=== PATIENT | female | born 1985 | race Caucasian/White ===

== ENCOUNTER 2018-02-02 19:31 | Emergency (ER) | payer OTHER ==
[2018-02-02 19:36] VITALS: BP 113/68
--- NOTE | 2018-02-02 19:45 | ED Physician Documentation ---
PD HPI FEMALE - Stated complaint Stated Complaint: FEM - Chief complaint Chief Complaint: UTI - History obtained from History obtained from: Patient - History of Present Illness Timing - onset: Yesterday Timing - duration: Days (2) Timing - details: Gradual onset, Still present Associated symptoms: Vaginal bleeding (spotting), Dysuria, Urinary frequency. No: Abdominal pain, Vaginal pain, Vaginal discharge Contributing factors: IUD Similar symptoms before: Diagnosis (UTI) Review of Systems Constitutional: denies: Fever, Chills, Myalgias : reports: Dysuria, Frequency. denies: Discharge Skin: denies: Rash, Lesions Musculoskeletal: denies: Back pain PD PAST MEDICAL HISTORY - Past Medical History Past Medical History: Yes Cardiovascular: None Respiratory: None Endocrine/Autoimmune: None GI: Crohn's disease [employer]: None : None HEENT: None Psych: Depression, Anxiety Musculoskeletal: None Derm: None - Past Surgical History Past Surgical History: Yes General: Other HEENT: Rhinoplasty - Present Medications Home Medications: Ambulatory Orders Medication Instructions Recorded Confirmed Cetirizine [ZyrTEC] 10 mg PO DAILY 07/30/15 05/10/17 DULoxetine [Cymbalta] 30 mg PO DAILY 07/30/15 05/10/17 Prazosin [Minipress] 1 mg PO QPM 07/30/15 05/10/17 Fluticasone [Flonase] 1 sprays CHAR BID 05/10/17 05/10/17 Phenazopyridine [Pyridium] 100 mg PO TID PRN #15 tablet 02/02/18 Sulfamethox/Trimeth 800/160 1 each PO BID #14 tablet 02/02/18 [Bactrim Ds 800/160] Ustekinumab [Stelara] 45 mg SUBQ ONCE 02/02/18 02/02/18 - Allergies Allergies/Adverse Reactions: Allergies Allergy/AdvReac Type Severity Reaction Status Date / Time olopatadine [From Patanol] Allergy Edema Verified 02/02/18 19:36 sumatriptan Allergy Edema Verified 02/02/18 19:36 - Social History Does the pt smoke?: Yes Smoking Status: Current some day smoker Does the pt drink ETOH?: No Does the pt have substance abuse?: No - Immunizations Immunizations are current?: Yes - POLST Patient has POLST: No PD ED PE NORMAL - Vitals Vital signs reviewed: Yes - General General: Alert and oriented X 3, No acute distress, Well developed/nourished - Abdomen Abdomen: Soft, Non tender - Female Female : Deferred - Back Back: No CVA TTP Results - Vitals Vitals: Vital Signs - 24 hr 02/02/18 19:34 Temperature 36.3 C L Heart Rate 89 Respiratory 18 Rate Blood Pressure 113/68 O2 Saturation 100 Oxygen O2 Source Room air PD MEDICAL DECISION MAKING - ED course Complexity details: reviewed results (UA is c/w enough for UTI and c/w her symptoms. ), considered differential, d/w patient Departure - Departure Disposition: Home, Self Care Clinical Impression: Urinary tract infection Qualifiers: Urinary tract infection type: acute cystitis Hematuria presence: without hematuria Qualified Code(s): N30.00 - Acute cystitis without hematuria Condition: Stable Record reviewed to determine appropriate education?: Yes Instructions: ED UTI Cystitis Female Follow-Up: KAREEM FARLEY [Primary Care Provider] - Prescriptions: Phenazopyridine [Pyridium] 100 mg PO TID PRN #15 tablet PRN Reason: Pain Sulfamethox/Trimeth 800/160 [Bactrim Ds 800/160] 1 each PO BID #14 tablet Comments: Drink lots of fluids. Tylenol or ibuprofen if needed for pains. Phenazopyridine if needed for discomfort of urination. Your urine test does look like an infection so we will treated with Bactrim antibiotic twice daily for a week. Recheck if not improving over the next several days. Return if worsening symptoms, fever, vomiting, back pain. Discharge Date/Time: 02/02/18 20:19
[2018-02-02 19:51] LABS: BILIRUBIN,URINE NEGATIVE (NEGATIVE); GLUCOSE, URINE (UA) NEGATIVE (NEGATIVE); KETONES,URINE (UA) NEGATIVE (NEGATIVE); LEUKOCYTE ESTERASE, URINE SMALL (NEGATIVE); NITRITE,URINE NEGATIVE (NEGATIVE); OCCULT BLOOD,URINE LARGE (NEGATIVE); PROTEIN,URINE 100 mg/dL (NEGATIVE); UROBILINOGEN,URINE 0.2 (NORMAL) E.U./dL (NORMAL)
[2018-02-02 19:56] LABS: CLARITY,URINE HAZY (CLEAR); HCG UR QUAL NEGATIVE
[2018-02-02] MEDS ORDERED: NAPROXEN 250 MG TABLET PO STA (20:02)
[2018-02-02] MEDS ORDERED: SULFAMETH/TRIMETH DS 800/160 MG TABLET PO STA (20:02)
[2018-02-02] MEDS ORDERED: PHENAZOPYRIDINE 100 MG TABLET PO STA (20:02)
[2018-02-02 20:04] LABS: AMORPHOUS SEDIMENT,UR Moderate /LPF; BACTERIA,URINE Few /HPF (None Seen); SQUAMOUS EPITHELIAL CELL,UR FEW Squamous (<= Few)
--- NOTE | 2018-02-05 05:22 | ED Physician Documentation ---
ED Addendum - Addendum Addendum: 02/05/18 05:20 Chart accessed for culture review. Urine cultures positive for staphylococcus saprophyticus; bactrim not included in sensitivity testing. Recommend discontinue bactrim and start macrobid 100mg (1 tab PO BID x 5 days), as sensitivities indicate sensitivity to macrobid
== END 2018-02-02 20:19 | disposition home or self-care (01) ==
LOC: ED 19:31
DX: N30.00 Acute cystitis without hematuria (principal); B95.8 Unspecified staphylococcus as the cause of diseases classified elsewhere; F17.200 Nicotine dependence, unspecified, uncomplicated
CPT/HCPCS: 81001; 81025; 87077; 87086; 87181; 99283; A9270; 81003

== ENCOUNTER 2018-02-27 19:43 | Emergency (ER) | payer OTHER ==
[2018-02-27 20:18] LABS: BILIRUBIN,URINE NEGATIVE (NEGATIVE); GLUCOSE, URINE (UA) NEGATIVE (NEGATIVE); KETONES,URINE (UA) NEGATIVE (NEGATIVE); LEUKOCYTE ESTERASE, URINE NEGATIVE (NEGATIVE); NITRITE,URINE NEGATIVE (NEGATIVE); OCCULT BLOOD,URINE MODERATE (NEGATIVE); PH,URINE 6.5 PH (5.0-7.5); PROTEIN,URINE TRACE mg/dL (NEGATIVE); UROBILINOGEN,URINE 0.2 (NORMAL) E.U./dL (NORMAL)
[2018-02-27 20:19] LABS: CLARITY,URINE CLEAR (CLEAR); HCG UR QUAL NEGATIVE
[2018-02-27 20:27] LABS: BACTERIA,URINE None Seen /HPF (None Seen); SQUAMOUS EPITHELIAL CELL,UR FEW Squamous (<= Few)
[2018-02-27] MEDS ORDERED: cephALEXin 250 MG CAPSULE PO STA (20:36)
--- NOTE | 2018-02-27 20:39 | ED Physician Documentation ---
PD HPI FEMALE - Stated complaint Stated Complaint: FEMALE - Chief complaint Chief Complaint: UTI - History obtained from History obtained from: Patient - Additional information Additional information: 32-year-old female presents the emergency department with reports of dysuria which started yesterday. Patient reports increased frequency, suprapubic pain and dysuria. Similar to a recent episode where she had a urinary tract infection, the patient was placed on Macrobid and her symptoms had improved.The patient currently is denying fevers or chills. The patient denies new sexual partners or concern for STI. No vaginal discharge or change in odor. Symptoms are described as moderate. No other associated symptoms. No relieving factors. 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 : None HEENT: None Psych: Depression, Anxiety Musculoskeletal: None Derm: None - Past Surgical History Past Surgical History: Yes General: Other HEENT: Rhinoplasty - Present Medications Home Medications: Ambulatory Orders Medication Instructions Recorded Confirmed Cetirizine [ZyrTEC] 10 mg PO DAILY 07/30/15 05/10/17 DULoxetine [Cymbalta] 30 mg PO DAILY 07/30/15 05/10/17 Prazosin [Minipress] 1 mg PO QPM 07/30/15 05/10/17 Fluticasone [Flonase] 1 sprays CHAR BID 05/10/17 05/10/17 Phenazopyridine [Pyridium] 100 mg PO TID PRN #15 tablet 02/02/18 Sulfamethox/Trimeth 800/160 1 each PO BID #14 tablet 02/02/18 [Bactrim Ds 800/160] Ustekinumab [Stelara] 45 mg SUBQ ONCE 02/02/18 02/02/18 Cephalexin [Keflex] 500 mg PO BID #14 capsule 02/27/18 - Allergies Allergies/Adverse Reactions: Allergies Allergy/AdvReac Type Severity Reaction Status Date / Time olopatadine [From Patanol] Allergy Edema Verified 02/27/18 19:52 sumatriptan Allergy Edema Verified 02/27/18 19:52 - Social History Does the pt smoke?: Yes Smoking Status: Current every day smoker Does the pt drink ETOH?: No Does the pt have substance abuse?: No - Immunizations Immunizations are current?: Yes - POLST Patient has POLST: No PD ED PE NORMAL - General General: Alert and oriented X 3, No acute distress - HEENT HEENT: Atraumatic, PERRL, EOMI, Ears normal, Moist mucous membranes - Cardiac Cardiac: RRR, Strong equal pulses - Respiratory Respiratory: No respiratory distress - Abdomen Abdomen: Soft, Non tender, Non distended - Back Back: No CVA TTP - Derm Derm: Normal color - Extremities Extremities: No deformity - Neuro Neuro: Alert and oriented X 3, Normal speech - Psych Psych: Normal affect Results - Vitals Vitals: Vital Signs - 24 hr 02/27/18 19:47 Temperature 36.4 C L Heart Rate 96 Respiratory 16 Rate Blood Pressure 136/68 H O2 Saturation 99 Oxygen O2 Source Room air - Labs Labs: Laboratory Tests 02/27/18 20:08 Urine Color YELLOW Urine Clarity CLEAR Urine pH 6.5 Ur Specific [place] 1.025 Urine Protein TRACE Urine Glucose (UA) NEGATIVE Urine Ketones NEGATIVE Urine Occult Blood MODERATE H Urine Nitrite NEGATIVE Urine Bilirubin NEGATIVE Urine Urobilinogen 0.2 (NORMAL) Ur Leukocyte Esterase NEGATIVE Urine RBC 6-10 H Urine WBC 4-5 Ur Squamous Epith Cells FEW Squamous Urine Bacteria None Seen Ur Microscopic Review INDICATED Urine Culture Comments NOT INDICATED Urine HCG, Qual NEGATIVE PD MEDICAL DECISION MAKING - ED course ED course: The patient will be treated for acute cystitis, patient replaced on a course of oral Keflex. The patient currently appears appropriate for outpatient management. There is no clinical evidence of pyelonephritis or sepsis. The patient denies any concern for STI's. I discussed warning signs and recommended returning to the emergency department for any worsening or concerns. Departure - Departure Disposition: 01 Home, Self Care Clinical Impression: Cystitis Condition: Good Instructions: ED UTI Cystitis Female Follow-Up: KAREEM FARLEY [Primary Care Provider] - Within 1 week Prescriptions: Cephalexin [Keflex] 500 mg PO BID #14 capsule Comments: Please follow-up with primary care for further workup and management of your symptoms. If your symptoms are not improving you may need a referral to the urologist for further Investigation of your dysuria. Please return to the emergency department immediately for any worsening or any concerns.
[2018-02-27 20:52] VITALS: BP 120/58
== END 2018-02-27 20:52 | disposition home or self-care (01) ==
LOC: ED 19:43
DX: N30.90 Cystitis, unspecified without hematuria (principal); F17.200 Nicotine dependence, unspecified, uncomplicated
CPT/HCPCS: 81001; 81025; 87086; 87491; 87591; 99283; A9270; 81003

== ENCOUNTER 2019-05-27 19:24 | Emergency (ER) | payer OTHER ==
[2019-05-27 19:31] VITALS: BP 123/84
[2019-05-27] MEDS ORDERED: HYDROcod/ACETAM 5/325 MG TABLET PO STA (19:41)
[2019-05-27] MEDS ORDERED: methocarbamoL 500 MG TABLET PO STA (19:41)
--- NOTE | 2019-05-27 19:45 | ED Physician Documentation ---
History of Present Illness - Stated complaint Stated Complaint: NECK PX - Chief complaint Chief Complaint: Heent - History obtained from History obtained from: Patient - History of Present Illness Timing: How many days ago (2) Pain level max: 8 Pain level now: 8 - Additonal information Additional information: 33-year-old female presents to the emergency department left-sided neck pain. Started after she twisted her head too far while hugging someone. Worse with movement and better with rest. No numbness or tingling. Has been taking Motrin and Tylenol without relief. States it feels like a spasm. Patient is not , breast-feeding or trying to become . 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 : None HEENT: None Psych: Depression, Anxiety Musculoskeletal: None Derm: None - Past Surgical History Past Surgical History: Yes General: Other HEENT: Rhinoplasty - Present Medications Home Medications: Ambulatory Orders Medication Instructions Recorded Confirmed Cetirizine [ZyrTEC] 10 mg PO DAILY 07/30/15 05/10/17 DULoxetine [Cymbalta] 30 mg PO DAILY 07/30/15 05/10/17 Prazosin [Minipress] 1 mg PO QPM 07/30/15 05/10/17 Fluticasone [Flonase] 1 sprays CHAR BID 05/10/17 05/10/17 Phenazopyridine [Pyridium] 100 mg PO TID PRN #15 tablet 02/02/18 Sulfamethox/Trimeth 800/160 1 each PO BID #14 tablet 02/02/18 [Bactrim Ds 800/160] Ustekinumab [Stelara] 45 mg SUBQ ONCE 02/02/18 02/02/18 Cephalexin [Keflex] 500 mg PO BID #14 capsule 02/27/18 Hydrocodone/Acetaminophen 1 - 2 each PO Q6H PRN #14 tablet 05/27/19 [Hydrocodon-Acetaminophen 5-325] methocarbamoL [Robaxin] 500 mg PO Q6H PRN #14 tablet 05/27/19 - Allergies Allergies/Adverse Reactions: Allergies Allergy/AdvReac Type Severity Reaction Status Date / Time olopatadine [From Patanol] Allergy Edema Verified 05/27/19 19:26 sumatriptan Allergy Edema Verified 05/27/19 19:26 - Social History Does the pt smoke?: Yes Smoking Status: Current every day smoker Does the pt drink ETOH?: No Does the pt have substance abuse?: No - Immunizations Immunizations are current?: Yes - POLST Patient has POLST: No PD ED PE NORMAL - Vitals Vital signs reviewed: Yes - General General: Alert and oriented X 3, No acute distress - HEENT HEENT: PERRL, Moist mucous membranes - Neck Neck: Supple, no meningeal sign, No bony TTP (No midline tenderness. No step- off or deformity. There is paraspinal spasm left paracervical. Neurovascular intact), No bruit - Cardiac Cardiac: RRR - Respiratory Respiratory: No respiratory distress, Clear bilaterally - Derm Derm: Warm and dry - Neuro Neuro: Alert and oriented X 3, mold shifter 2-12 intact, No motor deficit, No sensory deficit, Normal speech Eye Opening: Spontaneous Motor: Obeys Commands Verbal: Oriented GCS Score: 15 - Psych Psych: Normal mood, Normal affect Results - Vitals Vitals: Vital Signs - 24 hr 05/27/19 19:27 Temperature 36.8 C Heart Rate 67 Respiratory 14 Rate Blood Pressure 123/84 H O2 Saturation 100 Oxygen O2 Source Room air PD MEDICAL DECISION MAKING - ED course Complexity details: reviewed results, re-evaluated patient, considered differential, d/w patient ED course: Patient with a left-sided neck spasm. Will place on muscle relaxants and pain medication for home. Continue gentle stretching at home as well. Patient counseled regarding signs and symptoms for which I believe and urgent re- evaluation would be necessary. Patient with good understanding of and agreement to plan and is comfortable going home at this time This document was made in part using voice recognition software. While efforts are made to proofread this document, sound alike and grammatical errors may occur. Departure - Departure Disposition: 01 Home, Self Care Clinical Impression: Neck muscle spasm Condition: Good Instructions: ED Spasm Neck No Injury Follow-Up: JASIEL GARCIAS MD [Primary Care Provider] - Within 1 week Prescriptions: Hydrocodone/Acetaminophen [Hydrocodon-Acetaminophen 5-325] 1 - 2 each PO Q6H PRN #14 tablet PRN Reason: pain methocarbamoL [Robaxin] 500 mg PO Q6H PRN #14 tablet PRN Reason: neck pain Comments: Return if you worsen. Follow-up with your doctor for further care. Continue gentle stretching at home. Do not drive or operate heavy machinery while taking the Robaxin or Vicodin. Do not drink alcohol or drive while on narcotic pain medicine. Note that many narcotic pain relievers also contain tylenol/acetaminophen. Please ensure that your total dose of acetaminophen from all sources does not exceed 3 grams (3000mg) per day. You may constipated on this medication, take a stool softener such as "Colace" twice a day while you are on it. Also recommend a ocsl-tnm-cdaverz laxative such as senna or MiraLAX any day that you do not have a bowel movement. If you received narcotic pain medication in the emergency department, do not drive or operate machinery for the next 24 hours.
== END 2019-05-27 19:50 | disposition home or self-care (01) ==
LOC: ED 19:24
DX: M62.838 Other muscle spasm (principal); F17.200 Nicotine dependence, unspecified, uncomplicated
CPT/HCPCS: 99282; 99284; A9270

== ENCOUNTER 2019-10-08 12:49 | Emergency (ER) | payer OTHER ==
[2019-10-08] MEDS ORDERED: oxyCODONE 5 MG TABLET PO STA (13:20)
[2019-10-08] MEDS ORDERED: ONDANSETRON ODT 4 MG TABLET TL STA (13:20)
--- NOTE | 2019-10-08 13:22 | ED Physician Documentation ---
PD HPI ABD PAIN - Stated complaint Stated Complaint: LT ABD PX, NAUSEA,FAINT - Chief complaint Chief Complaint: Abd Pain - History obtained from History obtained from: Patient - Additional information Additional information: 34-year-old woman with history of ovarian cysts presents with Chronic left pelvic pain which became worse over the last week and a half and really bad today. Associated with nausea and vomiting today. She also has a history of conservatively managed Crohn's disease. She has a Mirena IUD in place. No vaginal bleeding. Review of Systems Ten Systems: 10 systems reviewed and negative Constitutional: denies: Fever, Chills, Myalgias GI: reports: Abdominal Pain, Nausea, Vomiting, Constipation, Diarrhea. 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 HEENT: None Psych: Depression, Anxiety Musculoskeletal: None Derm: None - Past Surgical History Past Surgical History: Yes General: Other HEENT: Rhinoplasty - Present Medications Home Medications: Ambulatory Orders Medication Instructions Recorded Confirmed Cetirizine [ZyrTEC] 10 mg PO DAILY 07/30/15 05/10/17 DULoxetine [Cymbalta] 30 mg PO DAILY 07/30/15 05/10/17 Prazosin [Minipress] 1 mg PO QPM 07/30/15 05/10/17 Fluticasone [Flonase] 1 sprays CHAR BID 05/10/17 05/10/17 Phenazopyridine [Pyridium] 100 mg PO TID PRN #15 tablet 02/02/18 Sulfamethox/Trimeth 800/160 1 each PO BID #14 tablet 02/02/18 [Bactrim Ds 800/160] Ustekinumab [Stelara] 45 mg SUBQ ONCE 02/02/18 02/02/18 Cephalexin [Keflex] 500 mg PO BID #14 capsule 02/27/18 Hydrocodone/Acetaminophen 1 - 2 each PO Q6H PRN #14 tablet 05/27/19 [Hydrocodon-Acetaminophen 5-325] methocarbamoL [Robaxin] 500 mg PO Q6H PRN #14 tablet 05/27/19 Oxycodone HCl/Acetaminophen 1 - 2 each PO Q6H PRN #14 tablet 10/08/19 [Percocet 5-325 mg Tablet] - Allergies Allergies/Adverse Reactions: Allergies Allergy/AdvReac Type Severity Reaction Status Date / Time olopatadine [From Patanol] Allergy Edema Verified 10/08/19 13:00 sumatriptan Allergy Edema Verified 10/08/19 13:00 - Social History Does the pt smoke?: Yes Smoking Status: Current every day smoker Does the pt drink ETOH?: No Does the pt have substance abuse?: No - Family History Family history: reports: Non contributory - Immunizations Immunizations are current?: Yes - POLST Patient has POLST: No PD ED PE NORMAL - Vitals Vital signs reviewed: Yes - General General: Alert and oriented X 3, Other (Appears uncomfortable) - HEENT HEENT: PERRL, EOMI - Neck Neck: Supple, no meningeal sign, No bony TTP, No bruit - Cardiac Cardiac: RRR, No murmur - Respiratory Respiratory: No respiratory distress, Clear bilaterally - Abdomen Abdomen: Normal bowel sounds, Other (Mild left pelvic tenderness without surgical signs) - Back Back: No CVA TTP, No spinal TTP - Derm Derm: Normal color, Warm and dry - Extremities Extremities: No edema, No calf tenderness / cord - Neuro Neuro: Alert and oriented X 3, Normal speech Results - Vitals Vitals: Vital Signs - 24 hr 10/08/19 10/08/19 12:56 16:00 Temperature 36.4 C L Heart Rate 75 70 Respiratory 14 20 Rate Blood Pressure 111/62 121/70 O2 Saturation 100 100 Oxygen O2 Source Room air - Labs Labs: Laboratory Tests 10/08/19 13:25 Urine Color YELLOW Urine Clarity CLEAR Urine pH 8.0 H Ur Specific [place] 1.015 Urine Protein NEGATIVE Urine Glucose (UA) NEGATIVE Urine Ketones NEGATIVE Urine Occult Blood NEGATIVE Urine Nitrite NEGATIVE Urine Bilirubin NEGATIVE Urine Urobilinogen 0.2 (NORMAL) Ur Leukocyte Esterase NEGATIVE Ur Microscopic Review NOT INDICATED Urine Culture Comments NOT INDICATED Urine HCG, Qual NEGATIVE - Rads (name of study) Pelvic ultrasound Radiology: EMP read contemporaneously (Septated left ovarian cyst measuring 1.7 x 1.3 x 1.2 cm, small intrauterine mural fibroid. Appropriately positioned IUD.) PD MEDICAL DECISION MAKING - ED course ED course: 34-year-old woman has exacerbation of chronic pelvic pain, always on the left. No evidence of torsion on ultrasound and her pain was well controlled by oxycodone here. Departure - Departure Disposition: 01 Home, Self Care Clinical Impression: Ovarian cyst Qualifiers: Laterality: left Qualified Code(s): N83.202 - Unspecified ovarian cyst, left side Condition: Good Record reviewed to determine appropriate education?: Yes Instructions: ED Cyst Ovarian Follow-Up: [facility] [Provider Group] Prescriptions: Oxycodone HCl/Acetaminophen [Percocet 5-325 mg Tablet] 1 - 2 each PO Q6H PRN #14 tablet PRN Reason: pain Comments: As discussed I recommend follow-up with gynecology, at a minimum repeat ultrasound in 6 weeks. Return for new or worsening symptoms. Do not drink or drive while taking narcotic pain medication. Note that many narcotic pain relievers also contain Tylenol/acetaminophen. Please ensure that your total dose of acetaminophen from all sources does not exceed 3 g (3000 mg) per day. You may get constipated while on this medication. Take a stool softener such as Colace twice a day while you are on it. Also add an [id number] laxative such as senna or MiraLAX on any day that you do not have a bowel movement. If you received a narcotic pain medication or sedative while in the emergency department, do not drive for the next 24 hours.
[2019-10-08 13:41] LABS: BILIRUBIN,URINE NEGATIVE (NEGATIVE); GLUCOSE, URINE (UA) NEGATIVE (NEGATIVE); KETONES,URINE (UA) NEGATIVE (NEGATIVE); LEUKOCYTE ESTERASE, URINE NEGATIVE (NEGATIVE); NITRITE,URINE NEGATIVE (NEGATIVE); OCCULT BLOOD,URINE NEGATIVE (NEGATIVE); PROTEIN,URINE NEGATIVE (NEGATIVE); UROBILINOGEN,URINE 0.2 (NORMAL) E.U./dL (NORMAL)
[2019-10-08 13:45] LABS: CLARITY,URINE CLEAR (CLEAR); HCG UR QUAL NEGATIVE
[2019-10-08 16:02] VITALS: BP 121/70
--- NOTE | 2019-10-08 16:02 | Ultrasound Report ---
PROCEDURE: Pelvic w/Transvag+Doppler Comp INDICATIONS: pelvic pain, R TECHNIQUE: Real-time scanning was performed of the pelvic organs, with image documentation. Additional endovagi nal scanning was necessary due to incomplete visualization of the adnexal and endometrial structures by transabdominal scanning. COMPARISON: None. FINDINGS: Transabdominal scanning: Limited scanning through the kidneys shows no hydronephrosis. No pathologi c free abdominal or pelvic fluid. Endovaginal scanning: Uterus: Uterus is normal in size at 9.7 x 4.4 x 5.4 cm. The endometrium measures 0.5 cm in combin ed thickness. There is a small fundal intramural fibroid measuring up to 0.8 x 0.8 x 0.7 cm. An IUD i s demonstrated in appropriate position extending into the fundal endometrium. Ovaries: The right ovary measures 2.3 x 2.3 x 2.1 cm and the left ovary measures 3.6 x 2.6 x 3.2 cm. There is a slightly thick-walled cyst in the left ovary measuring up to 1.7 x 1.3 x 1.2 cm with thin internal septations suggestive of a hemorrhagic cyst. IMPRESSION: 1. Septated left ovarian cyst likely representing a hemorrhagic cyst. Recommend follow-up ultrasound in 6 weeks to demonstrate resolution if clinically indicated. 2. Small intramural fibroid measuring up to 0.8 cm. 3. IUD appears in appropriate position within the uterus. Reviewed by: Pk Flores MD on 10/08/2019 4:01 PM PDT Approved by: Pk Flores MD on 10/08/2019 4:01 PM PDT Station ID: [id number]
== END 2019-10-08 16:28 | disposition home or self-care (01) ==
LOC: ED 12:49
DX: N83.202 Unspecified ovarian cyst, left side (principal); D25.1 Intramural leiomyoma of uterus; R11.2 Nausea with vomiting, unspecified; R19.7 Diarrhea, unspecified; Z97.5 Presence of (intrauterine) contraceptive device; Z87.19 Personal history of other diseases of the digestive system; F17.200 Nicotine dependence, unspecified, uncomplicated
CPT/HCPCS: 76830; 76856; 81003; 81025; 93975; 99284; 99285; A9270; Q0162; 81001; 87086

== ENCOUNTER 2019-10-26 16:45 | Outpatient (CLI) | payer OTHER | END 2019-10-26 23:59 | disposition home or self-care (01) | LOC: LAB.S 16:45 | PROVIDERS: ATTEND Physician Assistant Medical | DX: N39.0 Urinary tract infection, site not specified (principal) | CPT/HCPCS: 87086; 87181 ==

== ENCOUNTER 2019-12-17 07:00 | Outpatient (CLI) | payer OTHER | END 2019-12-17 23:59 | disposition home or self-care (01) | LOC: LAB.R 07:00 | PROVIDERS: ATTEND Family Medicine | DX: R30.0 Dysuria (principal); N39.8 Other specified disorders of urinary system | CPT/HCPCS: 87077; 87086 ==

== ENCOUNTER 2019-12-18 19:33 | Emergency (ER) | payer OTHER ==
--- NOTE | 2019-12-18 19:50 | ED Physician Documentation ---
History of Present Illness - Stated complaint Stated Complaint: FEMALE - Chief complaint Chief Complaint: UTI - History obtained from History obtained from: Patient - Additonal information Additional information: Patient is a 34-year-old female presents with a chief complaint of dysuria and urinary frequency. Review of Systems Constitutional: reports: Reviewed and negative Eyes: reports: Reviewed and negative Ears: reports: Reviewed and negative Nose: reports: Reviewed and negative Throat: reports: Reviewed and negative Cardiac: reports: Reviewed and negative Respiratory: reports: Reviewed and negative GI: reports: Reviewed and negative : reports: Dysuria, Frequency Skin: reports: Reviewed and negative Musculoskeletal: reports: Reviewed and negative Neurologic: reports: Reviewed and negative Psychiatric: reports: Reviewed and negative Endocrine: reports: Reviewed and negative Immunocompromised: reports: Reviewed and negative PD PAST MEDICAL HISTORY - Past Medical History Past Medical History: Yes Cardiovascular: None Respiratory: None Endocrine/Autoimmune: None GI: Crohn's disease [employer]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 : None HEENT: None Psych: Depression, Anxiety Musculoskeletal: None Derm: None - Past Surgical History Past Surgical History: Yes General: Other HEENT: Rhinoplasty - Present Medications Home Medications: Ambulatory Orders Medication Instructions Recorded Confirmed Cetirizine [ZyrTEC] 10 mg PO DAILY 07/30/15 05/10/17 DULoxetine [Cymbalta] 30 mg PO DAILY 07/30/15 05/10/17 Prazosin [Minipress] 1 mg PO QPM 07/30/15 05/10/17 Fluticasone [Flonase] 1 sprays CHAR BID 05/10/17 05/10/17 Phenazopyridine [Pyridium] 100 mg PO TID PRN #15 tablet 02/02/18 Sulfamethox/Trimeth 800/160 1 each PO BID #14 tablet 02/02/18 [Bactrim Ds 800/160] Ustekinumab [Stelara] 45 mg SUBQ ONCE 02/02/18 02/02/18 Cephalexin [Keflex] 500 mg PO BID #14 capsule 02/27/18 Hydrocodone/Acetaminophen 1 - 2 each PO Q6H PRN #14 tablet 05/27/19 [Hydrocodon-Acetaminophen 5-325] methocarbamoL [Robaxin] 500 mg PO Q6H PRN #14 tablet 05/27/19 Oxycodone HCl/Acetaminophen 1 - 2 each PO Q6H PRN #14 tablet 10/08/19 [Percocet 5-325 mg Tablet] Nitrofurantoin [Macrobid] 100 mg PO BID 5 Days #10 capsule 12/18/19 Phenazopyridine [Pyridium] 100 mg PO TID PRN #3 tablet 12/18/19 - Allergies Allergies/Adverse Reactions: Allergies Allergy/AdvReac Type Severity Reaction Status Date / Time olopatadine [From Patanol] Allergy Edema Verified 12/18/19 19:42 sumatriptan Allergy Edema Verified 12/18/19 19:42 - Social History Does the pt smoke?: No Smoking Status: Never smoker Does the pt drink ETOH?: Yes Does the pt have substance abuse?: Yes Substance Use and Type: Marijuana - Immunizations Immunizations are current?: Yes - POLST Patient has POLST: No PD ED PE NORMAL - Vitals Vital signs reviewed: Yes - General General: Alert and oriented X 3, No acute distress, Well developed/nourished - HEENT HEENT: Atraumatic, PERRL - Neck Neck: Supple, no meningeal sign - Cardiac Cardiac: RRR, No murmur, Strong equal pulses - Respiratory Respiratory: Clear bilaterally - Abdomen Abdomen: Normal bowel sounds, Soft, Non tender, Non distended, No organomegaly - Back Back: No CVA TTP, No spinal TTP - Derm Derm: Normal color, Warm and dry, No rash - Extremities Extremities: No deformity, No tenderness to palpate, Normal ROM s pain, No edema, No calf tenderness / cord - Neuro Neuro: Alert and oriented X 3, fitness assistant 2-12 intact, No motor deficit, No sensory deficit, Normal speech - Psych Psych: Normal mood, Normal affect Results - Vitals Vitals: Vital Signs - 24 hr 12/18/19 19:40 Temperature 36.7 C Heart Rate 83 Respiratory 18 Rate Blood Pressure 110/60 O2 Saturation 100 Oxygen O2 Source Room air - Labs Labs: Laboratory Tests 12/18/19 19:45 Urine Color YELLOW Urine Clarity HAZY Urine pH 7.0 Ur Specific [place] 1.020 Urine Protein NEGATIVE Urine Glucose (UA) NEGATIVE Urine Ketones TRACE Urine Occult Blood SMALL H Urine Nitrite POSITIVE H Urine Bilirubin NEGATIVE Urine Urobilinogen 0.2 (NORMAL) Ur Leukocyte Esterase TRACE H Ur Microscopic Review INDICATED Urine Culture Comments Not Reportable PD MEDICAL DECISION MAKING - ED course Complexity details: reviewed results, re-evaluated patient, considered differential (acute cystitis), d/w patient Departure - Departure Disposition: 01 Home, Self Care Clinical Impression: Urinary tract infection Qualifiers: Urinary tract infection type: site unspecified Hematuria presence: without hematuria Qualified Code(s): N39.0 - Urinary tract infection, site not specified Condition: Stable Instructions: ED UTI Cystitis Female Follow-Up: Juan Jose Lopez MD [Primary Care Provider] - Prescriptions: Nitrofurantoin [Macrobid] 100 mg PO BID 5 Days #10 capsule Phenazopyridine [Pyridium] 100 mg PO TID PRN #3 tablet PRN Reason: Bladder Spasms Comments: Please follow-up with your primary care provider this week for recheck. Take antibiotics as directed. Return to emergency department with any concerns.
[2019-12-18 19:55] LABS: BILIRUBIN,URINE NEGATIVE (NEGATIVE); GLUCOSE, URINE (UA) NEGATIVE (NEGATIVE); KETONES,URINE (UA) TRACE mg/dL (NEGATIVE); LEUKOCYTE ESTERASE, URINE TRACE (NEGATIVE); NITRITE,URINE POSITIVE (NEGATIVE); OCCULT BLOOD,URINE SMALL (NEGATIVE); PROTEIN,URINE NEGATIVE (NEGATIVE); UROBILINOGEN,URINE 0.2 (NORMAL) E.U./dL (NORMAL)
[2019-12-18 19:58] LABS: CLARITY,URINE HAZY (CLEAR)
[2019-12-18] MEDS ORDERED: PHENAZOPYRIDINE 100 MG TABLET PO STA (20:04)
[2019-12-18] MEDS ORDERED: NITROFURANTOIN MACRO 100 MG CAPSULE PO STA (20:04)
[2019-12-18 20:06] LABS: BACTERIA,URINE Many /HPF (None Seen); HCG UR QUAL NEGATIVE; SQUAMOUS EPITHELIAL CELL,UR FEW Squamous (<= Few)
[2019-12-18 20:33] VITALS: BP 112/81
== END 2019-12-18 20:33 | disposition home or self-care (01) ==
LOC: ED 19:33
DX: N39.0 Urinary tract infection, site not specified (principal)
CPT/HCPCS: 81001; 81025; 87086; 99283; A9270; 81003

== ENCOUNTER 2020-01-20 08:00 | Outpatient (CLI) | payer OTHER | END 2020-01-20 23:59 | disposition home or self-care (01) | LOC: LAB.R 08:00 | PROVIDERS: ATTEND Obstetrics & Gynecology | DX: N30.90 Cystitis, unspecified without hematuria (principal) | CPT/HCPCS: 87086 ==

== ENCOUNTER 2020-02-23 14:59 | Outpatient (CLI) | payer OTHER ==
--- NOTE | 2020-02-23 17:43 | Ultrasound Report ---
PROCEDURE: Pelvic w/Transvaginal INDICATIONS: LT OVARIAN CYST, DYSPAREUNIA TECHNIQUE: Real-time scanning was performed of the pelvic organs, with image documentation. Additional endovagi nal scanning was necessary due to incomplete visualization of the adnexal and endometrial structures by transabdominal scanning. COMPARISON: Pelvic ultrasound 10/08/2019. FINDINGS: Transabdominal scanning: Limited scanning through the kidneys shows no hydronephrosis. No pathologi c free abdominal or pelvic fluid. Endovaginal scanning: Uterus: Uterus is normal in size at 9.0 x 3.9 x 4.9 cm. The endometrium measures 3 mm in combined t hickness. There is a fundal focus of heterogeneous echogenicity measuring 8 x 8 x 7 mm, stable uday red to prior exam. Intrauterine device is present in appropriate position. Ovaries: Right ovary measures 3.0 x 2.1 x 3.2 cm, 10.4 cc. Left ovary measures 2.4 x 1.9 x 1.8 cm, v olume 4.2 cc. Follicles are noted bilaterally. There is a subcentimeter focus of increased echogenici ty within the right ovary, too small to definitively characterize. This could represent a small calci fication. IMPRESSION: Bilateral follicles. Previous left ovarian cyst is no longer visualized. Reviewed by: Destini Salas MD on 02/23/2020 5:41 PM PST Approved by: Destini Salas MD on 02/23/2020 5:41 PM PST Station ID: [id number]
== END 2020-02-23 15:00 | disposition home or self-care (01) ==
LOC: DI 14:59
PROVIDERS: ATTEND Obstetrics & Gynecology
DX: N83.292 Other ovarian cyst, left side (principal); N94.12 Deep dyspareunia
CPT/HCPCS: 76830; 76856

== ENCOUNTER 2020-04-14 08:00 | Outpatient (CLI) | payer OTHER ==
[2020-04-14 18:05] LABS: BASOPHILS % (AUTO) 0.4 %; EOSINOPHILS # (AUTO) 0.2 10^3/uL (0.0-0.7); HGB - HEMOGLOBIN 13.4 g/dL (12.0-16.0); LYMPHOCYTES % (AUTO) 22.1 %; MEAN CORPUSCULAR HEMOGLOBIN 30.3 pg (27.0-31.0); MEAN CORPUSCULAR HGB CONC 32.3 g/dL (32.0-36.0); MEAN CORPUSCULAR VOLUME 93.9 fL (81.0-99.0); MEAN PLATELET VOLUME 9.8 fL (7.9-10.8); MONOCYTES # (AUTO) 0.4 10^3/uL (0.0-1.0); MONOCYTES % (AUTO) 7.9 %; NEUTROPHILS % (AUTO) 64.4 %; PLT - PLATELET COUNT 235 10^3/uL (130-450); RED BLOOD COUNT 4.42 10^6/uL (4.20-5.40); WHITE BLOOD COUNT 4.6 x10^3/uL (4.8-10.8)
[2020-04-14 18:38] LABS: ALBUMIN 3.8 g/dL (3.2-5.5); ALBUMIN/GLOBULIN RATIO 1.2 (1.0-2.2); ALKALINE PHOSPHATASE 34 IU/L (42-121); ALT ALANINE AMINOTRANSFERASE 18 IU/L (10-60); AST ASPARTATE AMINOTRANSFERASE 19 IU/L (10-42); BILIRUBIN,TOTAL 0.6 mg/dL (0.2-1.0); BUN - BLOOD UREA NITROGEN 19 mg/dL (6-20); CALCIUM 8.8 mg/dL (8.5-10.3); CARBON DIOXIDE - CO2 27 mmol/L (21-32); CHLORIDE 103 mmol/L (101-111); CREATININE 0.6 mg/dL (0.4-1.0); GLUCOSE 103 mg/dL (70-100); SODIUM 137 mmol/L (135-145); URIC ACID 3.9 mg/dL (2.6-7.2)
[2020-04-14 18:51] LABS: CRP - C-REACTIVE PROTEIN < 1.0 mg/dL (0-1.0)
[2020-04-14 18:52] LABS: FREE T3 2.82 pg/mL (2.5-3.9)
[2020-04-14 18:53] LABS: THYROID STIMULATING HORMONE 1.76 uIU/mL (0.34-5.60)
[2020-04-14 18:56] LABS: FREE T4 (FREE THYROXINE) 0.74 ng/dL (0.58-1.64)
[2020-04-17 11:22] LABS: ANA SCREEN NEGATIVE (NEGATIVE)
== END 2020-04-14 23:59 | disposition home or self-care (01) ==
LOC: LAB.WCP 08:00
PROVIDERS: ATTEND Family Medicine
DX: F32.9 Major depressive disorder, single episode, unspecified (principal); G35 Multiple sclerosis; K50.90 Crohn's disease, unspecified, without complications; F41.9 Anxiety disorder, unspecified
CPT/HCPCS: 36415; 80050; 84439; 84481; 84550; 85651; 86038; 86140

== ENCOUNTER 2021-06-24 08:00 | Outpatient (CLI) | payer OTHER ==
[2021-06-24 23:18] LABS: BACTERIAL VAGINOSIS DNA POSITIVE (NEGATIVE); CANDIDA GLABRATA DNA NEGATIVE (NEGATIVE); CANDIDA GROUP DNA POSITIVE (NEGATIVE); CANDIDA KRUSEI DNA NEGATIVE (NEGATIVE); TRICHOMONAS VAGINALIS DNA NEGATIVE (NEGATIVE)
[2021-06-24 23:59] LABS: CHLAMYDIA TRACHOMATIS DNA NEGATIVE (NEGATIVE); NEISSERIA GONORRHOEAE DNA NEGATIVE (NEGATIVE); TRICHOMONAS VAGINALIS DNA NEGATIVE (NEGATIVE)
== END 2021-06-24 23:59 | disposition home or self-care (01) ==
LOC: LAB.N 08:00
PROVIDERS: ATTEND Family Medicine
DX: N76.0 Acute vaginitis (principal)
CPT/HCPCS: 81599; 86695; 86696; 87255; 87491; 87529; 87591; 87661; 87801

== ENCOUNTER 2021-10-25 08:00 | Outpatient (CLI) | payer OTHER ==
[2021-10-25 23:10] LABS: CHLAMYDIA TRACHOMATIS DNA NEGATIVE (NEGATIVE); NEISSERIA GONORRHOEAE DNA NEGATIVE (NEGATIVE); TRICHOMONAS VAGINALIS DNA NEGATIVE (NEGATIVE)
[2021-10-26 06:09] LABS: RPR Non Reactive (Non Reactive)
[2021-10-26 07:09] LABS: HCV AB <0.1 s/co ratio (0.0-0.9)
[2021-10-27 03:09] LABS: HIV SCREEN 4TH GENERATION Non Reactive (Non Reactive)
== END 2021-10-25 23:59 | disposition home or self-care (01) ==
LOC: LAB.N 08:00
PROVIDERS: ATTEND Nurse Practitioner
DX: Z11.3 Encounter for screening for infections with a predominantly sexual mode of transmission (principal)
CPT/HCPCS: 86592; 86803; 87389; 87491; 87591; 87661

== ENCOUNTER 2021-12-23 18:07 | Emergency (ER) | payer OTHER ==
--- OUTSIDE RECORDS SUMMARY | 2021-12-23 18:13 | EXTERNAL MEDICAL SUMMARY RPT | Continuity of Care Document ---
:1985 Author Organization [place] Address [address] [place] [address] Phone Allergies and Intolerances date description facility type (no date) [facility] (unknown) (no date) [facility] (unknown) Encounters No information. Functional Status No information. Immunizations No information. Medications date description facility [id number] Baclofen 20 MG Oral Tablet [facility] +0000 Prazosin 1 MG Oral Capsule [facility] [id number]+0000 quetiapine 50 MG Oral Tablet [facility] ospital Problems No information. Procedures date description facility +0000 [facility] [id number]+0000 [facility] Results/Labs test date author facility value unit interpret ation Result panel 1 (unknown) (no (unknown) (unknown) (no value) (units (unk nown) date) unknown) (unknown) (no (unknown) (unknown) (no value) (units (unk nown) date) unknown) (unknown) (no (unknown) (unknown) Date of Service: (units (unknown) date) 10/10/21 unknown) (unknown) (no (unknown) (unknown) (no value) (units (unk nown) date) unknown) (unknown) (no (unknown) (unknown) 0.5 mg PO (units (unkn own) date) BEDTIME PRN unknown) (Reason: sleep) Qty: 10 0RF (unknown) (no (unknown) (unknown) 1 mg PO SEE (units (un known) date) INSTRUCTIONS Qty: unknown) 60 2RF (unknown) (no (unknown) (unknown) 10 mg PO QDAY (units ( unknown) date) Qty: 0 unknown) (unknown) (no (unknown) (unknown) 150 mg PO DAILY (units (unknown) date) unknown) (unknown) (no (unknown) (unknown) 17 g PO DAILY (units ( unknown) date) unknown) (unknown) (no (unknown) (unknown) 3 mg PO DAILY (units ( unknown) date) unknown) (unknown) (no (unknown) (unknown) 30 mg PO QDAY (units ( unknown) date) Qty: 30 2RF unknown) (unknown) (no (unknown) (unknown) 50 mg PO DAILY (units (unknown) date) unknown) (unknown) (no (unknown) (unknown) 50 mg PO Q6H PRN (units (unknown) date) (Reason: pain) unknown) Qty: 10 0RF (unknown) (no (unknown) (unknown) 50,000 unit PO (units (unknown) date) QWEEK unknown) (unknown) (no (unknown) (unknown) 90 mg (units (unkno wn) date) subcutaneously unknown) every 8 weeks (unknown) (no (unknown) (unknown) Allergies (units (unkn own) date) unknown) (unknown) (no (unknown) (unknown) ED Orders (units (unkn own) date) unknown) (unknown) (no (unknown) (unknown) EYES (units (unkno wn) date) unknown) (unknown) (no (unknown) (unknown) Emergency Report (units (unknown) date) unknown) (unknown) (no (unknown) (unknown) Home Medications (units (unknown) date) unknown) (unknown) (no (unknown) (unknown) IN FACE (units (unkno wn) date) unknown) (unknown) (no (unknown) (unknown) [facility] (units (unknown) date) [address]) [place] [address] (unknown) (no (unknown) (unknown) Label Comments: (units (unknown) date) unknown) (unknown) (no (unknown) (unknown) Point of Care (units ( unknown) date) Testing unknown) (unknown) (no (unknown) (unknown) Previous Rx's (units ( unknown) date) unknown) (unknown) (no (unknown) (unknown) RIGIDITY (units (unkno wn) date) unknown) (unknown) (no (unknown) (unknown) Rx Instructions: (units (unknown) date) unknown) (unknown) (no (unknown) (unknown) SWOLLEN (units (unkno wn) date) unknown) (unknown) (no (unknown) (unknown) See Rx (units (unkno wn) date) Instructions unknown) .ROUTE .COMPLEX (unknown) (no (unknown) (unknown) Taking 2mg (units (unk nown) date) unknown) (unknown) (no (unknown) (unknown) Urine Dip (units (unkn own) date) unknown) (unknown) (no (unknown) (unknown) Vital Signs - 8 (units (unknown) date) hr unknown) (unknown) (no (unknown) (unknown) take with (units (unkn own) date) tylenol unknown) (unknown) (no (unknown) (unknown) (no value) (units (unk nown) date) unknown) (unknown) (no (unknown) (unknown) azathioprine 50 (units (unknown) date) mg tablet unknown) (unknown) (no (unknown) (unknown) budesonide 3 mg (units (unknown) date) Capsule,Delayed,E unknown) xtend.Release (unknown) (no (unknown) (unknown) cetirizine 10 MG (units (unknown) date) tablet,chewable unknown) (unknown) (no (unknown) (unknown) duloxetine (units (unk nown) date) [Cymbalta] 30 MG unknown) capsule,delayed release(DR/EC) (unknown) (no (unknown) (unknown) ergocalciferol (units (unknown) date) (vitamin D2) unknown) 50,000 unit Capsule (unknown) (no (unknown) (unknown) lorazepam 0.5 mg (units (unknown) date) tablet unknown) (unknown) (no (unknown) (unknown) polyethylene (units (u nknown) date) glycol 3350 17 unknown) gram/dose powder (unknown) (no (unknown) (unknown) prazosin 1 MG (units ( unknown) date) capsule unknown) (unknown) (no (unknown) (unknown) ranitidine HCl (units (unknown) date) 150 mg tablet unknown) (unknown) (no (unknown) (unknown) tramadol 50 mg (units (unknown) date) tablet unknown) (unknown) (no (unknown) (unknown) ustekinumab (units (un known) date) [Stelara] 90 unknown) mg/mL syringe (unknown) (no (unknown) (unknown) 10/10/21 (units (unkno wn) date) unknown) (unknown) (no (unknown) (unknown) Medication (units (unk nown) date) Instructions unknown) Recorded (unknown) (no (unknown) (unknown) Medication (units (unk nown) date) Instructions unknown) Recorded Confirmed (unknown) (no (unknown) (unknown) tabs (units (unkno wn) date) unknown) (unknown) (no (unknown) (unknown) [id number] (units (unkn own) date) unknown) (unknown) (no (unknown) (unknown) 08/25/17 (units (unkno wn) date) unknown) (unknown) (no (unknown) (unknown) 10/10/21 12:28 (units (unknown) date) unknown) (unknown) (no (unknown) (unknown) 12:20 (units (unkno wn) date) unknown) (unknown) (no (unknown) (unknown) Age/Sex: 36 / F (units (unknown) date) unknown) (unknown) (no (unknown) (unknown) Allergy/AdvReac (units (unknown) date) Type Severity unknown) Reaction Status Date / Time (unknown) (no (unknown) (unknown) Bedside Urine (units ( unknown) date) Bilirubin unknown) - Negative (unknown) (no (unknown) (unknown) Bedside Urine (units ( unknown) date) Glucose unknown) Negative (unknown) (no (unknown) (unknown) Bedside Urine (units ( unknown) date) Ketone - unknown) Negative (unknown) (no (unknown) (unknown) Bedside Urine (units ( unknown) date) Leukocytes unknown) - Negative (unknown) (no (unknown) (unknown) Bedside Urine (units ( unknown) date) Nitrite - unknown) Negative (unknown) (no (unknown) (unknown) Bedside Urine (units ( unknown) date) Occult Blood unknown) +/- (unknown) (no (unknown) (unknown) Bedside Urine (units ( unknown) date) Protein +/- 15 unknown) (unknown) (no (unknown) (unknown) Bedside Urine (units ( unknown) date) Urobilinogen unknown) - Negative (unknown) (no (unknown) (unknown) Bedside Urine pH (units (unknown) date) 6.0 unknown) (unknown) (no (unknown) (unknown) Blood Pressure (units (unknown) date) 132/84 10/10/21 unknown) 12:20 (unknown) (no (unknown) (unknown) Blood Pressure (units (unknown) date) 132/84 unknown) (unknown) (no (unknown) (unknown) Chief Complaint: (units (unknown) date) Psychiatric unknown) Symptoms (unknown) (no (unknown) (unknown) 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 - (units (unknown) date) Bar Examiner unknown) Stat (unknown) (no (unknown) (unknown) Course (units (unkno wn) date) unknown) (unknown) (no (unknown) (unknown) Crohn disease (units ( unknown) date) unknown) (unknown) (no (unknown) (unknown) : 1985 (units (unknown) date) Acct:[id number] unknown) (unknown) (no (unknown) (unknown) Juan Jose Lopez, (units (unknown) date) MD [Primary Care unknown) Provider] - (unknown) (no (unknown) (unknown) Departure (units (unkn own) date) unknown) (unknown) (no (unknown) (unknown) Discharge Plan (units (unknown) date) unknown) (unknown) (no (unknown) (unknown) ER Physician: (units ( unknown) date) Lupis Moreira unknown) (unknown) (no (unknown) (unknown) Esterase (units (unkno wn) date) unknown) (unknown) (no (unknown) (unknown) Exam (units (unkno wn) date) unknown) (unknown) (no (unknown) (unknown) General (units (unkno wn) date) unknown) (unknown) (no (unknown) (unknown) HPI - Psych (units (un known) date) unknown) (unknown) (no (unknown) (unknown) Initial Vital (units ( unknown) date) Signs unknown) (unknown) (no (unknown) (unknown) Initial Vital (units ( unknown) date) Signs: unknown) (unknown) (no (unknown) (unknown) Lab Data (units (unkno wn) date) unknown) (unknown) (no (unknown) (unknown) Labs: (units (unkno wn) date) unknown) (unknown) (no (unknown) (unknown) MDM - Psych (units (un known) date) unknown) (unknown) (no (unknown) (unknown) Medical History (units (unknown) date) (Reviewed unknown) 11/16/20 @ 03:11 by Seth Park DO) (unknown) (no (unknown) (unknown) No Action (units (unkn own) date) unknown) (unknown) (no (unknown) (unknown) No significant (units (unknown) date) past surgical unknown) history (unknown) (no (unknown) (unknown) Ordered: (units (unkno wn) date) unknown) (unknown) (no (unknown) (unknown) Orders (units (unkno wn) date) unknown) (unknown) (no (unknown) (unknown) Oxygen Delivery (units (unknown) date) Method unknown) 10/10/21 12:20 (unknown) (no (unknown) (unknown) Oxygen Delivery (units (unknown) date) Method Room Air unknown) (unknown) (no (unknown) (unknown) Patient History (units (unknown) date) unknown) (unknown) (no (unknown) (unknown) Patient: (units (unkno wn) date) ScarRhonda Bob unknown) MR#: M (unknown) (no (unknown) (unknown) Test (units (unknown) date) Results unknown) Negative (unknown) (no (unknown) (unknown) Prescriptions: (units (unknown) date) unknown) (unknown) (no (unknown) (unknown) Pulse Oximetry (units (unknown) date) 100 10/10/21 unknown) 12:20 (unknown) (no (unknown) (unknown) Pulse Oximetry (units (unknown) date) 100 unknown) (unknown) (no (unknown) (unknown) Pulse Rate 86 (units (unknown) date) 10/10/21 12:20 unknown) (unknown) (no (unknown) (unknown) Pulse Rate 86 (units ( unknown) date) unknown) (unknown) (no (unknown) (unknown) Referrals: (units (unk nown) date) unknown) (unknown) (no (unknown) (unknown) Related Data (units (u nknown) date) unknown) (unknown) (no (unknown) (unknown) Respiratory Rate (units (unknown) date) 16 10/10/21 unknown) 12:20 (unknown) (no (unknown) (unknown) Respiratory Rate (units (unknown) date) 16 unknown) (unknown) (no (unknown) (unknown) Signed By: (units (unk nown) date) unknown) (unknown) (no (unknown) (unknown) Smoking Status: (units (unknown) date) Former smoker unknown) (unknown) (no (unknown) (unknown) Smoking Status: (units (unknown) date) Former smoker unknown) (unknown) (no (unknown) (unknown) Social History (units (unknown) date) (Reviewed unknown) 11/16/20 @ 03:11 by Seth Park DO) (unknown) (no (unknown) (unknown) Stated (units (unkno wn) date) Complaint: Really unknown) Sick/Not Sleeping/SI (unknown) (no (unknown) (unknown) Substance Use (units ( unknown) date) Type: marijuana unknown) (unknown) (no (unknown) (unknown) Surgical History (units (unknown) date) (Reviewed unknown) 06/29/20 @ 19:47 by Nain Betancourt DO) (unknown) (no (unknown) (unknown) Temperature (units (un known) date) 98.8 F 10/10/21 unknown) 12:20 (unknown) (no (unknown) (unknown) Temperature 98.8 (units (unknown) date) F unknown) (unknown) (no (unknown) (unknown) Time Seen by (units (u nknown) date) Provider: unknown) 10/10/21 12:53 (unknown) (no (unknown) (unknown) Urine Specific (units (unknown) date) Logan 1.020 unknown) (unknown) (no (unknown) (unknown) Vital Signs (units (un known) date) unknown) (unknown) (no (unknown) (unknown) Vital signs: (units (u nknown) date) unknown) (unknown) (no (unknown) (unknown) alcohol intake (units (unknown) date) frequency: unknown) holidays/special occasions only (unknown) (no (unknown) (unknown) alcohol intake: (units (unknown) date) never unknown) (unknown) (no (unknown) (unknown) azathioprine 50 (units (unknown) date) mg tablet 50 mg unknown) PO DAILY 08/23/17 08/25/17 (unknown) (no (unknown) (unknown) budesonide 3 mg (units (unknown) date) 3 mg PO DAILY unknown) 08/23/17 08/25/17 (unknown) (no (unknown) (unknown) capsule,delayed, (units (unknown) date) extended release unknown) (unknown) (no (unknown) (unknown) cetirizine 10 mg (units (unknown) date) chewable tablet unknown) 10 mg PO QDAY ##0 01/31/17 08/25/17 (unknown) (no (unknown) (unknown) duloxetine 30 mg (units (unknown) date) capsule,delayed unknown) 30 mg PO QDAY #30 caps 01/04/16 (unknown) (no (unknown) (unknown) ergocalciferol (units (unknown) date) (vitamin D2) unknown) 1,250 50,000 unit PO QWEEK 08/23/17 08/25/17 (unknown) (no (unknown) (unknown) gram/dose oral (units (unknown) date) powder unknown) (unknown) (no (unknown) (unknown) lorazepam 0.5 mg (units (unknown) date) tablet 0.5 mg PO unknown) BEDTIME PRN sleep #10 06/29/20 (unknown) (no (unknown) (unknown) mcg (50,000 (units (un known) date) unit) capsule unknown) (unknown) (no (unknown) (unknown) olopatadine (units (un known) date) [From PATANOL] unknown) Allergy Intermediate RED AND Verified 11/15/20 18:21 (unknown) (no (unknown) (unknown) polyethylene (units (u nknown) date) glycol 3350 17 17 unknown) g PO DAILY 08/23/17 08/25/17 (unknown) (no (unknown) (unknown) prazosin 1 mg (units ( unknown) date) capsule 1 mg PO unknown) SEE INSTRUCTIONS #60 caps 01/04/16 (unknown) (no (unknown) (unknown) ranitidine HCl (units (unknown) date) 150 mg tablet 150 unknown) mg PO DAILY 08/23/17 08/25/17 (unknown) (no (unknown) (unknown) release (units (unkno wn) date) (Cymbalta) unknown) (unknown) (no (unknown) (unknown) substance use (units ( unknown) date) type: does not unknown) use (unknown) (no (unknown) (unknown) sumatriptan (units (un known) date) [SUMATRIPTAN] unknown) Allergy Severe MUSCLE Verified 11/15/20 18:21 (unknown) (no (unknown) (unknown) syringe (units (unkno wn) date) unknown) (unknown) (no (unknown) (unknown) tramadol 50 mg (units (unknown) date) tablet 50 mg PO unknown) Q6H PRN pain #10 tabs 08/25/17 (unknown) (no (unknown) (unknown) ustekinumab 90 (units (unknown) date) mg/mL unknown) subcutaneous See Rx Instructions .Route .COMPLEX 08/23/17 Result panel 2 (unknown) (no (unknown) (unknown) (no value) (units (unk nown) date) unknown) (unknown) (no (unknown) (unknown) (no value) (units (unk nown) date) unknown) (unknown) (no (unknown) (unknown) [address] [place] [address] (units (unknown) date) unknown) (unknown) (no (unknown) (unknown) [place], [place] (units ( unknown) date) [address] unknown) (unknown) (no (unknown) (unknown) [facility] (units (unknown) date) unknown) (unknown) (no (unknown) (unknown) Magnetic (units (unkno wn) date) Resonance Report unknown) (unknown) (no (unknown) (unknown) Signed (units (unkno wn) date) unknown) (unknown) (no (unknown) (unknown) (no value) (units (unk nown) date) unknown) (unknown) (no (unknown) (unknown) 10/10/21 (units (unkno wn) date) unknown) (unknown) (no (unknown) (unknown) Alignment and (units ( unknown) date) curvature: There unknown) is normal bony alignment. (unknown) (no (unknown) (unknown) Approved by: (units (u nknown) date) shannan Pennington) Sienna on 10/10/2021 at 16:41 (unknown) (no (unknown) (unknown) Approved by: (units (u nknown) date) shannan Pennington) Sienna on 10/10/2021 at 16:46 (unknown) (no (unknown) (unknown) Brain: In this (units (unknown) date) patient with this unknown) given history, scrutiny is given to abnormal (unknown) (no (unknown) (unknown) C2-C3: Normal (units (unknown) date) appearance. unknown) (unknown) (no (unknown) (unknown) C3-C4: (units (unkno wn) date) Qdoh-bj-vgfhevku unknown) loss of disc height and disc signal can be seen. At (unknown) (no (unknown) (unknown) C4-C5: Mild (units (u nknown) date) loss of disc unknown) height is seen. Loss of disc signal is seen. (unknown) (no (unknown) (unknown) C5-C6: Mild (units (u nknown) date) loss of disc unknown) height is seen. Loss of disc signal is seen. A mild (unknown) (no (unknown) (unknown) C6-C7: Normal (units (unknown) date) appearance. unknown) (unknown) (no (unknown) (unknown) C7-T1: Normal (units (unknown) date) appearance. unknown) (unknown) (no (unknown) (unknown) COMPARISON: (units (un known) date) [facility], unknown) MR, MR CERVICAL SPINE WO/W [facility], 10/10/2021, 16:54. (unknown) (no (unknown) (unknown) COMPARISON: (units (un known) date) [facility], unknown) MR, MR HEAD/BRAIN WO/W [facility], 10/10/2021, 16:38. (unknown) (no (unknown) (unknown) CSF spaces: (units (un known) date) Ventricles are unknown) normal in size and shape. Basal cisterns are (unknown) (no (unknown) (unknown) Dictated by: (units (u nknown) date) shannan Pennington) Sienna on 10/10/2021 at 16:40 (unknown) (no (unknown) (unknown) Dictated by: (units (u nknown) date) shannan Pennington) Sienna on 10/10/2021 at 16:44 (unknown) (no (unknown) (unknown) FINDINGS: (units (unkn own) date) unknown) (unknown) (no (unknown) (unknown) IMPRESSION: (units (un known) date) unknown) (unknown) (no (unknown) (unknown) IMPRESSION: (units (un known) date) Normal brain MRI, unknown) without findings of T2 hyperintense lesions to (unknown) (no (unknown) (unknown) INDICATIONS: (units (u nknown) date) MS. Per neuro. unknown) significant anxiety, will medicate (unknown) (no (unknown) (unknown) INDICATIONS: (units (u nknown) date) possible MS, unknown) severe anxiety, will have ativain prior, (unknown) (no (unknown) (unknown) Image quality: (units (unknown) date) This examination unknown) is limited by involuntary motion artifact. (unknown) (no (unknown) (unknown) Incidental note (units (unknown) date) is made of: unknown) (unknown) (no (unknown) (unknown) Marrow: Marrow (units (unknown) date) demonstrates unknown) normal overall signal. (unknown) (no (unknown) (unknown) Multiple levels (units (unknown) date) of premature unknown) cervical spine degenerative change can be seen. (unknown) (no (unknown) (unknown) No abnormal (units (un known) date) enhancement is unknown) seen. (unknown) (no (unknown) (unknown) No abnormal (units (un known) date) white matter unknown) lesions are seen to suggest multiple sclerosis (unknown) (no (unknown) (unknown) No intracranial (units (unknown) date) bleeds or mass unknown) effects. Alfaro-white matter interface appears (unknown) (no (unknown) (unknown) No masses or (units (u nknown) date) abnormal unknown) enhancement can be seen. (unknown) (no (unknown) (unknown) Noncontrast (units (un known) date) sagittal T1 spin unknown) echo and T2 fast spin echo, sagittal STIR, (unknown) (no (unknown) (unknown) Noncontrast (units (un known) date) sagittal and unknown) axial FLAIR, axial and coronal T2 fast spin echo, (unknown) (no (unknown) (unknown) Paranasal sinus (units (unknown) date) disease, unknown) including a left maxillary sinus mucous retention cyst (unknown) (no (unknown) (unknown) Paraspinous soft (units (unknown) date) tissues: No unknown) paravertebral masses or suspicious enhancement. (unknown) (no (unknown) (unknown) Sinuses: There (units (unknown) date) is a prominent unknown) mucous retention cyst seen involving the left (unknown) (no (unknown) (unknown) Skull and face: (units (unknown) date) Calvarial marrow unknown) signal is normal. Orbits appear normal. (unknown) (no (unknown) (unknown) Spinal cord: (units (u nknown) date) Visualized spinal unknown) cord is normal in size, without white matter (unknown) (no (unknown) (unknown) TECHNIQUE: (units (unk nown) date) unknown) (unknown) (no (unknown) (unknown) There is at (units (un known) date) least moderate unknown) bilateral neural foraminal narrowing seen. Minimal (unknown) (no (unknown) (unknown) abnormal fluid (units (unknown) date) is seen within unknown) the mastoid air cells. (unknown) (no (unknown) (unknown) abnormal (units (unkno wn) date) intracranial unknown) enhancement. Diffusion weighted images show no acute (unknown) (no (unknown) (unknown) axial T1 spin (units ( unknown) date) echo with fat unknown) saturation through the cervical spine. (unknown) (no (unknown) (unknown) axial gradient (units (unknown) date) echo, axial unknown) diffusion and ADC through the brain. After the (unknown) (no (unknown) (unknown) canal narrowing (units (unknown) date) is seen. unknown) (unknown) (no (unknown) (unknown) extra-axial (units (un known) date) fluid unknown) collections. (unknown) (no (unknown) (unknown) generalized disc (units (unknown) date) osteophyte unknown) complex is seen. Moderate facet joint hypertrophy (unknown) (no (unknown) (unknown) hyperintense (units (u nknown) date) white matter unknown) lesions. None can be seen. (unknown) (no (unknown) (unknown) hypertrophy is (units (unknown) date) seen. There is unknown) moderate to severe right-sided and at least (unknown) (no (unknown) (unknown) insults. (units (unkno wn) date) Brainstem appears unknown) normal. Normal intravascular flow voids are (unknown) (no (unknown) (unknown) least moderate (units (unknown) date) bilateral neural unknown) foraminal narrowing can be seen. Mild central (unknown) (no (unknown) (unknown) left-sided (units (unk nown) date) neural foraminal unknown) narrowing. Mild to moderate central canal (unknown) (no (unknown) (unknown) moderate disc (units ( unknown) date) osteophyte unknown) complex is seen. Moderate facet joint hypertrophy is (unknown) (no (unknown) (unknown) multiple (units (unkno wn) date) sclerosis unknown) plaques. (unknown) (no (unknown) (unknown) narrowing is (units (u nknown) date) seen. unknown) (unknown) (no (unknown) (unknown) of contrast, (units (u nknown) date) axial and coronal unknown) and sagittal VIBE with fat saturation through (unknown) (no (unknown) (unknown) osteophyte (units (unk nown) date) complex is seen, unknown) which is eccentric to the right. Moderate facet (unknown) (no (unknown) (unknown) sinus. Mild to (units (unknown) date) moderate mucosal unknown) thickening is seen within the paranasal (unknown) (no (unknown) (unknown) spin echo (units (unkn own) date) through the unknown) cervical spine. After the administration of contrast, (unknown) (no (unknown) (unknown) spin echo, (units (unk nown) date) foraminal oblique unknown) sagittal T2 fast spin echo, axial gradient echo or (unknown) (no (unknown) (unknown) suspicious (units (unk nown) date) intramedullary unknown) enhancement. No cerebellar tonsillar herniation. (unknown) (no (unknown) (unknown) within the (units (unk nown) date) cervical cord. unknown) (unknown) (no (unknown) (unknown) Accession (units (unkn own) date) Number: unknown) [id number] (unknown) (no (unknown) (unknown) Accession (units (unkn own) date) Number: unknown) [id number] (unknown) (no (unknown) (unknown) Age/Sex: 36 / F (units (unknown) date) Date of unknown) Service: (unknown) (no (unknown) (unknown) : 1985 (units (unknown) date) Acct:[id number] unknown) (unknown) (no (unknown) (unknown) Loc: ED (units (unkno wn) date) unknown) (unknown) (no (unknown) (unknown) [id number] (units (unk nown) date) unknown) (unknown) (no (unknown) (unknown) Moderate disc (units ( unknown) date) unknown) (unknown) (no (unknown) (unknown) Ordering (units (unkno wn) date) Provider: unknown) Lupis Moreira MD (unknown) (no (unknown) (unknown) PROCEDURE: MR (units (unknown) date) CERVICAL SPINE unknown) WO/W CON (unknown) (no (unknown) (unknown) PROCEDURE: MR (units (unknown) date) HEAD/BRAIN WO/W unknown) CON (unknown) (no (unknown) (unknown) Patient: (units (unkno wn) date) ScarImaniRhonda Bob unknown) MR#: (unknown) (no (unknown) (unknown) Procedure: MR (units ( unknown) date) cervical spine unknown) wo/w con (unknown) (no (unknown) (unknown) Procedure: MR (units ( unknown) date) head/brain wo/w unknown) con (unknown) (no (unknown) (unknown) T2 (units (unkno wn) date) unknown) (unknown) (no (unknown) (unknown) T2 fast (units (unkno wn) date) unknown) (unknown) (no (unknown) (unknown) administration (units (unknown) date) unknown) (unknown) (no (unknown) (unknown) axial VIBE, (units (un known) date) unknown) (unknown) (no (unknown) (unknown) canal (units (unkno wn) date) unknown) (unknown) (no (unknown) (unknown) central (units (unkno wn) date) unknown) (unknown) (no (unknown) (unknown) degree of (units (unkn own) date) unknown) (unknown) (no (unknown) (unknown) intact. No (units (un known) date) unknown) (unknown) (no (unknown) (unknown) involvement (units (un known) date) unknown) (unknown) (no (unknown) (unknown) is seen. (units (unkno wn) date) unknown) (unknown) (no (unknown) (unknown) ischemic (units (unkno wn) date) unknown) (unknown) (no (unknown) (unknown) joint (units (unkno wn) date) unknown) (unknown) (no (unknown) (unknown) least (units (unkno wn) date) unknown) (unknown) (no (unknown) (unknown) lesions. No (units (u nknown) date) unknown) (unknown) (no (unknown) (unknown) maxillary (units (unkn own) date) unknown) (unknown) (no (unknown) (unknown) moderate (units (unkno wn) date) unknown) (unknown) (no (unknown) (unknown) narrowing is (units (u nknown) date) seen. unknown) (unknown) (no (unknown) (unknown) patent. No (units (un known) date) unknown) (unknown) (no (unknown) (unknown) present. (units (unkno wn) date) unknown) (unknown) (no (unknown) (unknown) sagittal PD fast (units (unknown) date) unknown) (unknown) (no (unknown) (unknown) sagittal and (units (u nknown) date) unknown) (unknown) (no (unknown) (unknown) seen. At (units (unkn own) date) unknown) (unknown) (no (unknown) (unknown) sinuses. No (units (un known) date) unknown) (unknown) (no (unknown) (unknown) suggest (units (unkno wn) date) unknown) (unknown) (no (unknown) (unknown) the brain. (units (unk nown) date) unknown) Result panel 3 (unknown) (no date) (unknown) (unknown) 0 /uL (unkn own) (unknown) (no date) (unknown) (unknown) 0.9 % (unkn own) (unknown) (no date) (unknown) (unknown) 1100 /uL (unkn own) (unknown) (no date) (unknown) (unknown) 12.7 % (unkn own) (unknown) (no date) (unknown) (unknown) 12.9 g/dL (unkn own) (unknown) (no date) (unknown) (unknown) 20.9 % (unkn own) (unknown) (no date) (unknown) (unknown) 271 X10 3/uL (unkn own) (unknown) (no date) (unknown) (unknown) 29.7 PG (unkn own) (unknown) (no date) (unknown) (unknown) 33.7 % (unkn own) (unknown) (no date) (unknown) (unknown) 3300 /uL (unkn own) (unknown) (no date) (unknown) (unknown) 38.4 % (unkn own) (unknown) (no date) (unknown) (unknown) 4.35 X10 6/uL (unkn own) (unknown) (no date) (unknown) (unknown) 5.4 X10 3/uL (unkn own) (unknown) (no date) (unknown) (unknown) 500 /uL (unkn own) (unknown) (no date) (unknown) (unknown) 500 /uL (unkn own) (unknown) (no date) (unknown) (unknown) 60.6 % (unkn own) (unknown) (no date) (unknown) (unknown) 8.5 % (unkn own) (unknown) (no date) (unknown) (unknown) 88.3 fL (unkn own) (unknown) (no date) (unknown) (unknown) 9.1 % (unkn own) Result panel 4 (unknown) (no date) (unknown) (unknown) > 60 mL/min (unkn own) (unknown) (no date) (unknown) (unknown) 0.7 mg/dL (unkn own) (unknown) (no date) (unknown) (unknown) 0.76 mg/dL (unkn own) (unknown) (no date) (unknown) (unknown) 1.4 (units unknown) (unknown) (unknown) (no date) (unknown) (unknown) 105 mmol/L (unkn own) (unknown) (no date) (unknown) (unknown) 11 IU/L (unkn own) (unknown) (no date) (unknown) (unknown) 12 mg/dL (unkn own) (unknown) (no date) (unknown) (unknown) 139 mmol/L (unkn own) (unknown) (no date) (unknown) (unknown) 15.8 (units unknown) (unknown) (unknown) (no date) (unknown) (unknown) 22 IU/L (unkn own) (unknown) (no date) (unknown) (unknown) 27 mmol/L (unkn own) (unknown) (no date) (unknown) (unknown) 3.1 g/dL (unkn own) (unknown) (no date) (unknown) (unknown) 3.6 mmol/L (unkn own) (unknown) (no date) (unknown) (unknown) 4.2 g/dL (unkn own) (unknown) (no date) (unknown) (unknown) 54 U/L (unkn own) (unknown) (no date) (unknown) (unknown) 7.3 g/dL (unkn own) (unknown) (no date) (unknown) (unknown) 8.5 mg/dL (unkn own) (unknown) (no date) (unknown) (unknown) 89 mg/dL (unkn own) Result panel 5 (unknown) (no (unknown) (unknown) (no value) (units (unk nown) date) unknown) (unknown) (no (unknown) (unknown) Date of Service: (units (unknown) date) 10/10/21 unknown) (unknown) (no (unknown) (unknown) (no value) (units (unk nown) date) unknown) (unknown) (no (unknown) (unknown) 0.5 mg PO (units (unkn own) date) BEDTIME PRN unknown) (Reason: sleep) Qty: 10 0RF (unknown) (no (unknown) (unknown) 10/10/21 16:23 (units (unknown) date) unknown) (unknown) (no (unknown) (unknown) 1 mg PO SEE (units (un known) date) INSTRUCTIONS Qty: unknown) 60 2RF (unknown) (no (unknown) (unknown) 10 mg PO QDAY (units ( unknown) date) Qty: 0 unknown) (unknown) (no (unknown) (unknown) 150 mg PO DAILY (units (unknown) date) unknown) (unknown) (no (unknown) (unknown) 17 g PO DAILY (units ( unknown) date) unknown) (unknown) (no (unknown) (unknown) 3 mg PO DAILY (units ( unknown) date) unknown) (unknown) (no (unknown) (unknown) 30 mg PO QDAY (units ( unknown) date) Qty: 30 2RF unknown) (unknown) (no (unknown) (unknown) 50 mg PO DAILY (units (unknown) date) unknown) (unknown) (no (unknown) (unknown) 50 mg PO Q6H PRN (units (unknown) date) (Reason: pain) unknown) Qty: 10 0RF (unknown) (no (unknown) (unknown) 50,000 unit PO (units (unknown) date) QWEEK unknown) (unknown) (no (unknown) (unknown) 90 mg (units (unkno wn) date) subcutaneously unknown) every 8 weeks (unknown) (no (unknown) (unknown) Allergies (units (unkn own) date) unknown) (unknown) (no (unknown) (unknown) Documented By: (units (unknown) date) RL unknown) (unknown) (no (unknown) (unknown) ED Orders (units (unkn own) date) unknown) (unknown) (no (unknown) (unknown) EYES (units (unkno wn) date) unknown) (unknown) (no (unknown) (unknown) Emergency Report (units (unknown) date) unknown) (unknown) (no (unknown) (unknown) Home Medications (units (unknown) date) unknown) (unknown) (no (unknown) (unknown) IN FACE (units (unkno wn) date) unknown) (unknown) (no (unknown) (unknown) [facility] (units (unknown) date) [address] [place] [address] unknown) [place] [address] (unknown) (no (unknown) (unknown) Lab Results (units (un known) date) unknown) (unknown) (no (unknown) (unknown) Label Comments: (units (unknown) date) unknown) (unknown) (no (unknown) (unknown) Last Admin: (units (un known) date) 10/10/21 16:17 unknown) Dose: 1 mg (unknown) (no (unknown) (unknown) Last Admin: (units (un known) date) 10/10/21 16:33 unknown) Dose: 1 mg (unknown) (no (unknown) (unknown) Point of Care (units ( unknown) date) Testing unknown) (unknown) (no (unknown) (unknown) Previous Rx's (units ( unknown) date) unknown) (unknown) (no (unknown) (unknown) RIGIDITY (units (unkno wn) date) unknown) (unknown) (no (unknown) (unknown) Rx Instructions: (units (unknown) date) unknown) (unknown) (no (unknown) (unknown) SWOLLEN (units (unkno wn) date) unknown) (unknown) (no (unknown) (unknown) See Rx (units (unkno wn) date) Instructions unknown) .ROUTE .COMPLEX (unknown) (no (unknown) (unknown) Stop: 10/10/21 (units (unknown) date) 16:08 unknown) (unknown) (no (unknown) (unknown) Taking 2mg (units (unk nown) date) unknown) (unknown) (no (unknown) (unknown) Urine Dip (units (unkn own) date) unknown) (unknown) (no (unknown) (unknown) Vital Signs - 8 (units (unknown) date) hr unknown) (unknown) (no (unknown) (unknown) take with (units (unkn own) date) tylenol unknown) (unknown) (no (unknown) (unknown) (no value) (units (unk nown) date) unknown) (unknown) (no (unknown) (unknown) 10/10/21 (units (unkno wn) date) 10/10/21 unknown) Range/Units (unknown) (no (unknown) (unknown) 16:23 16:23 (units (un known) date) unknown) (unknown) (no (unknown) (unknown) azathioprine 50 (units (unknown) date) mg tablet unknown) (unknown) (no (unknown) (unknown) budesonide 3 mg (units (unknown) date) Capsule,Delayed,E unknown) xtend.Release (unknown) (no (unknown) (unknown) cetirizine 10 MG (units (unknown) date) tablet,chewable unknown) (unknown) (no (unknown) (unknown) duloxetine (units (unk nown) date) [Cymbalta] 30 MG unknown) capsule,delayed release(DR/EC) (unknown) (no (unknown) (unknown) ergocalciferol (units (unknown) date) (vitamin D2) unknown) 50,000 unit Capsule (unknown) (no (unknown) (unknown) lorazepam 0.5 mg (units (unknown) date) tablet unknown) (unknown) (no (unknown) (unknown) polyethylene (units (u nknown) date) glycol 3350 17 unknown) gram/dose powder (unknown) (no (unknown) (unknown) prazosin 1 MG (units ( unknown) date) capsule unknown) (unknown) (no (unknown) (unknown) ranitidine HCl (units (unknown) date) 150 mg tablet unknown) (unknown) (no (unknown) (unknown) tramadol 50 mg (units (unknown) date) tablet unknown) (unknown) (no (unknown) (unknown) ustekinumab (units (un known) date) [Stelara] 90 unknown) mg/mL syringe (unknown) (no (unknown) (unknown) 10/10/21 (units (unkno wn) date) unknown) (unknown) (no (unknown) (unknown) Medication (units (unk nown) date) Instructions unknown) Recorded (unknown) (no (unknown) (unknown) Medication (units (unk nown) date) Instructions unknown) Recorded Confirmed (unknown) (no (unknown) (unknown) tabs (units (unkno wn) date) unknown) (unknown) (no (unknown) (unknown) [id number] (units (unkn own) date) unknown) (unknown) (no (unknown) (unknown) 08/25/17 (units (unkno wn) date) unknown) (unknown) (no (unknown) (unknown) 10/10/21 12:28 (units (unknown) date) unknown) (unknown) (no (unknown) (unknown) 10/10/21 16:05 (units (unknown) date) unknown) (unknown) (no (unknown) (unknown) 10/10/21 16:23 (units (unknown) date) unknown) (unknown) (no (unknown) (unknown) 12:20 (units (unkno wn) date) unknown) (unknown) (no (unknown) (unknown) 36-year-old (units (un known) date) woman presents unknown) with multiple chronic pain issues, significant (unknown) (no (unknown) (unknown) ALT 11 (<35) (units (unknown) date) IU/L unknown) (unknown) (no (unknown) (unknown) AST 22 (units (unkno wn) date) (14-36) IU/L unknown) (unknown) (no (unknown) (unknown) Age/Sex: 36 / F (units (unknown) date) unknown) (unknown) (no (unknown) (unknown) Albumin 4.2 (units ( unknown) date) (3.5-5.0) g/dL unknown) (unknown) (no (unknown) (unknown) Albumin/Globulin (units (unknown) date) Ratio 1.4 unknown) (1.0-2.8) (unknown) (no (unknown) (unknown) Alkaline (units (unkno wn) date) Phosphatase 54 unknown) (38-126) U/L (unknown) (no (unknown) (unknown) Allergy/AdvReac (units (unknown) date) Type Severity unknown) Reaction Status Date / Time (unknown) (no (unknown) (unknown) BUN 12 (7-17) (units (unknown) date) mg/dL unknown) (unknown) (no (unknown) (unknown) BUN/Creatinine (units (unknown) date) Ratio 15.8 unknown) (6-22) (unknown) (no (unknown) (unknown) Baso # (Auto) 0 (units (unknown) date) (0-100) /uL unknown) (unknown) (no (unknown) (unknown) Baso % (Auto) (units ( unknown) date) 0.9 (0-2) % unknown) (unknown) (no (unknown) (unknown) Bedside Urine (units ( unknown) date) Bilirubin unknown) - Negative (unknown) (no (unknown) (unknown) Bedside Urine (units ( unknown) date) Glucose unknown) Negative (unknown) (no (unknown) (unknown) Bedside Urine (units ( unknown) date) Ketone - unknown) Negative (unknown) (no (unknown) (unknown) Bedside Urine (units ( unknown) date) Leukocytes unknown) - Negative (unknown) (no (unknown) (unknown) Bedside Urine (units ( unknown) date) Nitrite - unknown) Negative (unknown) (no (unknown) (unknown) Bedside Urine (units ( unknown) date) Occult Blood unknown) +/- (unknown) (no (unknown) (unknown) Bedside Urine (units ( unknown) date) Protein +/- 15 unknown) (unknown) (no (unknown) (unknown) Bedside Urine (units ( unknown) date) Urobilinogen unknown) - Negative (unknown) (no (unknown) (unknown) Bedside Urine pH (units (unknown) date) 6.0 unknown) (unknown) (no (unknown) (unknown) Blood Pressure (units (unknown) date) 132/84 10/10/21 unknown) 12:20 (unknown) (no (unknown) (unknown) Blood Pressure (units (unknown) date) 13284 unknown) (unknown) (no (unknown) (unknown) Calcium 8.5 (units ( unknown) date) (8.4-10.2) mg/dL unknown) (unknown) (no (unknown) (unknown) Carbon Dioxide (units (unknown) date) 27 (22-32) unknown) mmol/L (unknown) (no (unknown) (unknown) Chief Complaint: (units (unknown) date) Psychiatric unknown) Symptoms (unknown) (no (unknown) (unknown) Chloride 105 (units (unknown) date) (98-107) mmol/L unknown) (unknown) (no (unknown) (unknown) Complete Blood (units (unknown) date) Count AUTO DIFF unknown) Stat (unknown) (no (unknown) (unknown) Comprehensive (units ( unknown) date) Metabolic Panel unknown) Stat (unknown) (no (unknown) (unknown) 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 REDUCTION WORKER - (units (unknown) date) Bar Examiner unknown) Stat (unknown) (no (unknown) (unknown) Course (units (unkno wn) date) unknown) (unknown) (no (unknown) (unknown) Creatinine (units (unk nown) date) 0.76 (0.52-1.04) unknown) mg/dL (unknown) (no (unknown) (unknown) Crohn disease (units ( unknown) date) unknown) (unknown) (no (unknown) (unknown) : 1985 (units (unknown) date) Acct:[id number] unknown) (unknown) (no (unknown) (unknown) Juan Jose Lopez, (units (unknown) date) [Primary Care unknown) Provider] - (unknown) (no (unknown) (unknown) Departure (units (unkn own) date) unknown) (unknown) (no (unknown) (unknown) Discharge Plan (units (unknown) date) unknown) (unknown) (no (unknown) (unknown) Discontinued (units (u nknown) date) Medications unknown) (unknown) (no (unknown) (unknown) ER Physician: (units ( unknown) date) Lupis Moreira unknown) (unknown) (no (unknown) (unknown) Eos # (Auto) (units (u nknown) date) 500 H (0-450) unknown) /uL (unknown) (no (unknown) (unknown) Eos % (Auto) (units (u nknown) date) 9.1 H (2-4) % unknown) (unknown) (no (unknown) (unknown) Esterase (units (unkno wn) date) unknown) (unknown) (no (unknown) (unknown) Estimated GFR (units ( unknown) date) > 60 (>60) unknown) mL/min (unknown) (no (unknown) (unknown) Exam (units (unkno wn) date) unknown) (unknown) (no (unknown) (unknown) General (units (unkno wn) date) unknown) (unknown) (no (unknown) (unknown) GenericComposite (units (unknown) date) [Plt Count 271 unknown) (150-400) X10^3/uL ] (unknown) (no (unknown) (unknown) GenericComposite (units (unknown) date) [RBC 4.35 unknown) (4.0-5.2) X10^6/uL ] (unknown) (no (unknown) (unknown) GenericComposite (units (unknown) date) [WBC 5.4 unknown) (4.5-11.0) X10^3/uL ] (unknown) (no (unknown) (unknown) Globulin 3.1 (units (unknown) date) (1.7-4.1) g/dL unknown) (unknown) (no (unknown) (unknown) Glucose 89 (units (u nknown) date) (70-100) mg/dL unknown) (unknown) (no (unknown) (unknown) HPI - Psych (units (un known) date) unknown) (unknown) (no (unknown) (unknown) HPI Narrative: (units (unknown) date) unknown) (unknown) (no (unknown) (unknown) Hct 38.4 (units (unkn own) date) (36-46) % unknown) (unknown) (no (unknown) (unknown) Hgb 12.9 (units (unkn own) date) (12.0-16.0) g/dL unknown) (unknown) (no (unknown) (unknown) History of (units (unk nown) date) Present Illness unknown) (unknown) (no (unknown) (unknown) Initial Vital (units ( unknown) date) Signs unknown) (unknown) (no (unknown) (unknown) Initial Vital (units ( unknown) date) Signs: unknown) (unknown) (no (unknown) (unknown) Lab Data (units (unkno wn) date) unknown) (unknown) (no (unknown) (unknown) Labs: (units (unkno wn) date) unknown) (unknown) (no (unknown) (unknown) Lorazepam (units (unkn own) date) (Lorazepam 0.5 Mg unknown) Tablet) 1 mg PO NOW ONE (unknown) (no (unknown) (unknown) Lorazepam (units (unkn own) date) (Lorazepam 2 unknown) Mg/Ml Inj) 1 mg IV NOW ONE (unknown) (no (unknown) (unknown) Lymph # (Auto) (units (unknown) date) 1100 unknown) (0347-9737) /uL (unknown) (no (unknown) (unknown) Lymph % (Auto) (units (unknown) date) 20.9 L (25-40) unknown) % (unknown) (no (unknown) (unknown) MCH 29.7 (units (unkn own) date) (26-34) PG unknown) (unknown) (no (unknown) (unknown) MCHC 33.7 (units (unk nown) date) (30-36) % unknown) (unknown) (no (unknown) (unknown) MCV 88.3 (units (unkn own) date) (80-100) fL unknown) (unknown) (no (unknown) (unknown) MDM - Psych (units (un known) date) unknown) (unknown) (no (unknown) (unknown) MR cervical (units (un known) date) spine wo/w con unknown) Stat (unknown) (no (unknown) (unknown) MR head/brain (units ( unknown) date) wo/w con Stat unknown) (unknown) (no (unknown) (unknown) Medical History (units (unknown) date) (Reviewed unknown) 11/16/20 @ 03:11 by Seth Park DO) (unknown) (no (unknown) (unknown) [place] # (Auto) (units ( unknown) date) 500 (0-900) unknown) /uL (unknown) (no (unknown) (unknown) [place] % (Auto) (units ( unknown) date) 8.5 (3-14) % unknown) (unknown) (no (unknown) (unknown) Neut # (Auto) (units ( unknown) date) 3300 unknown) (6977-3741) /uL (unknown) (no (unknown) (unknown) Neut % (Auto) (units ( unknown) date) 60.6 (50-75) % unknown) (unknown) (no (unknown) (unknown) No Action (units (unkn own) date) unknown) (unknown) (no (unknown) (unknown) No significant (units (unknown) date) past surgical unknown) history (unknown) (no (unknown) (unknown) Ordered: (units (unkno wn) date) unknown) (unknown) (no (unknown) (unknown) Orders (units (unkno wn) date) unknown) (unknown) (no (unknown) (unknown) Oxygen Delivery (units (unknown) date) Method unknown) 10/10/21 12:20 (unknown) (no (unknown) (unknown) Oxygen Delivery (units (unknown) date) Method Room Air unknown) (unknown) (no (unknown) (unknown) Patient History (units (unknown) date) unknown) (unknown) (no (unknown) (unknown) Patient: (units (unkno wn) date) Rhonda Booker unknown) MR#: M (unknown) (no (unknown) (unknown) Potassium 3.6 (units (unknown) date) (3.4-5.1) mmol/L unknown) (unknown) (no (unknown) (unknown) Test (units (unknown) date) Results unknown) Negative (unknown) (no (unknown) (unknown) Prescriptions: (units (unknown) date) unknown) (unknown) (no (unknown) (unknown) Pulse Oximetry (units (unknown) date) 100 10/10/21 unknown) 12:20 (unknown) (no (unknown) (unknown) Pulse Oximetry (units (unknown) date) 100 unknown) (unknown) (no (unknown) (unknown) Pulse Rate 86 (units (unknown) date) 10/10/21 12:20 unknown) (unknown) (no (unknown) (unknown) Pulse Rate 86 (units ( unknown) date) unknown) (unknown) (no (unknown) (unknown) RDW 12.7 (units (unkn own) date) (11.6-14.8) % unknown) (unknown) (no (unknown) (unknown) Referrals: (units (unk nown) date) unknown) (unknown) (no (unknown) (unknown) Related Data (units (u nknown) date) unknown) (unknown) (no (unknown) (unknown) Respiratory Rate (units (unknown) date) 16 10/10/21 unknown) 12:20 (unknown) (no (unknown) (unknown) Respiratory Rate (units (unknown) date) 16 unknown) (unknown) (no (unknown) (unknown) Result diagrams: (units (unknown) date) unknown) (unknown) (no (unknown) (unknown) She is having (units ( unknown) date) significant unknown) suicidal ideation but does not have a plan. She is (unknown) (no (unknown) (unknown) Signed By: (units (unk nown) date) unknown) (unknown) (no (unknown) (unknown) Smoking Status: (units (unknown) date) Former smoker unknown) (unknown) (no (unknown) (unknown) Smoking Status: (units (unknown) date) Former smoker unknown) (unknown) (no (unknown) (unknown) Social History (units (unknown) date) (Reviewed unknown) 11/16/20 @ 03:11 by Seth Park DO) (unknown) (no (unknown) (unknown) Sodium 139 (units (u nknown) date) (137-145) mmol/L unknown) (unknown) (no (unknown) (unknown) Stated (units (unkno wn) date) Complaint: Really unknown) Sick/Not Sleeping/SI (unknown) (no (unknown) (unknown) Substance Use (units ( unknown) date) Type: marijuana unknown) (unknown) (no (unknown) (unknown) Surgical History (units (unknown) date) (Reviewed unknown) 06/29/20 @ 19:47 by Nain Betancourt DO) (unknown) (no (unknown) (unknown) Temperature (units (un known) date) 98.8 F 10/10/21 unknown) 12:20 (unknown) (no (unknown) (unknown) Temperature 98.8 (units (unknown) date) F unknown) (unknown) (no (unknown) (unknown) Time Seen by (units (u nknown) date) Provider: unknown) 10/10/21 12:53 (unknown) (no (unknown) (unknown) Total Bilirubin (units (unknown) date) 0.7 (0.2-1.3) unknown) mg/dL (unknown) (no (unknown) (unknown) Total Protein (units ( unknown) date) 7.3 (6.3-8.2) unknown) g/dL (unknown) (no (unknown) (unknown) Urine Specific (units (unknown) date) [place] 1.020 unknown) (unknown) (no (unknown) (unknown) Vital Signs (units (un known) date) unknown) (unknown) (no (unknown) (unknown) Vital signs: (units (u nknown) date) unknown) (unknown) (no (unknown) (unknown) [Embedded Image (units (unknown) date) Not Available] unknown) (unknown) (no (unknown) (unknown) alcohol intake (units (unknown) date) frequency: unknown) holidays/special occasions only (unknown) (no (unknown) (unknown) alcohol intake: (units (unknown) date) never unknown) (unknown) (no (unknown) (unknown) azathioprine 50 (units (unknown) date) mg tablet 50 mg unknown) PO DAILY 08/23/17 08/25/17 (unknown) (no (unknown) (unknown) budesonide 3 mg (units (unknown) date) 3 mg PO DAILY unknown) 08/23/17 08/25/17 (unknown) (no (unknown) (unknown) capsule,delayed, (units (unknown) date) extended release unknown) (unknown) (no (unknown) (unknown) cetirizine 10 mg (units (unknown) date) chewable tablet unknown) 10 mg PO QDAY ##0 01/31/17 08/25/17 (unknown) (no (unknown) (unknown) concerns from (units ( unknown) date) prior exams. At unknown) this point she is feeling defeated, depressed. (unknown) (no (unknown) (unknown) duloxetine 30 mg (units (unknown) date) capsule,delayed unknown) 30 mg PO QDAY #30 caps 01/04/16 (unknown) (no (unknown) (unknown) ergocalciferol (units (unknown) date) (vitamin D2) unknown) 1,250 50,000 unit PO QWEEK 08/23/17 08/25/17 (unknown) (no (unknown) (unknown) establishing (units (u nknown) date) care that may unknown) offer some type of relief for her suffering. (unknown) (no (unknown) (unknown) gram/dose oral (units (unknown) date) powder unknown) (unknown) (no (unknown) (unknown) however she was (units (unknown) date) unable to unknown) tolerate this can due to severe anxiety with PTS type (unknown) (no (unknown) (unknown) insomnia with (units ( unknown) date) significant sleep unknown) deprivation, she has seen specialists who have (unknown) (no (unknown) (unknown) is looking for (units (unknown) date) guidance and help unknown) in negotiating the medical system and (unknown) (no (unknown) (unknown) lorazepam 0.5 mg (units (unknown) date) tablet 0.5 mg PO unknown) BEDTIME PRN sleep #10 06/29/20 (unknown) (no (unknown) (unknown) mcg (50,000 (units (un known) date) unit) capsule unknown) (unknown) (no (unknown) (unknown) not been helpful (units (unknown) date) and she feels unknown) that her concerns have not been heard. She has (unknown) (no (unknown) (unknown) olopatadine (units (un known) date) [From PATANOL] unknown) Allergy Intermediate RED AND Verified 11/15/20 18:21 (unknown) (no (unknown) (unknown) polyethylene (units (u nknown) date) glycol 3350 17 17 unknown) g PO DAILY 08/23/17 08/25/17 (unknown) (no (unknown) (unknown) prazosin 1 mg (units ( unknown) date) capsule 1 mg PO unknown) SEE INSTRUCTIONS #60 caps 01/04/16 (unknown) (no (unknown) (unknown) ranitidine HCl (units (unknown) date) 150 mg tablet 150 unknown) mg PO DAILY 08/23/17 08/25/17 (unknown) (no (unknown) (unknown) release (units (unkno wn) date) (Cymbalta) unknown) (unknown) (no (unknown) (unknown) seen a (units (unkno wn) date) neurologist at unknown) [facility] and MRI was ordered to rule out MS (unknown) (no (unknown) (unknown) specialist and (units (unknown) date) she is not having unknown) her chronic pain adequately controlled at this (unknown) (no (unknown) (unknown) substance use (units ( unknown) date) type: does not unknown) use (unknown) (no (unknown) (unknown) sumatriptan (units (un known) date) [SUMATRIPTAN] unknown) Allergy Severe MUSCLE Verified 11/15/20 18:21 (unknown) (no (unknown) (unknown) syringe (units (unkno wn) date) unknown) (unknown) (no (unknown) (unknown) time. Her (units (unk nown) date) is her unknown) primary support system and has been wonderful but she (unknown) (no (unknown) (unknown) tramadol 50 mg (units (unknown) date) tablet 50 mg PO unknown) Q6H PRN pain #10 tabs 08/25/17 (unknown) (no (unknown) (unknown) trying to get on (units (unknown) date) disability. Does unknown) not appear that she has been seen by a pain (unknown) (no (unknown) (unknown) ustekinumab 90 (units (unknown) date) mg/mL unknown) subcutaneous See Rx Instructions .Route .COMPLEX 08/23/17 Result panel 6 (unknown) (no (unknown) (unknown) (no value) (units (unk nown) date) unknown) (unknown) (no (unknown) (unknown) Radiologist's (units ( unknown) date) Impression: unknown) (unknown) (no (unknown) (unknown) Date of Service: (units (unknown) date) 10/10/21 unknown) (unknown) (no (unknown) (unknown) (no value) (units (unk nown) date) unknown) (unknown) (no (unknown) (unknown) 0.5 mg PO (units (unkn own) date) BEDTIME PRN unknown) (Reason: sleep) Qty: 10 0RF (unknown) (no (unknown) (unknown) 10/10/21 16:23 (units (unknown) date) unknown) (unknown) (no (unknown) (unknown) 1 mg PO SEE (units (un known) date) INSTRUCTIONS Qty: unknown) 60 2RF (unknown) (no (unknown) (unknown) 10 mg PO QDAY (units ( unknown) date) Qty: 0 unknown) (unknown) (no (unknown) (unknown) 150 mg PO DAILY (units (unknown) date) unknown) (unknown) (no (unknown) (unknown) 17 g PO DAILY (units ( unknown) date) unknown) (unknown) (no (unknown) (unknown) 3 mg PO DAILY (units ( unknown) date) unknown) (unknown) (no (unknown) (unknown) 30 mg PO QDAY (units ( unknown) date) Qty: 30 2RF unknown) (unknown) (no (unknown) (unknown) 50 mg PO DAILY (units (unknown) date) unknown) (unknown) (no (unknown) (unknown) 50 mg PO Q6H PRN (units (unknown) date) (Reason: pain) unknown) Qty: 10 0RF (unknown) (no (unknown) (unknown) 50,000 unit PO (units (unknown) date) QWEEK unknown) (unknown) (no (unknown) (unknown) 90 mg (units (unkno wn) date) subcutaneously unknown) every 8 weeks (unknown) (no (unknown) (unknown) Allergies (units (unkn own) date) unknown) (unknown) (no (unknown) (unknown) Documented By: (units (unknown) date) RL unknown) (unknown) (no (unknown) (unknown) ED Orders (units (unkn own) date) unknown) (unknown) (no (unknown) (unknown) EYES (units (unkno wn) date) unknown) (unknown) (no (unknown) (unknown) Emergency Report (units (unknown) date) unknown) (unknown) (no (unknown) (unknown) Home Medications (units (unknown) date) unknown) (unknown) (no (unknown) (unknown) IN FACE (units (unkno wn) date) unknown) (unknown) (no (unknown) (unknown) [facility] (units (unknown) date) [address] unknown) [place] [address] (unknown) (no (unknown) (unknown) Lab Results (units (un known) date) unknown) (unknown) (no (unknown) (unknown) Label Comments: (units (unknown) date) unknown) (unknown) (no (unknown) (unknown) Last Admin: (units (un known) date) 10/10/21 16:17 unknown) Dose: 1 mg (unknown) (no (unknown) (unknown) Last Admin: (units (un known) date) 10/10/21 16:33 unknown) Dose: 1 mg (unknown) (no (unknown) (unknown) Point of Care (units ( unknown) date) Testing unknown) (unknown) (no (unknown) (unknown) Previous Rx's (units ( unknown) date) unknown) (unknown) (no (unknown) (unknown) RIGIDITY (units (unkno wn) date) unknown) (unknown) (no (unknown) (unknown) Rx Instructions: (units (unknown) date) unknown) (unknown) (no (unknown) (unknown) SWOLLEN (units (unkno wn) date) unknown) (unknown) (no (unknown) (unknown) See Rx (units (unkno wn) date) Instructions unknown) .ROUTE .COMPLEX (unknown) (no (unknown) (unknown) Stop: 10/10/21 (units (unknown) date) 16:08 unknown) (unknown) (no (unknown) (unknown) Taking 2mg (units (unk nown) date) unknown) (unknown) (no (unknown) (unknown) Urine Dip (units (unkn own) date) unknown) (unknown) (no (unknown) (unknown) Vital Signs - 8 (units (unknown) date) hr unknown) (unknown) (no (unknown) (unknown) take with (units (unkn own) date) tylenol unknown) (unknown) (no (unknown) (unknown) (no value) (units (unk nown) date) unknown) (unknown) (no (unknown) (unknown) 10/10/21 (units (unkno wn) date) 10/10/21 unknown) Range/Units (unknown) (no (unknown) (unknown) 16:23 16:23 (units (un known) date) unknown) (unknown) (no (unknown) (unknown) azathioprine 50 (units (unknown) date) mg tablet unknown) (unknown) (no (unknown) (unknown) budesonide 3 mg (units (unknown) date) Capsule,Delayed,E unknown) xtend.Release (unknown) (no (unknown) (unknown) cetirizine 10 MG (units (unknown) date) tablet,chewable unknown) (unknown) (no (unknown) (unknown) duloxetine (units (unk nown) date) [Cymbalta] 30 MG unknown) capsule,delayed release(DR/EC) (unknown) (no (unknown) (unknown) ergocalciferol (units (unknown) date) (vitamin D2) unknown) 50,000 unit Capsule (unknown) (no (unknown) (unknown) lorazepam 0.5 mg (units (unknown) date) tablet unknown) (unknown) (no (unknown) (unknown) polyethylene (units (u nknown) date) glycol 3350 17 unknown) gram/dose powder (unknown) (no (unknown) (unknown) prazosin 1 MG (units ( unknown) date) capsule unknown) (unknown) (no (unknown) (unknown) ranitidine HCl (units (unknown) date) 150 mg tablet unknown) (unknown) (no (unknown) (unknown) tramadol 50 mg (units (unknown) date) tablet unknown) (unknown) (no (unknown) (unknown) ustekinumab (units (un known) date) [Stelara] 90 unknown) mg/mL syringe (unknown) (no (unknown) (unknown) 10/10/21 (units (unkno wn) date) unknown) (unknown) (no (unknown) (unknown) Medication (units (unk nown) date) Instructions unknown) Recorded (unknown) (no (unknown) (unknown) Medication (units (unk nown) date) Instructions unknown) Recorded Confirmed (unknown) (no (unknown) (unknown) disc (units (unkno wn) date) unknown) (unknown) (no (unknown) (unknown) is seen. (units (unkno wn) date) unknown) (unknown) (no (unknown) (unknown) tabs (units (unkno wn) date) unknown) (unknown) (no (unknown) (unknown) [phone] (units (unkn own) date) unknown) (unknown) (no (unknown) (unknown) 08/25/17 (units (unkno wn) date) unknown) (unknown) (no (unknown) (unknown) 10/10/21 12:28 (units (unknown) date) unknown) (unknown) (no (unknown) (unknown) 10/10/21 16:05 (units (unknown) date) unknown) (unknown) (no (unknown) (unknown) 10/10/21 16:23 (units (unknown) date) unknown) (unknown) (no (unknown) (unknown) 12:20 (units (unkno wn) date) unknown) (unknown) (no (unknown) (unknown) 36-year-old (units (un known) date) woman presents unknown) with multiple chronic pain issues, significant (unknown) (no (unknown) (unknown) ? (units (unkno wn) date) unknown) (unknown) (no (unknown) (unknown) ALT 11 (<35) (units (unknown) date) IU/L unknown) (unknown) (no (unknown) (unknown) AST 22 (units (unkno wn) date) (14-36) IU/L unknown) (unknown) (no (unknown) (unknown) Age/Sex: 36 / F (units (unknown) date) unknown) (unknown) (no (unknown) (unknown) Albumin 4.2 (units ( unknown) date) (3.5-5.0) g/dL unknown) (unknown) (no (unknown) (unknown) Albumin/Globulin (units (unknown) date) Ratio 1.4 unknown) (1.0-2.8) (unknown) (no (unknown) (unknown) Alignment and (units ( unknown) date) curvature:? There unknown) is normal bony alignment.? (unknown) (no (unknown) (unknown) Alkaline (units (unkno wn) date) Phosphatase 54 unknown) (38-126) U/L (unknown) (no (unknown) (unknown) Allergy/AdvReac (units (unknown) date) Type Severity unknown) Reaction Status Date / Time (unknown) (no (unknown) (unknown) BUN 12 (7-17) (units (unknown) date) mg/dL unknown) (unknown) (no (unknown) (unknown) BUN/Creatinine (units (unknown) date) Ratio 15.8 unknown) (6-22) (unknown) (no (unknown) (unknown) Baso # (Auto) 0 (units (unknown) date) (0-100) /uL unknown) (unknown) (no (unknown) (unknown) Baso % (Auto) (units ( unknown) date) 0.9 (0-2) % unknown) (unknown) (no (unknown) (unknown) Bedside Urine (units ( unknown) date) Bilirubin unknown) - Negative (unknown) (no (unknown) (unknown) Bedside Urine (units ( unknown) date) Glucose unknown) Negative (unknown) (no (unknown) (unknown) Bedside Urine (units ( unknown) date) Ketone - unknown) Negative (unknown) (no (unknown) (unknown) Bedside Urine (units ( unknown) date) Leukocytes unknown) - Negative (unknown) (no (unknown) (unknown) Bedside Urine (units ( unknown) date) Nitrite - unknown) Negative (unknown) (no (unknown) (unknown) Bedside Urine (units ( unknown) date) Occult Blood unknown) +/- (unknown) (no (unknown) (unknown) Bedside Urine (units ( unknown) date) Protein +/- 15 unknown) (unknown) (no (unknown) (unknown) Bedside Urine (units ( unknown) date) Urobilinogen unknown) - Negative (unknown) (no (unknown) (unknown) Bedside Urine pH (units (unknown) date) 6.0 unknown) (unknown) (no (unknown) (unknown) Blood Pressure (units (unknown) date) 132/84 10/10/21 unknown) 12:20 (unknown) (no (unknown) (unknown) Blood Pressure (units (unknown) date) 132/84 unknown) (unknown) (no (unknown) (unknown) Brain:? In this (units (unknown) date) patient with this unknown) given history, scrutiny is given to abnormal (unknown) (no (unknown) (unknown) C2-C3:? Normal (units (unknown) date) appearance.? unknown) (unknown) (no (unknown) (unknown) C3-C4:? (units (unkno wn) date) [id number] unknown) loss of disc height and disc signal can be seen.? At (unknown) (no (unknown) (unknown) C4-C5:? Mild loss (units (unknown) date) of disc height is unknown) seen. Loss of disc signal is seen.? Moderate (unknown) (no (unknown) (unknown) C5-C6:? Mild (units (u nknown) date) loss of disc unknown) height is seen. Loss of disc signal is seen.? A mild (unknown) (no (unknown) (unknown) C6-C7:? Normal (units (unknown) date) appearance.? unknown) (unknown) (no (unknown) (unknown) C7-T1:? Normal (units (unknown) date) appearance.? unknown) (unknown) (no (unknown) (unknown) CSF spaces:? (units (u nknown) date) Ventricles are unknown) normal in size and shape.? Basal cisterns are (unknown) (no (unknown) (unknown) Calcium 8.5 (units ( unknown) date) (8.4-10.2) mg/dL unknown) (unknown) (no (unknown) (unknown) Carbon Dioxide (units (unknown) date) 27 (22-32) unknown) mmol/L (unknown) (no (unknown) (unknown) Chief Complaint: (units (unknown) date) Psychiatric unknown) Symptoms (unknown) (no (unknown) (unknown) Chloride 105 (units (unknown) date) (98-107) mmol/L unknown) (unknown) (no (unknown) (unknown) Complete Blood (units (unknown) date) Count AUTO DIFF unknown) Stat (unknown) (no (unknown) (unknown) Comprehensive (units ( unknown) date) Metabolic Panel unknown) Stat (unknown) (no (unknown) (unknown) 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 REDUCTION WORKER - (units (unknown) date) Bar Examiner unknown) Stat (unknown) (no (unknown) (unknown) Course (units (unkno wn) date) unknown) (unknown) (no (unknown) (unknown) Creatinine (units (unk nown) date) 0.76 (0.52-1.04) unknown) mg/dL (unknown) (no (unknown) (unknown) Crohn disease (units ( unknown) date) unknown) (unknown) (no (unknown) (unknown) : 1985 (units (unknown) date) Acct:[id number] unknown) (unknown) (no (unknown) (unknown) Juan Jose Lopez, (units (unknown) date) [Primary Care unknown) Provider] - (unknown) (no (unknown) (unknown) Departure (units (unkn own) date) unknown) (unknown) (no (unknown) (unknown) Dictated by: (units (u nknown) date) angela Pennington M.D. on 10/10/2021 at 16:40? ?? (unknown) (no (unknown) (unknown) Dictated by: (units (u nknown) date) angela Pennington M.D. on 10/10/2021 at 16:44? ?? (unknown) (no (unknown) (unknown) Discharge Plan (units (unknown) date) unknown) (unknown) (no (unknown) (unknown) Discontinued (units (u nknown) date) Medications unknown) (unknown) (no (unknown) (unknown) ER Physician: (units ( unknown) date) Lupis Moreira unknown) (unknown) (no (unknown) (unknown) Eos # (Auto) (units (u nknown) date) 500 H (0-450) unknown) /uL (unknown) (no (unknown) (unknown) Eos % (Auto) (units (u nknown) date) 9.1 H (2-4) % unknown) (unknown) (no (unknown) (unknown) Esterase (units (unkno wn) date) unknown) (unknown) (no (unknown) (unknown) Estimated GFR (units ( unknown) date) > 60 (>60) unknown) mL/min (unknown) (no (unknown) (unknown) Exam (units (unkno wn) date) unknown) (unknown) (no (unknown) (unknown) FINDINGS:? (units (unk nown) date) unknown) (unknown) (no (unknown) (unknown) General (units (unkno wn) date) unknown) (unknown) (no (unknown) (unknown) GenericComposite (units (unknown) date) [Plt Count 271 unknown) (150-400) X10^3/uL ] (unknown) (no (unknown) (unknown) GenericComposite (units (unknown) date) [RBC 4.35 unknown) (4.0-5.2) X10^6/uL ] (unknown) (no (unknown) (unknown) GenericComposite (units (unknown) date) [WBC 5.4 unknown) (4.5-11.0) X10^3/uL ] (unknown) (no (unknown) (unknown) Globulin 3.1 (units (unknown) date) (1.7-4.1) g/dL unknown) (unknown) (no (unknown) (unknown) Glucose 89 (units (u nknown) date) (70-100) mg/dL unknown) (unknown) (no (unknown) (unknown) HPI - Psych (units (un known) date) unknown) (unknown) (no (unknown) (unknown) HPI Narrative: (units (unknown) date) unknown) (unknown) (no (unknown) (unknown) Hct 38.4 (units (unkn own) date) (36-46) % unknown) (unknown) (no (unknown) (unknown) Hgb 12.9 (units (unkn own) date) (12.0-16.0) g/dL unknown) (unknown) (no (unknown) (unknown) History of (units (unk nown) date) Present Illness unknown) (unknown) (no (unknown) (unknown) IMPRESSION:? (units (u nknown) date) unknown) (unknown) (no (unknown) (unknown) IMPRESSION:? (units (u nknown) date) Normal brain MRI, unknown) without findings of T2 hyperintense lesions to (unknown) (no (unknown) (unknown) Image quality:? (units (unknown) date) This examination unknown) is limited by involuntary motion artifact.? (unknown) (no (unknown) (unknown) Imaging Data (units (u nknown) date) unknown) (unknown) (no (unknown) (unknown) Incidental note (units (unknown) date) is made of: unknown) (unknown) (no (unknown) (unknown) Initial Vital (units ( unknown) date) Signs unknown) (unknown) (no (unknown) (unknown) Initial Vital (units ( unknown) date) Signs: unknown) (unknown) (no (unknown) (unknown) Lab Data (units (unkno wn) date) unknown) (unknown) (no (unknown) (unknown) Labs: (units (unkno wn) date) unknown) (unknown) (no (unknown) (unknown) Lorazepam (units (unkn own) date) (Lorazepam 0.5 Mg unknown) Tablet) 1 mg PO NOW ONE (unknown) (no (unknown) (unknown) Lorazepam (units (unkn own) date) (Lorazepam 2 unknown) Mg/Ml Inj) 1 mg IV NOW ONE (unknown) (no (unknown) (unknown) Lymph # (Auto) (units (unknown) date) 1100 unknown) (3996-0688) /uL (unknown) (no (unknown) (unknown) Lymph % (Auto) (units (unknown) date) 20.9 L (25-40) unknown) % (unknown) (no (unknown) (unknown) MCH 29.7 (units (unkn own) date) (26-34) PG unknown) (unknown) (no (unknown) (unknown) MCHC 33.7 (units (unk nown) date) (30-36) % unknown) (unknown) (no (unknown) (unknown) MCV 88.3 (units (unkn own) date) (80-100) fL unknown) (unknown) (no (unknown) (unknown) MDM - Psych (units (un known) date) unknown) (unknown) (no (unknown) (unknown) MR Cspine: (units (unk nown) date) unknown) (unknown) (no (unknown) (unknown) MR cervical (units (un known) date) spine wo/w con unknown) Stat (unknown) (no (unknown) (unknown) MR head/brain (units ( unknown) date) wo/w con Stat unknown) (unknown) (no (unknown) (unknown) MRI Brain: (units (unk nown) date) unknown) (unknown) (no (unknown) (unknown) Marrow:? Marrow (units (unknown) date) demonstrates unknown) normal overall signal.? (unknown) (no (unknown) (unknown) Medical History (units (unknown) date) (Reviewed unknown) 11/16/20 @ 03:11 by Seth Park DO) (unknown) (no (unknown) (unknown) [place] # (Auto) (units ( unknown) date) 500 (0-900) unknown) /uL (unknown) (no (unknown) (unknown) [place] % (Auto) (units ( unknown) date) 8.5 (3-14) % unknown) (unknown) (no (unknown) (unknown) Multiple levels (units (unknown) date) of premature unknown) cervical spine degenerative change can be seen.? (unknown) (no (unknown) (unknown) Neut # (Auto) (units ( unknown) date) 3300 unknown) (2950-9666) /uL (unknown) (no (unknown) (unknown) Neut % (Auto) (units ( unknown) date) 60.6 (50-75) % unknown) (unknown) (no (unknown) (unknown) No Action (units (unkn own) date) unknown) (unknown) (no (unknown) (unknown) No abnormal (units (un known) date) enhancement is unknown) seen. (unknown) (no (unknown) (unknown) No abnormal (units (un known) date) white matter unknown) lesions are seen to suggest multiple sclerosis (unknown) (no (unknown) (unknown) No intracranial (units (unknown) date) bleeds or mass unknown) effects.? Alfaro-white matter interface appears (unknown) (no (unknown) (unknown) No masses or (units (u nknown) date) abnormal unknown) enhancement can be seen. (unknown) (no (unknown) (unknown) No significant (units (unknown) date) past surgical unknown) history (unknown) (no (unknown) (unknown) Ordered: (units (unkno wn) date) unknown) (unknown) (no (unknown) (unknown) Orders (units (unkno wn) date) unknown) (unknown) (no (unknown) (unknown) Oxygen Delivery (units (unknown) date) Method unknown) 10/10/21 12:20 (unknown) (no (unknown) (unknown) Oxygen Delivery (units (unknown) date) Method Room Air unknown) (unknown) (no (unknown) (unknown) Paranasal sinus (units (unknown) date) disease, unknown) including a left maxillary sinus mucous retention cyst? (unknown) (no (unknown) (unknown) Paraspinous soft (units (unknown) date) tissues:? No unknown) paravertebral masses or suspicious enhancement.? (unknown) (no (unknown) (unknown) Patient History (units (unknown) date) unknown) (unknown) (no (unknown) (unknown) Patient: (units (unkno wn) date) Rhonda Booker unknown) MR#: M (unknown) (no (unknown) (unknown) Potassium 3.6 (units (unknown) date) (3.4-5.1) mmol/L unknown) (unknown) (no (unknown) (unknown) Test (units (unknown) date) Results unknown) Negative (unknown) (no (unknown) (unknown) Prescriptions: (units (unknown) date) unknown) (unknown) (no (unknown) (unknown) Pulse Oximetry (units (unknown) date) 100 10/10/21 unknown) 12:20 (unknown) (no (unknown) (unknown) Pulse Oximetry (units (unknown) date) 100 unknown) (unknown) (no (unknown) (unknown) Pulse Rate 86 (units (unknown) date) 10/10/21 12:20 unknown) (unknown) (no (unknown) (unknown) Pulse Rate 86 (units ( unknown) date) unknown) (unknown) (no (unknown) (unknown) RDW 12.7 (units (unkn own) date) (11.6-14.8) % unknown) (unknown) (no (unknown) (unknown) Referrals: (units (unk nown) date) unknown) (unknown) (no (unknown) (unknown) Related Data (units (u nknown) date) unknown) (unknown) (no (unknown) (unknown) Respiratory Rate (units (unknown) date) 16 10/10/21 unknown) 12:20 (unknown) (no (unknown) (unknown) Respiratory Rate (units (unknown) date) 16 unknown) (unknown) (no (unknown) (unknown) Result diagrams: (units (unknown) date) unknown) (unknown) (no (unknown) (unknown) She is having (units ( unknown) date) significant unknown) suicidal ideation but does not have a plan. She is (unknown) (no (unknown) (unknown) Signed By: (units (unk nown) date) unknown) (unknown) (no (unknown) (unknown) Sinuses:? There (units (unknown) date) is a prominent unknown) mucous retention cyst seen involving the left (unknown) (no (unknown) (unknown) Skull and face:? (units (unknown) date) Calvarial marrow unknown) signal is normal.? Orbits appear normal.? (unknown) (no (unknown) (unknown) Smoking Status: (units (unknown) date) Former smoker unknown) (unknown) (no (unknown) (unknown) Smoking Status: (units (unknown) date) Former smoker unknown) (unknown) (no (unknown) (unknown) Social History (units (unknown) date) (Reviewed unknown) 11/16/20 @ 03:11 by Seth Park DO) (unknown) (no (unknown) (unknown) Sodium 139 (units (u nknown) date) (137-145) mmol/L unknown) (unknown) (no (unknown) (unknown) Spinal cord:? (units ( unknown) date) Visualized spinal unknown) cord is normal in size, without white matter (unknown) (no (unknown) (unknown) Stated (units (unkno wn) date) Complaint: Really unknown) Sick/Not Sleeping/SI (unknown) (no (unknown) (unknown) Substance Use (units ( unknown) date) Type: marijuana unknown) (unknown) (no (unknown) (unknown) Surgical History (units (unknown) date) (Reviewed unknown) 06/29/20 @ 19:47 by Nain Betancourt DO) (unknown) (no (unknown) (unknown) T2 (units (unkno wn) date) unknown) (unknown) (no (unknown) (unknown) Temperature (units (un known) date) 98.8 F 10/10/21 unknown) 12:20 (unknown) (no (unknown) (unknown) Temperature 98.8 (units (unknown) date) F unknown) (unknown) (no (unknown) (unknown) There is at (units (un known) date) least moderate unknown) bilateral neural foraminal narrowing seen. Minimal (unknown) (no (unknown) (unknown) Time Seen by (units (u nknown) date) Provider: unknown) 10/10/21 12:53 (unknown) (no (unknown) (unknown) Total Bilirubin (units (unknown) date) 0.7 (0.2-1.3) unknown) mg/dL (unknown) (no (unknown) (unknown) Total Protein (units ( unknown) date) 7.3 (6.3-8.2) unknown) g/dL (unknown) (no (unknown) (unknown) Urine Specific (units (unknown) date) [place] 1.020 unknown) (unknown) (no (unknown) (unknown) Vital Signs (units (un known) date) unknown) (unknown) (no (unknown) (unknown) Vital signs: (units (u nknown) date) unknown) (unknown) (no (unknown) (unknown) [Embedded Image (units (unknown) date) Not Available] unknown) (unknown) (no (unknown) (unknown) abnormal fluid (units (unknown) date) is seen within unknown) the mastoid air cells. (unknown) (no (unknown) (unknown) abnormal (units (unkno wn) date) intracranial unknown) enhancement.? Diffusion weighted images show no acute (unknown) (no (unknown) (unknown) alcohol intake (units (unknown) date) frequency: unknown) holidays/special occasions only (unknown) (no (unknown) (unknown) alcohol intake: (units (unknown) date) never unknown) (unknown) (no (unknown) (unknown) azathioprine 50 (units (unknown) date) mg tablet 50 mg unknown) PO DAILY 08/23/17 08/25/17 (unknown) (no (unknown) (unknown) budesonide 3 mg (units (unknown) date) 3 mg PO DAILY unknown) 08/23/17 08/25/17 (unknown) (no (unknown) (unknown) canal (units (unkno wn) date) unknown) (unknown) (no (unknown) (unknown) canal narrowing (units (unknown) date) is seen.? unknown) (unknown) (no (unknown) (unknown) capsule,delayed, (units (unknown) date) extended release unknown) (unknown) (no (unknown) (unknown) central (units (unkno wn) date) unknown) (unknown) (no (unknown) (unknown) cetirizine 10 mg (units (unknown) date) chewable tablet unknown) 10 mg PO QDAY ##0 01/31/17 08/25/17 (unknown) (no (unknown) (unknown) concerns from (units ( unknown) date) prior exams. At unknown) this point she is feeling defeated, depressed. (unknown) (no (unknown) (unknown) degree of (units (unkn own) date) unknown) (unknown) (no (unknown) (unknown) duloxetine 30 mg (units (unknown) date) capsule,delayed unknown) 30 mg PO QDAY #30 caps 01/04/16 (unknown) (no (unknown) (unknown) ergocalciferol (units (unknown) date) (vitamin D2) unknown) 1,250 50,000 unit PO QWEEK 08/23/17 08/25/17 (unknown) (no (unknown) (unknown) establishing (units (u nknown) date) care that may unknown) offer some type of relief for her suffering. (unknown) (no (unknown) (unknown) extra-axial (units (un known) date) fluid unknown) collections.? (unknown) (no (unknown) (unknown) generalized disc (units (unknown) date) osteophyte unknown) complex is seen.? Moderate facet joint hypertrophy (unknown) (no (unknown) (unknown) gram/dose oral (units (unknown) date) powder unknown) (unknown) (no (unknown) (unknown) however she was (units (unknown) date) unable to unknown) tolerate this can due to severe anxiety with PTS type (unknown) (no (unknown) (unknown) hyperintense (units (u nknown) date) white matter unknown) lesions.? None can be seen. (unknown) (no (unknown) (unknown) hypertrophy is (units (unknown) date) seen.? There is unknown) moderate to severe right-sided and at least (unknown) (no (unknown) (unknown) insomnia with (units ( unknown) date) significant sleep unknown) deprivation, she has seen specialists who have (unknown) (no (unknown) (unknown) insults.? (units (unkn own) date) Brainstem appears unknown) normal.? Normal intravascular flow voids are (unknown) (no (unknown) (unknown) intact.? No (units (un known) date) unknown) (unknown) (no (unknown) (unknown) involvement (units (un known) date) unknown) (unknown) (no (unknown) (unknown) is looking for (units (unknown) date) guidance and help unknown) in negotiating the medical system and (unknown) (no (unknown) (unknown) is seen.? (units (unkn own) date) unknown) (unknown) (no (unknown) (unknown) ischemic (units (unkno wn) date) unknown) (unknown) (no (unknown) (unknown) joint (units (unkno wn) date) unknown) (unknown) (no (unknown) (unknown) least (units (unkno wn) date) unknown) (unknown) (no (unknown) (unknown) least moderate (units (unknown) date) bilateral neural unknown) foraminal narrowing can be seen. Mild central (unknown) (no (unknown) (unknown) left-sided neural (units (unknown) date) foraminal unknown) narrowing.? Mild to moderate central canal narrowing (unknown) (no (unknown) (unknown) lesions.? No (units (u nknown) date) unknown) (unknown) (no (unknown) (unknown) lorazepam 0.5 mg (units (unknown) date) tablet 0.5 mg PO unknown) BEDTIME PRN sleep #10 06/29/20 (unknown) (no (unknown) (unknown) maxillary (units (unkn own) date) unknown) (unknown) (no (unknown) (unknown) mcg (50,000 (units (un known) date) unit) capsule unknown) (unknown) (no (unknown) (unknown) moderate (units (unkno wn) date) unknown) (unknown) (no (unknown) (unknown) moderate disc (units ( unknown) date) osteophyte unknown) complex is seen. Moderate facet joint hypertrophy is (unknown) (no (unknown) (unknown) multiple (units (unkno wn) date) sclerosis unknown) plaques. (unknown) (no (unknown) (unknown) narrowing is (units (u nknown) date) seen.? unknown) (unknown) (no (unknown) (unknown) not been helpful (units (unknown) date) and she feels unknown) that her concerns have not been heard. She has (unknown) (no (unknown) (unknown) olopatadine (units (un known) date) [From PATANOL] unknown) Allergy Intermediate RED AND Verified 11/15/20 18:21 (unknown) (no (unknown) (unknown) osteophyte (units (unk nown) date) complex is seen, unknown) which is eccentric to the right. Moderate facet (unknown) (no (unknown) (unknown) patent.? No (units (un known) date) unknown) (unknown) (no (unknown) (unknown) polyethylene (units (u nknown) date) glycol 3350 17 17 unknown) g PO DAILY 08/23/17 08/25/17 (unknown) (no (unknown) (unknown) prazosin 1 mg (units ( unknown) date) capsule 1 mg PO unknown) SEE INSTRUCTIONS #60 caps 01/04/16 (unknown) (no (unknown) (unknown) present.? (units (unkn own) date) unknown) (unknown) (no (unknown) (unknown) ranitidine HCl (units (unknown) date) 150 mg tablet 150 unknown) mg PO DAILY 08/23/17 08/25/17 (unknown) (no (unknown) (unknown) release (units (unkno wn) date) (Cymbalta) unknown) (unknown) (no (unknown) (unknown) seen a (units (unkno wn) date) neurologist at unknown) [facility] and MRI was ordered to rule out MS (unknown) (no (unknown) (unknown) seen.? At (units (unkn own) date) unknown) (unknown) (no (unknown) (unknown) sinus.? Mild to (units (unknown) date) moderate mucosal unknown) thickening is seen within the paranasal (unknown) (no (unknown) (unknown) sinuses. No (units (un known) date) unknown) (unknown) (no (unknown) (unknown) specialist and (units (unknown) date) she is not having unknown) her chronic pain adequately controlled at this (unknown) (no (unknown) (unknown) substance use (units ( unknown) date) type: does not unknown) use (unknown) (no (unknown) (unknown) suggest (units (unkno wn) date) unknown) (unknown) (no (unknown) (unknown) sumatriptan (units (un known) date) [SUMATRIPTAN] unknown) Allergy Severe MUSCLE Verified 11/15/20 18:21 (unknown) (no (unknown) (unknown) suspicious (units (unk nown) date) intramedullary unknown) enhancement.? No cerebellar tonsillar herniation.? (unknown) (no (unknown) (unknown) syringe (units (unkno wn) date) unknown) (unknown) (no (unknown) (unknown) time. Her (units (unk nown) date) is her unknown) primary support system and has been wonderful but she (unknown) (no (unknown) (unknown) tramadol 50 mg (units (unknown) date) tablet 50 mg PO unknown) Q6H PRN pain #10 tabs 08/25/17 (unknown) (no (unknown) (unknown) trying to get on (units (unknown) date) disability. Does unknown) not appear that she has been seen by a pain (unknown) (no (unknown) (unknown) ustekinumab 90 (units (unknown) date) mg/mL unknown) subcutaneous See Rx Instructions .Route .COMPLEX 08/23/17 (unknown) (no (unknown) (unknown) within the (units (unk nown) date) cervical cord. unknown) Result panel 7 (unknown) (no (unknown) (unknown) (no value) (units (unk nown) date) unknown) (unknown) (no (unknown) (unknown) Radiologist's (units ( unknown) date) Impression: unknown) (unknown) (no (unknown) (unknown) Date of Service: (units (unknown) date) 10/10/21 unknown) (unknown) (no (unknown) (unknown) (no value) (units (unk nown) date) unknown) (unknown) (no (unknown) (unknown) 0.5 mg PO BEDTIME (units (unknown) date) PRN (Reason: unknown) sleep) Qty: 10 0RF (unknown) (no (unknown) (unknown) 10/10/21 16:23 (units (unknown) date) unknown) (unknown) (no (unknown) (unknown) 1 mg PO SEE (units (un known) date) INSTRUCTIONS Qty: unknown) 60 2RF (unknown) (no (unknown) (unknown) 10 mg PO QDAY (units ( unknown) date) Qty: 0 unknown) (unknown) (no (unknown) (unknown) 150 mg PO DAILY (units (unknown) date) unknown) (unknown) (no (unknown) (unknown) 17 g PO DAILY (units ( unknown) date) unknown) (unknown) (no (unknown) (unknown) 3 mg PO DAILY (units ( unknown) date) unknown) (unknown) (no (unknown) (unknown) 30 mg PO QDAY (units ( unknown) date) Qty: 30 2RF unknown) (unknown) (no (unknown) (unknown) 50 mg PO DAILY (units (unknown) date) unknown) (unknown) (no (unknown) (unknown) 50 mg PO Q6H PRN (units (unknown) date) (Reason: pain) unknown) Qty: 10 0RF (unknown) (no (unknown) (unknown) 50,000 unit PO (units (unknown) date) QWEEK unknown) (unknown) (no (unknown) (unknown) 90 mg (units (unkno wn) date) subcutaneously unknown) every 8 weeks (unknown) (no (unknown) (unknown) Allergies (units (unkn own) date) unknown) (unknown) (no (unknown) (unknown) Documented By: RL (units (unknown) date) unknown) (unknown) (no (unknown) (unknown) ED Orders (units (unkn own) date) unknown) (unknown) (no (unknown) (unknown) EYES (units (unkno wn) date) unknown) (unknown) (no (unknown) (unknown) Emergency Report (units (unknown) date) unknown) (unknown) (no (unknown) (unknown) Home Medications (units (unknown) date) unknown) (unknown) (no (unknown) (unknown) IN FACE (units (unkno wn) date) unknown) (unknown) (no (unknown) (unknown) [facility] (units (unknown) date) [address] unknown) [place] [address] (unknown) (no (unknown) (unknown) Lab Results (units (un known) date) unknown) (unknown) (no (unknown) (unknown) Label Comments: (units (unknown) date) unknown) (unknown) (no (unknown) (unknown) Last Admin: (units (un known) date) 10/10/21 16:17 unknown) Dose: 1 mg (unknown) (no (unknown) (unknown) Last Admin: (units (un known) date) 10/10/21 16:33 unknown) Dose: 1 mg (unknown) (no (unknown) (unknown) Point of Care (units ( unknown) date) Testing unknown) (unknown) (no (unknown) (unknown) Previous Rx's (units ( unknown) date) unknown) (unknown) (no (unknown) (unknown) RIGIDITY (units (unkno wn) date) unknown) (unknown) (no (unknown) (unknown) Rx Instructions: (units (unknown) date) unknown) (unknown) (no (unknown) (unknown) SWOLLEN (units (unkno wn) date) unknown) (unknown) (no (unknown) (unknown) See Rx (units (unkno wn) date) Instructions unknown) .ROUTE .COMPLEX (unknown) (no (unknown) (unknown) Stop: 10/10/21 (units (unknown) date) 16:08 unknown) (unknown) (no (unknown) (unknown) Taking 2mg (units (unk nown) date) unknown) (unknown) (no (unknown) (unknown) Urine Dip (units (unkn own) date) unknown) (unknown) (no (unknown) (unknown) Vital Signs - 8 (units (unknown) date) hr unknown) (unknown) (no (unknown) (unknown) take with tylenol (units (unknown) date) unknown) (unknown) (no (unknown) (unknown) (no value) (units (unk nown) date) unknown) (unknown) (no (unknown) (unknown) 10/10/21 10/10/21 (units (unknown) date) Range/Units unknown) (unknown) (no (unknown) (unknown) 16:23 16:23 (units (un known) date) unknown) (unknown) (no (unknown) (unknown) azathioprine 50 (units (unknown) date) mg tablet unknown) (unknown) (no (unknown) (unknown) budesonide 3 mg (units (unknown) date) Capsule,Delayed,Ex unknown) tend.Release (unknown) (no (unknown) (unknown) cetirizine 10 MG (units (unknown) date) tablet,chewable unknown) (unknown) (no (unknown) (unknown) duloxetine (units (unk nown) date) [Cymbalta] 30 MG unknown) capsule,delayed release(DR/EC) (unknown) (no (unknown) (unknown) ergocalciferol (units (unknown) date) (vitamin D2) unknown) 50,000 unit Capsule (unknown) (no (unknown) (unknown) lorazepam 0.5 mg (units (unknown) date) tablet unknown) (unknown) (no (unknown) (unknown) polyethylene (units (u nknown) date) glycol 3350 17 unknown) gram/dose powder (unknown) (no (unknown) (unknown) prazosin 1 MG (units ( unknown) date) capsule unknown) (unknown) (no (unknown) (unknown) ranitidine HCl (units (unknown) date) 150 mg tablet unknown) (unknown) (no (unknown) (unknown) tramadol 50 mg (units (unknown) date) tablet unknown) (unknown) (no (unknown) (unknown) ustekinumab (units (un known) date) [Stelara] 90 mg/mL unknown) syringe (unknown) (no (unknown) (unknown) 10/10/21 (units (unkno wn) date) unknown) (unknown) (no (unknown) (unknown) Medication (units (unk nown) date) Instructions unknown) Recorded (unknown) (no (unknown) (unknown) Medication (units (unk nown) date) Instructions unknown) Recorded Confirmed (unknown) (no (unknown) (unknown) Sleep (units (unkno wn) date) disturbance, unknown) Depression, Anxiety, Chronic pain, Post-traumatic stress (unknown) (no (unknown) (unknown) disc (units (unkno wn) date) unknown) (unknown) (no (unknown) (unknown) have written a (units (unknown) date) prescription for unknown) this. If you had other side effects with this (unknown) (no (unknown) (unknown) is seen. (units (unkno wn) date) unknown) (unknown) (no (unknown) (unknown) tabs (units (unkno wn) date) unknown) (unknown) (no (unknown) (unknown) too sedating you (units (unknown) date) can cut them in unknown) half. That feels that it is not enough you (unknown) (no (unknown) (unknown) [id number] (units (unkn own) date) unknown) (unknown) (no (unknown) (unknown) 08/25/17 (units (unkno wn) date) unknown) (unknown) (no (unknown) (unknown) 10/10/21 12:28 (units (unknown) date) unknown) (unknown) (no (unknown) (unknown) 10/10/21 16:05 (units (unknown) date) unknown) (unknown) (no (unknown) (unknown) 10/10/21 16:23 (units (unknown) date) unknown) (unknown) (no (unknown) (unknown) 1. The MRI of (units ( unknown) date) your brain and unknown) your cervical spine were normal. You do not have (unknown) (no (unknown) (unknown) 12:20 (units (unkno wn) date) unknown) (unknown) (no (unknown) (unknown) 2. For sleep I am (units (unknown) date) going to suggest unknown) that we add quetiapine/Seroque l to your (unknown) (no (unknown) (unknown) 3. For your (units (un known) date) nightmares, it unknown) looks like you are on prazosin 2 mg at bedtime at (unknown) (no (unknown) (unknown) 36-year-old woman (units (unknown) date) presents with unknown) multiple chronic pain issues, significant (unknown) (no (unknown) (unknown) 4. You may (units (unk nown) date) benefit from unknown) seeing a chronic pain specialist. Please discuss this (unknown) (no (unknown) (unknown) ? (units (unkno wn) date) unknown) (unknown) (no (unknown) (unknown) ALT 11 (<35) (units (unknown) date) IU/L unknown) (unknown) (no (unknown) (unknown) AST 22 (14-36) (units (unknown) date) IU/L unknown) (unknown) (no (unknown) (unknown) Activity (units (unkno wn) date) Restrictions/Addit unknown) ional Instructions: (unknown) (no (unknown) (unknown) Age/Sex: 36 / F (units (unknown) date) unknown) (unknown) (no (unknown) (unknown) Albumin 4.2 (units ( unknown) date) (3.5-5.0) g/dL unknown) (unknown) (no (unknown) (unknown) Albumin/Globulin (units (unknown) date) Ratio 1.4 unknown) (1.0-2.8) (unknown) (no (unknown) (unknown) Alignment and (units ( unknown) date) curvature:? There unknown) is normal bony alignment.? (unknown) (no (unknown) (unknown) Alkaline (units (unkno wn) date) Phosphatase 54 unknown) (38-126) U/L (unknown) (no (unknown) (unknown) Allergy/AdvReac (units (unknown) date) Type Severity unknown) Reaction Status Date / Time (unknown) (no (unknown) (unknown) BUN 12 (7-17) (units (unknown) date) mg/dL unknown) (unknown) (no (unknown) (unknown) BUN/Creatinine (units (unknown) date) Ratio 15.8 unknown) (6-22) (unknown) (no (unknown) (unknown) Baso # (Auto) 0 (units (unknown) date) (0-100) /uL unknown) (unknown) (no (unknown) (unknown) Baso % (Auto) (units ( unknown) date) 0.9 (0-2) % unknown) (unknown) (no (unknown) (unknown) Bedside Urine (units ( unknown) date) Bilirubin - unknown) Negative (unknown) (no (unknown) (unknown) Bedside Urine (units ( unknown) date) Glucose unknown) Negative (unknown) (no (unknown) (unknown) Bedside Urine (units ( unknown) date) Ketone - unknown) Negative (unknown) (no (unknown) (unknown) Bedside Urine (units ( unknown) date) Leukocytes - unknown) Negative (unknown) (no (unknown) (unknown) Bedside Urine (units ( unknown) date) Nitrite - unknown) Negative (unknown) (no (unknown) (unknown) Bedside Urine (units ( unknown) date) Occult Blood unknown) +/- (unknown) (no (unknown) (unknown) Bedside Urine (units ( unknown) date) Protein +/- 15 unknown) (unknown) (no (unknown) (unknown) Bedside Urine (units ( unknown) date) Urobilinogen - unknown) Negative (unknown) (no (unknown) (unknown) Bedside Urine pH (units (unknown) date) 6.0 unknown) (unknown) (no (unknown) (unknown) Blood Pressure (units (unknown) date) 132/84 10/10/21 unknown) 12:20 (unknown) (no (unknown) (unknown) Blood Pressure (units (unknown) date) 132/84 unknown) (unknown) (no (unknown) (unknown) Brain:? In this (units (unknown) date) patient with this unknown) given history, scrutiny is given to abnormal (unknown) (no (unknown) (unknown) C2-C3:? Normal (units (unknown) date) appearance.? unknown) (unknown) (no (unknown) (unknown) C3-C4:? (units (unkno wn) date) [id number] unknown) loss of disc height and disc signal can be seen.? At (unknown) (no (unknown) (unknown) C4-C5:? Mild loss (units (unknown) date) of disc height is unknown) seen. Loss of disc signal is seen.? Moderate (unknown) (no (unknown) (unknown) C5-C6:? Mild loss (units (unknown) date) of disc height is unknown) seen. Loss of disc signal is seen.? A mild (unknown) (no (unknown) (unknown) C6-C7:? Normal (units (unknown) date) appearance.? unknown) (unknown) (no (unknown) (unknown) C7-T1:? Normal (units (unknown) date) appearance.? unknown) (unknown) (no (unknown) (unknown) CSF spaces:? (units (u nknown) date) Ventricles are unknown) normal in size and shape.? Basal cisterns are (unknown) (no (unknown) (unknown) Calcium 8.5 (units ( unknown) date) (8.4-10.2) mg/dL unknown) (unknown) (no (unknown) (unknown) Carbon Dioxide (units (unknown) date) 27 (22-32) unknown) mmol/L (unknown) (no (unknown) (unknown) Chief Complaint: (units (unknown) date) Psychiatric unknown) Symptoms (unknown) (no (unknown) (unknown) Chloride 105 (units (unknown) date) (98-107) mmol/L unknown) (unknown) (no (unknown) (unknown) Clinical (units (unkno wn) date) Impression: unknown) (unknown) (no (unknown) (unknown) Complete Blood (units (unknown) date) Count AUTO DIFF unknown) Stat (unknown) (no (unknown) (unknown) Comprehensive (units ( unknown) date) Metabolic Panel unknown) Stat (unknown) (no (unknown) (unknown) 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 REDUCTION WORKER - (units (unknown) date) Bar Examiner unknown) Stat (unknown) (no (unknown) (unknown) Course (units (unkno wn) date) unknown) (unknown) (no (unknown) (unknown) Creatinine 0.76 (units (unknown) date) (0.52-1.04) unknown) mg/dL (unknown) (no (unknown) (unknown) Crohn disease (units ( unknown) date) unknown) (unknown) (no (unknown) (unknown) : 1985 (units (unknown) date) Acct:[id number] unknown) (unknown) (no (unknown) (unknown) Juan Jose Lopez, (units (unknown) date) [Primary Care unknown) Provider] - (unknown) (no (unknown) (unknown) Departure (units (unkn own) date) unknown) (unknown) (no (unknown) (unknown) Dictated by: (units (u nknown) date) angela Pennington M.D. on 10/10/2021 at 16:40? ?? (unknown) (no (unknown) (unknown) Dictated by: (units (u nknown) date) shannan Pennington) Sienna on 10/10/2021 at 16:44? ?? (unknown) (no (unknown) (unknown) Discharge Plan (units (unknown) date) unknown) (unknown) (no (unknown) (unknown) Discontinued (units (u nknown) date) Medications unknown) (unknown) (no (unknown) (unknown) ER Physician: (units ( unknown) date) Lupis Moreira unknown) (unknown) (no (unknown) (unknown) Eos # (Auto) 500 (units (unknown) date) H (0-450) /uL unknown) (unknown) (no (unknown) (unknown) Eos % (Auto) 9.1 (units (unknown) date) H (2-4) % unknown) (unknown) (no (unknown) (unknown) Esterase (units (unkno wn) date) unknown) (unknown) (no (unknown) (unknown) Estimated GFR > (units (unknown) date) 60 (>60) mL/min unknown) (unknown) (no (unknown) (unknown) Exam (units (unkno wn) date) unknown) (unknown) (no (unknown) (unknown) FINDINGS:? (units (unk nown) date) unknown) (unknown) (no (unknown) (unknown) General (units (unkno wn) date) unknown) (unknown) (no (unknown) (unknown) GenericComposite[ (units (unknown) date) Plt Count 271 unknown) (150-400) X10^3/uL ] (unknown) (no (unknown) (unknown) GenericComposite[ (units (unknown) date) RBC 4.35 unknown) (4.0-5.2) X10^6/uL ] (unknown) (no (unknown) (unknown) GenericComposite[ (units (unknown) date) WBC 5.4 unknown) (4.5-11.0) X10^3/uL ] (unknown) (no (unknown) (unknown) Globulin 3.1 (units (unknown) date) (1.7-4.1) g/dL unknown) (unknown) (no (unknown) (unknown) Glucose 89 (units (u nknown) date) (70-100) mg/dL unknown) (unknown) (no (unknown) (unknown) HPI - Psych (units (un known) date) unknown) (unknown) (no (unknown) (unknown) HPI Narrative: (units (unknown) date) unknown) (unknown) (no (unknown) (unknown) Hct 38.4 (units (unkn own) date) (36-46) % unknown) (unknown) (no (unknown) (unknown) Hgb 12.9 (units (unkn own) date) (12.0-16.0) g/dL unknown) (unknown) (no (unknown) (unknown) History of (units (unk nown) date) Present Illness unknown) (unknown) (no (unknown) (unknown) IMPRESSION:? (units (u nknown) date) unknown) (unknown) (no (unknown) (unknown) IMPRESSION:? (units (u nknown) date) Normal brain MRI, unknown) without findings of T2 hyperintense lesions to (unknown) (no (unknown) (unknown) Image quality:? (units (unknown) date) This examination unknown) is limited by involuntary motion artifact.? (unknown) (no (unknown) (unknown) Imaging Data (units (u nknown) date) unknown) (unknown) (no (unknown) (unknown) Incidental note (units (unknown) date) is made of: unknown) (unknown) (no (unknown) (unknown) Initial Vital (units ( unknown) date) Signs unknown) (unknown) (no (unknown) (unknown) Initial Vital (units ( unknown) date) Signs: unknown) (unknown) (no (unknown) (unknown) Lab Data (units (unkno wn) date) unknown) (unknown) (no (unknown) (unknown) Labs: (units (unkno wn) date) unknown) (unknown) (no (unknown) (unknown) Lorazepam (units (unkn own) date) (Lorazepam 0.5 Mg unknown) Tablet) 1 mg PO NOW ONE (unknown) (no (unknown) (unknown) Lorazepam (units (unkn own) date) (Lorazepam 2 Mg/Ml unknown) Inj) 1 mg IV NOW ONE (unknown) (no (unknown) (unknown) Lymph # (Auto) (units (unknown) date) 1100 ([id number]) unknown) /uL (unknown) (no (unknown) (unknown) Lymph % (Auto) (units (unknown) date) 20.9 L (25-40) unknown) % (unknown) (no (unknown) (unknown) MCH 29.7 (units (unkn own) date) (26-34) PG unknown) (unknown) (no (unknown) (unknown) MCHC 33.7 (units (unk nown) date) (30-36) % unknown) (unknown) (no (unknown) (unknown) MCV 88.3 (units (unkn own) date) (80-100) fL unknown) (unknown) (no (unknown) (unknown) MDM - Psych (units (un known) date) unknown) (unknown) (no (unknown) (unknown) MR Cspine: (units (unk nown) date) unknown) (unknown) (no (unknown) (unknown) MR cervical spine (units (unknown) date) wo/w con Stat unknown) (unknown) (no (unknown) (unknown) MR head/brain (units ( unknown) date) wo/w con Stat unknown) (unknown) (no (unknown) (unknown) MRI Brain: (units (unk nown) date) unknown) (unknown) (no (unknown) (unknown) Marrow:? Marrow (units (unknown) date) demonstrates unknown) normal overall signal.? (unknown) (no (unknown) (unknown) Medical History (units (unknown) date) (Reviewed 11/16/20 unknown) @ 03:11 by Seth Park DO) (unknown) (no (unknown) (unknown) [place] # (Auto) (units ( unknown) date) 500 (0-900) /uL unknown) (unknown) (no (unknown) (unknown) [place] % (Auto) (units ( unknown) date) 8.5 (3-14) % unknown) (unknown) (no (unknown) (unknown) Multiple levels (units (unknown) date) of premature unknown) cervical spine degenerative change can be seen.? (unknown) (no (unknown) (unknown) Neut # (Auto) (units ( unknown) date) 3300 (3642-2603) unknown) /uL (unknown) (no (unknown) (unknown) Neut % (Auto) (units ( unknown) date) 60.6 (50-75) % unknown) (unknown) (no (unknown) (unknown) No Action (units (unkn own) date) unknown) (unknown) (no (unknown) (unknown) No abnormal (units (un known) date) enhancement is unknown) seen. (unknown) (no (unknown) (unknown) No abnormal white (units (unknown) date) matter lesions are unknown) seen to suggest multiple sclerosis (unknown) (no (unknown) (unknown) No intracranial (units (unknown) date) bleeds or mass unknown) effects.? Alfaro-white matter interface appears (unknown) (no (unknown) (unknown) No masses or (units (u nknown) date) abnormal unknown) enhancement can be seen. (unknown) (no (unknown) (unknown) No significant (units (unknown) date) past surgical unknown) history (unknown) (no (unknown) (unknown) Ordered: (units (unkno wn) date) unknown) (unknown) (no (unknown) (unknown) Orders (units (unkno wn) date) unknown) (unknown) (no (unknown) (unknown) Oxygen Delivery (units (unknown) date) Method 10/10/21 unknown) 12:20 (unknown) (no (unknown) (unknown) Oxygen Delivery (units (unknown) date) Method Room Air unknown) (unknown) (no (unknown) (unknown) Paranasal sinus (units (unknown) date) disease, including unknown) a left maxillary sinus mucous retention cyst? (unknown) (no (unknown) (unknown) Paraspinous soft (units (unknown) date) tissues:? No unknown) paravertebral masses or suspicious enhancement.? (unknown) (no (unknown) (unknown) Patient (units (unkno wn) date) Disposition: Home unknown) (unknown) (no (unknown) (unknown) Patient History (units (unknown) date) unknown) (unknown) (no (unknown) (unknown) Patient: (units (unkno wn) date) Rhonda Booker Bob unknown) MR#: M (unknown) (no (unknown) (unknown) Potassium 3.6 (units (unknown) date) (3.4-5.1) mmol/L unknown) (unknown) (no (unknown) (unknown) Test (units (unknown) date) Results unknown) Negative (unknown) (no (unknown) (unknown) Prescriptions: (units (unknown) date) unknown) (unknown) (no (unknown) (unknown) Pulse Oximetry (units (unknown) date) 100 10/10/21 unknown) 12:20 (unknown) (no (unknown) (unknown) Pulse Oximetry (units (unknown) date) 100 unknown) (unknown) (no (unknown) (unknown) Pulse Rate 86 (units (unknown) date) 10/10/21 12:20 unknown) (unknown) (no (unknown) (unknown) Pulse Rate 86 (units ( unknown) date) unknown) (unknown) (no (unknown) (unknown) RDW 12.7 (units (unkn own) date) (11.6-14.8) % unknown) (unknown) (no (unknown) (unknown) Referrals: (units (unk nown) date) unknown) (unknown) (no (unknown) (unknown) Related Data (units (u nknown) date) unknown) (unknown) (no (unknown) (unknown) Respiratory Rate (units (unknown) date) 16 10/10/21 unknown) 12:20 (unknown) (no (unknown) (unknown) Respiratory Rate (units (unknown) date) 16 unknown) (unknown) (no (unknown) (unknown) Result diagrams: (units (unknown) date) unknown) (unknown) (no (unknown) (unknown) She is having (units ( unknown) date) significant unknown) suicidal ideation but does not have a plan. She is (unknown) (no (unknown) (unknown) Signed By: (units (unk nown) date) unknown) (unknown) (no (unknown) (unknown) Sinuses:? There (units (unknown) date) is a prominent unknown) mucous retention cyst seen involving the left (unknown) (no (unknown) (unknown) Skull and face:? (units (unknown) date) Calvarial marrow unknown) signal is normal.? Orbits appear normal.? (unknown) (no (unknown) (unknown) Smoking Status: (units (unknown) date) Former smoker unknown) (unknown) (no (unknown) (unknown) Smoking Status: (units (unknown) date) Former smoker unknown) (unknown) (no (unknown) (unknown) Social History (units (unknown) date) (Reviewed 11/16/20 unknown) @ 03:11 by Seth Park DO) (unknown) (no (unknown) (unknown) Sodium 139 (units (u nknown) date) (137-145) mmol/L unknown) (unknown) (no (unknown) (unknown) Spinal cord:? (units ( unknown) date) Visualized spinal unknown) cord is normal in size, without white matter (unknown) (no (unknown) (unknown) Stated Complaint: (units (unknown) date) Really Sick/Not unknown) Sleeping/SI (unknown) (no (unknown) (unknown) Substance Use (units ( unknown) date) Type: marijuana unknown) (unknown) (no (unknown) (unknown) Surgical History (units (unknown) date) (Reviewed 06/29/20 unknown) @ 19:47 by Nain Betancourt DO) (unknown) (no (unknown) (unknown) T2 (units (unkno wn) date) unknown) (unknown) (no (unknown) (unknown) Temperature 98.8 (units (unknown) date) F 10/10/21 12:20 unknown) (unknown) (no (unknown) (unknown) Temperature 98.8 (units (unknown) date) F unknown) (unknown) (no (unknown) (unknown) Thank you for (units ( unknown) date) coming in today. unknown) I am so sorry that you have been suffering with (unknown) (no (unknown) (unknown) There is at least (units (unknown) date) moderate bilateral unknown) neural foraminal narrowing seen. Minimal (unknown) (no (unknown) (unknown) Time Seen by (units (u nknown) date) Provider: 10/10/21 unknown) 12:53 (unknown) (no (unknown) (unknown) Total Bilirubin (units (unknown) date) 0.7 (0.2-1.3) unknown) mg/dL (unknown) (no (unknown) (unknown) Total Protein (units ( unknown) date) 7.3 (6.3-8.2) unknown) g/dL (unknown) (no (unknown) (unknown) Urine Specific (units (unknown) date) Logan 1.020 unknown) (unknown) (no (unknown) (unknown) Vital Signs (units (un known) date) unknown) (unknown) (no (unknown) (unknown) Vital signs: (units (u nknown) date) unknown) (unknown) (no (unknown) (unknown) We covered a lot (units (unknown) date) today and I have a unknown) number of suggestions (unknown) (no (unknown) (unknown) You are sleeping (units (unknown) date) nicely as you were unknown) discharged and we did not get a chance to (unknown) (no (unknown) (unknown) [Embedded Image (units (unknown) date) Not Available] unknown) (unknown) (no (unknown) (unknown) abnormal fluid is (units (unknown) date) seen within the unknown) mastoid air cells. (unknown) (no (unknown) (unknown) abnormal (units (unkno wn) date) intracranial unknown) enhancement.? Diffusion weighted images show no acute (unknown) (no (unknown) (unknown) alcohol intake (units (unknown) date) frequency: unknown) holidays/special occasions only (unknown) (no (unknown) (unknown) alcohol intake: (units (unknown) date) never unknown) (unknown) (no (unknown) (unknown) azathioprine 50 (units (unknown) date) mg tablet 50 mg PO unknown) DAILY 08/23/17 08/25/17 (unknown) (no (unknown) (unknown) budesonide 3 mg 3 (units (unknown) date) mg PO DAILY unknown) 08/23/17 08/25/17 (unknown) (no (unknown) (unknown) can go up to 100 (units (unknown) date) mg. You will need unknown) to review this with your primary care (unknown) (no (unknown) (unknown) canal (units (unkno wn) date) unknown) (unknown) (no (unknown) (unknown) canal narrowing (units (unknown) date) is seen.? unknown) (unknown) (no (unknown) (unknown) capsule,delayed,e (units (unknown) date) xtended release unknown) (unknown) (no (unknown) (unknown) central (units (unkno wn) date) unknown) (unknown) (no (unknown) (unknown) cetirizine 10 mg (units (unknown) date) chewable tablet 10 unknown) mg PO QDAY ##0 01/31/17 08/25/17 (unknown) (no (unknown) (unknown) concerns from (units ( unknown) date) prior exams. At unknown) this point she is feeling defeated, depressed. (unknown) (no (unknown) (unknown) day if you would (units (unknown) date) like to call and unknown) review recommendations above. The phone (unknown) (no (unknown) (unknown) degree of (units (unkn own) date) unknown) (unknown) (no (unknown) (unknown) disorder (units (unkno wn) date) unknown) (unknown) (no (unknown) (unknown) duloxetine 30 mg (units (unknown) date) capsule,delayed 30 unknown) mg PO QDAY #30 caps 01/04/16 (unknown) (no (unknown) (unknown) ergocalciferol (units (unknown) date) (vitamin D2) 1,250 unknown) 50,000 unit PO QWEEK 08/23/17 08/25/17 (unknown) (no (unknown) (unknown) establishing care (units (unknown) date) that may offer unknown) some type of relief for her suffering. (unknown) (no (unknown) (unknown) extra-axial fluid (units (unknown) date) collections.? unknown) (unknown) (no (unknown) (unknown) for you to feel (units (unknown) date) normal, think unknown) normally and better cope with your chronic pain (unknown) (no (unknown) (unknown) fully discuss all (units (unknown) date) of these unknown) recommendations. I am working tomorrow during the (unknown) (no (unknown) (unknown) generalized disc (units (unknown) date) osteophyte complex unknown) is seen.? Moderate facet joint hypertrophy (unknown) (no (unknown) (unknown) gram/dose oral (units (unknown) date) powder unknown) (unknown) (no (unknown) (unknown) however she was (units (unknown) date) unable to tolerate unknown) this can due to severe anxiety with PTS type (unknown) (no (unknown) (unknown) hyperintense (units (u nknown) date) white matter unknown) lesions.? None can be seen. (unknown) (no (unknown) (unknown) hypertrophy is (units (unknown) date) seen.? There is unknown) moderate to severe right-sided and at least (unknown) (no (unknown) (unknown) insomnia with (units ( unknown) date) significant sleep unknown) deprivation, she has seen specialists who have (unknown) (no (unknown) (unknown) insults.? (units (unkn own) date) Brainstem appears unknown) normal.? Normal intravascular flow voids are (unknown) (no (unknown) (unknown) intact.? No (units (un known) date) unknown) (unknown) (no (unknown) (unknown) involvement (units (un known) date) unknown) (unknown) (no (unknown) (unknown) is looking for (units (unknown) date) guidance and help unknown) in negotiating the medical system and (unknown) (no (unknown) (unknown) is seen.? (units (unkn own) date) unknown) (unknown) (no (unknown) (unknown) ischemic (units (unkno wn) date) unknown) (unknown) (no (unknown) (unknown) issues. (units (unkno wn) date) unknown) (unknown) (no (unknown) (unknown) joint (units (unkno wn) date) unknown) (unknown) (no (unknown) (unknown) least (units (unkno wn) date) unknown) (unknown) (no (unknown) (unknown) least moderate (units (unknown) date) bilateral neural unknown) foraminal narrowing can be seen. Mild central (unknown) (no (unknown) (unknown) left-sided neural (units (unknown) date) foraminal unknown) narrowing.? Mild to moderate central canal narrowing (unknown) (no (unknown) (unknown) lesions.? No (units (u nknown) date) unknown) (unknown) (no (unknown) (unknown) lorazepam 0.5 mg (units (unknown) date) tablet 0.5 mg PO unknown) BEDTIME PRN sleep #10 06/29/20 (unknown) (no (unknown) (unknown) maxillary (units (unkn own) date) unknown) (unknown) (no (unknown) (unknown) mcg (50,000 unit) (units (unknown) date) capsule unknown) (unknown) (no (unknown) (unknown) medications. (units (un known) date) Going to give you unknown) 50 mg tablets. Begin at 50 mg and if this feels (unknown) (no (unknown) (unknown) moderate (units (unkno wn) date) unknown) (unknown) (no (unknown) (unknown) moderate disc (units ( unknown) date) osteophyte complex unknown) is seen. Moderate facet joint hypertrophy is (unknown) (no (unknown) (unknown) multiple (units (unkno wn) date) sclerosis plaques. unknown) (unknown) (no (unknown) (unknown) multiple (units (unkno wn) date) sclerosis. unknown) (unknown) (no (unknown) (unknown) narrowing is (units (u nknown) date) seen.? unknown) (unknown) (no (unknown) (unknown) not been helpful (units (unknown) date) and she feels that unknown) her concerns have not been heard. She has (unknown) (no (unknown) (unknown) number is (units (unkn own) date) [phone]. Ask unknown) for Dr. Moreira (unknown) (no (unknown) (unknown) olopatadine [From (units (unknown) date) PATANOL] Allergy unknown) Intermediate RED AND Verified 11/15/20 18:21 (unknown) (no (unknown) (unknown) or reason to not (units (unknown) date) continue, do not unknown) fill this prescription (unknown) (no (unknown) (unknown) osteophyte (units (unk nown) date) complex is seen, unknown) which is eccentric to the right. Moderate facet (unknown) (no (unknown) (unknown) patent.? No (units (un known) date) unknown) (unknown) (no (unknown) (unknown) physician. (units (unk nown) date) Getting adequate unknown) sleep is going to be the 1. Most important thing (unknown) (no (unknown) (unknown) polyethylene (units (u nknown) date) glycol 3350 17 17 unknown) g PO DAILY 08/23/17 08/25/17 (unknown) (no (unknown) (unknown) prazosin 1 mg (units ( unknown) date) capsule 1 mg PO unknown) SEE INSTRUCTIONS #60 caps 01/04/16 (unknown) (no (unknown) (unknown) present.? (units (unkn own) date) unknown) (unknown) (no (unknown) (unknown) ranitidine HCl (units (unknown) date) 150 mg tablet 150 unknown) mg PO DAILY 08/23/17 08/25/17 (unknown) (no (unknown) (unknown) release (units (unkno wn) date) (Cymbalta) unknown) (unknown) (no (unknown) (unknown) seen a (units (unkno wn) date) neurologist at unknown) [facility] and MRI was ordered to rule out MS (unknown) (no (unknown) (unknown) seen.? At (units (unkn own) date) unknown) (unknown) (no (unknown) (unknown) sinus.? Mild to (units (unknown) date) moderate mucosal unknown) thickening is seen within the paranasal (unknown) (no (unknown) (unknown) sinuses. No (units (un known) date) unknown) (unknown) (no (unknown) (unknown) so much. (units (unkno wn) date) unknown) (unknown) (no (unknown) (unknown) specialist and (units (unknown) date) she is not having unknown) her chronic pain adequately controlled at this (unknown) (no (unknown) (unknown) substance use (units ( unknown) date) type: does not unknown) use (unknown) (no (unknown) (unknown) suggest (units (unkno wn) date) unknown) (unknown) (no (unknown) (unknown) sumatriptan (units (un known) date) [SUMATRIPTAN] unknown) Allergy Severe MUSCLE Verified 11/15/20 18:21 (unknown) (no (unknown) (unknown) suspicious (units (unk nown) date) intramedullary unknown) enhancement.? No cerebellar tonsillar herniation.? (unknown) (no (unknown) (unknown) syringe (units (unkno wn) date) unknown) (unknown) (no (unknown) (unknown) time. Her (units (unk nown) date) is her unknown) primary support system and has been wonderful but she (unknown) (no (unknown) (unknown) tramadol 50 mg (units (unknown) date) tablet 50 mg PO unknown) Q6H PRN pain #10 tabs 08/25/17 (unknown) (no (unknown) (unknown) trying to get on (units (unknown) date) disability. Does unknown) not appear that she has been seen by a pain (unknown) (no (unknown) (unknown) ustekinumab 90 (units (unknown) date) mg/mL subcutaneous unknown) See Rx Instructions .Route .COMPLEX 08/23/17 (unknown) (no (unknown) (unknown) what point in the (units (unknown) date) past. I am going unknown) to suggest that you restart this at 1 mg. I (unknown) (no (unknown) (unknown) with your primary (units (unknown) date) care doctor unknown) (unknown) (no (unknown) (unknown) within the (units (unk nown) date) cervical cord. unknown) Result panel 8 (unknown) (no (unknown) (unknown) (no value) (units (unk nown) date) unknown) (unknown) (no (unknown) (unknown) Radiologist's (units ( unknown) date) Impression: unknown) (unknown) (no (unknown) (unknown) Date of Service: (units (unknown) date) 10/10/21 unknown) (unknown) (no (unknown) (unknown) (no value) (units (unk nown) date) unknown) (unknown) (no (unknown) (unknown) 0.5 mg PO BEDTIME (units (unknown) date) PRN (Reason: unknown) sleep) Qty: 10 0RF (unknown) (no (unknown) (unknown) 10/10/21 16:23 (units (unknown) date) unknown) (unknown) (no (unknown) (unknown) 1 mg PO BEDTIME (units (unknown) date) Qty: 30 0RF unknown) (unknown) (no (unknown) (unknown) 1 mg PO SEE (units (un known) date) INSTRUCTIONS Qty: unknown) 60 2RF (unknown) (no (unknown) (unknown) 10 mg PO QDAY (units ( unknown) date) Qty: 0 unknown) (unknown) (no (unknown) (unknown) 150 mg PO DAILY (units (unknown) date) unknown) (unknown) (no (unknown) (unknown) 17 g PO DAILY (units ( unknown) date) unknown) (unknown) (no (unknown) (unknown) 3 mg PO DAILY (units ( unknown) date) unknown) (unknown) (no (unknown) (unknown) 30 mg PO QDAY (units ( unknown) date) Qty: 30 2RF unknown) (unknown) (no (unknown) (unknown) 50 mg PO BEDTIME (units (unknown) date) Qty: 60 0RF unknown) (unknown) (no (unknown) (unknown) 50 mg PO DAILY (units (unknown) date) unknown) (unknown) (no (unknown) (unknown) 50 mg PO Q6H PRN (units (unknown) date) (Reason: pain) unknown) Qty: 10 0RF (unknown) (no (unknown) (unknown) 50,000 unit PO (units (unknown) date) QWEEK unknown) (unknown) (no (unknown) (unknown) 90 mg (units (unkno wn) date) subcutaneously unknown) every 8 weeks (unknown) (no (unknown) (unknown) Allergies (units (unkn own) date) unknown) (unknown) (no (unknown) (unknown) Documented By: RL (units (unknown) date) unknown) (unknown) (no (unknown) (unknown) ED Orders (units (unkn own) date) unknown) (unknown) (no (unknown) (unknown) EYES (units (unkno wn) date) unknown) (unknown) (no (unknown) (unknown) Emergency Report (units (unknown) date) unknown) (unknown) (no (unknown) (unknown) Home Medications (units (unknown) date) unknown) (unknown) (no (unknown) (unknown) IN FACE (units (unkno wn) date) unknown) (unknown) (no (unknown) (unknown) [facility] (units (unknown) date) [address] [place] [address] unknown) [place] [address] (unknown) (no (unknown) (unknown) Lab Results (units (un known) date) unknown) (unknown) (no (unknown) (unknown) Label Comments: (units (unknown) date) unknown) (unknown) (no (unknown) (unknown) Last Admin: (units (un known) date) 10/10/21 16:17 unknown) Dose: 1 mg (unknown) (no (unknown) (unknown) Last Admin: (units (un known) date) 10/10/21 16:33 unknown) Dose: 1 mg (unknown) (no (unknown) (unknown) Point of Care (units ( unknown) date) Testing unknown) (unknown) (no (unknown) (unknown) Previous Rx's (units ( unknown) date) unknown) (unknown) (no (unknown) (unknown) RIGIDITY (units (unkno wn) date) unknown) (unknown) (no (unknown) (unknown) Rx Instructions: (units (unknown) date) unknown) (unknown) (no (unknown) (unknown) SWOLLEN (units (unkno wn) date) unknown) (unknown) (no (unknown) (unknown) See Rx (units (unkno wn) date) Instructions unknown) .ROUTE .COMPLEX (unknown) (no (unknown) (unknown) Stop: 10/10/21 (units (unknown) date) 16:08 unknown) (unknown) (no (unknown) (unknown) Taking 2mg (units (unk nown) date) unknown) (unknown) (no (unknown) (unknown) Urine Dip (units (unkn own) date) unknown) (unknown) (no (unknown) (unknown) Vital Signs - 8 (units (unknown) date) hr unknown) (unknown) (no (unknown) (unknown) take with tylenol (units (unknown) date) unknown) (unknown) (no (unknown) (unknown) (no value) (units (unk nown) date) unknown) (unknown) (no (unknown) (unknown) 10/10/21 10/10/21 (units (unknown) date) Range/Units unknown) (unknown) (no (unknown) (unknown) 16:23 16:23 (units (un known) date) unknown) (unknown) (no (unknown) (unknown) azathioprine 50 (units (unknown) date) mg tablet unknown) (unknown) (no (unknown) (unknown) budesonide 3 mg (units (unknown) date) Capsule,Delayed,Ex unknown) tend.Release (unknown) (no (unknown) (unknown) cetirizine 10 MG (units (unknown) date) tablet,chewable unknown) (unknown) (no (unknown) (unknown) duloxetine (units (unk nown) date) [Cymbalta] 30 MG unknown) capsule,delayed release(DR/EC) (unknown) (no (unknown) (unknown) ergocalciferol (units (unknown) date) (vitamin D2) unknown) 50,000 unit Capsule (unknown) (no (unknown) (unknown) lorazepam 0.5 mg (units (unknown) date) tablet unknown) (unknown) (no (unknown) (unknown) polyethylene (units (u nknown) date) glycol 3350 17 unknown) gram/dose powder (unknown) (no (unknown) (unknown) prazosin 1 MG (units ( unknown) date) capsule unknown) (unknown) (no (unknown) (unknown) prazosin 1 mg (units ( unknown) date) capsule unknown) (unknown) (no (unknown) (unknown) quetiapine (units (unk nown) date) [Seroquel] 50 mg unknown) tablet (unknown) (no (unknown) (unknown) ranitidine HCl (units (unknown) date) 150 mg tablet unknown) (unknown) (no (unknown) (unknown) tramadol 50 mg (units (unknown) date) tablet unknown) (unknown) (no (unknown) (unknown) ustekinumab (units (un known) date) [Stelara] 90 mg/mL unknown) syringe (unknown) (no (unknown) (unknown) 10/10/21 (units (unkno wn) date) unknown) (unknown) (no (unknown) (unknown) Medication (units (unk nown) date) Instructions unknown) Recorded (unknown) (no (unknown) (unknown) Medication (units (unk nown) date) Instructions unknown) Recorded Confirmed (unknown) (no (unknown) (unknown) Sleep (units (unkno wn) date) disturbance, unknown) Depression, Anxiety, Chronic pain, Post-traumatic stress (unknown) (no (unknown) (unknown) disc (units (unkno wn) date) unknown) (unknown) (no (unknown) (unknown) have written a (units (unknown) date) prescription for unknown) this. If you had other side effects with this (unknown) (no (unknown) (unknown) is seen. (units (unkno wn) date) unknown) (unknown) (no (unknown) (unknown) tabs (units (unkno wn) date) unknown) (unknown) (no (unknown) (unknown) too sedating you (units (unknown) date) can cut them in unknown) half. That feels that it is not enough you (unknown) (no (unknown) (unknown) [id number] (units (unkn own) date) unknown) (unknown) (no (unknown) (unknown) 08/25/17 (units (unkno wn) date) unknown) (unknown) (no (unknown) (unknown) 10/10/21 12:28 (units (unknown) date) unknown) (unknown) (no (unknown) (unknown) 10/10/21 16:05 (units (unknown) date) unknown) (unknown) (no (unknown) (unknown) 10/10/21 16:23 (units (unknown) date) unknown) (unknown) (no (unknown) (unknown) 1. The MRI of (units ( unknown) date) your brain and unknown) your cervical spine were normal. You do not have (unknown) (no (unknown) (unknown) 12:20 (units (unkno wn) date) unknown) (unknown) (no (unknown) (unknown) 2. For sleep I am (units (unknown) date) going to suggest unknown) that we add quetiapine/Seroque l to your (unknown) (no (unknown) (unknown) 3. For your (units (un known) date) nightmares, it unknown) looks like you are on prazosin 2 mg at bedtime at (unknown) (no (unknown) (unknown) 36-year-old woman (units (unknown) date) presents with unknown) multiple chronic pain issues, significant (unknown) (no (unknown) (unknown) 4. You may (units (unk nown) date) benefit from unknown) seeing a chronic pain specialist. Please discuss this (unknown) (no (unknown) (unknown) ? (units (unkno wn) date) unknown) (unknown) (no (unknown) (unknown) ALT 11 (<35) (units (unknown) date) IU/L unknown) (unknown) (no (unknown) (unknown) AST 22 (14-36) (units (unknown) date) IU/L unknown) (unknown) (no (unknown) (unknown) Activity (units (unkno wn) date) Restrictions/Addit unknown) ional Instructions: (unknown) (no (unknown) (unknown) Age/Sex: 36 / F (units (unknown) date) unknown) (unknown) (no (unknown) (unknown) Albumin 4.2 (units ( unknown) date) (3.5-5.0) g/dL unknown) (unknown) (no (unknown) (unknown) Albumin/Globulin (units (unknown) date) Ratio 1.4 unknown) (1.0-2.8) (unknown) (no (unknown) (unknown) Alignment and (units ( unknown) date) curvature:? There unknown) is normal bony alignment.? (unknown) (no (unknown) (unknown) Alkaline (units (unkno wn) date) Phosphatase 54 unknown) (38-126) U/L (unknown) (no (unknown) (unknown) Allergy/AdvReac (units (unknown) date) Type Severity unknown) Reaction Status Date / Time (unknown) (no (unknown) (unknown) BUN 12 (7-17) (units (unknown) date) mg/dL unknown) (unknown) (no (unknown) (unknown) BUN/Creatinine (units (unknown) date) Ratio 15.8 unknown) (6-22) (unknown) (no (unknown) (unknown) Baso # (Auto) 0 (units (unknown) date) (0-100) /uL unknown) (unknown) (no (unknown) (unknown) Baso % (Auto) (units ( unknown) date) 0.9 (0-2) % unknown) (unknown) (no (unknown) (unknown) Bedside Urine (units ( unknown) date) Bilirubin - unknown) Negative (unknown) (no (unknown) (unknown) Bedside Urine (units ( unknown) date) Glucose unknown) Negative (unknown) (no (unknown) (unknown) Bedside Urine (units ( unknown) date) Ketone - unknown) Negative (unknown) (no (unknown) (unknown) Bedside Urine (units ( unknown) date) Leukocytes - unknown) Negative (unknown) (no (unknown) (unknown) Bedside Urine (units ( unknown) date) Nitrite - unknown) Negative (unknown) (no (unknown) (unknown) Bedside Urine (units ( unknown) date) Occult Blood unknown) +/- (unknown) (no (unknown) (unknown) Bedside Urine (units ( unknown) date) Protein +/- 15 unknown) (unknown) (no (unknown) (unknown) Bedside Urine (units ( unknown) date) Urobilinogen - unknown) Negative (unknown) (no (unknown) (unknown) Bedside Urine pH (units (unknown) date) 6.0 unknown) (unknown) (no (unknown) (unknown) Blood Pressure (units (unknown) date) 132/84 10/10/21 unknown) 12:20 (unknown) (no (unknown) (unknown) Blood Pressure (units (unknown) date) 132/84 unknown) (unknown) (no (unknown) (unknown) Brain:? In this (units (unknown) date) patient with this unknown) given history, scrutiny is given to abnormal (unknown) (no (unknown) (unknown) C2-C3:? Normal (units (unknown) date) appearance.? unknown) (unknown) (no (unknown) (unknown) C3-C4:? (units (unkno wn) date) [id number] unknown) loss of disc height and disc signal can be seen.? At (unknown) (no (unknown) (unknown) C4-C5:? Mild loss (units (unknown) date) of disc height is unknown) seen. Loss of disc signal is seen.? Moderate (unknown) (no (unknown) (unknown) C5-C6:? Mild loss (units (unknown) date) of disc height is unknown) seen. Loss of disc signal is seen.? A mild (unknown) (no (unknown) (unknown) C6-C7:? Normal (units (unknown) date) appearance.? unknown) (unknown) (no (unknown) (unknown) C7-T1:? Normal (units (unknown) date) appearance.? unknown) (unknown) (no (unknown) (unknown) CSF spaces:? (units (u nknown) date) Ventricles are unknown) normal in size and shape.? Basal cisterns are (unknown) (no (unknown) (unknown) Calcium 8.5 (units ( unknown) date) (8.4-10.2) mg/dL unknown) (unknown) (no (unknown) (unknown) Carbon Dioxide (units (unknown) date) 27 (22-32) unknown) mmol/L (unknown) (no (unknown) (unknown) Chief Complaint: (units (unknown) date) Psychiatric unknown) Symptoms (unknown) (no (unknown) (unknown) Chloride 105 (units (unknown) date) (98-107) mmol/L unknown) (unknown) (no (unknown) (unknown) Clinical (units (unkno wn) date) Impression: unknown) (unknown) (no (unknown) (unknown) Complete Blood (units (unknown) date) Count AUTO DIFF unknown) Stat (unknown) (no (unknown) (unknown) Comprehensive (units ( unknown) date) Metabolic Panel unknown) Stat (unknown) (no (unknown) (unknown) 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 REDUCTION WORKER - (units (unknown) date) Bar Examiner unknown) Stat (unknown) (no (unknown) (unknown) Course (units (unkno wn) date) unknown) (unknown) (no (unknown) (unknown) Creatinine 0.76 (units (unknown) date) (0.52-1.04) unknown) mg/dL (unknown) (no (unknown) (unknown) Crohn disease (units ( unknown) date) unknown) (unknown) (no (unknown) (unknown) : 1985 (units (unknown) date) Acct:[id number] unknown) (unknown) (no (unknown) (unknown) Juan Jose Lopez, (units (unknown) date) [Primary Care unknown) Provider] - (unknown) (no (unknown) (unknown) Departure (units (unkn own) date) unknown) (unknown) (no (unknown) (unknown) Dictated by: (units (u nknown) date) shannan Pennington) [place] on 10/10/2021 at 16:40? ?? (unknown) (no (unknown) (unknown) Dictated by: (units (u nknown) date) shannan Pennington) Sienna on 10/10/2021 at 16:44? ?? (unknown) (no (unknown) (unknown) Discharge Plan (units (unknown) date) unknown) (unknown) (no (unknown) (unknown) Discontinued (units (u nknown) date) Medications unknown) (unknown) (no (unknown) (unknown) ER Physician: (units ( unknown) date) Lupis Moreira unknown) (unknown) (no (unknown) (unknown) Eos # (Auto) 500 (units (unknown) date) H (0-450) /uL unknown) (unknown) (no (unknown) (unknown) Eos % (Auto) 9.1 (units (unknown) date) H (2-4) % unknown) (unknown) (no (unknown) (unknown) Esterase (units (unkno wn) date) unknown) (unknown) (no (unknown) (unknown) Estimated GFR > (units (unknown) date) 60 (>60) mL/min unknown) (unknown) (no (unknown) (unknown) Exam (units (unkno wn) date) unknown) (unknown) (no (unknown) (unknown) FINDINGS:? (units (unk nown) date) unknown) (unknown) (no (unknown) (unknown) General (units (unkno wn) date) unknown) (unknown) (no (unknown) (unknown) GenericComposite[ (units (unknown) date) Plt Count 271 unknown) (150-400) X10^3/uL ] (unknown) (no (unknown) (unknown) GenericComposite[ (units (unknown) date) RBC 4.35 unknown) (4.0-5.2) X10^6/uL ] (unknown) (no (unknown) (unknown) GenericComposite[ (units (unknown) date) WBC 5.4 unknown) (4.5-11.0) X10^3/uL ] (unknown) (no (unknown) (unknown) Globulin 3.1 (units (unknown) date) (1.7-4.1) g/dL unknown) (unknown) (no (unknown) (unknown) Glucose 89 (units (u nknown) date) (70-100) mg/dL unknown) (unknown) (no (unknown) (unknown) HPI - Psych (units (un known) date) unknown) (unknown) (no (unknown) (unknown) HPI Narrative: (units (unknown) date) unknown) (unknown) (no (unknown) (unknown) Hct 38.4 (units (unkn own) date) (36-46) % unknown) (unknown) (no (unknown) (unknown) Hgb 12.9 (units (unkn own) date) (12.0-16.0) g/dL unknown) (unknown) (no (unknown) (unknown) History of (units (unk nown) date) Present Illness unknown) (unknown) (no (unknown) (unknown) IMPRESSION:? (units (u nknown) date) unknown) (unknown) (no (unknown) (unknown) IMPRESSION:? (units (u nknown) date) Normal brain MRI, unknown) without findings of T2 hyperintense lesions to (unknown) (no (unknown) (unknown) Image quality:? (units (unknown) date) This examination unknown) is limited by involuntary motion artifact.? (unknown) (no (unknown) (unknown) Imaging Data (units (u nknown) date) unknown) (unknown) (no (unknown) (unknown) Incidental note (units (unknown) date) is made of: unknown) (unknown) (no (unknown) (unknown) Initial Vital (units ( unknown) date) Signs unknown) (unknown) (no (unknown) (unknown) Initial Vital (units ( unknown) date) Signs: unknown) (unknown) (no (unknown) (unknown) Lab Data (units (unkno wn) date) unknown) (unknown) (no (unknown) (unknown) Labs: (units (unkno wn) date) unknown) (unknown) (no (unknown) (unknown) Lorazepam (units (unkn own) date) (Lorazepam 0.5 Mg unknown) Tablet) 1 mg PO NOW ONE (unknown) (no (unknown) (unknown) Lorazepam (units (unkn own) date) (Lorazepam 2 Mg/Ml unknown) Inj) 1 mg IV NOW ONE (unknown) (no (unknown) (unknown) Lymph # (Auto) (units (unknown) date) 1100 ([phone]) unknown) /uL (unknown) (no (unknown) (unknown) Lymph % (Auto) (units (unknown) date) 20.9 L (25-40) unknown) % (unknown) (no (unknown) (unknown) MCH 29.7 (units (unkn own) date) (26-34) PG unknown) (unknown) (no (unknown) (unknown) MCHC 33.7 (units (unk nown) date) (30-36) % unknown) (unknown) (no (unknown) (unknown) MCV 88.3 (units (unkn own) date) (80-100) fL unknown) (unknown) (no (unknown) (unknown) MDM - Psych (units (un known) date) unknown) (unknown) (no (unknown) (unknown) MR Cspine: (units (unk nown) date) unknown) (unknown) (no (unknown) (unknown) MR cervical spine (units (unknown) date) wo/w con Stat unknown) (unknown) (no (unknown) (unknown) MR head/brain (units ( unknown) date) wo/w con Stat unknown) (unknown) (no (unknown) (unknown) MRI Brain: (units (unk nown) date) unknown) (unknown) (no (unknown) (unknown) Marrow:? Marrow (units (unknown) date) demonstrates unknown) normal overall signal.? (unknown) (no (unknown) (unknown) Medical History (units (unknown) date) (Reviewed 11/16/20 unknown) @ 03:11 by Seth Park DO) (unknown) (no (unknown) (unknown) [place] # (Auto) (units ( unknown) date) 500 (0-900) /uL unknown) (unknown) (no (unknown) (unknown) [place] % (Auto) (units ( unknown) date) 8.5 (3-14) % unknown) (unknown) (no (unknown) (unknown) Multiple levels (units (unknown) date) of premature unknown) cervical spine degenerative change can be seen.? (unknown) (no (unknown) (unknown) Neut # (Auto) (units ( unknown) date) 3300 (0209-0407) unknown) /uL (unknown) (no (unknown) (unknown) Neut % (Auto) (units ( unknown) date) 60.6 (50-75) % unknown) (unknown) (no (unknown) (unknown) New (units (unkno wn) date) unknown) (unknown) (no (unknown) (unknown) No Action (units (unkn own) date) unknown) (unknown) (no (unknown) (unknown) No abnormal (units (un known) date) enhancement is unknown) seen. (unknown) (no (unknown) (unknown) No abnormal white (units (unknown) date) matter lesions are unknown) seen to suggest multiple sclerosis (unknown) (no (unknown) (unknown) No intracranial (units (unknown) date) bleeds or mass unknown) effects.? [place]far[place]-white matter interface appears (unknown) (no (unknown) (unknown) No masses or (units (u nknown) date) abnormal unknown) enhancement can be seen. (unknown) (no (unknown) (unknown) No significant (units (unknown) date) past surgical unknown) history (unknown) (no (unknown) (unknown) Ordered: (units (unkno wn) date) unknown) (unknown) (no (unknown) (unknown) Orders (units (unkno wn) date) unknown) (unknown) (no (unknown) (unknown) Oxygen Delivery (units (unknown) date) Method 10/10/21 unknown) 12:20 (unknown) (no (unknown) (unknown) Oxygen Delivery (units (unknown) date) Method Room Air unknown) (unknown) (no (unknown) (unknown) Paranasal sinus (units (unknown) date) disease, including unknown) a left maxillary sinus mucous retention cyst? (unknown) (no (unknown) (unknown) Paraspinous soft (units (unknown) date) tissues:? No unknown) paravertebral masses or suspicious enhancement.? (unknown) (no (unknown) (unknown) Patient (units (unkno wn) date) Disposition: Home unknown) (unknown) (no (unknown) (unknown) Patient History (units (unknown) date) unknown) (unknown) (no (unknown) (unknown) Patient: (units (unkno wn) date) Rhonda Booker unknown) MR#: M (unknown) (no (unknown) (unknown) Potassium 3.6 (units (unknown) date) (3.4-5.1) mmol/L unknown) (unknown) (no (unknown) (unknown) Test (units (unknown) date) Results unknown) Negative (unknown) (no (unknown) (unknown) Prescriptions for (units (unknown) date) quetiapine and unknown) prazosin were both electronically transmitted (unknown) (no (unknown) (unknown) Prescriptions: (units (unknown) date) unknown) (unknown) (no (unknown) (unknown) Pulse Oximetry (units (unknown) date) 100 10/10/21 unknown) 12:20 (unknown) (no (unknown) (unknown) Pulse Oximetry (units (unknown) date) 100 unknown) (unknown) (no (unknown) (unknown) Pulse Rate 86 (units (unknown) date) 10/10/21 12:20 unknown) (unknown) (no (unknown) (unknown) Pulse Rate 86 (units ( unknown) date) unknown) (unknown) (no (unknown) (unknown) RDW 12.7 (units (unkn own) date) (11.6-14.8) % unknown) (unknown) (no (unknown) (unknown) Referrals: (units (unk nown) date) unknown) (unknown) (no (unknown) (unknown) Related Data (units (u nknown) date) unknown) (unknown) (no (unknown) (unknown) Respiratory Rate (units (unknown) date) 16 10/10/21 unknown) 12:20 (unknown) (no (unknown) (unknown) Respiratory Rate (units (unknown) date) 16 unknown) (unknown) (no (unknown) (unknown) Result diagrams: (units (unknown) date) unknown) (unknown) (no (unknown) (unknown) She is having (units ( unknown) date) significant unknown) suicidal ideation but does not have a plan. She is (unknown) (no (unknown) (unknown) Signed By: (units (unk nown) date) unknown) (unknown) (no (unknown) (unknown) Sinuses:? There (units (unknown) date) is a prominent unknown) mucous retention cyst seen involving the left (unknown) (no (unknown) (unknown) Skull and face:? (units (unknown) date) Calvarial marrow unknown) signal is normal.? Orbits appear normal.? (unknown) (no (unknown) (unknown) Smoking Status: (units (unknown) date) Former smoker unknown) (unknown) (no (unknown) (unknown) Smoking Status: (units (unknown) date) Former smoker unknown) (unknown) (no (unknown) (unknown) Social History (units (unknown) date) (Reviewed 11/16/20 unknown) @ 03:11 by Seth Park DO) (unknown) (no (unknown) (unknown) Sodium 139 (units (u nknown) date) (137-145) mmol/L unknown) (unknown) (no (unknown) (unknown) Spinal cord:? (units ( unknown) date) Visualized spinal unknown) cord is normal in size, without white matter (unknown) (no (unknown) (unknown) Stated Complaint: (units (unknown) date) Really Sick/Not unknown) Sleeping/SI (unknown) (no (unknown) (unknown) Substance Use (units ( unknown) date) Type: marijuana unknown) (unknown) (no (unknown) (unknown) Surgical History (units (unknown) date) (Reviewed 06/29/20 unknown) @ 19:47 by Nain Betancourt DO) (unknown) (no (unknown) (unknown) T2 (units (unkno wn) date) unknown) (unknown) (no (unknown) (unknown) Temperature 98.8 (units (unknown) date) F 10/10/21 12:20 unknown) (unknown) (no (unknown) (unknown) Temperature 98.8 (units (unknown) date) F unknown) (unknown) (no (unknown) (unknown) Thank you for (units ( unknown) date) coming in today. unknown) I am so sorry that you have been suffering with (unknown) (no (unknown) (unknown) There is at least (units (unknown) date) moderate bilateral unknown) neural foraminal narrowing seen. Minimal (unknown) (no (unknown) (unknown) Time Seen by (units (u nknown) date) Provider: 10/10/21 unknown) 12:53 (unknown) (no (unknown) (unknown) Total Bilirubin (units (unknown) date) 0.7 (0.2-1.3) unknown) mg/dL (unknown) (no (unknown) (unknown) Total Protein (units ( unknown) date) 7.3 (6.3-8.2) unknown) g/dL (unknown) (no (unknown) (unknown) Urine Specific (units (unknown) date) Logan 1.020 unknown) (unknown) (no (unknown) (unknown) Vital Signs (units (un known) date) unknown) (unknown) (no (unknown) (unknown) Vital signs: (units (u nknown) date) unknown) (unknown) (no (unknown) (unknown) We covered a lot (units (unknown) date) today and I have a unknown) number of suggestions (unknown) (no (unknown) (unknown) You were sleeping (units (unknown) date) nicely as you were unknown) discharged and we did not get a chance to (unknown) (no (unknown) (unknown) [Embedded Image (units (unknown) date) Not Available] unknown) (unknown) (no (unknown) (unknown) abnormal fluid is (units (unknown) date) seen within the unknown) mastoid air cells. (unknown) (no (unknown) (unknown) abnormal (units (unkno wn) date) intracranial unknown) enhancement.? Diffusion weighted images show no acute (unknown) (no (unknown) (unknown) alcohol intake (units (unknown) date) frequency: unknown) holidays/special occasions only (unknown) (no (unknown) (unknown) alcohol intake: (units (unknown) date) never unknown) (unknown) (no (unknown) (unknown) azathioprine 50 (units (unknown) date) mg tablet 50 mg PO unknown) DAILY 08/23/17 08/25/17 (unknown) (no (unknown) (unknown) budesonide 3 mg 3 (units (unknown) date) mg PO DAILY unknown) 08/23/17 08/25/17 (unknown) (no (unknown) (unknown) can go up to 100 (units (unknown) date) mg. You will need unknown) to review this with your primary care (unknown) (no (unknown) (unknown) canal (units (unkno wn) date) unknown) (unknown) (no (unknown) (unknown) canal narrowing (units (unknown) date) is seen.? unknown) (unknown) (no (unknown) (unknown) capsule,delayed,e (units (unknown) date) xtended release unknown) (unknown) (no (unknown) (unknown) central (units (unkno wn) date) unknown) (unknown) (no (unknown) (unknown) cetirizine 10 mg (units (unknown) date) chewable tablet 10 unknown) mg PO QDAY ##0 01/31/17 08/25/17 (unknown) (no (unknown) (unknown) concerns from (units ( unknown) date) prior exams. At unknown) this point she is feeling defeated, depressed. (unknown) (no (unknown) (unknown) day if you would (units (unknown) date) like to call and unknown) review recommendations above. The phone (unknown) (no (unknown) (unknown) degree of (units (unkn own) date) unknown) (unknown) (no (unknown) (unknown) disorder (units (unkno wn) date) unknown) (unknown) (no (unknown) (unknown) duloxetine 30 mg (units (unknown) date) capsule,delayed 30 unknown) mg PO QDAY #30 caps 01/04/16 (unknown) (no (unknown) (unknown) ergocalciferol (units (unknown) date) (vitamin D2) 1,250 unknown) 50,000 unit PO QWEEK 08/23/17 08/25/17 (unknown) (no (unknown) (unknown) establishing care (units (unknown) date) that may offer unknown) some type of relief for her suffering. (unknown) (no (unknown) (unknown) extra-axial fluid (units (unknown) date) collections.? unknown) (unknown) (no (unknown) (unknown) for you to feel (units (unknown) date) normal, think unknown) normally and better cope with your chronic pain (unknown) (no (unknown) (unknown) fully discuss all (units (unknown) date) of these unknown) recommendations. I am working tomorrow during the (unknown) (no (unknown) (unknown) generalized disc (units (unknown) date) osteophyte complex unknown) is seen.? Moderate facet joint hypertrophy (unknown) (no (unknown) (unknown) gram/dose oral (units (unknown) date) powder unknown) (unknown) (no (unknown) (unknown) however she was (units (unknown) date) unable to tolerate unknown) this can due to severe anxiety with PTS type (unknown) (no (unknown) (unknown) hyperintense (units (u nknown) date) white matter unknown) lesions.? None can be seen. (unknown) (no (unknown) (unknown) hypertrophy is (units (unknown) date) seen.? There is unknown) moderate to severe right-sided and at least (unknown) (no (unknown) (unknown) insomnia with (units ( unknown) date) significant sleep unknown) deprivation, she has seen specialists who have (unknown) (no (unknown) (unknown) insults.? (units (unkn own) date) Brainstem appears unknown) normal.? Normal intravascular flow voids are (unknown) (no (unknown) (unknown) intact.? No (units (un known) date) unknown) (unknown) (no (unknown) (unknown) involvement (units (un known) date) unknown) (unknown) (no (unknown) (unknown) is looking for (units (unknown) date) guidance and help unknown) in negotiating the medical system and (unknown) (no (unknown) (unknown) is seen.? (units (unkn own) date) unknown) (unknown) (no (unknown) (unknown) ischemic (units (unkno wn) date) unknown) (unknown) (no (unknown) (unknown) issues. (units (unkno wn) date) unknown) (unknown) (no (unknown) (unknown) joint (units (unkno wn) date) unknown) (unknown) (no (unknown) (unknown) least (units (unkno wn) date) unknown) (unknown) (no (unknown) (unknown) least moderate (units (unknown) date) bilateral neural unknown) foraminal narrowing can be seen. Mild central (unknown) (no (unknown) (unknown) left-sided neural (units (unknown) date) foraminal unknown) narrowing.? Mild to moderate central canal narrowing (unknown) (no (unknown) (unknown) lesions.? No (units (u nknown) date) unknown) (unknown) (no (unknown) (unknown) lorazepam 0.5 mg (units (unknown) date) tablet 0.5 mg PO unknown) BEDTIME PRN sleep #10 06/29/20 (unknown) (no (unknown) (unknown) maxillary (units (unkn own) date) unknown) (unknown) (no (unknown) (unknown) mcg (50,000 unit) (units (unknown) date) capsule unknown) (unknown) (no (unknown) (unknown) medications. (units (un known) date) Going to give you unknown) 50 mg tablets. Begin at 50 mg and if this feels (unknown) (no (unknown) (unknown) moderate (units (unkno wn) date) unknown) (unknown) (no (unknown) (unknown) moderate disc (units ( unknown) date) osteophyte complex unknown) is seen. Moderate facet joint hypertrophy is (unknown) (no (unknown) (unknown) multiple (units (unkno wn) date) sclerosis plaques. unknown) (unknown) (no (unknown) (unknown) multiple (units (unkno wn) date) sclerosis. unknown) (unknown) (no (unknown) (unknown) narrowing is (units (u nknown) date) seen.? unknown) (unknown) (no (unknown) (unknown) not been helpful (units (unknown) date) and she feels that unknown) her concerns have not been heard. She has (unknown) (no (unknown) (unknown) number is (units (unkn own) date) [phone]. Ask unknown) for Dr. Moreira (unknown) (no (unknown) (unknown) olopatadine [From (units (unknown) date) PATANOL] Allergy unknown) Intermediate RED AND Verified 11/15/20 18:21 (unknown) (no (unknown) (unknown) or reason to not (units (unknown) date) continue, do not unknown) fill this prescription (unknown) (no (unknown) (unknown) osteophyte (units (unk nown) date) complex is seen, unknown) which is eccentric to the right. Moderate facet (unknown) (no (unknown) (unknown) patent.? No (units (un known) date) unknown) (unknown) (no (unknown) (unknown) physician. (units (unk nown) date) Getting adequate unknown) sleep is going to be the 1. Most important thing (unknown) (no (unknown) (unknown) polyethylene (units (u nknown) date) glycol 3350 17 17 unknown) g PO DAILY 08/23/17 08/25/17 (unknown) (no (unknown) (unknown) prazosin 1 mg (units ( unknown) date) capsule 1 mg PO unknown) BEDTIME #30 caps 10/10/21 (unknown) (no (unknown) (unknown) prazosin 1 mg (units ( unknown) date) capsule 1 mg PO unknown) SEE INSTRUCTIONS #60 caps 01/04/16 (unknown) (no (unknown) (unknown) present.? (units (unkn own) date) unknown) (unknown) (no (unknown) (unknown) quetiapine 50 mg (units (unknown) date) tablet (Seroquel) unknown) 50 mg PO BEDTIME #60 tabs 10/10/21 (unknown) (no (unknown) (unknown) ranitidine HCl (units (unknown) date) 150 mg tablet 150 unknown) mg PO DAILY 08/23/17 08/25/17 (unknown) (no (unknown) (unknown) release (units (unkno wn) date) (Cymbalta) unknown) (unknown) (no (unknown) (unknown) seen a (units (unkno wn) date) neurologist at unknown) [facility] and MRI was ordered to rule out MS (unknown) (no (unknown) (unknown) seen.? At (units (unkn own) date) unknown) (unknown) (no (unknown) (unknown) sinus.? Mild to (units (unknown) date) moderate mucosal unknown) thickening is seen within the paranasal (unknown) (no (unknown) (unknown) sinuses. No (units (un known) date) unknown) (unknown) (no (unknown) (unknown) so much. (units (unkno wn) date) unknown) (unknown) (no (unknown) (unknown) specialist and (units (unknown) date) she is not having unknown) her chronic pain adequately controlled at this (unknown) (no (unknown) (unknown) substance use (units ( unknown) date) type: does not unknown) use (unknown) (no (unknown) (unknown) suggest (units (unkno wn) date) unknown) (unknown) (no (unknown) (unknown) sumatriptan (units (un known) date) [SUMATRIPTAN] unknown) Allergy Severe MUSCLE Verified 11/15/20 18:21 (unknown) (no (unknown) (unknown) suspicious (units (unk nown) date) intramedullary unknown) enhancement.? No cerebellar tonsillar herniation.? (unknown) (no (unknown) (unknown) syringe (units (unkno wn) date) unknown) (unknown) (no (unknown) (unknown) time. Her (units (unk nown) date) is her unknown) primary support system and has been wonderful but she (unknown) (no (unknown) (unknown) to [facility] in (units (unknown) date) [place] unknown) (unknown) (no (unknown) (unknown) tramadol 50 mg (units (unknown) date) tablet 50 mg PO unknown) Q6H PRN pain #10 tabs 08/25/17 (unknown) (no (unknown) (unknown) trying to get on (units (unknown) date) disability. Does unknown) not appear that she has been seen by a pain (unknown) (no (unknown) (unknown) ustekinumab 90 (units (unknown) date) mg/mL subcutaneous unknown) See Rx Instructions .Route .COMPLEX 08/23/17 (unknown) (no (unknown) (unknown) what point in the (units (unknown) date) past. I am going unknown) to suggest that you restart this at 1 mg. I (unknown) (no (unknown) (unknown) with your primary (units (unknown) date) care doctor unknown) (unknown) (no (unknown) (unknown) within the (units (unk nown) date) cervical cord. unknown) Result panel 9 (unknown) (no (unknown) (unknown) (no value) (units (unk nown) date) unknown) (unknown) (no (unknown) (unknown) Radiologist's (units ( unknown) date) Impression: unknown) (unknown) (no (unknown) (unknown) Date of Service: (units (unknown) date) 10/10/21 unknown) (unknown) (no (unknown) (unknown) (no value) (units (unk nown) date) unknown) (unknown) (no (unknown) (unknown) 0.5 mg PO BEDTIME (units (unknown) date) PRN (Reason: unknown) sleep) Qty: 10 0RF (unknown) (no (unknown) (unknown) 10/10/21 16:23 (units (unknown) date) unknown) (unknown) (no (unknown) (unknown) 1 mg PO BEDTIME (units (unknown) date) Qty: 30 0RF unknown) (unknown) (no (unknown) (unknown) 1 mg PO SEE (units (un known) date) INSTRUCTIONS Qty: unknown) 60 2RF (unknown) (no (unknown) (unknown) 10 mg PO QDAY (units ( unknown) date) Qty: 0 unknown) (unknown) (no (unknown) (unknown) 150 mg PO DAILY (units (unknown) date) unknown) (unknown) (no (unknown) (unknown) 17 g PO DAILY (units ( unknown) date) unknown) (unknown) (no (unknown) (unknown) 3 mg PO DAILY (units ( unknown) date) unknown) (unknown) (no (unknown) (unknown) 30 mg PO QDAY (units ( unknown) date) Qty: 30 2RF unknown) (unknown) (no (unknown) (unknown) 50 mg PO BEDTIME (units (unknown) date) Qty: 60 0RF unknown) (unknown) (no (unknown) (unknown) 50 mg PO DAILY (units (unknown) date) unknown) (unknown) (no (unknown) (unknown) 50 mg PO Q6H PRN (units (unknown) date) (Reason: pain) unknown) Qty: 10 0RF (unknown) (no (unknown) (unknown) 50,000 unit PO (units (unknown) date) QWEEK unknown) (unknown) (no (unknown) (unknown) 90 mg (units (unkno wn) date) subcutaneously unknown) every 8 weeks (unknown) (no (unknown) (unknown) Allergies (units (unkn own) date) unknown) (unknown) (no (unknown) (unknown) Documented By: RL (units (unknown) date) unknown) (unknown) (no (unknown) (unknown) EYES (units (unkno wn) date) unknown) (unknown) (no (unknown) (unknown) Emergency Report (units (unknown) date) unknown) (unknown) (no (unknown) (unknown) Home Medications (units (unknown) date) unknown) (unknown) (no (unknown) (unknown) IN FACE (units (unkno wn) date) unknown) (unknown) (no (unknown) (unknown) [facility] (units (unknown) date) [address] [place] [address] unknown) [place] [address] (unknown) (no (unknown) (unknown) Lab Results (units (un known) date) unknown) (unknown) (no (unknown) (unknown) Label Comments: (units (unknown) date) unknown) (unknown) (no (unknown) (unknown) Last Admin: (units (un known) date) 10/10/21 16:17 unknown) Dose: 1 mg (unknown) (no (unknown) (unknown) Last Admin: (units (un known) date) 10/10/21 16:33 unknown) Dose: 1 mg (unknown) (no (unknown) (unknown) Point of Care (units ( unknown) date) Testing unknown) (unknown) (no (unknown) (unknown) Previous Rx's (units ( unknown) date) unknown) (unknown) (no (unknown) (unknown) RIGIDITY (units (unkno wn) date) unknown) (unknown) (no (unknown) (unknown) Rx Instructions: (units (unknown) date) unknown) (unknown) (no (unknown) (unknown) SWOLLEN (units (unkno wn) date) unknown) (unknown) (no (unknown) (unknown) See Rx (units (unkno wn) date) Instructions unknown) .ROUTE .COMPLEX (unknown) (no (unknown) (unknown) Stop: 10/10/21 (units (unknown) date) 16:08 unknown) (unknown) (no (unknown) (unknown) Taking 2mg (units (unk nown) date) unknown) (unknown) (no (unknown) (unknown) Urine Dip (units (unkn own) date) unknown) (unknown) (no (unknown) (unknown) Vital Signs - 8 (units (unknown) date) hr unknown) (unknown) (no (unknown) (unknown) take with tylenol (units (unknown) date) unknown) (unknown) (no (unknown) (unknown) (no value) (units (unk nown) date) unknown) (unknown) (no (unknown) (unknown) 10/10/21 10/10/21 (units (unknown) date) Range/Units unknown) (unknown) (no (unknown) (unknown) 16:23 16:23 (units (un known) date) unknown) (unknown) (no (unknown) (unknown) azathioprine 50 (units (unknown) date) mg tablet unknown) (unknown) (no (unknown) (unknown) budesonide 3 mg (units (unknown) date) Capsule,Delayed,Ex unknown) tend.Release (unknown) (no (unknown) (unknown) cetirizine 10 MG (units (unknown) date) tablet,chewable unknown) (unknown) (no (unknown) (unknown) duloxetine (units (unk nown) date) [Cymbalta] 30 MG unknown) capsule,delayed release(DR/EC) (unknown) (no (unknown) (unknown) ergocalciferol (units (unknown) date) (vitamin D2) unknown) 50,000 unit Capsule (unknown) (no (unknown) (unknown) lorazepam 0.5 mg (units (unknown) date) tablet unknown) (unknown) (no (unknown) (unknown) polyethylene (units (u nknown) date) glycol 3350 17 unknown) gram/dose powder (unknown) (no (unknown) (unknown) prazosin 1 MG (units ( unknown) date) capsule unknown) (unknown) (no (unknown) (unknown) prazosin 1 mg (units ( unknown) date) capsule unknown) (unknown) (no (unknown) (unknown) quetiapine (units (unk nown) date) [Seroquel] 50 mg unknown) tablet (unknown) (no (unknown) (unknown) ranitidine HCl (units (unknown) date) 150 mg tablet unknown) (unknown) (no (unknown) (unknown) tramadol 50 mg (units (unknown) date) tablet unknown) (unknown) (no (unknown) (unknown) ustekinumab (units (un known) date) [Stelara] 90 mg/mL unknown) syringe (unknown) (no (unknown) (unknown) 10/10/21 (units (unkno wn) date) unknown) (unknown) (no (unknown) (unknown) Medication (units (unk nown) date) Instructions unknown) Recorded (unknown) (no (unknown) (unknown) Medication (units (unk nown) date) Instructions unknown) Recorded Confirmed (unknown) (no (unknown) (unknown) Sleep (units (unkno wn) date) disturbance, unknown) Depression, Anxiety, Chronic pain, Post-traumatic stress (unknown) (no (unknown) (unknown) disc (units (unkno wn) date) unknown) (unknown) (no (unknown) (unknown) have written a (units (unknown) date) prescription for unknown) this. If you had other side effects with this (unknown) (no (unknown) (unknown) is seen. (units (unkno wn) date) unknown) (unknown) (no (unknown) (unknown) tabs (units (unkno wn) date) unknown) (unknown) (no (unknown) (unknown) to see if this (units (unknown) date) might make a unknown) difference. She clearly needs follow-up with her (unknown) (no (unknown) (unknown) too sedating you (units (unknown) date) can cut them in unknown) half. That feels that it is not enough you (unknown) (no (unknown) (unknown) [id number] (units (unkn own) date) unknown) (unknown) (no (unknown) (unknown) 08/25/17 (units (unkno wn) date) unknown) (unknown) (no (unknown) (unknown) 1. The MRI of (units ( unknown) date) your brain and unknown) your cervical spine were normal. You do not have (unknown) (no (unknown) (unknown) 12:20 (units (unkno wn) date) unknown) (unknown) (no (unknown) (unknown) 2. For sleep I am (units (unknown) date) going to suggest unknown) that we add quetiapine/Seroque l to your (unknown) (no (unknown) (unknown) 3. For your (units (un known) date) nightmares, it unknown) looks like you are on prazosin 2 mg at bedtime at (unknown) (no (unknown) (unknown) 36-year-old woman (units (unknown) date) presents with unknown) multiple chronic pain issues, significant (unknown) (no (unknown) (unknown) 36-year-old woman (units (unknown) date) with multiple unknown) medical problems and is struggling with (unknown) (no (unknown) (unknown) 4. You may (units (unk nown) date) benefit from unknown) seeing a chronic pain specialist. Please discuss this (unknown) (no (unknown) (unknown) ? (units (unkno wn) date) unknown) (unknown) (no (unknown) (unknown) ALT 11 (<35) (units (unknown) date) IU/L unknown) (unknown) (no (unknown) (unknown) AST 22 (14-36) (units (unknown) date) IU/L unknown) (unknown) (no (unknown) (unknown) Abdomen: Soft, (units (unknown) date) nontender, good unknown) bowel tones, no flank pain (unknown) (no (unknown) (unknown) Activity (units (unkno wn) date) Restrictions/Addit unknown) ional Instructions: (unknown) (no (unknown) (unknown) Age/Sex: 36 / F (units (unknown) date) unknown) (unknown) (no (unknown) (unknown) Albumin 4.2 (units ( unknown) date) (3.5-5.0) g/dL unknown) (unknown) (no (unknown) (unknown) Albumin/Globulin (units (unknown) date) Ratio 1.4 unknown) (1.0-2.8) (unknown) (no (unknown) (unknown) Alignment and (units ( unknown) date) curvature:? There unknown) is normal bony alignment.? (unknown) (no (unknown) (unknown) Alkaline (units (unkno wn) date) Phosphatase 54 unknown) (38-126) U/L (unknown) (no (unknown) (unknown) Allergy/AdvReac (units (unknown) date) Type Severity unknown) Reaction Status Date / Time (unknown) (no (unknown) (unknown) Anxiety and (units (un known) date) depression unknown) (unknown) (no (unknown) (unknown) BUN 12 (7-17) (units (unknown) date) mg/dL unknown) (unknown) (no (unknown) (unknown) BUN/Creatinine (units (unknown) date) Ratio 15.8 unknown) (6-22) (unknown) (no (unknown) (unknown) Baso # (Auto) 0 (units (unknown) date) (0-100) /uL unknown) (unknown) (no (unknown) (unknown) Baso % (Auto) (units ( unknown) date) 0.9 (0-2) % unknown) (unknown) (no (unknown) (unknown) Bedside Urine (units ( unknown) date) Bilirubin - unknown) Negative (unknown) (no (unknown) (unknown) Bedside Urine (units ( unknown) date) Glucose unknown) Negative (unknown) (no (unknown) (unknown) Bedside Urine (units ( unknown) date) Ketone - unknown) Negative (unknown) (no (unknown) (unknown) Bedside Urine (units ( unknown) date) Leukocytes - unknown) Negative (unknown) (no (unknown) (unknown) Bedside Urine (units ( unknown) date) Nitrite - unknown) Negative (unknown) (no (unknown) (unknown) Bedside Urine (units ( unknown) date) Occult Blood unknown) +/- (unknown) (no (unknown) (unknown) Bedside Urine (units ( unknown) date) Protein +/- 15 unknown) (unknown) (no (unknown) (unknown) Bedside Urine (units ( unknown) date) Urobilinogen - unknown) Negative (unknown) (no (unknown) (unknown) Bedside Urine pH (units (unknown) date) 6.0 unknown) (unknown) (no (unknown) (unknown) Blood Pressure (units (unknown) date) 132/84 10/10/21 unknown) 12:20 (unknown) (no (unknown) (unknown) Blood Pressure (units (unknown) date) 132/84 unknown) (unknown) (no (unknown) (unknown) Brain:? In this (units (unknown) date) patient with this unknown) given history, scrutiny is given to abnormal (unknown) (no (unknown) (unknown) C2-C3:? Normal (units (unknown) date) appearance.? unknown) (unknown) (no (unknown) (unknown) C3-C4:? (units (unkno wn) date) [id number] unknown) loss of disc height and disc signal can be seen.? At (unknown) (no (unknown) (unknown) C4-C5:? Mild loss (units (unknown) date) of disc height is unknown) seen. Loss of disc signal is seen.? Moderate (unknown) (no (unknown) (unknown) C5-C6:? Mild loss (units (unknown) date) of disc height is unknown) seen. Loss of disc signal is seen.? A mild (unknown) (no (unknown) (unknown) C6-C7:? Normal (units (unknown) date) appearance.? unknown) (unknown) (no (unknown) (unknown) C7-T1:? Normal (units (unknown) date) appearance.? unknown) (unknown) (no (unknown) (unknown) CSF spaces:? (units (u nknown) date) Ventricles are unknown) normal in size and shape.? Basal cisterns are (unknown) (no (unknown) (unknown) Calcium 8.5 (units ( unknown) date) (8.4-10.2) mg/dL unknown) (unknown) (no (unknown) (unknown) Carbon Dioxide (units (unknown) date) 27 (22-32) unknown) mmol/L (unknown) (no (unknown) (unknown) Cardiac: Regular (units (unknown) date) rate and rhythm no unknown) murmurs no bruits (unknown) (no (unknown) (unknown) Chief Complaint: (units (unknown) date) Psychiatric unknown) Symptoms (unknown) (no (unknown) (unknown) Chloride 105 (units (unknown) date) (98-107) mmol/L unknown) (unknown) (no (unknown) (unknown) Clinical (units (unkno wn) date) Impression: unknown) (unknown) (no (unknown) (unknown) Course (units (unkno wn) date) unknown) (unknown) (no (unknown) (unknown) Creatinine 0.76 (units (unknown) date) (0.52-1.04) unknown) mg/dL (unknown) (no (unknown) (unknown) Crohn disease (units ( unknown) date) unknown) (unknown) (no (unknown) (unknown) : 1985 (units (unknown) date) Acct:[id number] unknown) (unknown) (no (unknown) (unknown) Juan Jose Lopez, (units (unknown) date) [Primary Care unknown) Provider] - (unknown) (no (unknown) (unknown) Departure (units (unkn own) date) unknown) (unknown) (no (unknown) (unknown) Dictated by: (units (u nknown) date) Serjio Marino, shannan) Sienna on 10/10/2021 at 16:40? ?? (unknown) (no (unknown) (unknown) Dictated by: (units (u nknown) date) shannan Pennington) Sienna on 10/10/2021 at 16:44? ?? (unknown) (no (unknown) (unknown) Discharge Plan (units (unknown) date) unknown) (unknown) (no (unknown) (unknown) Discontinued (units (u nknown) date) Medications unknown) (unknown) (no (unknown) (unknown) ER Physician: (units ( unknown) date) Lupis Moreira unknown) (unknown) (no (unknown) (unknown) Eos # (Auto) 500 (units (unknown) date) H (0-450) /uL unknown) (unknown) (no (unknown) (unknown) Eos % (Auto) 9.1 (units (unknown) date) H (2-4) % unknown) (unknown) (no (unknown) (unknown) Esterase (units (unkno wn) date) unknown) (unknown) (no (unknown) (unknown) Estimated GFR > (units (unknown) date) 60 (>60) mL/min unknown) (unknown) (no (unknown) (unknown) Exam (units (unkno wn) date) unknown) (unknown) (no (unknown) (unknown) Extremities: No (units (unknown) date) trauma, well unknown) perfused (unknown) (no (unknown) (unknown) FINDINGS:? (units (unk nown) date) unknown) (unknown) (no (unknown) (unknown) Fibromyalgia (units (u nknown) date) unknown) (unknown) (no (unknown) (unknown) Full and (units (unkno wn) date) symmetrical air unknown) movement (unknown) (no (unknown) (unknown) General (units (unkno wn) date) unknown) (unknown) (no (unknown) (unknown) General: (units (unkno wn) date) Chronically unknown) ill-appearing, obviously fatigued, deep circles under her (unknown) (no (unknown) (unknown) GenericComposite[ (units (unknown) date) Plt Count 271 unknown) (150-400) X10^3/uL ] (unknown) (no (unknown) (unknown) GenericComposite[ (units (unknown) date) RBC 4.35 unknown) (4.0-5.2) X10^6/uL ] (unknown) (no (unknown) (unknown) GenericComposite[ (units (unknown) date) WBC 5.4 unknown) (4.5-11.0) X10^3/uL ] (unknown) (no (unknown) (unknown) Globulin 3.1 (units (unknown) date) (1.7-4.1) g/dL unknown) (unknown) (no (unknown) (unknown) Glucose 89 (units (u nknown) date) (70-100) mg/dL unknown) (unknown) (no (unknown) (unknown) HEENT: Moist (units ( unknown) date) mucous membranes, unknown) normal sclera with reactive pupils, (unknown) (no (unknown) (unknown) HPI - Psych (units (un known) date) unknown) (unknown) (no (unknown) (unknown) HPI Narrative: (units (unknown) date) unknown) (unknown) (no (unknown) (unknown) Hct 38.4 (units (unkn own) date) (36-46) % unknown) (unknown) (no (unknown) (unknown) Hgb 12.9 (units (unkn own) date) (12.0-16.0) g/dL unknown) (unknown) (no (unknown) (unknown) History of (units (unk nown) date) Present Illness unknown) (unknown) (no (unknown) (unknown) IMPRESSION:? (units (u nknown) date) unknown) (unknown) (no (unknown) (unknown) IMPRESSION:? (units (u nknown) date) Normal brain MRI, unknown) without findings of T2 hyperintense lesions to (unknown) (no (unknown) (unknown) Image quality:? (units (unknown) date) This examination unknown) is limited by involuntary motion artifact.? (unknown) (no (unknown) (unknown) Imaging Data (units (u nknown) date) unknown) (unknown) (no (unknown) (unknown) Incidental note (units (unknown) date) is made of: unknown) (unknown) (no (unknown) (unknown) Initial Vital (units ( unknown) date) Signs unknown) (unknown) (no (unknown) (unknown) Initial Vital (units ( unknown) date) Signs: unknown) (unknown) (no (unknown) (unknown) Insomnia (units (unkno wn) date) unknown) (unknown) (no (unknown) (unknown) Lab Data (units (unkno wn) date) unknown) (unknown) (no (unknown) (unknown) Labs: (units (unkno wn) date) unknown) (unknown) (no (unknown) (unknown) Lorazepam (units (unkn own) date) (Lorazepam 0.5 Mg unknown) Tablet) 1 mg PO NOW ONE (unknown) (no (unknown) (unknown) Lorazepam (units (unkn own) date) (Lorazepam 2 Mg/Ml unknown) Inj) 1 mg IV NOW ONE (unknown) (no (unknown) (unknown) Lymph # (Auto) (units (unknown) date) 1100 (2683-2557) unknown) /uL (unknown) (no (unknown) (unknown) Lymph % (Auto) (units (unknown) date) 20.9 L (25-40) unknown) % (unknown) (no (unknown) (unknown) MCH 29.7 (units (unkn own) date) (26-34) PG unknown) (unknown) (no (unknown) (unknown) MCHC 33.7 (units (unk nown) date) (30-36) % unknown) (unknown) (no (unknown) (unknown) MCV 88.3 (units (unkn own) date) (80-100) fL unknown) (unknown) (no (unknown) (unknown) MDM - Psych (units (un known) date) unknown) (unknown) (no (unknown) (unknown) MDM Narrative (units ( unknown) date) unknown) (unknown) (no (unknown) (unknown) MR Cspine: (units (unk nown) date) unknown) (unknown) (no (unknown) (unknown) MRI Brain: (units (unk nown) date) unknown) (unknown) (no (unknown) (unknown) Marrow:? Marrow (units (unknown) date) demonstrates unknown) normal overall signal.? (unknown) (no (unknown) (unknown) Medical History (units (unknown) date) (Updated 10/11/21 unknown) @ 08:10 by Lupis Moreira MD) (unknown) (no (unknown) (unknown) Medical decision (units (unknown) date) making narrative: unknown) (unknown) (no (unknown) (unknown) [place] # (Auto) (units ( unknown) date) 500 (0-900) /uL unknown) (unknown) (no (unknown) (unknown) [place] % (Auto) (units ( unknown) date) 8.5 (3-14) % unknown) (unknown) (no (unknown) (unknown) Multiple levels (units (unknown) date) of premature unknown) cervical spine degenerative change can be seen.? (unknown) (no (unknown) (unknown) Narrative: (units (unk nown) date) unknown) (unknown) (no (unknown) (unknown) Neck: supple (units ( unknown) date) unknown) (unknown) (no (unknown) (unknown) Neurologic: (units (un known) date) Grossly unknown) neurologically intact with no obvious asymmetries or (unknown) (no (unknown) (unknown) Neut # (Auto) (units ( unknown) date) 3300 (8887-9023) unknown) /uL (unknown) (no (unknown) (unknown) Neut % (Auto) (units ( unknown) date) 60.6 (50-75) % unknown) (unknown) (no (unknown) (unknown) New (units (unkno wn) date) unknown) (unknown) (no (unknown) (unknown) No Action (units (unkn own) date) unknown) (unknown) (no (unknown) (unknown) No abnormal (units (un known) date) enhancement is unknown) seen. (unknown) (no (unknown) (unknown) No abnormal white (units (unknown) date) matter lesions are unknown) seen to suggest multiple sclerosis (unknown) (no (unknown) (unknown) No intracranial (units (unknown) date) bleeds or mass unknown) effects.? [place]-white matter interface appears (unknown) (no (unknown) (unknown) No masses or (units (u nknown) date) abnormal unknown) enhancement can be seen. (unknown) (no (unknown) (unknown) No significant (units (unknown) date) past surgical unknown) history (unknown) (no (unknown) (unknown) Ordered: (units (unkno wn) date) unknown) (unknown) (no (unknown) (unknown) Orders (units (unkno wn) date) unknown) (unknown) (no (unknown) (unknown) Oxygen Delivery (units (unknown) date) Method 10/10/21 unknown) 12:20 (unknown) (no (unknown) (unknown) Oxygen Delivery (units (unknown) date) Method Room Air unknown) (unknown) (no (unknown) (unknown) Panic attacks (units ( unknown) date) unknown) (unknown) (no (unknown) (unknown) Paranasal sinus (units (unknown) date) disease, including unknown) a left maxillary sinus mucous retention cyst? (unknown) (no (unknown) (unknown) Paraspinous soft (units (unknown) date) tissues:? No unknown) paravertebral masses or suspicious enhancement.? (unknown) (no (unknown) (unknown) Patient (units (unkno wn) date) Disposition: Home unknown) (unknown) (no (unknown) (unknown) Patient History (units (unknown) date) unknown) (unknown) (no (unknown) (unknown) Patient: (units (unkno wn) date) Rhonda Booker unknown) MR#: M (unknown) (no (unknown) (unknown) Potassium 3.6 (units (unknown) date) (3.4-5.1) mmol/L unknown) (unknown) (no (unknown) (unknown) Test (units (unknown) date) Results unknown) Negative (unknown) (no (unknown) (unknown) Prescriptions for (units (unknown) date) quetiapine and unknown) prazosin were both electronically transmitted (unknown) (no (unknown) (unknown) Prescriptions: (units (unknown) date) unknown) (unknown) (no (unknown) (unknown) Psych: (units (unkno wn) date) Cooperative, unknown) despondent, fluent speech patterns (unknown) (no (unknown) (unknown) Pulse Oximetry (units (unknown) date) 100 10/10/21 unknown) 12:20 (unknown) (no (unknown) (unknown) Pulse Oximetry (units (unknown) date) 100 unknown) (unknown) (no (unknown) (unknown) Pulse Rate 86 (units (unknown) date) 10/10/21 12:20 unknown) (unknown) (no (unknown) (unknown) Pulse Rate 86 (units ( unknown) date) unknown) (unknown) (no (unknown) (unknown) RDW 12.7 (units (unkn own) date) (11.6-14.8) % unknown) (unknown) (no (unknown) (unknown) Referrals: (units (unk nown) date) unknown) (unknown) (no (unknown) (unknown) Related Data (units (u nknown) date) unknown) (unknown) (no (unknown) (unknown) Remainder of (units (u nknown) date) complete review of unknown) systems is otherwise unremarkable except for (unknown) (no (unknown) (unknown) Remarkably (units (unk nown) date) positive: unknown) Insomnia, headaches, cognitive dysfunction, anxiety, (unknown) (no (unknown) (unknown) Respiratory Rate (units (unknown) date) 16 10/10/21 unknown) 12:20 (unknown) (no (unknown) (unknown) Respiratory Rate (units (unknown) date) 16 unknown) (unknown) (no (unknown) (unknown) Respiratory: (units (u nknown) date) Lungs are clear to unknown) auscultation, no wheezing no rales no rhonchi. (unknown) (no (unknown) (unknown) Result diagrams: (units (unknown) date) unknown) (unknown) (no (unknown) (unknown) Review of Systems (units (unknown) date) unknown) (unknown) (no (unknown) (unknown) Review of (units (unkn own) date) neurology notes unknown) indicates that she had been complaining of cognitive (unknown) (no (unknown) (unknown) She has excellent (units (unknown) date) support from her unknown) . Will follow up with phone call (unknown) (no (unknown) (unknown) She is having (units ( unknown) date) significant unknown) suicidal ideation but does not have a plan. She is (unknown) (no (unknown) (unknown) She was seen by (units (unknown) date) social work today unknown) with additional social media marketing specialist recommended. (unknown) (no (unknown) (unknown) Signed By: (units (unk nown) date) unknown) (unknown) (no (unknown) (unknown) Sinuses:? There (units (unknown) date) is a prominent unknown) mucous retention cyst seen involving the left (unknown) (no (unknown) (unknown) Skin: Warm and (units (unknown) date) dry, no rashes unknown) (unknown) (no (unknown) (unknown) Skull and face:? (units (unknown) date) Calvarial marrow unknown) signal is normal.? Orbits appear normal.? (unknown) (no (unknown) (unknown) Smoking Status: (units (unknown) date) Former smoker unknown) (unknown) (no (unknown) (unknown) Smoking Status: (units (unknown) date) Former smoker unknown) (unknown) (no (unknown) (unknown) Social History (units (unknown) date) (Reviewed 10/11/21 unknown) @ 08:10 by Lupis Moreira MD) (unknown) (no (unknown) (unknown) Sodium 139 (units (u nknown) date) (137-145) mmol/L unknown) (unknown) (no (unknown) (unknown) Spinal cord:? (units ( unknown) date) Visualized spinal unknown) cord is normal in size, without white matter (unknown) (no (unknown) (unknown) Stand Alone (units (un known) date) Forms: Work unknown) Release Note (unknown) (no (unknown) (unknown) Stated Complaint: (units (unknown) date) Really Sick/Not unknown) Sleeping/SI (unknown) (no (unknown) (unknown) Substance Use (units ( unknown) date) Type: marijuana unknown) (unknown) (no (unknown) (unknown) Surgical History (units (unknown) date) (Reviewed 10/11/21 unknown) @ 08:10 by Lupis Moreira MD) (unknown) (no (unknown) (unknown) T2 (units (unkno wn) date) unknown) (unknown) (no (unknown) (unknown) Talked about (units (u nknown) date) additional help unknown) for sleep as well as nightmares. It looks like in (unknown) (no (unknown) (unknown) Temperature 98.8 (units (unknown) date) F 10/10/21 12:20 unknown) (unknown) (no (unknown) (unknown) Temperature 98.8 (units (unknown) date) F unknown) (unknown) (no (unknown) (unknown) Thank you for (units ( unknown) date) coming in today. unknown) I am so sorry that you have been suffering with (unknown) (no (unknown) (unknown) There is at least (units (unknown) date) moderate bilateral unknown) neural foraminal narrowing seen. Minimal (unknown) (no (unknown) (unknown) Time Seen by (units (u nknown) date) Provider: 10/10/21 unknown) 12:53 (unknown) (no (unknown) (unknown) Today with (units (unk nown) date) appropriate unknown) sedation we were able to facilitate brain and cervical (unknown) (no (unknown) (unknown) Total Bilirubin (units (unknown) date) 0.7 (0.2-1.3) unknown) mg/dL (unknown) (no (unknown) (unknown) Total Protein (units ( unknown) date) 7.3 (6.3-8.2) unknown) g/dL (unknown) (no (unknown) (unknown) Urine Specific (units (unknown) date) [place] 1.020 unknown) (unknown) (no (unknown) (unknown) Visit Report (units (u nknown) date) Forms: Patient unknown) Portal/API (unknown) (no (unknown) (unknown) Vital Signs (units (un known) date) unknown) (unknown) (no (unknown) (unknown) Vital signs: (units (u nknown) date) unknown) (unknown) (no (unknown) (unknown) We covered a lot (units (unknown) date) today and I have a unknown) number of suggestions (unknown) (no (unknown) (unknown) You were sleeping (units (unknown) date) nicely as you were unknown) discharged and we did not get a chance to (unknown) (no (unknown) (unknown) [Embedded Image (units (unknown) date) Not Available] unknown) (unknown) (no (unknown) (unknown) abnormal fluid is (units (unknown) date) seen within the unknown) mastoid air cells. (unknown) (no (unknown) (unknown) abnormal (units (unkno wn) date) intracranial unknown) enhancement.? Diffusion weighted images show no acute (unknown) (no (unknown) (unknown) abnormalities. (units (unknown) date) Today I a.m. not unknown) appreciating hyper reflexia (unknown) (no (unknown) (unknown) accessing care in (units (unknown) date) finding help. She unknown) is feeling that she is not being heard by (unknown) (no (unknown) (unknown) alcohol intake (units (unknown) date) frequency: unknown) holidays/special occasions only (unknown) (no (unknown) (unknown) alcohol intake: (units (unknown) date) never unknown) (unknown) (no (unknown) (unknown) and more issues (units (unknown) date) with sleep unknown) deprivation and coping skills due to this. She has (unknown) (no (unknown) (unknown) azathioprine 50 (units (unknown) date) mg tablet 50 mg PO unknown) DAILY 08/23/17 08/25/17 (unknown) (no (unknown) (unknown) budesonide 3 mg 3 (units (unknown) date) mg PO DAILY unknown) 08/23/17 08/25/17 (unknown) (no (unknown) (unknown) can go up to 100 (units (unknown) date) mg. You will need unknown) to review this with your primary care (unknown) (no (unknown) (unknown) canal (units (unkno wn) date) unknown) (unknown) (no (unknown) (unknown) canal narrowing (units (unknown) date) is seen.? unknown) (unknown) (no (unknown) (unknown) capsule,delayed,e (units (unknown) date) xtended release unknown) (unknown) (no (unknown) (unknown) central (units (unkno wn) date) unknown) (unknown) (no (unknown) (unknown) cetirizine 10 mg (units (unknown) date) chewable tablet 10 unknown) mg PO QDAY ##0 01/31/17 08/25/17 (unknown) (no (unknown) (unknown) comprehensive (units ( unknown) date) pain management. unknown) I believe until we have fully addressed and (unknown) (no (unknown) (unknown) concerns from (units ( unknown) date) prior exams. At unknown) this point she is feeling defeated, depressed. (unknown) (no (unknown) (unknown) consider this. (units (unknown) date) unknown) (unknown) (no (unknown) (unknown) constipation, (units ( unknown) date) urinary unknown) incontinence without dysuria, migrating temporary (unknown) (no (unknown) (unknown) consultation to (units (unknown) date) help with medical unknown) management and may also benefit from (unknown) (no (unknown) (unknown) day if you would (units (unknown) date) like to call and unknown) review recommendations above. The phone (unknown) (no (unknown) (unknown) decline, skin (units ( unknown) date) paresthesia call, unknown) balance difficulties, hyper reflexia had been (unknown) (no (unknown) (unknown) definitive (units (unk nown) date) answer. She has unknown) not slept adequately for months and is having more (unknown) (no (unknown) (unknown) degree of (units (unkn own) date) unknown) (unknown) (no (unknown) (unknown) difficulty (units (unk nown) date) returning to unknown) functional baseline. (unknown) (no (unknown) (unknown) discharge she was (units (unknown) date) very sleepy after unknown) the sedation so as not able to follow-up on (unknown) (no (unknown) (unknown) disorder (units (unkno wn) date) unknown) (unknown) (no (unknown) (unknown) dizziness and (units ( unknown) date) gait dysfunction, unknown) feelings of hopelessness and helplessness (unknown) (no (unknown) (unknown) duloxetine 30 mg (units (unknown) date) capsule,delayed 30 unknown) mg PO QDAY #30 caps 01/04/16 (unknown) (no (unknown) (unknown) ergocalciferol (units (unknown) date) (vitamin D2) 1,250 unknown) 50,000 unit PO QWEEK 08/23/17 08/25/17 (unknown) (no (unknown) (unknown) establishing care (units (unknown) date) that may offer unknown) some type of relief for her suffering. (unknown) (no (unknown) (unknown) extra-axial fluid (units (unknown) date) collections.? unknown) (unknown) (no (unknown) (unknown) eyes, clear (units (un known) date) discussion, unknown) focused and able to participate fully in exam (unknown) (no (unknown) (unknown) for you to feel (units (unknown) date) normal, think unknown) normally and better cope with your chronic pain (unknown) (no (unknown) (unknown) fully discuss all (units (unknown) date) of these unknown) recommendations. I am working tomorrow during the (unknown) (no (unknown) (unknown) generalized disc (units (unknown) date) osteophyte complex unknown) is seen.? Moderate facet joint hypertrophy (unknown) (no (unknown) (unknown) gram/dose oral (units (unknown) date) powder unknown) (unknown) (no (unknown) (unknown) helped with the (units (unknown) date) significant sleep unknown) disturbance that she is going to have (unknown) (no (unknown) (unknown) her depression, (units (unknown) date) anxiety and unknown) fibromyalgia. She is concerned that she has (unknown) (no (unknown) (unknown) her medical (units (un known) date) providers. I unknown) believe her significant anxiety and PTSD along with (unknown) (no (unknown) (unknown) however she was (units (unknown) date) unable to tolerate unknown) this can due to severe anxiety with PTS type (unknown) (no (unknown) (unknown) hyperintense (units (u nknown) date) white matter unknown) lesions.? None can be seen. (unknown) (no (unknown) (unknown) hypertrophy is (units (unknown) date) seen.? There is unknown) moderate to severe right-sided and at least (unknown) (no (unknown) (unknown) insomnia with (units ( unknown) date) significant sleep unknown) deprivation, she has seen specialists who have (unknown) (no (unknown) (unknown) insults.? (units (unkn own) date) Brainstem appears unknown) normal.? Normal intravascular flow voids are (unknown) (no (unknown) (unknown) intact.? No (units (un known) date) unknown) (unknown) (no (unknown) (unknown) intermittent (units (u nknown) date) chest pain, unknown) intermittent abdominal pain, intermittent diarrhea and (unknown) (no (unknown) (unknown) involvement (units (un known) date) unknown) (unknown) (no (unknown) (unknown) is looking for (units (unknown) date) guidance and help unknown) in negotiating the medical system and (unknown) (no (unknown) (unknown) is seen.? (units (unkn own) date) unknown) (unknown) (no (unknown) (unknown) ischemic (units (unkno wn) date) unknown) (unknown) (no (unknown) (unknown) issues. (units (unkno wn) date) unknown) (unknown) (no (unknown) (unknown) joint (units (unkno wn) date) unknown) (unknown) (no (unknown) (unknown) least (units (unkno wn) date) unknown) (unknown) (no (unknown) (unknown) least moderate (units (unknown) date) bilateral neural unknown) foraminal narrowing can be seen. Mild central (unknown) (no (unknown) (unknown) left-sided neural (units (unknown) date) foraminal unknown) narrowing.? Mild to moderate central canal narrowing (unknown) (no (unknown) (unknown) lesions.? No (units (u nknown) date) unknown) (unknown) (no (unknown) (unknown) lorazepam 0.5 mg (units (unknown) date) tablet 0.5 mg PO unknown) BEDTIME PRN sleep #10 06/29/20 (unknown) (no (unknown) (unknown) maxillary (units (unkn own) date) unknown) (unknown) (no (unknown) (unknown) mcg (50,000 unit) (units (unknown) date) capsule unknown) (unknown) (no (unknown) (unknown) medications. (units (un known) date) Going to give you unknown) 50 mg tablets. Begin at 50 mg and if this feels (unknown) (no (unknown) (unknown) moderate (units (unkno wn) date) unknown) (unknown) (no (unknown) (unknown) moderate disc (units ( unknown) date) osteophyte complex unknown) is seen. Moderate facet joint hypertrophy is (unknown) (no (unknown) (unknown) multiple (units (unkno wn) date) sclerosis is and unknown) has not been able to have MRI is to get to a (unknown) (no (unknown) (unknown) multiple (units (unkno wn) date) sclerosis plaques. unknown) (unknown) (no (unknown) (unknown) multiple (units (unkno wn) date) sclerosis. unknown) (unknown) (no (unknown) (unknown) narrowing is (units (u nknown) date) seen.? unknown) (unknown) (no (unknown) (unknown) nightmares are (units (unknown) date) contributing to unknown) dramatic sleep deprivation which is exacerbating (unknown) (no (unknown) (unknown) not been any type (units (unknown) date) of Comprehensive unknown) [facility] diet would certainly (unknown) (no (unknown) (unknown) not been helpful (units (unknown) date) and she feels that unknown) her concerns have not been heard. She has (unknown) (no (unknown) (unknown) noted, urinary (units (unknown) date) incontinence and unknown) concern for multiple sclerosis was noted. (unknown) (no (unknown) (unknown) number is (units (unkn own) date) [phone]. Ask unknown) for Dr. Moreira (unknown) (no (unknown) (unknown) olopatadine [From (units (unknown) date) PATANOL] Allergy unknown) Intermediate RED AND Verified 11/15/20 18:21 (unknown) (no (unknown) (unknown) or reason to not (units (unknown) date) continue, do not unknown) fill this prescription (unknown) (no (unknown) (unknown) osteophyte (units (unk nown) date) complex is seen, unknown) which is eccentric to the right. Moderate facet (unknown) (no (unknown) (unknown) paresthesias of (units (unknown) date) the skin, no skin unknown) changes or rashes. Intermittent episodes of (unknown) (no (unknown) (unknown) patent.? No (units (un known) date) unknown) (unknown) (no (unknown) (unknown) physician. (units (unk nown) date) Getting adequate unknown) sleep is going to be the 1. Most important thing (unknown) (no (unknown) (unknown) polyethylene (units (u nknown) date) glycol 3350 17 17 unknown) g PO DAILY 08/23/17 08/25/17 (unknown) (no (unknown) (unknown) prazosin 1 mg (units ( unknown) date) capsule 1 mg PO unknown) BEDTIME #30 caps 10/10/21 (unknown) (no (unknown) (unknown) prazosin 1 mg (units ( unknown) date) capsule 1 mg PO unknown) SEE INSTRUCTIONS #60 caps 01/04/16 (unknown) (no (unknown) (unknown) present.? (units (unkn own) date) unknown) (unknown) (no (unknown) (unknown) primary care (units (u nknown) date) physician, would unknown) likely very much benefit from psychiatry (unknown) (no (unknown) (unknown) quetiapine 50 mg (units (unknown) date) tablet (Seroquel) unknown) 50 mg PO BEDTIME #60 tabs 10/10/21 (unknown) (no (unknown) (unknown) ranitidine HCl (units (unknown) date) 150 mg tablet 150 unknown) mg PO DAILY 08/23/17 08/25/17 (unknown) (no (unknown) (unknown) release (units (unkno wn) date) (Cymbalta) unknown) (unknown) (no (unknown) (unknown) seen a (units (unkno wn) date) neurologist at unknown) [facility] and MRI was ordered to rule out MS (unknown) (no (unknown) (unknown) seen.? At (units (unkn own) date) unknown) (unknown) (no (unknown) (unknown) sinus.? Mild to (units (unknown) date) moderate mucosal unknown) thickening is seen within the paranasal (unknown) (no (unknown) (unknown) sinuses. No (units (un known) date) unknown) (unknown) (no (unknown) (unknown) so much. (units (unkno wn) date) unknown) (unknown) (no (unknown) (unknown) specialist and (units (unknown) date) she is not having unknown) her chronic pain adequately controlled at this (unknown) (no (unknown) (unknown) spine MRIs as (units ( unknown) date) requested by unknown) Neurology. She does not have multiple sclerosis. (unknown) (no (unknown) (unknown) substance use (units ( unknown) date) type: does not unknown) use (unknown) (no (unknown) (unknown) suggest (units (unkno wn) date) unknown) (unknown) (no (unknown) (unknown) sumatriptan (units (un known) date) [SUMATRIPTAN] unknown) Allergy Severe MUSCLE Verified 11/15/20 18:21 (unknown) (no (unknown) (unknown) suspicious (units (unk nown) date) intramedullary unknown) enhancement.? No cerebellar tonsillar herniation.? (unknown) (no (unknown) (unknown) syringe (units (unkno wn) date) unknown) (unknown) (no (unknown) (unknown) that included in (units (unknown) date) the HPI. unknown) (unknown) (no (unknown) (unknown) the past she has (units (unknown) date) been on prazosin unknown) but is not currently on that. At time of (unknown) (no (unknown) (unknown) the prazosin but (units (unknown) date) did give her unknown) prescription. Regarding sleep have added Seroquel (unknown) (no (unknown) (unknown) time. Her (units (unk nown) date) is her unknown) primary support system and has been wonderful but she (unknown) (no (unknown) (unknown) to [facility] in (units (unknown) date) [place] unknown) (unknown) (no (unknown) (unknown) tomorrow as she (units (unknown) date) is so sedated at unknown) time of discharge. (unknown) (no (unknown) (unknown) tramadol 50 mg (units (unknown) date) tablet 50 mg PO unknown) Q6H PRN pain #10 tabs 08/25/17 (unknown) (no (unknown) (unknown) trying to get on (units (unknown) date) disability. Does unknown) not appear that she has been seen by a pain (unknown) (no (unknown) (unknown) ustekinumab 90 (units (unknown) date) mg/mL subcutaneous unknown) See Rx Instructions .Route .COMPLEX 08/23/17 (unknown) (no (unknown) (unknown) what point in the (units (unknown) date) past. I am going unknown) to suggest that you restart this at 1 mg. I (unknown) (no (unknown) (unknown) with your primary (units (unknown) date) care doctor unknown) (unknown) (no (unknown) (unknown) within the (units (unk nown) date) cervical cord. unknown) Result panel 10 (unknown) (no (unknown) (unknown) (no value) (units (unk nown) date) unknown) (unknown) (no (unknown) (unknown) Radiologist's (units ( unknown) date) Impression: unknown) (unknown) (no (unknown) (unknown) Date of Service: (units (unknown) date) 10/10/21 unknown) (unknown) (no (unknown) (unknown) (no value) (units (unk nown) date) unknown) (unknown) (no (unknown) (unknown) <Electronically (units (unknown) date) signed by Lupis Jeffers unknown) MD Lillie> (unknown) (no (unknown) (unknown) 0.5 mg PO BEDTIME (units (unknown) date) PRN (Reason: unknown) sleep) Qty: 10 0RF (unknown) (no (unknown) (unknown) 10/10/21 16:23 (units (unknown) date) unknown) (unknown) (no (unknown) (unknown) 10/11/21 1722 (units ( unknown) date) unknown) (unknown) (no (unknown) (unknown) 1 mg PO BEDTIME (units (unknown) date) Qty: 30 0RF unknown) (unknown) (no (unknown) (unknown) 1 mg PO SEE (units (un known) date) INSTRUCTIONS Qty: unknown) 60 2RF (unknown) (no (unknown) (unknown) 10 mg PO QDAY (units ( unknown) date) Qty: 0 unknown) (unknown) (no (unknown) (unknown) 150 mg PO DAILY (units (unknown) date) unknown) (unknown) (no (unknown) (unknown) 17 g PO DAILY (units ( unknown) date) unknown) (unknown) (no (unknown) (unknown) 3 mg PO DAILY (units ( unknown) date) unknown) (unknown) (no (unknown) (unknown) 30 mg PO QDAY (units ( unknown) date) Qty: 30 2RF unknown) (unknown) (no (unknown) (unknown) 50 mg PO BEDTIME (units (unknown) date) Qty: 60 0RF unknown) (unknown) (no (unknown) (unknown) 50 mg PO DAILY (units (unknown) date) unknown) (unknown) (no (unknown) (unknown) 50 mg PO Q6H PRN (units (unknown) date) (Reason: pain) unknown) Qty: 10 0RF (unknown) (no (unknown) (unknown) 50,000 unit PO (units (unknown) date) QWEEK unknown) (unknown) (no (unknown) (unknown) 90 mg (units (unkno wn) date) subcutaneously unknown) every 8 weeks (unknown) (no (unknown) (unknown) Allergies (units (unkn own) date) unknown) (unknown) (no (unknown) (unknown) Documented By: RL (units (unknown) date) unknown) (unknown) (no (unknown) (unknown) EYES (units (unkno wn) date) unknown) (unknown) (no (unknown) (unknown) Emergency Report (units (unknown) date) unknown) (unknown) (no (unknown) (unknown) Home Medications (units (unknown) date) unknown) (unknown) (no (unknown) (unknown) IN FACE (units (unkno wn) date) unknown) (unknown) (no (unknown) (unknown) [facility] (units (unknown) date) [address] unknown) [place] [address] (unknown) (no (unknown) (unknown) Lab Results (units (un known) date) unknown) (unknown) (no (unknown) (unknown) Label Comments: (units (unknown) date) unknown) (unknown) (no (unknown) (unknown) Last Admin: (units (un known) date) 10/10/21 16:17 unknown) Dose: 1 mg (unknown) (no (unknown) (unknown) Last Admin: (units (un known) date) 10/10/21 16:33 unknown) Dose: 1 mg (unknown) (no (unknown) (unknown) Point of Care (units ( unknown) date) Testing unknown) (unknown) (no (unknown) (unknown) Previous Rx's (units ( unknown) date) unknown) (unknown) (no (unknown) (unknown) RIGIDITY (units (unkno wn) date) unknown) (unknown) (no (unknown) (unknown) Rx Instructions: (units (unknown) date) unknown) (unknown) (no (unknown) (unknown) SWOLLEN (units (unkno wn) date) unknown) (unknown) (no (unknown) (unknown) See Rx (units (unkno wn) date) Instructions unknown) .ROUTE .COMPLEX (unknown) (no (unknown) (unknown) Stop: 10/10/21 (units (unknown) date) 16:08 unknown) (unknown) (no (unknown) (unknown) Taking 2mg (units (unk nown) date) unknown) (unknown) (no (unknown) (unknown) Urine Dip (units (unkn own) date) unknown) (unknown) (no (unknown) (unknown) Vital Signs - 8 (units (unknown) date) hr unknown) (unknown) (no (unknown) (unknown) take with tylenol (units (unknown) date) unknown) (unknown) (no (unknown) (unknown) (no value) (units (unk nown) date) unknown) (unknown) (no (unknown) (unknown) 10/10/21 10/10/21 (units (unknown) date) Range/Units unknown) (unknown) (no (unknown) (unknown) 16:23 16:23 (units (un known) date) unknown) (unknown) (no (unknown) (unknown) azathioprine 50 (units (unknown) date) mg tablet unknown) (unknown) (no (unknown) (unknown) budesonide 3 mg (units (unknown) date) Capsule,Delayed,Ex unknown) tend.Release (unknown) (no (unknown) (unknown) cetirizine 10 MG (units (unknown) date) tablet,chewable unknown) (unknown) (no (unknown) (unknown) duloxetine (units (unk nown) date) [Cymbalta] 30 MG unknown) capsule,delayed release(DR/EC) (unknown) (no (unknown) (unknown) ergocalciferol (units (unknown) date) (vitamin D2) unknown) 50,000 unit Capsule (unknown) (no (unknown) (unknown) lorazepam 0.5 mg (units (unknown) date) tablet unknown) (unknown) (no (unknown) (unknown) polyethylene (units (u nknown) date) glycol 3350 17 unknown) gram/dose powder (unknown) (no (unknown) (unknown) prazosin 1 MG (units ( unknown) date) capsule unknown) (unknown) (no (unknown) (unknown) prazosin 1 mg (units ( unknown) date) capsule unknown) (unknown) (no (unknown) (unknown) quetiapine (units (unk nown) date) [Seroquel] 50 mg unknown) tablet (unknown) (no (unknown) (unknown) ranitidine HCl (units (unknown) date) 150 mg tablet unknown) (unknown) (no (unknown) (unknown) tramadol 50 mg (units (unknown) date) tablet unknown) (unknown) (no (unknown) (unknown) ustekinumab (units (un known) date) [Stelara] 90 mg/mL unknown) syringe (unknown) (no (unknown) (unknown) 10/10/21 (units (unkno wn) date) unknown) (unknown) (no (unknown) (unknown) Medication (units (unk nown) date) Instructions unknown) Recorded (unknown) (no (unknown) (unknown) Medication (units (unk nown) date) Instructions unknown) Recorded Confirmed (unknown) (no (unknown) (unknown) Sleep (units (unkno wn) date) disturbance, unknown) Depression, Anxiety, Chronic pain, Post-traumatic stress (unknown) (no (unknown) (unknown) disc (units (unkno wn) date) unknown) (unknown) (no (unknown) (unknown) have written a (units (unknown) date) prescription for unknown) this. If you had other side effects with this (unknown) (no (unknown) (unknown) is seen. (units (unkno wn) date) unknown) (unknown) (no (unknown) (unknown) tabs (units (unkno wn) date) unknown) (unknown) (no (unknown) (unknown) to see if this (units (unknown) date) might make a unknown) difference. She clearly needs follow-up with her (unknown) (no (unknown) (unknown) too sedating you (units (unknown) date) can cut them in unknown) half. That feels that it is not enough you (unknown) (no (unknown) (unknown) [phone] (units (unkn own) date) unknown) (unknown) (no (unknown) (unknown) 08/25/17 (units (unkno wn) date) unknown) (unknown) (no (unknown) (unknown) 1. The MRI of (units ( unknown) date) your brain and unknown) your cervical spine were normal. You do not have (unknown) (no (unknown) (unknown) 12:20 (units (unkno wn) date) unknown) (unknown) (no (unknown) (unknown) 2. For sleep I am (units (unknown) date) going to suggest unknown) that we add quetiapine/Seroque l to your (unknown) (no (unknown) (unknown) 3. For your (units (un known) date) nightmares, it unknown) looks like you are on prazosin 2 mg at bedtime at (unknown) (no (unknown) (unknown) 36-year-old woman (units (unknown) date) presents with unknown) multiple chronic pain issues, significant (unknown) (no (unknown) (unknown) 36-year-old woman (units (unknown) date) with multiple unknown) medical problems and is struggling with (unknown) (no (unknown) (unknown) 4. You may (units (unk nown) date) benefit from unknown) seeing a chronic pain specialist. Please discuss this (unknown) (no (unknown) (unknown) ? (units (unkno wn) date) unknown) (unknown) (no (unknown) (unknown) ALT 11 (<35) (units (unknown) date) IU/L unknown) (unknown) (no (unknown) (unknown) AST 22 (14-36) (units (unknown) date) IU/L unknown) (unknown) (no (unknown) (unknown) Abdomen: Soft, (units (unknown) date) nontender, good unknown) bowel tones, no flank pain (unknown) (no (unknown) (unknown) Activity (units (unkno wn) date) Restrictions/Addit unknown) ional Instructions: (unknown) (no (unknown) (unknown) Age/Sex: 36 / F (units (unknown) date) unknown) (unknown) (no (unknown) (unknown) Albumin 4.2 (units ( unknown) date) (3.5-5.0) g/dL unknown) (unknown) (no (unknown) (unknown) Albumin/Globulin (units (unknown) date) Ratio 1.4 unknown) (1.0-2.8) (unknown) (no (unknown) (unknown) Alignment and (units ( unknown) date) curvature:? There unknown) is normal bony alignment.? (unknown) (no (unknown) (unknown) Alkaline (units (unkno wn) date) Phosphatase 54 unknown) (38-126) U/L (unknown) (no (unknown) (unknown) Allergy/AdvReac (units (unknown) date) Type Severity unknown) Reaction Status Date / Time (unknown) (no (unknown) (unknown) Anxiety and (units (un known) date) depression unknown) (unknown) (no (unknown) (unknown) BUN 12 (7-17) (units (unknown) date) mg/dL unknown) (unknown) (no (unknown) (unknown) BUN/Creatinine (units (unknown) date) Ratio 15.8 unknown) (6-22) (unknown) (no (unknown) (unknown) Baso # (Auto) 0 (units (unknown) date) (0-100) /uL unknown) (unknown) (no (unknown) (unknown) Baso % (Auto) (units ( unknown) date) 0.9 (0-2) % unknown) (unknown) (no (unknown) (unknown) Bedside Urine (units ( unknown) date) Bilirubin - unknown) Negative (unknown) (no (unknown) (unknown) Bedside Urine (units ( unknown) date) Glucose unknown) Negative (unknown) (no (unknown) (unknown) Bedside Urine (units ( unknown) date) Ketone - unknown) Negative (unknown) (no (unknown) (unknown) Bedside Urine (units ( unknown) date) Leukocytes - unknown) Negative (unknown) (no (unknown) (unknown) Bedside Urine (units ( unknown) date) Nitrite - unknown) Negative (unknown) (no (unknown) (unknown) Bedside Urine (units ( unknown) date) Occult Blood unknown) +/- (unknown) (no (unknown) (unknown) Bedside Urine (units ( unknown) date) Protein +/- 15 unknown) (unknown) (no (unknown) (unknown) Bedside Urine (units ( unknown) date) Urobilinogen - unknown) Negative (unknown) (no (unknown) (unknown) Bedside Urine pH (units (unknown) date) 6.0 unknown) (unknown) (no (unknown) (unknown) Blood Pressure (units (unknown) date) 132/84 10/10/21 unknown) 12:20 (unknown) (no (unknown) (unknown) Blood Pressure (units (unknown) date) 132/84 unknown) (unknown) (no (unknown) (unknown) Brain:? In this (units (unknown) date) patient with this unknown) given history, scrutiny is given to abnormal (unknown) (no (unknown) (unknown) C2-C3:? Normal (units (unknown) date) appearance.? unknown) (unknown) (no (unknown) (unknown) C3-C4:? (units (unkno wn) date) [id number] unknown) loss of disc height and disc signal can be seen.? At (unknown) (no (unknown) (unknown) C4-C5:? Mild loss (units (unknown) date) of disc height is unknown) seen. Loss of disc signal is seen.? Moderate (unknown) (no (unknown) (unknown) C5-C6:? Mild loss (units (unknown) date) of disc height is unknown) seen. Loss of disc signal is seen.? A mild (unknown) (no (unknown) (unknown) C6-C7:? Normal (units (unknown) date) appearance.? unknown) (unknown) (no (unknown) (unknown) C7-T1:? Normal (units (unknown) date) appearance.? unknown) (unknown) (no (unknown) (unknown) CSF spaces:? (units (u nknown) date) Ventricles are unknown) normal in size and shape.? Basal cisterns are (unknown) (no (unknown) (unknown) Calcium 8.5 (units ( unknown) date) (8.4-10.2) mg/dL unknown) (unknown) (no (unknown) (unknown) Carbon Dioxide (units (unknown) date) 27 (22-32) unknown) mmol/L (unknown) (no (unknown) (unknown) Cardiac: Regular (units (unknown) date) rate and rhythm no unknown) murmurs no bruits (unknown) (no (unknown) (unknown) Chief Complaint: (units (unknown) date) Psychiatric unknown) Symptoms (unknown) (no (unknown) (unknown) Chloride 105 (units (unknown) date) (98-107) mmol/L unknown) (unknown) (no (unknown) (unknown) Clinical (units (unkno wn) date) Impression: unknown) (unknown) (no (unknown) (unknown) Course (units (unkno wn) date) unknown) (unknown) (no (unknown) (unknown) Creatinine 0.76 (units (unknown) date) (0.52-1.04) unknown) mg/dL (unknown) (no (unknown) (unknown) Crohn disease (units ( unknown) date) unknown) (unknown) (no (unknown) (unknown) : 1985 (units (unknown) date) Acct:[id number] unknown) (unknown) (no (unknown) (unknown) Juan Jose Lopez, (units (unknown) date) [Primary Care unknown) Provider] - (unknown) (no (unknown) (unknown) Departure (units (unkn own) date) unknown) (unknown) (no (unknown) (unknown) Dictated by: (units (u nknown) date) angela Pennington M.D. on 10/10/2021 at 16:40? ?? (unknown) (no (unknown) (unknown) Dictated by: (units (u nknown) date) angela Pennington M.D. on 10/10/2021 at 16:44? ?? (unknown) (no (unknown) (unknown) Discharge Plan (units (unknown) date) unknown) (unknown) (no (unknown) (unknown) Discontinued (units (u nknown) date) Medications unknown) (unknown) (no (unknown) (unknown) ER Physician: (units ( unknown) date) Lupis Moreira unknown) (unknown) (no (unknown) (unknown) Eos # (Auto) 500 (units (unknown) date) H (0-450) /uL unknown) (unknown) (no (unknown) (unknown) Eos % (Auto) 9.1 (units (unknown) date) H (2-4) % unknown) (unknown) (no (unknown) (unknown) Esterase (units (unkno wn) date) unknown) (unknown) (no (unknown) (unknown) Estimated GFR > (units (unknown) date) 60 (>60) mL/min unknown) (unknown) (no (unknown) (unknown) Exam (units (unkno wn) date) unknown) (unknown) (no (unknown) (unknown) Extremities: No (units (unknown) date) trauma, well unknown) perfused (unknown) (no (unknown) (unknown) FINDINGS:? (units (unk nown) date) unknown) (unknown) (no (unknown) (unknown) Fibromyalgia (units (u nknown) date) unknown) (unknown) (no (unknown) (unknown) Full and (units (unkno wn) date) symmetrical air unknown) movement (unknown) (no (unknown) (unknown) General (units (unkno wn) date) unknown) (unknown) (no (unknown) (unknown) General: (units (unkno wn) date) Chronically unknown) ill-appearing, obviously fatigued, deep circles under her (unknown) (no (unknown) (unknown) GenericComposite[ (units (unknown) date) Plt Count 271 unknown) (150-400) X10^3/uL ] (unknown) (no (unknown) (unknown) GenericComposite[ (units (unknown) date) RBC 4.35 unknown) (4.0-5.2) X10^6/uL ] (unknown) (no (unknown) (unknown) GenericComposite[ (units (unknown) date) WBC 5.4 unknown) (4.5-11.0) X10^3/uL ] (unknown) (no (unknown) (unknown) Globulin 3.1 (units (unknown) date) (1.7-4.1) g/dL unknown) (unknown) (no (unknown) (unknown) Glucose 89 (units (u nknown) date) (70-100) mg/dL unknown) (unknown) (no (unknown) (unknown) HEENT: Moist (units ( unknown) date) mucous membranes, unknown) normal sclera with reactive pupils, (unknown) (no (unknown) (unknown) HPI - Psych (units (un known) date) unknown) (unknown) (no (unknown) (unknown) HPI Narrative: (units (unknown) date) unknown) (unknown) (no (unknown) (unknown) Hct 38.4 (units (unkn own) date) (36-46) % unknown) (unknown) (no (unknown) (unknown) Hgb 12.9 (units (unkn own) date) (12.0-16.0) g/dL unknown) (unknown) (no (unknown) (unknown) History of (units (unk nown) date) Present Illness unknown) (unknown) (no (unknown) (unknown) IMPRESSION:? (units (u nknown) date) unknown) (unknown) (no (unknown) (unknown) IMPRESSION:? (units (u nknown) date) Normal brain MRI, unknown) without findings of T2 hyperintense lesions to (unknown) (no (unknown) (unknown) Image quality:? (units (unknown) date) This examination unknown) is limited by involuntary motion artifact.? (unknown) (no (unknown) (unknown) Imaging Data (units (u nknown) date) unknown) (unknown) (no (unknown) (unknown) Incidental note (units (unknown) date) is made of: unknown) (unknown) (no (unknown) (unknown) Initial Vital (units ( unknown) date) Signs unknown) (unknown) (no (unknown) (unknown) Initial Vital (units ( unknown) date) Signs: unknown) (unknown) (no (unknown) (unknown) Insomnia (units (unkno wn) date) unknown) (unknown) (no (unknown) (unknown) Lab Data (units (unkno wn) date) unknown) (unknown) (no (unknown) (unknown) Labs: (units (unkno wn) date) unknown) (unknown) (no (unknown) (unknown) Lorazepam (units (unkn own) date) (Lorazepam 0.5 Mg unknown) Tablet) 1 mg PO NOW ONE (unknown) (no (unknown) (unknown) Lorazepam (units (unkn own) date) (Lorazepam 2 Mg/Ml unknown) Inj) 1 mg IV NOW ONE (unknown) (no (unknown) (unknown) Lymph # (Auto) (units (unknown) date) 1100 ([id number]) unknown) /uL (unknown) (no (unknown) (unknown) Lymph % (Auto) (units (unknown) date) 20.9 L (25-40) unknown) % (unknown) (no (unknown) (unknown) MCH 29.7 (units (unkn own) date) (26-34) PG unknown) (unknown) (no (unknown) (unknown) MCHC 33.7 (units (unk nown) date) (30-36) % unknown) (unknown) (no (unknown) (unknown) MCV 88.3 (units (unkn own) date) (80-100) fL unknown) (unknown) (no (unknown) (unknown) MDM - Psych (units (un known) date) unknown) (unknown) (no (unknown) (unknown) MDM Narrative (units ( unknown) date) unknown) (unknown) (no (unknown) (unknown) MR Cspine: (units (unk nown) date) unknown) (unknown) (no (unknown) (unknown) MRI Brain: (units (unk nown) date) unknown) (unknown) (no (unknown) (unknown) Marrow:? Marrow (units (unknown) date) demonstrates unknown) normal overall signal.? (unknown) (no (unknown) (unknown) Medical History (units (unknown) date) (Updated 10/11/21 unknown) @ 08:10 by Lupis Moreira MD) (unknown) (no (unknown) (unknown) Medical decision (units (unknown) date) making narrative: unknown) (unknown) (no (unknown) (unknown) [place] # (Auto) (units ( unknown) date) 500 (0-900) /uL unknown) (unknown) (no (unknown) (unknown) [place] % (Auto) (units ( unknown) date) 8.5 (3-14) % unknown) (unknown) (no (unknown) (unknown) Multiple levels (units (unknown) date) of premature unknown) cervical spine degenerative change can be seen.? (unknown) (no (unknown) (unknown) Narrative: (units (unk nown) date) unknown) (unknown) (no (unknown) (unknown) Neck: supple (units ( unknown) date) unknown) (unknown) (no (unknown) (unknown) Neurologic: (units (un known) date) Grossly unknown) neurologically intact with no obvious asymmetries or (unknown) (no (unknown) (unknown) Neut # (Auto) (units ( unknown) date) 3300 ([id number]) unknown) /uL (unknown) (no (unknown) (unknown) Neut % (Auto) (units ( unknown) date) 60.6 (50-75) % unknown) (unknown) (no (unknown) (unknown) New (units (unkno wn) date) unknown) (unknown) (no (unknown) (unknown) No Action (units (unkn own) date) unknown) (unknown) (no (unknown) (unknown) No abnormal (units (un known) date) enhancement is unknown) seen. (unknown) (no (unknown) (unknown) No abnormal white (units (unknown) date) matter lesions are unknown) seen to suggest multiple sclerosis (unknown) (no (unknown) (unknown) No intracranial (units (unknown) date) bleeds or mass unknown) effects.? [place]far[place]-white matter interface appears (unknown) (no (unknown) (unknown) No masses or (units (u nknown) date) abnormal unknown) enhancement can be seen. (unknown) (no (unknown) (unknown) No significant (units (unknown) date) past surgical unknown) history (unknown) (no (unknown) (unknown) Ordered: (units (unkno wn) date) unknown) (unknown) (no (unknown) (unknown) Orders (units (unkno wn) date) unknown) (unknown) (no (unknown) (unknown) Oxygen Delivery (units (unknown) date) Method 10/10/21 unknown) 12:20 (unknown) (no (unknown) (unknown) Oxygen Delivery (units (unknown) date) Method Room Air unknown) (unknown) (no (unknown) (unknown) Panic attacks (units ( unknown) date) unknown) (unknown) (no (unknown) (unknown) Paranasal sinus (units (unknown) date) disease, including unknown) a left maxillary sinus mucous retention cyst? (unknown) (no (unknown) (unknown) Paraspinous soft (units (unknown) date) tissues:? No unknown) paravertebral masses or suspicious enhancement.? (unknown) (no (unknown) (unknown) Patient (units (unkno wn) date) Disposition: Home unknown) (unknown) (no (unknown) (unknown) Patient History (units (unknown) date) unknown) (unknown) (no (unknown) (unknown) Patient: (units (o wn) date) Rhonda Booker unknown) MR#: M (unknown) (no (unknown) (unknown) Potassium 3.6 (units (unknown) date) (3.4-5.1) mmol/L unknown) (unknown) (no (unknown) (unknown) Test (units (unknown) date) Results unknown) Negative (unknown) (no (unknown) (unknown) Prescriptions for (units (unknown) date) quetiapine and unknown) prazosin were both electronically transmitted (unknown) (no (unknown) (unknown) Prescriptions: (units (unknown) date) unknown) (unknown) (no (unknown) (unknown) Psych: (units (unkno wn) date) Cooperative, unknown) despondent, fluent speech patterns (unknown) (no (unknown) (unknown) Pulse Oximetry (units (unknown) date) 100 10/10/21 unknown) 12:20 (unknown) (no (unknown) (unknown) Pulse Oximetry (units (unknown) date) 100 unknown) (unknown) (no (unknown) (unknown) Pulse Rate 86 (units (unknown) date) 10/10/21 12:20 unknown) (unknown) (no (unknown) (unknown) Pulse Rate 86 (units ( unknown) date) unknown) (unknown) (no (unknown) (unknown) RDW 12.7 (units (unkn own) date) (11.6-14.8) % unknown) (unknown) (no (unknown) (unknown) Referrals: (units (unk nown) date) unknown) (unknown) (no (unknown) (unknown) Related Data (units (u nknown) date) unknown) (unknown) (no (unknown) (unknown) Remainder of (units (u nknown) date) complete review of unknown) systems is otherwise unremarkable except for (unknown) (no (unknown) (unknown) Remarkably (units (unk nown) date) positive: unknown) Insomnia, headaches, cognitive dysfunction, anxiety, (unknown) (no (unknown) (unknown) Respiratory Rate (units (unknown) date) 16 10/10/21 unknown) 12:20 (unknown) (no (unknown) (unknown) Respiratory Rate (units (unknown) date) 16 unknown) (unknown) (no (unknown) (unknown) Respiratory: (units (u nknown) date) Lungs are clear to unknown) auscultation, no wheezing no rales no rhonchi. (unknown) (no (unknown) (unknown) Result diagrams: (units (unknown) date) unknown) (unknown) (no (unknown) (unknown) Review of Systems (units (unknown) date) unknown) (unknown) (no (unknown) (unknown) Review of (units (unkn own) date) neurology notes unknown) indicates that she had been complaining of cognitive (unknown) (no (unknown) (unknown) She has excellent (units (unknown) date) support from her unknown) . (unknown) (no (unknown) (unknown) She is having (units ( unknown) date) significant unknown) suicidal ideation but does not have a plan. She is (unknown) (no (unknown) (unknown) She was seen by (units (unknown) date) social work today unknown) with additional social media marketing specialist recommended. (unknown) (no (unknown) (unknown) Signed By: (units (unk nown) date) unknown) (unknown) (no (unknown) (unknown) Sinuses:? There (units (unknown) date) is a prominent unknown) mucous retention cyst seen involving the left (unknown) (no (unknown) (unknown) Skin: Warm and (units (unknown) date) dry, no rashes unknown) (unknown) (no (unknown) (unknown) Skull and face:? (units (unknown) date) Calvarial marrow unknown) signal is normal.? Orbits appear normal.? (unknown) (no (unknown) (unknown) Smoking Status: (units (unknown) date) Former smoker unknown) (unknown) (no (unknown) (unknown) Smoking Status: (units (unknown) date) Former smoker unknown) (unknown) (no (unknown) (unknown) Social History (units (unknown) date) (Reviewed 10/11/21 unknown) @ 08:10 by Lupis Moreira MD) (unknown) (no (unknown) (unknown) Sodium 139 (units (u nknown) date) (137-145) mmol/L unknown) (unknown) (no (unknown) (unknown) Spinal cord:? (units ( unknown) date) Visualized spinal unknown) cord is normal in size, without white matter (unknown) (no (unknown) (unknown) Stand Alone (units (un known) date) Forms: Work unknown) Release Note (unknown) (no (unknown) (unknown) Stated Complaint: (units (unknown) date) Really Sick/Not unknown) Sleeping/SI (unknown) (no (unknown) (unknown) Substance Use (units ( unknown) date) Type: marijuana unknown) (unknown) (no (unknown) (unknown) Surgical History (units (unknown) date) (Reviewed 10/11/21 unknown) @ 08:10 by Lupis Moreira MD) (unknown) (no (unknown) (unknown) T2 (units (unkno wn) date) unknown) (unknown) (no (unknown) (unknown) Talked about (units (u nknown) date) additional help unknown) for sleep as well as nightmares. It looks like in (unknown) (no (unknown) (unknown) Temperature 98.8 (units (unknown) date) F 10/10/21 12:20 unknown) (unknown) (no (unknown) (unknown) Temperature 98.8 (units (unknown) date) F unknown) (unknown) (no (unknown) (unknown) Thank you for (units ( unknown) date) coming in today. unknown) I am so sorry that you have been suffering with (unknown) (no (unknown) (unknown) There is at least (units (unknown) date) moderate bilateral unknown) neural foraminal narrowing seen. Minimal (unknown) (no (unknown) (unknown) Time Seen by (units (u nknown) date) Provider: 10/10/21 unknown) 12:53 (unknown) (no (unknown) (unknown) Today with (units (unk nown) date) appropriate unknown) sedation we were able to facilitate brain and cervical (unknown) (no (unknown) (unknown) Total Bilirubin (units (unknown) date) 0.7 (0.2-1.3) unknown) mg/dL (unknown) (no (unknown) (unknown) Total Protein (units ( unknown) date) 7.3 (6.3-8.2) unknown) g/dL (unknown) (no (unknown) (unknown) Urine Specific (units (unknown) date) Logan 1.020 unknown) (unknown) (no (unknown) (unknown) Visit Report (units (u nknown) date) Forms: Patient unknown) Portal/API (unknown) (no (unknown) (unknown) Vital Signs (units (un known) date) unknown) (unknown) (no (unknown) (unknown) Vital signs: (units (u nknown) date) unknown) (unknown) (no (unknown) (unknown) We covered a lot (units (unknown) date) today and I have a unknown) number of suggestions (unknown) (no (unknown) (unknown) You were sleeping (units (unknown) date) nicely as you were unknown) discharged and we did not get a chance to (unknown) (no (unknown) (unknown) [Embedded Image (units (unknown) date) Not Available] unknown) (unknown) (no (unknown) (unknown) abnormal fluid is (units (unknown) date) seen within the unknown) mastoid air cells. (unknown) (no (unknown) (unknown) abnormal (units (unkno wn) date) intracranial unknown) enhancement.? Diffusion weighted images show no acute (unknown) (no (unknown) (unknown) abnormalities. (units (unknown) date) Today I a.m. not unknown) appreciating hyper reflexia (unknown) (no (unknown) (unknown) accessing care in (units (unknown) date) finding help. She unknown) is feeling that she is not being heard by (unknown) (no (unknown) (unknown) alcohol intake (units (unknown) date) frequency: unknown) holidays/special occasions only (unknown) (no (unknown) (unknown) alcohol intake: (units (unknown) date) never unknown) (unknown) (no (unknown) (unknown) and more issues (units (unknown) date) with sleep unknown) deprivation and coping skills due to this. She has (unknown) (no (unknown) (unknown) azathioprine 50 (units (unknown) date) mg tablet 50 mg PO unknown) DAILY 08/23/17 08/25/17 (unknown) (no (unknown) (unknown) budesonide 3 mg 3 (units (unknown) date) mg PO DAILY unknown) 08/23/17 08/25/17 (unknown) (no (unknown) (unknown) can go up to 100 (units (unknown) date) mg. You will need unknown) to review this with your primary care (unknown) (no (unknown) (unknown) canal (units (unkno wn) date) unknown) (unknown) (no (unknown) (unknown) canal narrowing (units (unknown) date) is seen.? unknown) (unknown) (no (unknown) (unknown) capsule,delayed,e (units (unknown) date) xtended release unknown) (unknown) (no (unknown) (unknown) central (units (unkno wn) date) unknown) (unknown) (no (unknown) (unknown) cetirizine 10 mg (units (unknown) date) chewable tablet 10 unknown) mg PO QDAY ##0 01/31/17 08/25/17 (unknown) (no (unknown) (unknown) comprehensive (units ( unknown) date) pain management. unknown) I believe until we have fully addressed and (unknown) (no (unknown) (unknown) concerns from (units ( unknown) date) prior exams. At unknown) this point she is feeling defeated, depressed. (unknown) (no (unknown) (unknown) consider this. (units (unknown) date) unknown) (unknown) (no (unknown) (unknown) constipation, (units ( unknown) date) urinary unknown) incontinence without dysuria, migrating temporary (unknown) (no (unknown) (unknown) consultation to (units (unknown) date) help with medical unknown) management and may also benefit from (unknown) (no (unknown) (unknown) day if you would (units (unknown) date) like to call and unknown) review recommendations above. The phone (unknown) (no (unknown) (unknown) decline, skin (units ( unknown) date) paresthesia call, unknown) balance difficulties, hyper reflexia had been (unknown) (no (unknown) (unknown) definitive (units (unk nown) date) answer. She has unknown) not slept adequately for months and is having more (unknown) (no (unknown) (unknown) degree of (units (unkn own) date) unknown) (unknown) (no (unknown) (unknown) difficulty (units (unk nown) date) returning to unknown) functional baseline. (unknown) (no (unknown) (unknown) discharge she was (units (unknown) date) very sleepy after unknown) the sedation so as not able to follow-up on (unknown) (no (unknown) (unknown) disorder (units (unkno wn) date) unknown) (unknown) (no (unknown) (unknown) dizziness and (units ( unknown) date) gait dysfunction, unknown) feelings of hopelessness and helplessness (unknown) (no (unknown) (unknown) duloxetine 30 mg (units (unknown) date) capsule,delayed 30 unknown) mg PO QDAY #30 caps 01/04/16 (unknown) (no (unknown) (unknown) ergocalciferol (units (unknown) date) (vitamin D2) 1,250 unknown) 50,000 unit PO QWEEK 08/23/17 08/25/17 (unknown) (no (unknown) (unknown) establishing care (units (unknown) date) that may offer unknown) some type of relief for her suffering. (unknown) (no (unknown) (unknown) extra-axial fluid (units (unknown) date) collections.? unknown) (unknown) (no (unknown) (unknown) eyes, clear (units (un known) date) discussion, unknown) focused and able to participate fully in exam (unknown) (no (unknown) (unknown) for you to feel (units (unknown) date) normal, think unknown) normally and better cope with your chronic pain (unknown) (no (unknown) (unknown) fully discuss all (units (unknown) date) of these unknown) recommendations. I am working tomorrow during the (unknown) (no (unknown) (unknown) generalized disc (units (unknown) date) osteophyte complex unknown) is seen.? Moderate facet joint hypertrophy (unknown) (no (unknown) (unknown) gram/dose oral (units (unknown) date) powder unknown) (unknown) (no (unknown) (unknown) helped with the (units (unknown) date) significant sleep unknown) disturbance that she is going to have (unknown) (no (unknown) (unknown) her depression, (units (unknown) date) anxiety and unknown) fibromyalgia. She is concerned that she has (unknown) (no (unknown) (unknown) her medical (units (un known) date) providers. I unknown) believe her significant anxiety and PTSD along with (unknown) (no (unknown) (unknown) however she was (units (unknown) date) unable to tolerate unknown) this can due to severe anxiety with PTS type (unknown) (no (unknown) (unknown) hyperintense (units (u nknown) date) white matter unknown) lesions.? None can be seen. (unknown) (no (unknown) (unknown) hypertrophy is (units (unknown) date) seen.? There is unknown) moderate to severe right-sided and at least (unknown) (no (unknown) (unknown) insomnia with (units ( unknown) date) significant sleep unknown) deprivation, she has seen specialists who have (unknown) (no (unknown) (unknown) insults.? (units (unkn own) date) Brainstem appears unknown) normal.? Normal intravascular flow voids are (unknown) (no (unknown) (unknown) intact.? No (units (un known) date) unknown) (unknown) (no (unknown) (unknown) intermittent (units (u nknown) date) chest pain, unknown) intermittent abdominal pain, intermittent diarrhea and (unknown) (no (unknown) (unknown) involvement (units (un known) date) unknown) (unknown) (no (unknown) (unknown) is looking for (units (unknown) date) guidance and help unknown) in negotiating the medical system and (unknown) (no (unknown) (unknown) is seen.? (units (unkn own) date) unknown) (unknown) (no (unknown) (unknown) ischemic (units (unkno wn) date) unknown) (unknown) (no (unknown) (unknown) issues. (units (unkno wn) date) unknown) (unknown) (no (unknown) (unknown) joint (units (unkno wn) date) unknown) (unknown) (no (unknown) (unknown) least (units (unkno wn) date) unknown) (unknown) (no (unknown) (unknown) least moderate (units (unknown) date) bilateral neural unknown) foraminal narrowing can be seen. Mild central (unknown) (no (unknown) (unknown) left-sided neural (units (unknown) date) foraminal unknown) narrowing.? Mild to moderate central canal narrowing (unknown) (no (unknown) (unknown) lesions.? No (units (u nknown) date) unknown) (unknown) (no (unknown) (unknown) lorazepam 0.5 mg (units (unknown) date) tablet 0.5 mg PO unknown) BEDTIME PRN sleep #10 06/29/20 (unknown) (no (unknown) (unknown) maxillary (units (unkn own) date) unknown) (unknown) (no (unknown) (unknown) mcg (50,000 unit) (units (unknown) date) capsule unknown) (unknown) (no (unknown) (unknown) medications. (units (un known) date) Going to give you unknown) 50 mg tablets. Begin at 50 mg and if this feels (unknown) (no (unknown) (unknown) moderate (units (unkno wn) date) unknown) (unknown) (no (unknown) (unknown) moderate disc (units ( unknown) date) osteophyte complex unknown) is seen. Moderate facet joint hypertrophy is (unknown) (no (unknown) (unknown) multiple (units (unkno wn) date) sclerosis is and unknown) has not been able to have MRI is to get to a (unknown) (no (unknown) (unknown) multiple (units (unkno wn) date) sclerosis plaques. unknown) (unknown) (no (unknown) (unknown) multiple (units (unkno wn) date) sclerosis. unknown) (unknown) (no (unknown) (unknown) narrowing is (units (u nknown) date) seen.? unknown) (unknown) (no (unknown) (unknown) nightmares are (units (unknown) date) contributing to unknown) dramatic sleep deprivation which is exacerbating (unknown) (no (unknown) (unknown) not been any type (units (unknown) date) of Comprehensive unknown) [facility] diet would certainly (unknown) (no (unknown) (unknown) not been helpful (units (unknown) date) and she feels that unknown) her concerns have not been heard. She has (unknown) (no (unknown) (unknown) noted, urinary (units (unknown) date) incontinence and unknown) concern for multiple sclerosis was noted. (unknown) (no (unknown) (unknown) number is (units (unkn own) date) [phone]. Ask unknown) for Dr. Moreira (unknown) (no (unknown) (unknown) olopatadine [From (units (unknown) date) PATANOL] Allergy unknown) Intermediate RED AND Verified 11/15/20 18:21 (unknown) (no (unknown) (unknown) or reason to not (units (unknown) date) continue, do not unknown) fill this prescription (unknown) (no (unknown) (unknown) osteophyte (units (unk nown) date) complex is seen, unknown) which is eccentric to the right. Moderate facet (unknown) (no (unknown) (unknown) paresthesias of (units (unknown) date) the skin, no skin unknown) changes or rashes. Intermittent episodes of (unknown) (no (unknown) (unknown) patent.? No (units (un known) date) unknown) (unknown) (no (unknown) (unknown) physician. (units (unk nown) date) Getting adequate unknown) sleep is going to be the 1. Most important thing (unknown) (no (unknown) (unknown) polyethylene (units (u nknown) date) glycol 3350 17 17 unknown) g PO DAILY 08/23/17 08/25/17 (unknown) (no (unknown) (unknown) prazosin 1 mg (units ( unknown) date) capsule 1 mg PO unknown) BEDTIME #30 caps 10/10/21 (unknown) (no (unknown) (unknown) prazosin 1 mg (units ( unknown) date) capsule 1 mg PO unknown) SEE INSTRUCTIONS #60 caps 01/04/16 (unknown) (no (unknown) (unknown) present.? (units (unkn own) date) unknown) (unknown) (no (unknown) (unknown) primary care (units (u nknown) date) physician, would unknown) likely very much benefit from psychiatry (unknown) (no (unknown) (unknown) quetiapine 50 mg (units (unknown) date) tablet (Seroquel) unknown) 50 mg PO BEDTIME #60 tabs 10/10/21 (unknown) (no (unknown) (unknown) ranitidine HCl (units (unknown) date) 150 mg tablet 150 unknown) mg PO DAILY 08/23/17 08/25/17 (unknown) (no (unknown) (unknown) release (units (unkno wn) date) (Cymbalta) unknown) (unknown) (no (unknown) (unknown) seen a (units (unkno wn) date) neurologist at unknown) [facility] and MRI was ordered to rule out MS (unknown) (no (unknown) (unknown) seen.? At (units (unkn own) date) unknown) (unknown) (no (unknown) (unknown) sinus.? Mild to (units (unknown) date) moderate mucosal unknown) thickening is seen within the paranasal (unknown) (no (unknown) (unknown) sinuses. No (units (un known) date) unknown) (unknown) (no (unknown) (unknown) so much. (units (unkno wn) date) unknown) (unknown) (no (unknown) (unknown) specialist and (units (unknown) date) she is not having unknown) her chronic pain adequately controlled at this (unknown) (no (unknown) (unknown) spine MRIs as (units ( unknown) date) requested by unknown) Neurology. She does not have multiple sclerosis. (unknown) (no (unknown) (unknown) substance use (units ( unknown) date) type: does not unknown) use (unknown) (no (unknown) (unknown) suggest (units (unkno wn) date) unknown) (unknown) (no (unknown) (unknown) sumatriptan (units (un known) date) [SUMATRIPTAN] unknown) Allergy Severe MUSCLE Verified 11/15/20 18:21 (unknown) (no (unknown) (unknown) suspicious (units (unk nown) date) intramedullary unknown) enhancement.? No cerebellar tonsillar herniation.? (unknown) (no (unknown) (unknown) syringe (units (unkno wn) date) unknown) (unknown) (no (unknown) (unknown) that included in (units (unknown) date) the HPI. unknown) (unknown) (no (unknown) (unknown) the past she has (units (unknown) date) been on prazosin unknown) but is not currently on that. At time of (unknown) (no (unknown) (unknown) the prazosin but (units (unknown) date) did give her unknown) prescription. Regarding sleep have added Seroquel (unknown) (no (unknown) (unknown) time. Her (units (unk nown) date) is her unknown) primary support system and has been wonderful but she (unknown) (no (unknown) (unknown) to [facility] in (units (unknown) date) [place] unknown) (unknown) (no (unknown) (unknown) tramadol 50 mg (units (unknown) date) tablet 50 mg PO unknown) Q6H PRN pain #10 tabs 08/25/17 (unknown) (no (unknown) (unknown) trying to get on (units (unknown) date) disability. Does unknown) not appear that she has been seen by a pain (unknown) (no (unknown) (unknown) ustekinumab 90 (units (unknown) date) mg/mL subcutaneous unknown) See Rx Instructions .Route .COMPLEX 08/23/17 (unknown) (no (unknown) (unknown) what point in the (units (unknown) date) past. I am going unknown) to suggest that you restart this at 1 mg. I (unknown) (no (unknown) (unknown) with your primary (units (unknown) date) care doctor unknown) (unknown) (no (unknown) (unknown) within the (units (unk nown) date) cervical cord. unknown) Result panel 11 (unknown) (no (unknown) (unknown) (no value) (units (unk nown) date) unknown) (unknown) (no (unknown) (unknown) Date of Service: (units (unknown) date) 10/20/21 unknown) (unknown) (no (unknown) (unknown) (no value) (units (unk nown) date) unknown) (unknown) (no (unknown) (unknown) 0.5 mg PO (units (unkn own) date) BEDTIME PRN unknown) (Reason: sleep) Qty: 10 0RF (unknown) (no (unknown) (unknown) 1 mg PO BEDTIME (units (unknown) date) Qty: 30 0RF unknown) (unknown) (no (unknown) (unknown) 1 mg PO SEE (units (un known) date) INSTRUCTIONS Qty: unknown) 60 2RF (unknown) (no (unknown) (unknown) 10 mg PO QDAY (units ( unknown) date) Qty: 0 unknown) (unknown) (no (unknown) (unknown) 150 mg PO DAILY (units (unknown) date) unknown) (unknown) (no (unknown) (unknown) 17 g PO DAILY (units ( unknown) date) unknown) (unknown) (no (unknown) (unknown) 3 mg PO DAILY (units ( unknown) date) unknown) (unknown) (no (unknown) (unknown) 30 mg PO QDAY (units ( unknown) date) Qty: 30 2RF unknown) (unknown) (no (unknown) (unknown) 50 mg PO BEDTIME (units (unknown) date) Qty: 60 0RF unknown) (unknown) (no (unknown) (unknown) 50 mg PO DAILY (units (unknown) date) unknown) (unknown) (no (unknown) (unknown) 50 mg PO Q6H PRN (units (unknown) date) (Reason: pain) unknown) Qty: 10 0RF (unknown) (no (unknown) (unknown) 50,000 unit PO (units (unknown) date) QWEEK unknown) (unknown) (no (unknown) (unknown) 90 mg (units (unkno wn) date) subcutaneously unknown) every 8 weeks (unknown) (no (unknown) (unknown) Allergies (units (unkn own) date) unknown) (unknown) (no (unknown) (unknown) EYES (units (unkno wn) date) unknown) (unknown) (no (unknown) (unknown) Emergency Report (units (unknown) date) unknown) (unknown) (no (unknown) (unknown) Home Medications (units (unknown) date) unknown) (unknown) (no (unknown) (unknown) IN FACE (units (unkno wn) date) unknown) (unknown) (no (unknown) (unknown) [facility] (units (unknown) date) [address]) [place] [id number] (unknown) (no (unknown) (unknown) Label Comments: (units (unknown) date) unknown) (unknown) (no (unknown) (unknown) Previous Rx's (units ( unknown) date) unknown) (unknown) (no (unknown) (unknown) RIGIDITY (units (unkno wn) date) unknown) (unknown) (no (unknown) (unknown) Rx Instructions: (units (unknown) date) unknown) (unknown) (no (unknown) (unknown) SWOLLEN (units (unkno wn) date) unknown) (unknown) (no (unknown) (unknown) See Rx (units (unkno wn) date) Instructions unknown) .ROUTE .COMPLEX (unknown) (no (unknown) (unknown) Taking 2mg (units (unk nown) date) unknown) (unknown) (no (unknown) (unknown) Vital Signs - 8 (units (unknown) date) hr unknown) (unknown) (no (unknown) (unknown) take with (units (unkn own) date) tylenol unknown) (unknown) (no (unknown) (unknown) (no value) (units (unk nown) date) unknown) (unknown) (no (unknown) (unknown) azathioprine 50 (units (unknown) date) mg tablet unknown) (unknown) (no (unknown) (unknown) budesonide 3 mg (units (unknown) date) Capsule,Delayed,E unknown) xtend.Release (unknown) (no (unknown) (unknown) cetirizine 10 MG (units (unknown) date) tablet,chewable unknown) (unknown) (no (unknown) (unknown) duloxetine (units (unk nown) date) [Cymbalta] 30 MG unknown) capsule,delayed release(DR/EC) (unknown) (no (unknown) (unknown) ergocalciferol (units (unknown) date) (vitamin D2) unknown) 50,000 unit Capsule (unknown) (no (unknown) (unknown) lorazepam 0.5 mg (units (unknown) date) tablet unknown) (unknown) (no (unknown) (unknown) polyethylene (units (u nknown) date) glycol 3350 17 unknown) gram/dose powder (unknown) (no (unknown) (unknown) prazosin 1 MG (units ( unknown) date) capsule unknown) (unknown) (no (unknown) (unknown) prazosin 1 mg (units ( unknown) date) capsule unknown) (unknown) (no (unknown) (unknown) quetiapine (units (unk nown) date) [Seroquel] 50 mg unknown) tablet (unknown) (no (unknown) (unknown) ranitidine HCl (units (unknown) date) 150 mg tablet unknown) (unknown) (no (unknown) (unknown) tramadol 50 mg (units (unknown) date) tablet unknown) (unknown) (no (unknown) (unknown) ustekinumab (units (un known) date) [Stelara] 90 unknown) mg/mL syringe (unknown) (no (unknown) (unknown) 10/20/21 (units (unkno wn) date) unknown) (unknown) (no (unknown) (unknown) Medication (units (unk nown) date) Instructions unknown) Recorded (unknown) (no (unknown) (unknown) Medication (units (unk nown) date) Instructions unknown) Recorded Confirmed (unknown) (no (unknown) (unknown) tabs (units (unkno wn) date) unknown) (unknown) (no (unknown) (unknown) [id number] (units (unkn own) date) unknown) (unknown) (no (unknown) (unknown) 08/25/17 (units (unkno wn) date) unknown) (unknown) (no (unknown) (unknown) 15:53 (units (unkno wn) date) unknown) (unknown) (no (unknown) (unknown) Age/Sex: 36 / F (units (unknown) date) unknown) (unknown) (no (unknown) (unknown) Allergy/AdvReac (units (unknown) date) Type Severity unknown) Reaction Status Date / Time (unknown) (no (unknown) (unknown) Anxiety and (units (un known) date) depression unknown) (unknown) (no (unknown) (unknown) Blood Pressure (units (unknown) date) 157/91 H unknown) 10/20/21 15:53 (unknown) (no (unknown) (unknown) Blood Pressure (units (unknown) date) 157/91 H unknown) (unknown) (no (unknown) (unknown) Chief Complaint: (units (unknown) date) Neck Pain/Injury unknown) (unknown) (no (unknown) (unknown) Course (units (unkno wn) date) unknown) (unknown) (no (unknown) (unknown) Crohn disease (units ( unknown) date) unknown) (unknown) (no (unknown) (unknown) : 1985 (units (unknown) date) Acct:[id number] unknown) (unknown) (no (unknown) (unknown) Juan Jose Lopez, (units (unknown) date) [Primary Care unknown) Provider] - (unknown) (no (unknown) (unknown) Departure (units (unkn own) date) unknown) (unknown) (no (unknown) (unknown) Discharge Plan (units (unknown) date) unknown) (unknown) (no (unknown) (unknown) ER Physician: (units ( unknown) date) Preston Chiu MD unknown) (unknown) (no (unknown) (unknown) Exam (units (unkno wn) date) unknown) (unknown) (no (unknown) (unknown) Fibromyalgia (units (u nknown) date) unknown) (unknown) (no (unknown) (unknown) General (units (unkno wn) date) unknown) (unknown) (no (unknown) (unknown) HPI - Neck (units (unk nown) date) Pain/Injury unknown) (unknown) (no (unknown) (unknown) Initial Vital (units ( unknown) date) Signs unknown) (unknown) (no (unknown) (unknown) Initial Vital (units ( unknown) date) Signs: unknown) (unknown) (no (unknown) (unknown) Insomnia (units (unkno wn) date) unknown) (unknown) (no (unknown) (unknown) Medical History (units (unknown) date) (Updated 10/11/21 unknown) @ 08:10 by Lupis Moreira MD) (unknown) (no (unknown) (unknown) No Action (units (unkn own) date) unknown) (unknown) (no (unknown) (unknown) No significant (units (unknown) date) past surgical unknown) history (unknown) (no (unknown) (unknown) Oxygen Delivery (units (unknown) date) Method unknown) 10/20/21 15:53 (unknown) (no (unknown) (unknown) Oxygen Delivery (units (unknown) date) Method Room Air unknown) (unknown) (no (unknown) (unknown) Panic attacks (units ( unknown) date) unknown) (unknown) (no (unknown) (unknown) Patient History (units (unknown) date) unknown) (unknown) (no (unknown) (unknown) Patient: (units (unkno wn) date) Rhonda Booker unknown) MR#: M (unknown) (no (unknown) (unknown) Prescriptions: (units (unknown) date) unknown) (unknown) (no (unknown) (unknown) Pulse Oximetry (units (unknown) date) 100 10/20/21 unknown) 15:53 (unknown) (no (unknown) (unknown) Pulse Oximetry (units (unknown) date) 100 unknown) (unknown) (no (unknown) (unknown) Pulse Rate 93 H (units (unknown) date) 10/20/21 15:53 unknown) (unknown) (no (unknown) (unknown) Pulse Rate 93 H (units (unknown) date) unknown) (unknown) (no (unknown) (unknown) Referrals: (units (unk nown) date) unknown) (unknown) (no (unknown) (unknown) Related Data (units (u nknown) date) unknown) (unknown) (no (unknown) (unknown) Respiratory Rate (units (unknown) date) 16 10/20/21 unknown) 15:53 (unknown) (no (unknown) (unknown) Respiratory Rate (units (unknown) date) 16 unknown) (unknown) (no (unknown) (unknown) Signed By: (units (unk nown) date) unknown) (unknown) (no (unknown) (unknown) Smoking Status: (units (unknown) date) Former smoker unknown) (unknown) (no (unknown) (unknown) Smoking Status: (units (unknown) date) Former smoker unknown) (unknown) (no (unknown) (unknown) Social History (units (unknown) date) (Reviewed unknown) 10/11/21 @ 08:10 by Lupis Moreira MD) (unknown) (no (unknown) (unknown) Stated (units (unkno wn) date) Complaint: Can't unknown) Sleep (unknown) (no (unknown) (unknown) Substance Use (units ( unknown) date) Type: marijuana unknown) (unknown) (no (unknown) (unknown) Surgical History (units (unknown) date) (Reviewed unknown) 10/11/21 @ 08:10 by Lupis Moreira MD) (unknown) (no (unknown) (unknown) Temperature (units (un known) date) 96.2 F L unknown) 10/20/21 15:53 (unknown) (no (unknown) (unknown) Temperature 96.2 (units (unknown) date) F L unknown) (unknown) (no (unknown) (unknown) Time Seen by (units (u nknown) date) Provider: unknown) 10/20/21 16:45 (unknown) (no (unknown) (unknown) Vital Signs (units (un known) date) unknown) (unknown) (no (unknown) (unknown) Vital signs: (units (u nknown) date) unknown) (unknown) (no (unknown) (unknown) alcohol intake (units (unknown) date) frequency: unknown) holidays/special occasions only (unknown) (no (unknown) (unknown) alcohol intake: (units (unknown) date) never unknown) (unknown) (no (unknown) (unknown) azathioprine 50 (units (unknown) date) mg tablet 50 mg unknown) PO DAILY 08/23/17 08/25/17 (unknown) (no (unknown) (unknown) budesonide 3 mg (units (unknown) date) 3 mg PO DAILY unknown) 08/23/17 08/25/17 (unknown) (no (unknown) (unknown) capsule,delayed, (units (unknown) date) extended release unknown) (unknown) (no (unknown) (unknown) cetirizine 10 mg (units (unknown) date) chewable tablet unknown) 10 mg PO QDAY ##0 01/31/17 08/25/17 (unknown) (no (unknown) (unknown) duloxetine 30 mg (units (unknown) date) capsule,delayed unknown) 30 mg PO QDAY #30 caps 01/04/16 (unknown) (no (unknown) (unknown) ergocalciferol (units (unknown) date) (vitamin D2) unknown) 1,250 50,000 unit PO QWEEK 08/23/17 08/25/17 (unknown) (no (unknown) (unknown) gram/dose oral (units (unknown) date) powder unknown) (unknown) (no (unknown) (unknown) lorazepam 0.5 mg (units (unknown) date) tablet 0.5 mg PO unknown) BEDTIME PRN sleep #10 06/29/20 (unknown) (no (unknown) (unknown) mcg (50,000 (units (un known) date) unit) capsule unknown) (unknown) (no (unknown) (unknown) olopatadine (units (un known) date) [From PATANOL] unknown) Allergy Intermediate RED AND Verified 11/15/20 18:21 (unknown) (no (unknown) (unknown) polyethylene (units (u nknown) date) glycol 3350 17 17 unknown) g PO DAILY 08/23/17 08/25/17 (unknown) (no (unknown) (unknown) prazosin 1 mg (units ( unknown) date) capsule 1 mg PO unknown) BEDTIME #30 caps 10/10/21 (unknown) (no (unknown) (unknown) prazosin 1 mg (units ( unknown) date) capsule 1 mg PO unknown) SEE INSTRUCTIONS #60 caps 01/04/16 (unknown) (no (unknown) (unknown) quetiapine 50 mg (units (unknown) date) tablet (Seroquel) unknown) 50 mg PO BEDTIME #60 tabs 10/10/21 (unknown) (no (unknown) (unknown) ranitidine HCl (units (unknown) date) 150 mg tablet 150 unknown) mg PO DAILY 08/23/17 08/25/17 (unknown) (no (unknown) (unknown) release (units (unkno wn) date) (Cymbalta) unknown) (unknown) (no (unknown) (unknown) substance use (units ( unknown) date) type: does not unknown) use (unknown) (no (unknown) (unknown) sumatriptan (units (un known) date) [SUMATRIPTAN] unknown) Allergy Severe MUSCLE Verified 11/15/20 18:21 (unknown) (no (unknown) (unknown) syringe (units (unkno wn) date) unknown) (unknown) (no (unknown) (unknown) tramadol 50 mg (units (unknown) date) tablet 50 mg PO unknown) Q6H PRN pain #10 tabs 08/25/17 (unknown) (no (unknown) (unknown) ustekinumab 90 (units (unknown) date) mg/mL unknown) subcutaneous See Rx Instructions .Route .COMPLEX 08/23/17 Result panel 12 (unknown) (no (unknown) (unknown) (no value) (units (unk nown) date) unknown) (unknown) (no (unknown) (unknown) Date of Service: (units (unknown) date) 10/20/21 unknown) (unknown) (no (unknown) (unknown) (no value) (units (unk nown) date) unknown) (unknown) (no (unknown) (unknown) 0.5 mg PO (units (unkn own) date) BEDTIME PRN unknown) (Reason: sleep) Qty: 10 0RF (unknown) (no (unknown) (unknown) 1 mg PO BEDTIME (units (unknown) date) Qty: 30 0RF unknown) (unknown) (no (unknown) (unknown) 1 mg PO SEE (units (un known) date) INSTRUCTIONS Qty: unknown) 60 2RF (unknown) (no (unknown) (unknown) 10 mg PO QDAY (units ( unknown) date) Qty: 0 unknown) (unknown) (no (unknown) (unknown) 150 mg PO DAILY (units (unknown) date) unknown) (unknown) (no (unknown) (unknown) 17 g PO DAILY (units ( unknown) date) unknown) (unknown) (no (unknown) (unknown) 3 mg PO DAILY (units ( unknown) date) unknown) (unknown) (no (unknown) (unknown) 30 mg PO QDAY (units ( unknown) date) Qty: 30 2RF unknown) (unknown) (no (unknown) (unknown) 50 mg PO BEDTIME (units (unknown) date) Qty: 60 0RF unknown) (unknown) (no (unknown) (unknown) 50 mg PO DAILY (units (unknown) date) unknown) (unknown) (no (unknown) (unknown) 50 mg PO Q6H PRN (units (unknown) date) (Reason: pain) unknown) Qty: 10 0RF (unknown) (no (unknown) (unknown) 50,000 unit PO (units (unknown) date) QWEEK unknown) (unknown) (no (unknown) (unknown) 90 mg (units (unkno wn) date) subcutaneously unknown) every 8 weeks (unknown) (no (unknown) (unknown) Allergies (units (unkn own) date) unknown) (unknown) (no (unknown) (unknown) EYES (units (unkno wn) date) unknown) (unknown) (no (unknown) (unknown) Emergency Report (units (unknown) date) unknown) (unknown) (no (unknown) (unknown) Home Medications (units (unknown) date) unknown) (unknown) (no (unknown) (unknown) IN FACE (units (unkno wn) date) unknown) (unknown) (no (unknown) (unknown) [facility] (units (unknown) date) [address] unknown) [place] [address] (unknown) (no (unknown) (unknown) Label Comments: (units (unknown) date) unknown) (unknown) (no (unknown) (unknown) Previous Rx's (units ( unknown) date) unknown) (unknown) (no (unknown) (unknown) RIGIDITY (units (unkno wn) date) unknown) (unknown) (no (unknown) (unknown) Rx Instructions: (units (unknown) date) unknown) (unknown) (no (unknown) (unknown) SWOLLEN (units (unkno wn) date) unknown) (unknown) (no (unknown) (unknown) See Rx (units (unkno wn) date) Instructions unknown) .ROUTE .COMPLEX (unknown) (no (unknown) (unknown) Taking 2mg (units (unk nown) date) unknown) (unknown) (no (unknown) (unknown) Vital Signs - 8 (units (unknown) date) hr unknown) (unknown) (no (unknown) (unknown) take with (units (unkn own) date) tylenol unknown) (unknown) (no (unknown) (unknown) (no value) (units (unk nown) date) unknown) (unknown) (no (unknown) (unknown) azathioprine 50 (units (unknown) date) mg tablet unknown) (unknown) (no (unknown) (unknown) budesonide 3 mg (units (unknown) date) Capsule,Delayed,E unknown) xtend.Release (unknown) (no (unknown) (unknown) cetirizine 10 MG (units (unknown) date) tablet,chewable unknown) (unknown) (no (unknown) (unknown) duloxetine (units (unk nown) date) [Cymbalta] 30 MG unknown) capsule,delayed release(DR/EC) (unknown) (no (unknown) (unknown) ergocalciferol (units (unknown) date) (vitamin D2) unknown) 50,000 unit Capsule (unknown) (no (unknown) (unknown) lorazepam 0.5 mg (units (unknown) date) tablet unknown) (unknown) (no (unknown) (unknown) polyethylene (units (u nknown) date) glycol 3350 17 unknown) gram/dose powder (unknown) (no (unknown) (unknown) prazosin 1 MG (units ( unknown) date) capsule unknown) (unknown) (no (unknown) (unknown) prazosin 1 mg (units ( unknown) date) capsule unknown) (unknown) (no (unknown) (unknown) quetiapine (units (unk nown) date) [Seroquel] 50 mg unknown) tablet (unknown) (no (unknown) (unknown) ranitidine HCl (units (unknown) date) 150 mg tablet unknown) (unknown) (no (unknown) (unknown) tramadol 50 mg (units (unknown) date) tablet unknown) (unknown) (no (unknown) (unknown) ustekinumab (units (un known) date) [Stelara] 90 unknown) mg/mL syringe (unknown) (no (unknown) (unknown) 10/20/21 (units (unkno wn) date) unknown) (unknown) (no (unknown) (unknown) Medication (units (unk nown) date) Instructions unknown) Recorded (unknown) (no (unknown) (unknown) Medication (units (unk nown) date) Instructions unknown) Recorded Confirmed (unknown) (no (unknown) (unknown) tabs (units (unkno wn) date) unknown) (unknown) (no (unknown) (unknown) [id number] (units (unkn own) date) unknown) (unknown) (no (unknown) (unknown) 08/25/17 (units (unkno wn) date) unknown) (unknown) (no (unknown) (unknown) 15:53 (units (unkno wn) date) unknown) (unknown) (no (unknown) (unknown) Age/Sex: 36 / F (units (unknown) date) unknown) (unknown) (no (unknown) (unknown) Allergy/AdvReac (units (unknown) date) Type Severity unknown) Reaction Status Date / Time (unknown) (no (unknown) (unknown) Anxiety and (units (un known) date) depression unknown) (unknown) (no (unknown) (unknown) Blood Pressure (units (unknown) date) 157/91 H unknown) 10/20/21 15:53 (unknown) (no (unknown) (unknown) Blood Pressure (units (unknown) date) 157/91 H unknown) (unknown) (no (unknown) (unknown) Chief Complaint: (units (unknown) date) Neck Pain/Injury unknown) (unknown) (no (unknown) (unknown) Course (units (unkno wn) date) unknown) (unknown) (no (unknown) (unknown) Crohn disease (units ( unknown) date) unknown) (unknown) (no (unknown) (unknown) : 1985 (units (unknown) date) Acct:[id number] unknown) (unknown) (no (unknown) (unknown) Juan Jose Lopez, (units (unknown) date) [Primary Care unknown) Provider] - (unknown) (no (unknown) (unknown) Departure (units (unkn own) date) unknown) (unknown) (no (unknown) (unknown) Discharge Plan (units (unknown) date) unknown) (unknown) (no (unknown) (unknown) ER Physician: (units ( unknown) date) Preston Chiu MD unknown) (unknown) (no (unknown) (unknown) Exam (units (unkno wn) date) unknown) (unknown) (no (unknown) (unknown) Fibromyalgia (units (u nknown) date) unknown) (unknown) (no (unknown) (unknown) General (units (unkno wn) date) unknown) (unknown) (no (unknown) (unknown) HPI - Neck (units (unk nown) date) Pain/Injury unknown) (unknown) (no (unknown) (unknown) Initial Vital (units ( unknown) date) Signs unknown) (unknown) (no (unknown) (unknown) Initial Vital (units ( unknown) date) Signs: unknown) (unknown) (no (unknown) (unknown) Insomnia (units (unkno wn) date) unknown) (unknown) (no (unknown) (unknown) Medical History (units (unknown) date) (Updated 10/11/21 unknown) @ 08:10 by Lupis Moreira MD) (unknown) (no (unknown) (unknown) No Action (units (unkn own) date) unknown) (unknown) (no (unknown) (unknown) No significant (units (unknown) date) past surgical unknown) history (unknown) (no (unknown) (unknown) Oxygen Delivery (units (unknown) date) Method unknown) 10/20/21 15:53 (unknown) (no (unknown) (unknown) Oxygen Delivery (units (unknown) date) Method Room Air unknown) (unknown) (no (unknown) (unknown) Panic attacks (units ( unknown) date) unknown) (unknown) (no (unknown) (unknown) Patient History (units (unknown) date) unknown) (unknown) (no (unknown) (unknown) Patient: (units (unkno wn) date) Rhonda Booker unknown) MR#: M (unknown) (no (unknown) (unknown) Prescriptions: (units (unknown) date) unknown) (unknown) (no (unknown) (unknown) Pulse Oximetry (units (unknown) date) 100 10/20/21 unknown) 15:53 (unknown) (no (unknown) (unknown) Pulse Oximetry (units (unknown) date) 100 unknown) (unknown) (no (unknown) (unknown) Pulse Rate 93 H (units (unknown) date) 10/20/21 15:53 unknown) (unknown) (no (unknown) (unknown) Pulse Rate 93 H (units (unknown) date) unknown) (unknown) (no (unknown) (unknown) Referrals: (units (unk nown) date) unknown) (unknown) (no (unknown) (unknown) Related Data (units (u nknown) date) unknown) (unknown) (no (unknown) (unknown) Respiratory Rate (units (unknown) date) 16 10/20/21 unknown) 15:53 (unknown) (no (unknown) (unknown) Respiratory Rate (units (unknown) date) 16 unknown) (unknown) (no (unknown) (unknown) Signed By: (units (unk nown) date) unknown) (unknown) (no (unknown) (unknown) Smoking Status: (units (unknown) date) Former smoker unknown) (unknown) (no (unknown) (unknown) Smoking Status: (units (unknown) date) Former smoker unknown) (unknown) (no (unknown) (unknown) Social History (units (unknown) date) (Reviewed unknown) 10/11/21 @ 08:10 by Lupis Moreira MD) (unknown) (no (unknown) (unknown) Stated (units (unkno wn) date) Complaint: Can't unknown) Sleep (unknown) (no (unknown) (unknown) Substance Use (units ( unknown) date) Type: marijuana unknown) (unknown) (no (unknown) (unknown) Surgical History (units (unknown) date) (Reviewed unknown) 10/11/21 @ 08:10 by Lupis Moreira MD) (unknown) (no (unknown) (unknown) Temperature (units (un known) date) 96.2 F L unknown) 10/20/21 15:53 (unknown) (no (unknown) (unknown) Temperature 96.2 (units (unknown) date) F L unknown) (unknown) (no (unknown) (unknown) Time Seen by (units (u nknown) date) Provider: unknown) 10/20/21 16:45 (unknown) (no (unknown) (unknown) Vital Signs (units (un known) date) unknown) (unknown) (no (unknown) (unknown) Vital signs: (units (u nknown) date) unknown) (unknown) (no (unknown) (unknown) alcohol intake (units (unknown) date) frequency: unknown) holidays/special occasions only (unknown) (no (unknown) (unknown) alcohol intake: (units (unknown) date) never unknown) (unknown) (no (unknown) (unknown) azathioprine 50 (units (unknown) date) mg tablet 50 mg unknown) PO DAILY 08/23/17 08/25/17 (unknown) (no (unknown) (unknown) budesonide 3 mg (units (unknown) date) 3 mg PO DAILY unknown) 08/23/17 08/25/17 (unknown) (no (unknown) (unknown) capsule,delayed, (units (unknown) date) extended release unknown) (unknown) (no (unknown) (unknown) cetirizine 10 mg (units (unknown) date) chewable tablet unknown) 10 mg PO QDAY ##0 01/31/17 08/25/17 (unknown) (no (unknown) (unknown) duloxetine 30 mg (units (unknown) date) capsule,delayed unknown) 30 mg PO QDAY #30 caps 01/04/16 (unknown) (no (unknown) (unknown) ergocalciferol (units (unknown) date) (vitamin D2) unknown) 1,250 50,000 unit PO QWEEK 08/23/17 08/25/17 (unknown) (no (unknown) (unknown) gram/dose oral (units (unknown) date) powder unknown) (unknown) (no (unknown) (unknown) lorazepam 0.5 mg (units (unknown) date) tablet 0.5 mg PO unknown) BEDTIME PRN sleep #10 06/29/20 (unknown) (no (unknown) (unknown) mcg (50,000 (units (un known) date) unit) capsule unknown) (unknown) (no (unknown) (unknown) olopatadine (units (un known) date) [From PATANOL] unknown) Allergy Intermediate RED AND Verified 11/15/20 18:21 (unknown) (no (unknown) (unknown) polyethylene (units (u nknown) date) glycol 3350 17 17 unknown) g PO DAILY 08/23/17 08/25/17 (unknown) (no (unknown) (unknown) prazosin 1 mg (units ( unknown) date) capsule 1 mg PO unknown) BEDTIME #30 caps 10/10/21 (unknown) (no (unknown) (unknown) prazosin 1 mg (units ( unknown) date) capsule 1 mg PO unknown) SEE INSTRUCTIONS #60 caps 01/04/16 (unknown) (no (unknown) (unknown) quetiapine 50 mg (units (unknown) date) tablet (Seroquel) unknown) 50 mg PO BEDTIME #60 tabs 10/10/21 (unknown) (no (unknown) (unknown) ranitidine HCl (units (unknown) date) 150 mg tablet 150 unknown) mg PO DAILY 08/23/17 08/25/17 (unknown) (no (unknown) (unknown) release (units (unkno wn) date) (Cymbalta) unknown) (unknown) (no (unknown) (unknown) substance use (units ( unknown) date) type: does not unknown) use (unknown) (no (unknown) (unknown) sumatriptan (units (un known) date) [SUMATRIPTAN] unknown) Allergy Severe MUSCLE Verified 11/15/20 18:21 (unknown) (no (unknown) (unknown) syringe (units (unkno wn) date) unknown) (unknown) (no (unknown) (unknown) tramadol 50 mg (units (unknown) date) tablet 50 mg PO unknown) Q6H PRN pain #10 tabs 08/25/17 (unknown) (no (unknown) (unknown) ustekinumab 90 (units (unknown) date) mg/mL unknown) subcutaneous See Rx Instructions .Route .COMPLEX 08/23/17 Result panel 13 (unknown) (no (unknown) (unknown) (no value) (units (unk nown) date) unknown) (unknown) (no (unknown) (unknown) Date of Service: (units (unknown) date) 10/20/21 unknown) (unknown) (no (unknown) (unknown) (no value) (units (unk nown) date) unknown) (unknown) (no (unknown) (unknown) 0.5 mg PO (units (unkn own) date) BEDTIME PRN unknown) (Reason: sleep) Qty: 10 0RF (unknown) (no (unknown) (unknown) 1 mg PO BEDTIME (units (unknown) date) Qty: 30 0RF unknown) (unknown) (no (unknown) (unknown) 1 mg PO SEE (units (un known) date) INSTRUCTIONS Qty: unknown) 60 2RF (unknown) (no (unknown) (unknown) 10 mg PO QDAY (units ( unknown) date) Qty: 0 unknown) (unknown) (no (unknown) (unknown) 150 mg PO DAILY (units (unknown) date) unknown) (unknown) (no (unknown) (unknown) 17 g PO DAILY (units ( unknown) date) unknown) (unknown) (no (unknown) (unknown) 3 mg PO DAILY (units ( unknown) date) unknown) (unknown) (no (unknown) (unknown) 30 mg PO QDAY (units ( unknown) date) Qty: 30 2RF unknown) (unknown) (no (unknown) (unknown) 50 mg PO BEDTIME (units (unknown) date) Qty: 60 0RF unknown) (unknown) (no (unknown) (unknown) 50 mg PO DAILY (units (unknown) date) unknown) (unknown) (no (unknown) (unknown) 50 mg PO Q6H PRN (units (unknown) date) (Reason: pain) unknown) Qty: 10 0RF (unknown) (no (unknown) (unknown) 50,000 unit PO (units (unknown) date) QWEEK unknown) (unknown) (no (unknown) (unknown) 90 mg (units (unkno wn) date) subcutaneously unknown) every 8 weeks (unknown) (no (unknown) (unknown) Allergies (units (unkn own) date) unknown) (unknown) (no (unknown) (unknown) EYES (units (unkno wn) date) unknown) (unknown) (no (unknown) (unknown) Emergency Report (units (unknown) date) unknown) (unknown) (no (unknown) (unknown) Home Medications (units (unknown) date) unknown) (unknown) (no (unknown) (unknown) IN FACE (units (unkno wn) date) unknown) (unknown) (no (unknown) (unknown) [facility] (units (unknown) date) [address]) [place] [address] (unknown) (no (unknown) (unknown) Label Comments: (units (unknown) date) unknown) (unknown) (no (unknown) (unknown) Previous Rx's (units ( unknown) date) unknown) (unknown) (no (unknown) (unknown) RIGIDITY (units (unkno wn) date) unknown) (unknown) (no (unknown) (unknown) Rx Instructions: (units (unknown) date) unknown) (unknown) (no (unknown) (unknown) SWOLLEN (units (unkno wn) date) unknown) (unknown) (no (unknown) (unknown) See Rx (units (unkno wn) date) Instructions unknown) .ROUTE .COMPLEX (unknown) (no (unknown) (unknown) Taking 2mg (units (unk nown) date) unknown) (unknown) (no (unknown) (unknown) Vital Signs - 8 (units (unknown) date) hr unknown) (unknown) (no (unknown) (unknown) take with (units (unkn own) date) tylenol unknown) (unknown) (no (unknown) (unknown) (no value) (units (unk nown) date) unknown) (unknown) (no (unknown) (unknown) azathioprine 50 (units (unknown) date) mg tablet unknown) (unknown) (no (unknown) (unknown) budesonide 3 mg (units (unknown) date) Capsule,Delayed,E unknown) xtend.Release (unknown) (no (unknown) (unknown) cetirizine 10 MG (units (unknown) date) tablet,chewable unknown) (unknown) (no (unknown) (unknown) duloxetine (units (unk nown) date) [Cymbalta] 30 MG unknown) capsule,delayed release(DR/EC) (unknown) (no (unknown) (unknown) ergocalciferol (units (unknown) date) (vitamin D2) unknown) 50,000 unit Capsule (unknown) (no (unknown) (unknown) lorazepam 0.5 mg (units (unknown) date) tablet unknown) (unknown) (no (unknown) (unknown) polyethylene (units (u nknown) date) glycol 3350 17 unknown) gram/dose powder (unknown) (no (unknown) (unknown) prazosin 1 MG (units ( unknown) date) capsule unknown) (unknown) (no (unknown) (unknown) prazosin 1 mg (units ( unknown) date) capsule unknown) (unknown) (no (unknown) (unknown) quetiapine (units (unk nown) date) [Seroquel] 50 mg unknown) tablet (unknown) (no (unknown) (unknown) ranitidine HCl (units (unknown) date) 150 mg tablet unknown) (unknown) (no (unknown) (unknown) tramadol 50 mg (units (unknown) date) tablet unknown) (unknown) (no (unknown) (unknown) ustekinumab (units (un known) date) [Stelara] 90 unknown) mg/mL syringe (unknown) (no (unknown) (unknown) 10/20/21 (units (unkno wn) date) unknown) (unknown) (no (unknown) (unknown) Insomnia (units (unkno wn) date) unknown) (unknown) (no (unknown) (unknown) Medication (units (unk nown) date) Instructions unknown) Recorded (unknown) (no (unknown) (unknown) Medication (units (unk nown) date) Instructions unknown) Recorded Confirmed (unknown) (no (unknown) (unknown) tabs (units (unkno wn) date) unknown) (unknown) (no (unknown) (unknown) [id number] (units (unkn own) date) unknown) (unknown) (no (unknown) (unknown) 08/25/17 (units (unkno wn) date) unknown) (unknown) (no (unknown) (unknown) 15:53 (units (unkno wn) date) unknown) (unknown) (no (unknown) (unknown) Activity (units (unkno wn) date) Restrictions/Asad unknown) tional Instructions: (unknown) (no (unknown) (unknown) Age/Sex: 36 / F (units (unknown) date) unknown) (unknown) (no (unknown) (unknown) Allergy/AdvReac (units (unknown) date) Type Severity unknown) Reaction Status Date / Time (unknown) (no (unknown) (unknown) Anxiety and (units (un known) date) depression unknown) (unknown) (no (unknown) (unknown) Blood Pressure (units (unknown) date) 157/91 H unknown) 10/20/21 15:53 (unknown) (no (unknown) (unknown) Blood Pressure (units (unknown) date) 157/91 H unknown) (unknown) (no (unknown) (unknown) Chief Complaint: (units (unknown) date) Neck Pain/Injury unknown) (unknown) (no (unknown) (unknown) Clinical (units (unkno wn) date) Impression: unknown) (unknown) (no (unknown) (unknown) Course (units (unkno wn) date) unknown) (unknown) (no (unknown) (unknown) Crohn disease (units ( unknown) date) unknown) (unknown) (no (unknown) (unknown) : 1985 (units (unknown) date) Acct:[id number] unknown) (unknown) (no (unknown) (unknown) Juan Jose Lopez, (units (unknown) date) [Primary Care unknown) Provider] - (unknown) (no (unknown) (unknown) Departure (units (unkn own) date) unknown) (unknown) (no (unknown) (unknown) Discharge Plan (units (unknown) date) unknown) (unknown) (no (unknown) (unknown) ER Physician: (units ( unknown) date) Preston Chiu MD unknown) (unknown) (no (unknown) (unknown) Exam (units (unkno wn) date) unknown) (unknown) (no (unknown) (unknown) Fibromyalgia (units (u nknown) date) unknown) (unknown) (no (unknown) (unknown) General (units (unkno wn) date) unknown) (unknown) (no (unknown) (unknown) HPI - Neck (units (unk nown) date) Pain/Injury unknown) (unknown) (no (unknown) (unknown) Initial Vital (units ( unknown) date) Signs unknown) (unknown) (no (unknown) (unknown) Initial Vital (units ( unknown) date) Signs: unknown) (unknown) (no (unknown) (unknown) Insomnia (units (unkno wn) date) unknown) (unknown) (no (unknown) (unknown) Instructions: (units ( unknown) date) Insomnia unknown) (unknown) (no (unknown) (unknown) Medical History (units (unknown) date) (Updated 10/20/21 unknown) @ 19:30 by Preston Chiu MD) (unknown) (no (unknown) (unknown) No Action (units (unkn own) date) unknown) (unknown) (no (unknown) (unknown) No driving or (units ( unknown) date) operating machine unknown) you with new prescribed medications. Patient (unknown) (no (unknown) (unknown) No significant (units (unknown) date) past surgical unknown) history (unknown) (no (unknown) (unknown) Oxygen Delivery (units (unknown) date) Method unknown) 10/20/21 15:53 (unknown) (no (unknown) (unknown) Oxygen Delivery (units (unknown) date) Method Room Air unknown) (unknown) (no (unknown) (unknown) Panic attacks (units ( unknown) date) unknown) (unknown) (no (unknown) (unknown) Patient (units (unkno wn) date) Disposition: Home unknown) (unknown) (no (unknown) (unknown) Patient History (units (unknown) date) unknown) (unknown) (no (unknown) (unknown) Patient: (units (unkno wn) date) Rhonda Booker unknown) MR#: M (unknown) (no (unknown) (unknown) Prescriptions: (units (unknown) date) unknown) (unknown) (no (unknown) (unknown) Pulse Oximetry (units (unknown) date) 100 10/20/21 unknown) 15:53 (unknown) (no (unknown) (unknown) Pulse Oximetry (units (unknown) date) 100 unknown) (unknown) (no (unknown) (unknown) Pulse Rate 93 H (units (unknown) date) 10/20/21 15:53 unknown) (unknown) (no (unknown) (unknown) Pulse Rate 93 H (units (unknown) date) unknown) (unknown) (no (unknown) (unknown) Referrals: (units (unk nown) date) unknown) (unknown) (no (unknown) (unknown) Related Data (units (u nknown) date) unknown) (unknown) (no (unknown) (unknown) Respiratory Rate (units (unknown) date) 16 10/20/21 unknown) 15:53 (unknown) (no (unknown) (unknown) Respiratory Rate (units (unknown) date) 16 unknown) (unknown) (no (unknown) (unknown) Signed By: (units (unk nown) date) unknown) (unknown) (no (unknown) (unknown) Smoking Status: (units (unknown) date) Former smoker unknown) (unknown) (no (unknown) (unknown) Smoking Status: (units (unknown) date) Former smoker unknown) (unknown) (no (unknown) (unknown) Social History (units (unknown) date) (Reviewed unknown) 10/11/21 @ 08:10 by Lupis Moreira MD) (unknown) (no (unknown) (unknown) Stated (units (unkno wn) date) Complaint: Can't unknown) Sleep (unknown) (no (unknown) (unknown) Substance Use (units ( unknown) date) Type: marijuana unknown) (unknown) (no (unknown) (unknown) Surgical History (units (unknown) date) (Reviewed unknown) 10/11/21 @ 08:10 by Lupis Moreira MD) (unknown) (no (unknown) (unknown) Temperature (units (un known) date) 96.2 F L unknown) 10/20/21 15:53 (unknown) (no (unknown) (unknown) Temperature 96.2 (units (unknown) date) F L unknown) (unknown) (no (unknown) (unknown) Time Seen by (units (u nknown) date) Provider: unknown) 10/20/21 16:45 (unknown) (no (unknown) (unknown) Vital Signs (units (un known) date) unknown) (unknown) (no (unknown) (unknown) Vital signs: (units (u nknown) date) unknown) (unknown) (no (unknown) (unknown) alcohol intake (units (unknown) date) frequency: unknown) holidays/special occasions only (unknown) (no (unknown) (unknown) alcohol intake: (units (unknown) date) never unknown) (unknown) (no (unknown) (unknown) azathioprine 50 (units (unknown) date) mg tablet 50 mg unknown) PO DAILY 08/23/17 08/25/17 (unknown) (no (unknown) (unknown) budesonide 3 mg (units (unknown) date) 3 mg PO DAILY unknown) 08/23/17 08/25/17 (unknown) (no (unknown) (unknown) capsule,delayed, (units (unknown) date) extended release unknown) (unknown) (no (unknown) (unknown) cetirizine 10 mg (units (unknown) date) chewable tablet unknown) 10 mg PO QDAY ##0 01/31/17 08/25/17 (unknown) (no (unknown) (unknown) duloxetine 30 mg (units (unknown) date) capsule,delayed unknown) 30 mg PO QDAY #30 caps 01/04/16 (unknown) (no (unknown) (unknown) ergocalciferol (units (unknown) date) (vitamin D2) unknown) 1,250 50,000 unit PO QWEEK 08/23/17 08/25/17 (unknown) (no (unknown) (unknown) gram/dose oral (units (unknown) date) powder unknown) (unknown) (no (unknown) (unknown) lorazepam 0.5 mg (units (unknown) date) tablet 0.5 mg PO unknown) BEDTIME PRN sleep #10 06/29/20 (unknown) (no (unknown) (unknown) mcg (50,000 (units (un known) date) unit) capsule unknown) (unknown) (no (unknown) (unknown) medications and (units (unknown) date) keep Seroquel and unknown) 100 mg at bedtime. Return if worse if any (unknown) (no (unknown) (unknown) olopatadine (units (un known) date) [From PATANOL] unknown) Allergy Intermediate RED AND Verified 11/15/20 18:21 (unknown) (no (unknown) (unknown) polyethylene (units (u nknown) date) glycol 3350 17 17 unknown) g PO DAILY 08/23/17 08/25/17 (unknown) (no (unknown) (unknown) prazosin 1 mg (units ( unknown) date) capsule 1 mg PO unknown) BEDTIME #30 caps 10/10/21 (unknown) (no (unknown) (unknown) prazosin 1 mg (units ( unknown) date) capsule 1 mg PO unknown) SEE INSTRUCTIONS #60 caps 01/04/16 (unknown) (no (unknown) (unknown) questions or (units (u nknown) date) concerns unknown) (unknown) (no (unknown) (unknown) quetiapine 50 mg (units (unknown) date) tablet (Seroquel) unknown) 50 mg PO BEDTIME #60 tabs 10/10/21 (unknown) (no (unknown) (unknown) ranitidine HCl (units (unknown) date) 150 mg tablet 150 unknown) mg PO DAILY 08/23/17 08/25/17 (unknown) (no (unknown) (unknown) received family (units (unknown) date) doctor in a week unknown) for re-evaluation. May continue home (unknown) (no (unknown) (unknown) release (units (unkno wn) date) (Cymbalta) unknown) (unknown) (no (unknown) (unknown) substance use (units ( unknown) date) type: does not unknown) use (unknown) (no (unknown) (unknown) sumatriptan (units (un known) date) [SUMATRIPTAN] unknown) Allergy Severe MUSCLE Verified 11/15/20 18:21 (unknown) (no (unknown) (unknown) syringe (units (unkno wn) date) unknown) (unknown) (no (unknown) (unknown) tramadol 50 mg (units (unknown) date) tablet 50 mg PO unknown) Q6H PRN pain #10 tabs 08/25/17 (unknown) (no (unknown) (unknown) ustekinumab 90 (units (unknown) date) mg/mL unknown) subcutaneous See Rx Instructions .Route .COMPLEX 08/23/17 Result panel 14 (unknown) (no (unknown) (unknown) (no value) (units (unk nown) date) unknown) (unknown) (no (unknown) (unknown) Date of Service: (units (unknown) date) 10/20/21 unknown) (unknown) (no (unknown) (unknown) (no value) (units (unk nown) date) unknown) (unknown) (no (unknown) (unknown) <Electronically (units (unknown) date) signed by Preston unknown) MD Aram> (unknown) (no (unknown) (unknown) 0.5 mg PO (units (unkn own) date) BEDTIME PRN unknown) (Reason: sleep) Qty: 10 0RF (unknown) (no (unknown) (unknown) 10/20/21 1937 (units ( unknown) date) unknown) (unknown) (no (unknown) (unknown) 1 mg PO BEDTIME (units (unknown) date) Qty: 30 0RF unknown) (unknown) (no (unknown) (unknown) 1 mg PO SEE (units (un known) date) INSTRUCTIONS Qty: unknown) 60 2RF (unknown) (no (unknown) (unknown) 10 mg PO QDAY (units ( unknown) date) Qty: 0 unknown) (unknown) (no (unknown) (unknown) 150 mg PO DAILY (units (unknown) date) unknown) (unknown) (no (unknown) (unknown) 17 g PO DAILY (units ( unknown) date) unknown) (unknown) (no (unknown) (unknown) 20 mg PO TID PRN (units (unknown) date) (Reason: muscle unknown) pain) Qty: 21 0RF (unknown) (no (unknown) (unknown) 3 mg PO DAILY (units ( unknown) date) unknown) (unknown) (no (unknown) (unknown) 30 mg PO QDAY (units ( unknown) date) Qty: 30 2RF unknown) (unknown) (no (unknown) (unknown) 50 mg PO BEDTIME (units (unknown) date) Qty: 60 0RF unknown) (unknown) (no (unknown) (unknown) 50 mg PO DAILY (units (unknown) date) unknown) (unknown) (no (unknown) (unknown) 50 mg PO Q6H PRN (units (unknown) date) (Reason: pain) unknown) Qty: 10 0RF (unknown) (no (unknown) (unknown) 50,000 unit PO (units (unknown) date) QWEEK unknown) (unknown) (no (unknown) (unknown) 90 mg (units (unkno wn) date) subcutaneously unknown) every 8 weeks (unknown) (no (unknown) (unknown) Allergies (units (unkn own) date) unknown) (unknown) (no (unknown) (unknown) EYES (units (unkno wn) date) unknown) (unknown) (no (unknown) (unknown) Emergency Report (units (unknown) date) unknown) (unknown) (no (unknown) (unknown) Home Medications (units (unknown) date) unknown) (unknown) (no (unknown) (unknown) IN FACE (units (unkno wn) date) unknown) (unknown) (no (unknown) (unknown) [facility] (units (unknown) date) [address]) [place] [address] (unknown) (no (unknown) (unknown) Label Comments: (units (unknown) date) unknown) (unknown) (no (unknown) (unknown) Previous Rx's (units ( unknown) date) unknown) (unknown) (no (unknown) (unknown) RIGIDITY (units (unkno wn) date) unknown) (unknown) (no (unknown) (unknown) Rx Instructions: (units (unknown) date) unknown) (unknown) (no (unknown) (unknown) SWOLLEN (units (unkno wn) date) unknown) (unknown) (no (unknown) (unknown) See Rx (units (unkno wn) date) Instructions unknown) .ROUTE .COMPLEX (unknown) (no (unknown) (unknown) Taking 2mg (units (unk nown) date) unknown) (unknown) (no (unknown) (unknown) Vital Signs - 8 (units (unknown) date) hr unknown) (unknown) (no (unknown) (unknown) take with (units (unkn own) date) tylenol unknown) (unknown) (no (unknown) (unknown) (no value) (units (unk nown) date) unknown) (unknown) (no (unknown) (unknown) azathioprine 50 (units (unknown) date) mg tablet unknown) (unknown) (no (unknown) (unknown) baclofen 20 mg (units (unknown) date) tablet unknown) (unknown) (no (unknown) (unknown) budesonide 3 mg (units (unknown) date) Capsule,Delayed,E unknown) xtend.Release (unknown) (no (unknown) (unknown) cetirizine 10 MG (units (unknown) date) tablet,chewable unknown) (unknown) (no (unknown) (unknown) duloxetine (units (unk nown) date) [Cymbalta] 30 MG unknown) capsule,delayed release(DR/EC) (unknown) (no (unknown) (unknown) ergocalciferol (units (unknown) date) (vitamin D2) unknown) 50,000 unit Capsule (unknown) (no (unknown) (unknown) lorazepam 0.5 mg (units (unknown) date) tablet unknown) (unknown) (no (unknown) (unknown) polyethylene (units (u nknown) date) glycol 3350 17 unknown) gram/dose powder (unknown) (no (unknown) (unknown) prazosin 1 MG (units ( unknown) date) capsule unknown) (unknown) (no (unknown) (unknown) prazosin 1 mg (units ( unknown) date) capsule unknown) (unknown) (no (unknown) (unknown) quetiapine (units (unk nown) date) [Seroquel] 50 mg unknown) tablet (unknown) (no (unknown) (unknown) ranitidine HCl (units (unknown) date) 150 mg tablet unknown) (unknown) (no (unknown) (unknown) tramadol 50 mg (units (unknown) date) tablet unknown) (unknown) (no (unknown) (unknown) ustekinumab (units (un known) date) [Stelara] 90 unknown) mg/mL syringe (unknown) (no (unknown) (unknown) 10/20/21 (units (unkno wn) date) unknown) (unknown) (no (unknown) (unknown) Insomnia (units (unkno wn) date) unknown) (unknown) (no (unknown) (unknown) Medication (units (unk nown) date) Instructions unknown) Recorded (unknown) (no (unknown) (unknown) Medication (units (unk nown) date) Instructions unknown) Recorded Confirmed (unknown) (no (unknown) (unknown) tabs (units (unkno wn) date) unknown) (unknown) (no (unknown) (unknown) [id number] (units (unkn own) date) unknown) (unknown) (no (unknown) (unknown) 08/25/17 (units (unkno wn) date) unknown) (unknown) (no (unknown) (unknown) 15:53 (units (unkno wn) date) unknown) (unknown) (no (unknown) (unknown) Activity (units (unkno wn) date) Restrictions/Asad unknown) tional Instructions: (unknown) (no (unknown) (unknown) Age/Sex: 36 / F (units (unknown) date) unknown) (unknown) (no (unknown) (unknown) Allergy/AdvReac (units (unknown) date) Type Severity unknown) Reaction Status Date / Time (unknown) (no (unknown) (unknown) Anxiety and (units (un known) date) depression unknown) (unknown) (no (unknown) (unknown) Blood Pressure (units (unknown) date) 157/91 H unknown) 10/20/21 15:53 (unknown) (no (unknown) (unknown) Blood Pressure (units (unknown) date) 157/91 H unknown) (unknown) (no (unknown) (unknown) Chief Complaint: (units (unknown) date) Neck Pain/Injury unknown) (unknown) (no (unknown) (unknown) Clinical (units (unkno wn) date) Impression: unknown) (unknown) (no (unknown) (unknown) Course (units (unkno wn) date) unknown) (unknown) (no (unknown) (unknown) Crohn disease (units ( unknown) date) unknown) (unknown) (no (unknown) (unknown) : 1985 (units (unknown) date) Acct:[id number] unknown) (unknown) (no (unknown) (unknown) Juan Jose Lopez, (units (unknown) date) MD [Primary Care unknown) Provider] - (unknown) (no (unknown) (unknown) Departure (units (unkn own) date) unknown) (unknown) (no (unknown) (unknown) Discharge Plan (units (unknown) date) unknown) (unknown) (no (unknown) (unknown) ER Physician: (units ( unknown) date) Preston Chiu MD unknown) (unknown) (no (unknown) (unknown) Exam (units (unkno wn) date) unknown) (unknown) (no (unknown) (unknown) Fibromyalgia (units (u nknown) date) unknown) (unknown) (no (unknown) (unknown) General (units (unkno wn) date) unknown) (unknown) (no (unknown) (unknown) HPI - Neck (units (unk nown) date) Pain/Injury unknown) (unknown) (no (unknown) (unknown) Initial Vital (units ( unknown) date) Signs unknown) (unknown) (no (unknown) (unknown) Initial Vital (units ( unknown) date) Signs: unknown) (unknown) (no (unknown) (unknown) Insomnia (units (unkno wn) date) unknown) (unknown) (no (unknown) (unknown) Instructions: (units ( unknown) date) Insomnia unknown) (unknown) (no (unknown) (unknown) Medical History (units (unknown) date) (Updated 10/20/21 unknown) @ 19:30 by Preston Chiu MD) (unknown) (no (unknown) (unknown) New (units (unkno wn) date) unknown) (unknown) (no (unknown) (unknown) No Action (units (unkn own) date) unknown) (unknown) (no (unknown) (unknown) No driving or (units ( unknown) date) operating machine unknown) you with new prescribed medications. Patient (unknown) (no (unknown) (unknown) No significant (units (unknown) date) past surgical unknown) history (unknown) (no (unknown) (unknown) Oxygen Delivery (units (unknown) date) Method unknown) 10/20/21 15:53 (unknown) (no (unknown) (unknown) Oxygen Delivery (units (unknown) date) Method Room Air unknown) (unknown) (no (unknown) (unknown) Panic attacks (units ( unknown) date) unknown) (unknown) (no (unknown) (unknown) Patient (units (unkno wn) date) Disposition: Home unknown) (unknown) (no (unknown) (unknown) Patient History (units (unknown) date) unknown) (unknown) (no (unknown) (unknown) Patient: (units (unkno wn) date) Rhonda Booker unknown) MR#: M (unknown) (no (unknown) (unknown) Prescriptions: (units (unknown) date) unknown) (unknown) (no (unknown) (unknown) Pulse Oximetry (units (unknown) date) 100 10/20/21 unknown) 15:53 (unknown) (no (unknown) (unknown) Pulse Oximetry (units (unknown) date) 100 unknown) (unknown) (no (unknown) (unknown) Pulse Rate 93 H (units (unknown) date) 10/20/21 15:53 unknown) (unknown) (no (unknown) (unknown) Pulse Rate 93 H (units (unknown) date) unknown) (unknown) (no (unknown) (unknown) Referrals: (units (unk nown) date) unknown) (unknown) (no (unknown) (unknown) Related Data (units (u nknown) date) unknown) (unknown) (no (unknown) (unknown) Respiratory Rate (units (unknown) date) 16 10/20/21 unknown) 15:53 (unknown) (no (unknown) (unknown) Respiratory Rate (units (unknown) date) 16 unknown) (unknown) (no (unknown) (unknown) Signed By: (units (unk nown) date) unknown) (unknown) (no (unknown) (unknown) Smoking Status: (units (unknown) date) Former smoker unknown) (unknown) (no (unknown) (unknown) Smoking Status: (units (unknown) date) Former smoker unknown) (unknown) (no (unknown) (unknown) Social History (units (unknown) date) (Reviewed unknown) 10/11/21 @ 08:10 by Lupis Moreira MD) (unknown) (no (unknown) (unknown) Stated (units (unkno wn) date) Complaint: Can't unknown) Sleep (unknown) (no (unknown) (unknown) Substance Use (units ( unknown) date) Type: marijuana unknown) (unknown) (no (unknown) (unknown) Surgical History (units (unknown) date) (Reviewed unknown) 10/11/21 @ 08:10 by Lupis Moreira MD) (unknown) (no (unknown) (unknown) Temperature (units (un known) date) 96.2 F L unknown) 10/20/21 15:53 (unknown) (no (unknown) (unknown) Temperature 96.2 (units (unknown) date) F L unknown) (unknown) (no (unknown) (unknown) Time Seen by (units (u nknown) date) Provider: unknown) 10/20/21 16:45 (unknown) (no (unknown) (unknown) Vital Signs (units (un known) date) unknown) (unknown) (no (unknown) (unknown) Vital signs: (units (u nknown) date) unknown) (unknown) (no (unknown) (unknown) alcohol intake (units (unknown) date) frequency: unknown) holidays/special occasions only (unknown) (no (unknown) (unknown) alcohol intake: (units (unknown) date) never unknown) (unknown) (no (unknown) (unknown) azathioprine 50 (units (unknown) date) mg tablet 50 mg unknown) PO DAILY 08/23/17 08/25/17 (unknown) (no (unknown) (unknown) baclofen 20 mg (units (unknown) date) tablet 20 mg PO unknown) TID PRN muscle pain #21 10/20/21 (unknown) (no (unknown) (unknown) budesonide 3 mg (units (unknown) date) 3 mg PO DAILY unknown) 08/23/17 08/25/17 (unknown) (no (unknown) (unknown) capsule,delayed, (units (unknown) date) extended release unknown) (unknown) (no (unknown) (unknown) cetirizine 10 mg (units (unknown) date) chewable tablet unknown) 10 mg PO QDAY ##0 01/31/17 08/25/17 (unknown) (no (unknown) (unknown) duloxetine 30 mg (units (unknown) date) capsule,delayed unknown) 30 mg PO QDAY #30 caps 01/04/16 (unknown) (no (unknown) (unknown) ergocalciferol (units (unknown) date) (vitamin D2) unknown) 1,250 50,000 unit PO QWEEK 08/23/17 08/25/17 (unknown) (no (unknown) (unknown) gram/dose oral (units (unknown) date) powder unknown) (unknown) (no (unknown) (unknown) lorazepam 0.5 mg (units (unknown) date) tablet 0.5 mg PO unknown) BEDTIME PRN sleep #10 06/29/20 (unknown) (no (unknown) (unknown) mcg (50,000 (units (un known) date) unit) capsule unknown) (unknown) (no (unknown) (unknown) medications and (units (unknown) date) keep Seroquel and unknown) 100 mg at bedtime. Return if worse if any (unknown) (no (unknown) (unknown) olopatadine (units (un known) date) [From PATANOL] unknown) Allergy Intermediate RED AND Verified 11/15/20 18:21 (unknown) (no (unknown) (unknown) polyethylene (units (u nknown) date) glycol 3350 17 17 unknown) g PO DAILY 08/23/17 08/25/17 (unknown) (no (unknown) (unknown) prazosin 1 mg (units ( unknown) date) capsule 1 mg PO unknown) BEDTIME #30 caps 10/10/21 (unknown) (no (unknown) (unknown) prazosin 1 mg (units ( unknown) date) capsule 1 mg PO unknown) SEE INSTRUCTIONS #60 caps 01/04/16 (unknown) (no (unknown) (unknown) questions or (units (u nknown) date) concerns unknown) (unknown) (no (unknown) (unknown) quetiapine 50 mg (units (unknown) date) tablet (Seroquel) unknown) 50 mg PO BEDTIME #60 tabs 10/10/21 (unknown) (no (unknown) (unknown) ranitidine HCl (units (unknown) date) 150 mg tablet 150 unknown) mg PO DAILY 08/23/17 08/25/17 (unknown) (no (unknown) (unknown) received family (units (unknown) date) doctor in a week unknown) for re-evaluation. May continue home (unknown) (no (unknown) (unknown) release (units (unkno wn) date) (Cymbalta) unknown) (unknown) (no (unknown) (unknown) substance use (units ( unknown) date) type: does not unknown) use (unknown) (no (unknown) (unknown) sumatriptan (units (un known) date) [SUMATRIPTAN] unknown) Allergy Severe MUSCLE Verified 11/15/20 18:21 (unknown) (no (unknown) (unknown) syringe (units (unkno wn) date) unknown) (unknown) (no (unknown) (unknown) tramadol 50 mg (units (unknown) date) tablet 50 mg PO unknown) Q6H PRN pain #10 tabs 08/25/17 (unknown) (no (unknown) (unknown) ustekinumab 90 (units (unknown) date) mg/mL unknown) subcutaneous See Rx Instructions .Route .COMPLEX 08/23/17 Result panel 15 (unknown) (no (unknown) (unknown) (no value) (units (unk nown) date) unknown) (unknown) (no (unknown) (unknown) (no value) (units (unk nown) date) unknown) (unknown) (no (unknown) (unknown) Date of Service: (units (unknown) date) 10/20/21 unknown) (unknown) (no (unknown) (unknown) (no value) (units (unk nown) date) unknown) (unknown) (no (unknown) (unknown) 0.5 mg PO (units (unkn own) date) BEDTIME PRN unknown) (Reason: sleep) Qty: 10 0RF (unknown) (no (unknown) (unknown) 1 mg PO BEDTIME (units (unknown) date) Qty: 30 0RF unknown) (unknown) (no (unknown) (unknown) 1 mg PO SEE (units (un known) date) INSTRUCTIONS Qty: unknown) 60 2RF (unknown) (no (unknown) (unknown) 10 mg PO QDAY (units ( unknown) date) Qty: 0 unknown) (unknown) (no (unknown) (unknown) 150 mg PO DAILY (units (unknown) date) unknown) (unknown) (no (unknown) (unknown) 17 g PO DAILY (units ( unknown) date) unknown) (unknown) (no (unknown) (unknown) 20 mg PO TID PRN (units (unknown) date) (Reason: muscle unknown) pain) Qty: 21 0RF (unknown) (no (unknown) (unknown) 3 mg PO DAILY (units ( unknown) date) unknown) (unknown) (no (unknown) (unknown) 30 mg PO QDAY (units ( unknown) date) Qty: 30 2RF unknown) (unknown) (no (unknown) (unknown) 50 mg PO BEDTIME (units (unknown) date) Qty: 60 0RF unknown) (unknown) (no (unknown) (unknown) 50 mg PO DAILY (units (unknown) date) unknown) (unknown) (no (unknown) (unknown) 50 mg PO Q6H PRN (units (unknown) date) (Reason: pain) unknown) Qty: 10 0RF (unknown) (no (unknown) (unknown) 50,000 unit PO (units (unknown) date) QWEEK unknown) (unknown) (no (unknown) (unknown) 90 mg (units (unkno wn) date) subcutaneously unknown) every 8 weeks (unknown) (no (unknown) (unknown) Allergies (units (unkn own) date) unknown) (unknown) (no (unknown) (unknown) EYES (units (unkno wn) date) unknown) (unknown) (no (unknown) (unknown) Emergency Report (units (unknown) date) unknown) (unknown) (no (unknown) (unknown) Home Medications (units (unknown) date) unknown) (unknown) (no (unknown) (unknown) IN FACE (units (unkno wn) date) unknown) (unknown) (no (unknown) (unknown) [facility] (units (unknown) date) [address] [place] [address] unknown) [place] [address] (unknown) (no (unknown) (unknown) Label Comments: (units (unknown) date) unknown) (unknown) (no (unknown) (unknown) Last Admin: (units (un known) date) 10/20/21 19:38 unknown) Dose: 20 mg (unknown) (no (unknown) (unknown) Previous Rx's (units ( unknown) date) unknown) (unknown) (no (unknown) (unknown) RIGIDITY (units (unkno wn) date) unknown) (unknown) (no (unknown) (unknown) Rx Instructions: (units (unknown) date) unknown) (unknown) (no (unknown) (unknown) SWOLLEN (units (unkno wn) date) unknown) (unknown) (no (unknown) (unknown) See Rx (units (unkno wn) date) Instructions unknown) .ROUTE .COMPLEX (unknown) (no (unknown) (unknown) Stop: 10/20/21 (units (unknown) date) 19:29 unknown) (unknown) (no (unknown) (unknown) Taking 2mg (units (unk nown) date) unknown) (unknown) (no (unknown) (unknown) Vital Signs - 8 (units (unknown) date) hr unknown) (unknown) (no (unknown) (unknown) take with (units (unkn own) date) tylenol unknown) (unknown) (no (unknown) (unknown) (no value) (units (unk nown) date) unknown) (unknown) (no (unknown) (unknown) azathioprine 50 (units (unknown) date) mg tablet unknown) (unknown) (no (unknown) (unknown) baclofen 20 mg (units (unknown) date) tablet unknown) (unknown) (no (unknown) (unknown) budesonide 3 mg (units (unknown) date) Capsule,Delayed,E unknown) xtend.Release (unknown) (no (unknown) (unknown) cetirizine 10 MG (units (unknown) date) tablet,chewable unknown) (unknown) (no (unknown) (unknown) duloxetine (units (unk nown) date) [Cymbalta] 30 MG unknown) capsule,delayed release(DR/EC) (unknown) (no (unknown) (unknown) ergocalciferol (units (unknown) date) (vitamin D2) unknown) 50,000 unit Capsule (unknown) (no (unknown) (unknown) lorazepam 0.5 mg (units (unknown) date) tablet unknown) (unknown) (no (unknown) (unknown) polyethylene (units (u nknown) date) glycol 3350 17 unknown) gram/dose powder (unknown) (no (unknown) (unknown) prazosin 1 MG (units ( unknown) date) capsule unknown) (unknown) (no (unknown) (unknown) prazosin 1 mg (units ( unknown) date) capsule unknown) (unknown) (no (unknown) (unknown) quetiapine (units (unk nown) date) [Seroquel] 50 mg unknown) tablet (unknown) (no (unknown) (unknown) ranitidine HCl (units (unknown) date) 150 mg tablet unknown) (unknown) (no (unknown) (unknown) tramadol 50 mg (units (unknown) date) tablet unknown) (unknown) (no (unknown) (unknown) ustekinumab (units (un known) date) [Stelara] 90 unknown) mg/mL syringe (unknown) (no (unknown) (unknown) 10/20/21 (units (unkno wn) date) unknown) (unknown) (no (unknown) (unknown) Insomnia (units (unkno wn) date) unknown) (unknown) (no (unknown) (unknown) Medication (units (unk nown) date) Instructions unknown) Recorded (unknown) (no (unknown) (unknown) Medication (units (unk nown) date) Instructions unknown) Recorded Confirmed (unknown) (no (unknown) (unknown) tabs (units (unkno wn) date) unknown) (unknown) (no (unknown) (unknown) [id number] (units (unkn own) date) unknown) (unknown) (no (unknown) (unknown) 08/25/17 (units (unkno wn) date) unknown) (unknown) (no (unknown) (unknown) 15:53 (units (unkno wn) date) unknown) (unknown) (no (unknown) (unknown) Activity (units (unkno wn) date) Restrictions/Asad unknown) tional Instructions: (unknown) (no (unknown) (unknown) Age/Sex: 36 / F (units (unknown) date) unknown) (unknown) (no (unknown) (unknown) Allergy/AdvReac (units (unknown) date) Type Severity unknown) Reaction Status Date / Time (unknown) (no (unknown) (unknown) Anxiety and (units (un known) date) depression unknown) (unknown) (no (unknown) (unknown) Appropriate for (units (unknown) date) discharge home. unknown) No blood work or imaging indicated. Patient (unknown) (no (unknown) (unknown) BACK: No flank (units (unknown) date) tenderness. unknown) (unknown) (no (unknown) (unknown) Baclofen (units (unkno wn) date) (Baclofen 10 Mg unknown) Tablet) 20 mg PO NOW ONE (unknown) (no (unknown) (unknown) Blood Pressure (units (unknown) date) 157/91 H unknown) 10/20/21 15:53 (unknown) (no (unknown) (unknown) Blood Pressure (units (unknown) date) 157/91 H unknown) (unknown) (no (unknown) (unknown) CARDIOVASCULAR: (units (unknown) date) Denies chest unknown) pain, palpitations (unknown) (no (unknown) (unknown) CARDIOVASCULAR: (units (unknown) date) Regular rate and unknown) rhythm without murmurs (unknown) (no (unknown) (unknown) Chief Complaint: (units (unknown) date) Neck Pain/Injury unknown) (unknown) (no (unknown) (unknown) Clinical (units (unkno wn) date) Impression: unknown) (unknown) (no (unknown) (unknown) Course (units (unkno wn) date) unknown) (unknown) (no (unknown) (unknown) Course (units (unkno wn) date) Narrative: unknown) (unknown) (no (unknown) (unknown) Crohn disease (units ( unknown) date) unknown) (unknown) (no (unknown) (unknown) : 1985 (units (unknown) date) Acct:[id number] unknown) (unknown) (no (unknown) (unknown) Juan Jose Lopez, (units (unknown) date) [Primary Care unknown) Provider] - (unknown) (no (unknown) (unknown) Departure (units (unkn own) date) unknown) (unknown) (no (unknown) (unknown) Differential (units (u nknown) date) Diagnosis unknown) (unknown) (no (unknown) (unknown) Differential (units (u nknown) date) diagnosis: Likely unknown) other (Insomnia/muscle spasticity) (unknown) (no (unknown) (unknown) Discharge Plan (units (unknown) date) unknown) (unknown) (no (unknown) (unknown) Discontinued (units (u nknown) date) Medications unknown) (unknown) (no (unknown) (unknown) ENT: Mucous (units (u nknown) date) membranes moist. unknown) (unknown) (no (unknown) (unknown) ER Physician: (units ( unknown) date) Preston Chiu MD unknown) (unknown) (no (unknown) (unknown) EYES: Pupils (units (u nknown) date) equal round No unknown) scleral icterus. (unknown) (no (unknown) (unknown) Exam (units (unkno wn) date) unknown) (unknown) (no (unknown) (unknown) Exam Narrative: (units (unknown) date) unknown) (unknown) (no (unknown) (unknown) Fibromyalgia (units (u nknown) date) unknown) (unknown) (no (unknown) (unknown) GASTROINTESTINAL (units (unknown) date) : Abdomen soft, unknown) non-tender (unknown) (no (unknown) (unknown) GASTROINTESTINAL (units (unknown) date) : Denies nausea, unknown) vomiting, abdominal pain (unknown) (no (unknown) (unknown) GENERAL: Denies (units (unknown) date) chills, fatigue, unknown) malaise, fever, sweats. (unknown) (no (unknown) (unknown) GENERAL: in no (units (unknown) date) distress, not unknown) toxic not dyspneic (unknown) (no (unknown) (unknown) : Denies (units (unk nown) date) dysuria, unknown) frequency, hematuria (unknown) (no (unknown) (unknown) General (units (unkno wn) date) unknown) (unknown) (no (unknown) (unknown) HEAD: (units (unkno wn) date) Normocephalic. unknown) (unknown) (no (unknown) (unknown) HEENT: Denies (units ( unknown) date) sinus pain, ear unknown) pain, sore throat (unknown) (no (unknown) (unknown) HPI - Neck (units (unk nown) date) Pain/Injury unknown) (unknown) (no (unknown) (unknown) HPI Narrative: (units (unknown) date) unknown) (unknown) (no (unknown) (unknown) History of (units (unk nown) date) Present Illness unknown) (unknown) (no (unknown) (unknown) Initial Vital (units ( unknown) date) Signs unknown) (unknown) (no (unknown) (unknown) Initial Vital (units ( unknown) date) Signs: unknown) (unknown) (no (unknown) (unknown) Insomnia (units (unkno wn) date) unknown) (unknown) (no (unknown) (unknown) Instructions: (units ( unknown) date) Insomnia unknown) (unknown) (no (unknown) (unknown) MDM - Neck (units (unk nown) date) Pain/Injury unknown) (unknown) (no (unknown) (unknown) MDM Narrative (units ( unknown) date) unknown) (unknown) (no (unknown) (unknown) MUSCULOSKELETAL: (units (unknown) date) denies muscle or unknown) bony pain (unknown) (no (unknown) (unknown) Medical History (units (unknown) date) (Reviewed unknown) 10/20/21 @ 19:41 by Preston Chiu MD) (unknown) (no (unknown) (unknown) Medical decision (units (unknown) date) making narrative: unknown) (unknown) (no (unknown) (unknown) NECK: Trachea (units ( unknown) date) midline. There unknown) is bilateral para cervical muscle tenderness and (unknown) (no (unknown) (unknown) NEURO: AOx4. 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 Patient (unknown) (no (unknown) (unknown) No new issues (units ( unknown) date) during course of unknown) stay (unknown) (no (unknown) (unknown) No significant (units (unknown) date) past surgical unknown) history (unknown) (no (unknown) (unknown) Ordered: (units (unkno wn) date) unknown) (unknown) (no (unknown) (unknown) Orders (units (unkno wn) date) unknown) (unknown) (no (unknown) (unknown) Oxygen Delivery (units (unknown) date) Method unknown) 10/20/21 15:53 (unknown) (no (unknown) (unknown) Oxygen Delivery (units (unknown) date) Method Room Air unknown) (unknown) (no (unknown) (unknown) PSYCH: Mildly (units (unknown) date) anxious, is unknown) cooperative, no SI or HI. Not combative (unknown) (no (unknown) (unknown) PSYCH: Negative (units (unknown) date) before SI or HI. unknown) Positive for sleep disturbance. (unknown) (no (unknown) (unknown) Panic attacks (units ( unknown) date) unknown) (unknown) (no (unknown) (unknown) Patient (units (unkno wn) date) Disposition: Home unknown) (unknown) (no (unknown) (unknown) Patient History (units (unknown) date) unknown) (unknown) (no (unknown) (unknown) Patient here for (units (unknown) date) insomnia that is unknown) been accelerated in the past 2 years. Patient (unknown) (no (unknown) (unknown) Patient: (units (unkno wn) date) Rhonda Booker unknown) MR#: [id number] (unknown) (no (unknown) (unknown) Prescriptions: (units (unknown) date) unknown) (unknown) (no (unknown) (unknown) Pulse Oximetry (units (unknown) date) 100 10/20/21 unknown) 15:53 (unknown) (no (unknown) (unknown) Pulse Oximetry (units (unknown) date) 100 unknown) (unknown) (no (unknown) (unknown) Pulse Rate 93 H (units (unknown) date) 10/20/21 15:53 unknown) (unknown) (no (unknown) (unknown) Pulse Rate 93 H (units (unknown) date) unknown) (unknown) (no (unknown) (unknown) RESPIRATORY: (units (un known) date) Clear to unknown) auscultation. Breath sounds equal bilaterally. No wheezes, (unknown) (no (unknown) (unknown) RESPIRATORY: (units (u nknown) date) Denies dyspnea, unknown) cough (unknown) (no (unknown) (unknown) ROS Unobtainable: (units (unknown) date) All systems unknown) reviewed + are unremarkable except as noted in HPI (unknown) (no (unknown) (unknown) Reevaluation #1: (units (unknown) date) unknown) (unknown) (no (unknown) (unknown) Reevaluation(s) (units (unknown) date) unknown) (unknown) (no (unknown) (unknown) Referrals: (units (unk nown) date) unknown) (unknown) (no (unknown) (unknown) Related Data (units (u nknown) date) unknown) (unknown) (no (unknown) (unknown) Respiratory Rate (units (unknown) date) 16 10/20/21 unknown) 15:53 (unknown) (no (unknown) (unknown) Respiratory Rate (units (unknown) date) 16 unknown) (unknown) (no (unknown) (unknown) Review of (units (unkn own) date) Systems unknown) (unknown) (no (unknown) (unknown) Reviewed (units (unkno wn) date) medications with unknown) patient and agree on back within has trial medication (unknown) (no (unknown) (unknown) SKIN: Warm and (units (unknown) date) dry unknown) (unknown) (no (unknown) (unknown) SKIN: Denies (units (u nknown) date) rash, skin unknown) lesions (unknown) (no (unknown) (unknown) Signed By: (units (unk nown) date) unknown) (unknown) (no (unknown) (unknown) Smoking Status: (units (unknown) date) Former smoker unknown) (unknown) (no (unknown) (unknown) Smoking Status: (units (unknown) date) Former smoker unknown) (unknown) (no (unknown) (unknown) Social History (units (unknown) date) (Reviewed unknown) 10/20/21 @ 19:41 by Preston Chiu MD) (unknown) (no (unknown) (unknown) Stated (units (unkno wn) date) Complaint: Can't unknown) Sleep (unknown) (no (unknown) (unknown) Substance Use (units ( unknown) date) Type: marijuana unknown) (unknown) (no (unknown) (unknown) Surgical History (units (unknown) date) (Reviewed unknown) 10/20/21 @ 19:41 by Preston Chiu MD) (unknown) (no (unknown) (unknown) Temperature (units (un known) date) 96.2 F L unknown) 10/20/21 15:53 (unknown) (no (unknown) (unknown) Temperature 96.2 (units (unknown) date) F L unknown) (unknown) (no (unknown) (unknown) Time Seen by (units (u nknown) date) Provider: unknown) 10/20/21 16:45 (unknown) (no (unknown) (unknown) Time: 19:43 (units (un known) date) unknown) (unknown) (no (unknown) (unknown) Vital Signs (units (un known) date) unknown) (unknown) (no (unknown) (unknown) Vital signs: (units (u nknown) date) unknown) (unknown) (no (unknown) (unknown) alcohol intake (units (unknown) date) frequency: unknown) holidays/special occasions only (unknown) (no (unknown) (unknown) alcohol intake: (units (unknown) date) never unknown) (unknown) (no (unknown) (unknown) and below (units (unkn own) date) unknown) (unknown) (no (unknown) (unknown) azathioprine 50 (units (unknown) date) mg tablet 50 mg unknown) PO DAILY 08/23/17 08/25/17 (unknown) (no (unknown) (unknown) baclofen 20 mg (units (unknown) date) tablet 20 mg PO unknown) TID PRN muscle pain #21 10/20/21 (unknown) (no (unknown) (unknown) budesonide 3 mg (units (unknown) date) 3 mg PO DAILY unknown) 08/23/17 08/25/17 (unknown) (no (unknown) (unknown) capsule,delayed, (units (unknown) date) extended release unknown) (unknown) (no (unknown) (unknown) cetirizine 10 mg (units (unknown) date) chewable tablet unknown) 10 mg PO QDAY ##0 01/31/17 08/25/17 (unknown) (no (unknown) (unknown) does have lot of (units (unknown) date) cervical spine unknown) problems because and spasticity and pain that (unknown) (no (unknown) (unknown) 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 Partner at bedside. (unknown) (no (unknown) (unknown) duloxetine 30 mg (units (unknown) date) capsule,delayed unknown) 30 mg PO QDAY #30 caps 01/04/16 (unknown) (no (unknown) (unknown) ergocalciferol (units (unknown) date) (vitamin D2) unknown) 1,250 50,000 unit PO QWEEK 08/23/17 08/25/17 (unknown) (no (unknown) (unknown) gram/dose oral (units (unknown) date) powder unknown) (unknown) (no (unknown) (unknown) here for (units (unkno wn) date) insomnia. Review unknown) of patient's medications at this time baclofen is (unknown) (no (unknown) (unknown) keeps her awake (units (unknown) date) at night. She unknown) never gets good sleep. She did have an (unknown) (no (unknown) (unknown) lorazepam 0.5 mg (units (unknown) date) tablet 0.5 mg PO unknown) BEDTIME PRN sleep #10 06/29/20 (unknown) (no (unknown) (unknown) mcg (50,000 (units (un known) date) unit) capsule unknown) (unknown) (no (unknown) (unknown) medications and (units (unknown) date) keep Seroquel and unknown) 100 mg at bedtime. Return if worse if any (unknown) (no (unknown) (unknown) olopatadine (units (un known) date) [From PATANOL] unknown) Allergy Intermediate RED AND Verified 11/15/20 18:21 (unknown) (no (unknown) (unknown) or HI. (units (unkno wn) date) unknown) (unknown) (no (unknown) (unknown) outpatient MRI (units (unknown) date) of the cervical unknown) spine by primary care. She will be getting (unknown) (no (unknown) (unknown) polyethylene (units (u nknown) date) glycol 3350 17 17 unknown) g PO DAILY 08/23/17 08/25/17 (unknown) (no (unknown) (unknown) prazosin 1 mg (units ( unknown) date) capsule 1 mg PO unknown) BEDTIME #30 caps 10/10/21 (unknown) (no (unknown) (unknown) prazosin 1 mg (units ( unknown) date) capsule 1 mg PO unknown) SEE INSTRUCTIONS #60 caps 01/04/16 (unknown) (no (unknown) (unknown) precautions (units (un known) date) reviewed with unknown) her. (unknown) (no (unknown) (unknown) provider to help (units (unknown) date) her sleep but is unknown) not been effective. No hallucinations. No SI (unknown) (no (unknown) (unknown) questions or (units (u nknown) date) concerns unknown) (unknown) (no (unknown) (unknown) quetiapine 50 mg (units (unknown) date) tablet (Seroquel) unknown) 50 mg PO BEDTIME #60 tabs 10/10/21 (unknown) (no (unknown) (unknown) rales, or (units (unkn own) date) rhonchi. unknown) (unknown) (no (unknown) (unknown) ranitidine HCl (units (unknown) date) 150 mg tablet 150 unknown) mg PO DAILY 08/23/17 08/25/17 (unknown) (no (unknown) (unknown) reasonable to (units ( unknown) date) start for least unknown) interaction with her current medications. Return (unknown) (no (unknown) (unknown) received family (units (unknown) date) doctor in a week unknown) for re-evaluation. May continue home (unknown) (no (unknown) (unknown) referral to (units (un known) date) Spine unknown) specialties. Patient currently on Seroquel at night by (unknown) (no (unknown) (unknown) release (units (unkno wn) date) (Cymbalta) unknown) (unknown) (no (unknown) (unknown) spasm. (units (unkno wn) date) Tenderness and unknown) spasm to the trapezius muscles as well. No midline (unknown) (no (unknown) (unknown) substance use (units ( unknown) date) type: does not unknown) use (unknown) (no (unknown) (unknown) sumatriptan (units (un known) date) [SUMATRIPTAN] unknown) Allergy Severe MUSCLE Verified 11/15/20 18:21 (unknown) (no (unknown) (unknown) syringe (units (unkno wn) date) unknown) (unknown) (no (unknown) (unknown) tenderness or (units ( unknown) date) step-off. unknown) (unknown) (no (unknown) (unknown) to help for (units (un known) date) muscle spasticity unknown) and to help her sleep. Patient understands no (unknown) (no (unknown) (unknown) tramadol 50 mg (units (unknown) date) tablet 50 mg PO unknown) Q6H PRN pain #10 tabs 08/25/17 (unknown) (no (unknown) (unknown) ustekinumab 90 (units (unknown) date) mg/mL unknown) subcutaneous See Rx Instructions .Route .COMPLEX 08/23/17 Result panel 16 (unknown) (no (unknown) (unknown) (no value) (units (unk nown) date) unknown) (unknown) (no (unknown) (unknown) Date of Service: (units (unknown) date) 10/20/21 unknown) (unknown) (no (unknown) (unknown) (no value) (units (unk nown) date) unknown) (unknown) (no (unknown) (unknown) <Electronically (units (unknown) date) signed by Preston unknown) MD Aram> (unknown) (no (unknown) (unknown) 0.5 mg PO (units (unkn own) date) BEDTIME PRN unknown) (Reason: sleep) Qty: 10 0RF (unknown) (no (unknown) (unknown) 10/26/21 0846 (units ( unknown) date) unknown) (unknown) (no (unknown) (unknown) 1 mg PO BEDTIME (units (unknown) date) Qty: 30 0RF unknown) (unknown) (no (unknown) (unknown) 1 mg PO SEE (units (un known) date) INSTRUCTIONS Qty: unknown) 60 2RF (unknown) (no (unknown) (unknown) 10 mg PO QDAY (units ( unknown) date) Qty: 0 unknown) (unknown) (no (unknown) (unknown) 150 mg PO DAILY (units (unknown) date) unknown) (unknown) (no (unknown) (unknown) 17 g PO DAILY (units ( unknown) date) unknown) (unknown) (no (unknown) (unknown) 20 mg PO TID PRN (units (unknown) date) (Reason: muscle unknown) pain) Qty: 21 0RF (unknown) (no (unknown) (unknown) 3 mg PO DAILY (units ( unknown) date) unknown) (unknown) (no (unknown) (unknown) 30 mg PO QDAY (units ( unknown) date) Qty: 30 2RF unknown) (unknown) (no (unknown) (unknown) 50 mg PO BEDTIME (units (unknown) date) Qty: 60 0RF unknown) (unknown) (no (unknown) (unknown) 50 mg PO DAILY (units (unknown) date) unknown) (unknown) (no (unknown) (unknown) 50 mg PO Q6H PRN (units (unknown) date) (Reason: pain) unknown) Qty: 10 0RF (unknown) (no (unknown) (unknown) 50,000 unit PO (units (unknown) date) QWEEK unknown) (unknown) (no (unknown) (unknown) 90 mg (units (unkno wn) date) subcutaneously unknown) every 8 weeks (unknown) (no (unknown) (unknown) Allergies (units (unkn own) date) unknown) (unknown) (no (unknown) (unknown) Documented By: (units (unknown) date) AT unknown) (unknown) (no (unknown) (unknown) EYES (units (unkno wn) date) unknown) (unknown) (no (unknown) (unknown) Emergency Report (units (unknown) date) unknown) (unknown) (no (unknown) (unknown) Home Medications (units (unknown) date) unknown) (unknown) (no (unknown) (unknown) IN FACE (units (unkno wn) date) unknown) (unknown) (no (unknown) (unknown) [facility] (units (unknown) date) [address] [place] [address] unknown) [place] [address] (unknown) (no (unknown) (unknown) Label Comments: (units (unknown) date) unknown) (unknown) (no (unknown) (unknown) Last Admin: (units (un known) date) 10/20/21 19:38 unknown) Dose: 20 mg (unknown) (no (unknown) (unknown) Previous Rx's (units ( unknown) date) unknown) (unknown) (no (unknown) (unknown) RIGIDITY (units (unkno wn) date) unknown) (unknown) (no (unknown) (unknown) Rx Instructions: (units (unknown) date) unknown) (unknown) (no (unknown) (unknown) SWOLLEN (units (unkno wn) date) unknown) (unknown) (no (unknown) (unknown) See Rx (units (unkno wn) date) Instructions unknown) .ROUTE .COMPLEX (unknown) (no (unknown) (unknown) Stop: 10/20/21 (units (unknown) date) 19:29 unknown) (unknown) (no (unknown) (unknown) Taking 2mg (units (unk nown) date) unknown) (unknown) (no (unknown) (unknown) Vital Signs - 8 (units (unknown) date) hr unknown) (unknown) (no (unknown) (unknown) take with (units (unkn own) date) tylenol unknown) (unknown) (no (unknown) (unknown) (no value) (units (unk nown) date) unknown) (unknown) (no (unknown) (unknown) azathioprine 50 (units (unknown) date) mg tablet unknown) (unknown) (no (unknown) (unknown) baclofen 20 mg (units (unknown) date) tablet unknown) (unknown) (no (unknown) (unknown) budesonide 3 mg (units (unknown) date) Capsule,Delayed,E unknown) xtend.Release (unknown) (no (unknown) (unknown) cetirizine 10 MG (units (unknown) date) tablet,chewable unknown) (unknown) (no (unknown) (unknown) duloxetine (units (unk nown) date) [Cymbalta] 30 MG unknown) capsule,delayed release(DR/EC) (unknown) (no (unknown) (unknown) ergocalciferol (units (unknown) date) (vitamin D2) unknown) 50,000 unit Capsule (unknown) (no (unknown) (unknown) lorazepam 0.5 mg (units (unknown) date) tablet unknown) (unknown) (no (unknown) (unknown) polyethylene (units (u nknown) date) glycol 3350 17 unknown) gram/dose powder (unknown) (no (unknown) (unknown) prazosin 1 MG (units ( unknown) date) capsule unknown) (unknown) (no (unknown) (unknown) prazosin 1 mg (units ( unknown) date) capsule unknown) (unknown) (no (unknown) (unknown) quetiapine (units (unk nown) date) [Seroquel] 50 mg unknown) tablet (unknown) (no (unknown) (unknown) ranitidine HCl (units (unknown) date) 150 mg tablet unknown) (unknown) (no (unknown) (unknown) tramadol 50 mg (units (unknown) date) tablet unknown) (unknown) (no (unknown) (unknown) ustekinumab (units (un known) date) [Stelara] 90 unknown) mg/mL syringe (unknown) (no (unknown) (unknown) 10/20/21 (units (unkno wn) date) unknown) (unknown) (no (unknown) (unknown) Insomnia (units (unkno wn) date) unknown) (unknown) (no (unknown) (unknown) Medication (units (unk nown) date) Instructions unknown) Recorded (unknown) (no (unknown) (unknown) Medication (units (unk nown) date) Instructions unknown) Recorded Confirmed (unknown) (no (unknown) (unknown) tabs (units (unkno wn) date) unknown) (unknown) (no (unknown) (unknown) [id number] (units (unkn own) date) unknown) (unknown) (no (unknown) (unknown) 08/25/17 (units (unkno wn) date) unknown) (unknown) (no (unknown) (unknown) 15:53 (units (unkno wn) date) unknown) (unknown) (no (unknown) (unknown) Activity (units (unkno wn) date) Restrictions/Asad unknown) tional Instructions: (unknown) (no (unknown) (unknown) Age/Sex: 36 / F (units (unknown) date) unknown) (unknown) (no (unknown) (unknown) Allergy/AdvReac (units (unknown) date) Type Severity unknown) Reaction Status Date / Time (unknown) (no (unknown) (unknown) Anxiety and (units (un known) date) depression unknown) (unknown) (no (unknown) (unknown) Appropriate for (units (unknown) date) discharge home. unknown) No blood work or imaging indicated. Patient (unknown) (no (unknown) (unknown) BACK: No flank (units (unknown) date) tenderness. unknown) (unknown) (no (unknown) (unknown) Baclofen (units (unkno wn) date) (Baclofen 10 Mg unknown) Tablet) 20 mg PO NOW ONE (unknown) (no (unknown) (unknown) Blood Pressure (units (unknown) date) 157/91 H unknown) 10/20/21 15:53 (unknown) (no (unknown) (unknown) Blood Pressure (units (unknown) date) 157/91 H unknown) (unknown) (no (unknown) (unknown) CARDIOVASCULAR: (units (unknown) date) Denies chest unknown) pain, palpitations (unknown) (no (unknown) (unknown) CARDIOVASCULAR: (units (unknown) date) Regular rate and unknown) rhythm without murmurs (unknown) (no (unknown) (unknown) Chief Complaint: (units (unknown) date) Neck Pain/Injury unknown) (unknown) (no (unknown) (unknown) Clinical (units (unkno wn) date) Impression: unknown) (unknown) (no (unknown) (unknown) Course (units (unkno wn) date) unknown) (unknown) (no (unknown) (unknown) Course (units (unkno wn) date) Narrative: unknown) (unknown) (no (unknown) (unknown) Crohn disease (units ( unknown) date) unknown) (unknown) (no (unknown) (unknown) : 1985 (units (unknown) date) Acct:[id number] unknown) (unknown) (no (unknown) (unknown) Juan Jose Lopez, (units (unknown) date) MD [Primary Care unknown) Provider] - (unknown) (no (unknown) (unknown) Departure (units (unkn own) date) unknown) (unknown) (no (unknown) (unknown) Differential (units (u nknown) date) Diagnosis unknown) (unknown) (no (unknown) (unknown) Differential (units (u nknown) date) diagnosis: Likely unknown) other (Insomnia/muscle spasticity) (unknown) (no (unknown) (unknown) Discharge Plan (units (unknown) date) unknown) (unknown) (no (unknown) (unknown) Discontinued (units (u nknown) date) Medications unknown) (unknown) (no (unknown) (unknown) ENT: Mucous (units (u nknown) date) membranes moist. unknown) (unknown) (no (unknown) (unknown) ER Physician: (units ( unknown) date) Preston Chiu MD unknown) (unknown) (no (unknown) (unknown) EYES: Pupils (units (u nknown) date) equal round No unknown) scleral icterus. (unknown) (no (unknown) (unknown) Exam (units (unkno wn) date) unknown) (unknown) (no (unknown) (unknown) Exam Narrative: (units (unknown) date) unknown) (unknown) (no (unknown) (unknown) Fibromyalgia (units (u nknown) date) unknown) (unknown) (no (unknown) (unknown) GASTROINTESTINAL (units (unknown) date) : Abdomen soft, unknown) non-tender (unknown) (no (unknown) (unknown) GASTROINTESTINAL (units (unknown) date) : Denies nausea, unknown) vomiting, abdominal pain (unknown) (no (unknown) (unknown) GENERAL: Denies (units (unknown) date) chills, fatigue, unknown) malaise, fever, sweats. (unknown) (no (unknown) (unknown) GENERAL: in no (units (unknown) date) distress, not unknown) toxic not dyspneic (unknown) (no (unknown) (unknown) : Denies (units (unk nown) date) dysuria, unknown) frequency, hematuria (unknown) (no (unknown) (unknown) General (units (unkno wn) date) unknown) (unknown) (no (unknown) (unknown) HEAD: (units (unkno wn) date) Normocephalic. unknown) (unknown) (no (unknown) (unknown) HEENT: Denies (units ( unknown) date) sinus pain, ear unknown) pain, sore throat (unknown) (no (unknown) (unknown) HPI - Neck (units (unk nown) date) Pain/Injury unknown) (unknown) (no (unknown) (unknown) HPI Narrative: (units (unknown) date) unknown) (unknown) (no (unknown) (unknown) History of (units (unk nown) date) Present Illness unknown) (unknown) (no (unknown) (unknown) Initial Vital (units ( unknown) date) Signs unknown) (unknown) (no (unknown) (unknown) Initial Vital (units ( unknown) date) Signs: unknown) (unknown) (no (unknown) (unknown) Insomnia (units (unkno wn) date) unknown) (unknown) (no (unknown) (unknown) Instructions: (units ( unknown) date) Insomnia unknown) (unknown) (no (unknown) (unknown) MDM - Neck (units (unk nown) date) Pain/Injury unknown) (unknown) (no (unknown) (unknown) MDM Narrative (units ( unknown) date) unknown) (unknown) (no (unknown) (unknown) MUSCULOSKELETAL: (units (unknown) date) denies muscle or unknown) bony pain (unknown) (no (unknown) (unknown) Medical History (units (unknown) date) (Reviewed unknown) 10/20/21 @ 19:41 by Preston Chiu MD) (unknown) (no (unknown) (unknown) Medical decision (units (unknown) date) making narrative: unknown) (unknown) (no (unknown) (unknown) NECK: Trachea (units ( unknown) date) midline. There unknown) is bilateral para cervical muscle tenderness and (unknown) (no (unknown) (unknown) NEURO: AOx4. 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 Patient (unknown) (no (unknown) (unknown) No new issues (units ( unknown) date) during course of unknown) stay (unknown) (no (unknown) (unknown) No significant (units (unknown) date) past surgical unknown) history (unknown) (no (unknown) (unknown) Ordered: (units (unkno wn) date) unknown) (unknown) (no (unknown) (unknown) Orders (units (unkno wn) date) unknown) (unknown) (no (unknown) (unknown) Oxygen Delivery (units (unknown) date) Method unknown) 10/20/21 15:53 (unknown) (no (unknown) (unknown) Oxygen Delivery (units (unknown) date) Method Room Air unknown) (unknown) (no (unknown) (unknown) PSYCH: Mildly (units (unknown) date) anxious, is unknown) cooperative, no SI or HI. Not combative (unknown) (no (unknown) (unknown) PSYCH: Negative (units (unknown) date) before SI or HI. unknown) Positive for sleep disturbance. (unknown) (no (unknown) (unknown) Panic attacks (units ( unknown) date) unknown) (unknown) (no (unknown) (unknown) Patient (units (unkno wn) date) Disposition: Home unknown) (unknown) (no (unknown) (unknown) Patient History (units (unknown) date) unknown) (unknown) (no (unknown) (unknown) Patient here for (units (unknown) date) insomnia that is unknown) been accelerated in the past 2 years. Patient (unknown) (no (unknown) (unknown) Patient: (units (unkno wn) date) Rhonda Booker unknown) MR#: M (unknown) (no (unknown) (unknown) Prescriptions: (units (unknown) date) unknown) (unknown) (no (unknown) (unknown) Pulse Oximetry (units (unknown) date) 100 10/20/21 unknown) 15:53 (unknown) (no (unknown) (unknown) Pulse Oximetry (units (unknown) date) 100 unknown) (unknown) (no (unknown) (unknown) Pulse Rate 93 H (units (unknown) date) 10/20/21 15:53 unknown) (unknown) (no (unknown) (unknown) Pulse Rate 93 H (units (unknown) date) unknown) (unknown) (no (unknown) (unknown) RESPIRATORY: (units (un known) date) Clear to unknown) auscultation. Breath sounds equal bilaterally. No wheezes, (unknown) (no (unknown) (unknown) RESPIRATORY: (units (u nknown) date) Denies dyspnea, unknown) cough (unknown) (no (unknown) (unknown) ROS Unobtainable: (units (unknown) date) All systems unknown) reviewed + are unremarkable except as noted in HPI (unknown) (no (unknown) (unknown) Reevaluation #1: (units (unknown) date) unknown) (unknown) (no (unknown) (unknown) Reevaluation(s) (units (unknown) date) unknown) (unknown) (no (unknown) (unknown) Referrals: (units (unk nown) date) unknown) (unknown) (no (unknown) (unknown) Related Data (units (u nknown) date) unknown) (unknown) (no (unknown) (unknown) Respiratory Rate (units (unknown) date) 16 10/20/21 unknown) 15:53 (unknown) (no (unknown) (unknown) Respiratory Rate (units (unknown) date) 16 unknown) (unknown) (no (unknown) (unknown) Review of (units (unkn own) date) Systems unknown) (unknown) (no (unknown) (unknown) Reviewed (units (unkno wn) date) medications with unknown) patient and agree on back within has trial medication (unknown) (no (unknown) (unknown) SKIN: Warm and (units (unknown) date) dry unknown) (unknown) (no (unknown) (unknown) SKIN: Denies (units (u nknown) date) rash, skin unknown) lesions (unknown) (no (unknown) (unknown) Signed By: (units (unk nown) date) unknown) (unknown) (no (unknown) (unknown) Smoking Status: (units (unknown) date) Former smoker unknown) (unknown) (no (unknown) (unknown) Smoking Status: (units (unknown) date) Former smoker unknown) (unknown) (no (unknown) (unknown) Social History (units (unknown) date) (Reviewed unknown) 10/20/21 @ 19:41 by Preston Chiu MD) (unknown) (no (unknown) (unknown) Stated (units (unkno wn) date) Complaint: Can't unknown) Sleep (unknown) (no (unknown) (unknown) Substance Use (units ( unknown) date) Type: marijuana unknown) (unknown) (no (unknown) (unknown) Surgical History (units (unknown) date) (Reviewed unknown) 10/20/21 @ 19:41 by Preston Chiu MD) (unknown) (no (unknown) (unknown) Temperature (units (un known) date) 96.2 F L unknown) 10/20/21 15:53 (unknown) (no (unknown) (unknown) Temperature 96.2 (units (unknown) date) F L unknown) (unknown) (no (unknown) (unknown) Time Seen by (units (u nknown) date) Provider: unknown) 10/20/21 16:45 (unknown) (no (unknown) (unknown) Time: 19:43 (units (un known) date) unknown) (unknown) (no (unknown) (unknown) Visit Report (units (u nknown) date) Forms: Patient unknown) Portal/API (unknown) (no (unknown) (unknown) Vital Signs (units (un known) date) unknown) (unknown) (no (unknown) (unknown) Vital signs: (units (u nknown) date) unknown) (unknown) (no (unknown) (unknown) alcohol intake (units (unknown) date) frequency: unknown) holidays/special occasions only (unknown) (no (unknown) (unknown) alcohol intake: (units (unknown) date) never unknown) (unknown) (no (unknown) (unknown) and below (units (unkn own) date) unknown) (unknown) (no (unknown) (unknown) azathioprine 50 (units (unknown) date) mg tablet 50 mg unknown) PO DAILY 08/23/17 08/25/17 (unknown) (no (unknown) (unknown) baclofen 20 mg (units (unknown) date) tablet 20 mg PO unknown) TID PRN muscle pain #21 10/20/21 (unknown) (no (unknown) (unknown) budesonide 3 mg (units (unknown) date) 3 mg PO DAILY unknown) 08/23/17 08/25/17 (unknown) (no (unknown) (unknown) capsule,delayed, (units (unknown) date) extended release unknown) (unknown) (no (unknown) (unknown) cetirizine 10 mg (units (unknown) date) chewable tablet unknown) 10 mg PO QDAY ##0 01/31/17 08/25/17 (unknown) (no (unknown) (unknown) does have lot of (units (unknown) date) cervical spine unknown) problems because and spasticity and pain that (unknown) (no (unknown) (unknown) 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 Partner at bedside. (unknown) (no (unknown) (unknown) duloxetine 30 mg (units (unknown) date) capsule,delayed unknown) 30 mg PO QDAY #30 caps 01/04/16 (unknown) (no (unknown) (unknown) ergocalciferol (units (unknown) date) (vitamin D2) unknown) 1,250 50,000 unit PO QWEEK 08/23/17 08/25/17 (unknown) (no (unknown) (unknown) gram/dose oral (units (unknown) date) powder unknown) (unknown) (no (unknown) (unknown) here for (units (unkno wn) date) insomnia. Review unknown) of patient's medications at this time baclofen is (unknown) (no (unknown) (unknown) keeps her awake (units (unknown) date) at night. She unknown) never gets good sleep. She did have an (unknown) (no (unknown) (unknown) lorazepam 0.5 mg (units (unknown) date) tablet 0.5 mg PO unknown) BEDTIME PRN sleep #10 06/29/20 (unknown) (no (unknown) (unknown) mcg (50,000 (units (un known) date) unit) capsule unknown) (unknown) (no (unknown) (unknown) medications and (units (unknown) date) keep Seroquel and unknown) 100 mg at bedtime. Return if worse if any (unknown) (no (unknown) (unknown) olopatadine (units (un known) date) [From PATANOL] unknown) Allergy Intermediate RED AND Verified 11/15/20 18:21 (unknown) (no (unknown) (unknown) or HI. (units (unkno wn) date) unknown) (unknown) (no (unknown) (unknown) outpatient MRI (units (unknown) date) of the cervical unknown) spine by primary care. She will be getting (unknown) (no (unknown) (unknown) polyethylene (units (u nknown) date) glycol 3350 17 17 unknown) g PO DAILY 08/23/17 08/25/17 (unknown) (no (unknown) (unknown) prazosin 1 mg (units ( unknown) date) capsule 1 mg PO unknown) BEDTIME #30 caps 10/10/21 (unknown) (no (unknown) (unknown) prazosin 1 mg (units ( unknown) date) capsule 1 mg PO unknown) SEE INSTRUCTIONS #60 caps 01/04/16 (unknown) (no (unknown) (unknown) precautions (units (un known) date) reviewed with unknown) her. (unknown) (no (unknown) (unknown) provider to help (units (unknown) date) her sleep but is unknown) not been effective. No hallucinations. No SI (unknown) (no (unknown) (unknown) questions or (units (u nknown) date) concerns unknown) (unknown) (no (unknown) (unknown) quetiapine 50 mg (units (unknown) date) tablet (Seroquel) unknown) 50 mg PO BEDTIME #60 tabs 10/10/21 (unknown) (no (unknown) (unknown) rales, or (units (unkn own) date) rhonchi. unknown) (unknown) (no (unknown) (unknown) ranitidine HCl (units (unknown) date) 150 mg tablet 150 unknown) mg PO DAILY 08/23/17 08/25/17 (unknown) (no (unknown) (unknown) reasonable to (units ( unknown) date) start for least unknown) interaction with her current medications. Return (unknown) (no (unknown) (unknown) received family (units (unknown) date) doctor in a week unknown) for re-evaluation. May continue home (unknown) (no (unknown) (unknown) referral to (units (un known) date) Spine unknown) specialties. Patient currently on Seroquel at night by (unknown) (no (unknown) (unknown) release (units (unkno wn) date) (Cymbalta) unknown) (unknown) (no (unknown) (unknown) spasm. (units (unkno wn) date) Tenderness and unknown) spasm to the trapezius muscles as well. No midline (unknown) (no (unknown) (unknown) substance use (units ( unknown) date) type: does not unknown) use (unknown) (no (unknown) (unknown) sumatriptan (units (un known) date) [SUMATRIPTAN] unknown) Allergy Severe MUSCLE Verified 11/15/20 18:21 (unknown) (no (unknown) (unknown) syringe (units (unkno wn) date) unknown) (unknown) (no (unknown) (unknown) tenderness or (units ( unknown) date) step-off. unknown) (unknown) (no (unknown) (unknown) to help for (units (un known) date) muscle spasticity unknown) and to help her sleep. Patient understands no (unknown) (no (unknown) (unknown) tramadol 50 mg (units (unknown) date) tablet 50 mg PO unknown) Q6H PRN pain #10 tabs 08/25/17 (unknown) (no (unknown) (unknown) ustekinumab 90 (units (unknown) date) mg/mL unknown) subcutaneous See Rx Instructions .Route .COMPLEX 08/23/17 Social History date description facility (no date) Ex-smoker (finding) [facility] Vital Signs date measurement value units +0000 BMI BMI 25.0 kg/m2 +0000 BP_diastolic BP_diastolic 64 mm[H g] +0000 BP_systolic BP_systolic 119 mm[Hg] +0000 heart_rate heart_rate 81 /min +0000 height_metric height_metric 167.64 cm +0000 height_standard height_standard 66 in +0000 respiration_rate respiration_rate 16 /min +0000 temperature_metric temperature_metric 37.11 C +0000 temperature_standard temperature_standard 9 8.8 F +0000 weight_metric weight_metric 31.89 kg +0000 weight_standard weight_standard 70.31 lb [id number]+0000 BP_diastolic BP_diastolic 74 mm[H g] [id number]+0000 BP_systolic BP_systolic 146 mm[Hg] [id number]+0000 heart_rate heart_rate 90 /min [id number]+0000 respiration_rate respiration_rate 18 /min [id number]+0000 temperature_metric temperature_metric 35.67 C [id number]+0000 temperature_standard temperature_standard 9 6.2 F
[2021-12-23 18:55] LABS: BILIRUBIN,URINE NEGATIVE (NEGATIVE); GLUCOSE, URINE (UA) NEGATIVE (NEGATIVE); KETONES,URINE (UA) NEGATIVE (NEGATIVE); LEUKOCYTE ESTERASE, URINE NEGATIVE (NEGATIVE); NITRITE,URINE NEGATIVE (NEGATIVE); OCCULT BLOOD,URINE TRACE-INTA (NEGATIVE); PH,URINE 7.5 PH (5.0-7.5); PROTEIN,URINE NEGATIVE (NEGATIVE); UROBILINOGEN,URINE 0.2 (NORMAL) E.U./dL (NORMAL)
[2021-12-23 18:57] LABS: BASOPHILS % (AUTO) 0.6 %; EOSINOPHILS # (AUTO) 0.2 10^3/uL (0.0-0.7); EOSINOPHILS % (AUTO) 3.4 %; HCT - HEMATOCRIT 37.5 % (37.0-47.0); HGB - HEMOGLOBIN 12.3 g/dL (12.0-16.0); LYMPHOCYTES # (AUTO) 1.3 10^3/uL (1.5-3.5); LYMPHOCYTES % (AUTO) 18.5 %; MEAN CORPUSCULAR HEMOGLOBIN 29.1 pg (27.0-31.0); MEAN CORPUSCULAR HGB CONC 32.8 g/dL (32.0-36.0); MEAN CORPUSCULAR VOLUME 88.9 fL (81.0-99.0); MEAN PLATELET VOLUME 9.1 fL (7.9-10.8); MONOCYTES # (AUTO) 0.6 10^3/uL (0.0-1.0); MONOCYTES % (AUTO) 8.4 %; NEUTROPHILS # (AUTO) 4.7 10^3/uL (1.5-6.6); NEUTROPHILS % (AUTO) 68.8 %; PLT - PLATELET COUNT 294 10^3/uL (130-450); RED BLOOD COUNT 4.22 10^6/uL (4.20-5.40); WHITE BLOOD COUNT 6.8 x10^3/uL (4.8-10.8)
[2021-12-23 18:57] LABS: CLARITY,URINE CLEAR (CLEAR); HCG UR QUAL NEGATIVE
[2021-12-23 19:10] LABS: BILIRUBIN,TOTAL 0.5 mg/dL (0.2-1.0); CALCIUM 9.3 mg/dL (8.5-10.3); CREATININE 0.9 mg/dL (0.4-1.0); POTASSIUM 3.6 mmol/L (3.5-5.0)
[2021-12-23] MEDS ORDERED: SODIUM CHLORIDE 0.9% 1,000 ML IV STA (19:26)
[2021-12-23] MEDS ORDERED: METOCLOPRAMIDE 10 MG/2 ML VIAL IVP STA (19:26)
[2021-12-23] MEDS ORDERED: HYDROmorphone 1 MG/ML CARPUJECT IVP STA (19:27)
--- NOTE | 2021-12-23 19:27 | ED Physician Documentation ---
History of Present Illness - Stated complaint Stated Complaint: ABD PX - Chief complaint Chief Complaint: Abd Pain - Additonal information Additional information: 36-year-old female presents emergency department for evaluation of generalized abdominal discomfort and constipation. Has a history of Crohn's. 5 nights ago she took the bowel prep including Colace and MiraLAX in order to have a colonoscopy on Sunday. She did not have adequate results thus the colonoscopy was canceled. Since then she has had vomiting generalized abdominal discomfort. She feels she is passing less gas and when she does pass stool it is a very small amount and mucoid. She has not had any fevers. No urinary symptoms. Review of Systems Constitutional: denies: Fever, Chills Throat: reports: Reviewed and negative Cardiac: reports: Reviewed and negative Respiratory: reports: Reviewed and negative GI: reports: Abdominal Pain, Nausea, Vomiting, Constipation. 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: None : None HEENT: None Psych: Depression, Anxiety Musculoskeletal: None Derm: None - Past Surgical History Past Surgical History: Yes General: Other HEENT: Rhinoplasty - Present Medications Home Medications: Ambulatory Orders Medication Instructions Recorded Confirmed Cetirizine [ZyrTEC] 10 mg PO DAILY 07/30/15 05/10/17 DULoxetine [Cymbalta] 30 mg PO DAILY 07/30/15 05/10/17 Prazosin [Minipress] 1 mg PO QPM 07/30/15 05/10/17 Fluticasone [Flonase] 1 sprays CHAR BID 05/10/17 05/10/17 Phenazopyridine [Pyridium] 100 mg PO TID PRN #15 tablet 02/02/18 Sulfamethox/Trimeth 800/160 1 each PO BID #14 tablet 02/02/18 [Bactrim Ds 800/160] Ustekinumab [Stelara] 45 mg SUBQ ONCE 02/02/18 02/02/18 cephALEXin [Keflex] 500 mg PO BID #14 capsule 02/27/18 Hydrocodone/Acetaminophen 1 - 2 each PO Q6H PRN #14 tablet 05/27/19 [Hydrocodon-Acetaminophen 5-325] methocarbamoL [Robaxin] 500 mg PO Q6H PRN #14 tablet 05/27/19 Oxycodone HCl/Acetaminophen 1 - 2 each PO Q6H PRN #14 tablet 10/08/19 [Percocet 5-325 mg Tablet] Nitrofurantoin [Macrobid] 100 mg PO BID 5 Days #10 capsule 12/18/19 Phenazopyridine [Pyridium] 100 mg PO TID PRN #3 tablet 12/18/19 Baclofen 20 mg PO DAILY PM PRN #3 tablet 11/01/21 - Allergies Allergies/Adverse Reactions: Allergies Allergy/AdvReac Type Severity Reaction Status Date / Time olopatadine [From Patanol] Allergy Edema Verified 12/23/21 18:30 sumatriptan Allergy Edema Verified 12/23/21 18:30 - Social History Does the pt smoke?: No Smoking Status: Never smoker Does the pt drink ETOH?: Yes Does the pt have substance abuse?: Yes - Immunizations Immunizations are current?: Yes - POLST Patient has POLST: No PD ED PE NORMAL - General General: Alert and oriented X 3, No acute distress - HEENT HEENT: Moist mucous membranes - Neck Neck: Supple, no meningeal sign - Cardiac Cardiac: RRR, No murmur - Respiratory Respiratory: No respiratory distress, Clear bilaterally - Abdomen Abdomen: Normal bowel sounds, Soft. No: Non tender (Generalized tympany. Generalized nonperitoneal abdominal discomfort. No CVA tenderness) - Back Back: No CVA TTP, No spinal TTP - Derm Derm: Normal color, Warm and dry - Extremities Extremities: No deformity, No tenderness to palpate, Normal ROM s pain - Neuro Neuro: Alert and oriented X 3, denier control operator 2-12 intact Eye Opening: Spontaneous Motor: Obeys Commands Verbal: Oriented GCS Score: 15 Results - Vitals Vitals: Vital Signs - 24 hr 12/23/21 12/23/21 12/23/21 18:23 20:19 22:00 Temperature 36.9 C Heart Rate 85 74 87 Respiratory 16 16 16 Rate Blood Pressure 132/74 H 118/65 126/74 O2 Saturation 100 100 98 Oxygen O2 Source Room air - Labs Labs: Laboratory Tests 12/23/21 12/23/21 12/23/21 18:40 18:52 18:52 WBC 6.8 RBC 4.22 Hgb 12.3 Hct 37.5 MCV 88.9 MCH 29.1 MCHC 32.8 RDW 12.0 Plt Count 294 MPV 9.1 Neut # (Auto) 4.7 Lymph # (Auto) 1.3 L Real # (Auto) 0.6 Eos # (Auto) 0.2 Baso # (Auto) 0.0 Absolute Nucleated RBC 0.00 Nucleated RBC % 0.0 Sodium 133 L Potassium 3.6 Chloride 97 L Carbon Dioxide 28 Anion Gap 8.0 BUN 12 Creatinine 0.9 Estimated GFR (MDRD) 71 L Glucose 90 Calcium 9.3 Total Bilirubin 0.5 AST 14 ALT 11 Alkaline Phosphatase 51 Total Protein 8.0 Albumin 4.0 Globulin 4.0 Albumin/Globulin Ratio 1.0 Lipase 32 Urine Color YELLOW Urine Clarity CLEAR Urine pH 7.5 Ur Specific [place] 1.020 Urine Protein NEGATIVE Urine Glucose (UA) NEGATIVE Urine Ketones NEGATIVE Urine Occult Blood TRACE-INTA Urine Nitrite NEGATIVE Urine Bilirubin NEGATIVE Urine Urobilinogen 0.2 (NORMAL) Ur Leukocyte Esterase NEGATIVE Ur Microscopic Review NOT INDICATED Urine Culture Comments NOT INDICATED Urine HCG, Qual NEGATIVE - Rads (name of study) CT abd Radiology: Final report received (Segmental small bowel wall thickening in the distal ileum consistent with enteritis and likely secondary to patient's history of Crohn's. No associated bowel obstruction but there is an adjacent small loculated fluid collection suspicious for small abscess. Moderate to marked colonic wall thickeni) PD MEDICAL DECISION MAKING - ED course Complexity details: reviewed results, re-evaluated patient, considered differential, d/w patient, d/w senior erp consultant (Fe) ED course: 36-year-old female presents emergency department for evaluation of abdominal discomfort vomiting after completing a bowel prep in anticipation for colonoscopy for her history of Crohn's disorder. Over the last week she has had very little bowel movement. Screening labs today were without acute worrisome findings. A CT of the abdomen does show fairly significant constipation within the colon but there was also a questionable finding of a possible abscess. I did discuss this case at length with Dr. Danny Miramontes To determine if further ED evaluation or intervention was warranted through surgery. After thorough discussion with the surgeon it is felt that this is likely clinically not an abscess given the lack of fever or leukocytosis. Dr. Miramontes spend a fair amount of time with the patient at the bedside and ultimately we elected to complete a Gastrografin challenge in order to help promote a large bowel movement to relieve the constipation. If the Gastrografin challenge helps resolve the constipation patient will be discharged home. She is to continue close follow-up with her gastroenterology team. We discussed at length emergent return precautions for worsening symptoms. No antibiotics would be indicated on discharge 2249: Patient is signed out to my nighttime colleague Dr. Alvarez to follow-up on the results of the bowel prep and abdominal reexam. If patient is feeling better stable for discharge home Departure - Departure Clinical Impression: Constipation Qualifiers: Constipation type: unspecified constipation type Qualified Code(s): K59.00 - Constipation, unspecified Abdominal pain Qualifiers: Abdominal location: generalized Qualified Code(s): R10.84 - Generalized abdominal pain Condition: Stable Record reviewed to determine appropriate education?: Yes Comments: Rhonda you are seen today in the emergency department because you have had some abdominal pain and vomiting after you did a bowel prep for colonoscopy. Your screening labs today were essentially normal. The CT scan that we did of your belly shows fairly significant constipation. There is also question of whether or not there is a small abscess within the abdomen. However the suspicion for a abscess is felt to be less likely at this time given that you have fairly normal lab values. You were seen and evaluated by our surgeon Dr. Miramontes. After careful conversation and review we elected to do what is called a Gastrografin challenge where we asked you to drink some contrast. This is often very effective at reducing constipation. You have had an adequate bowel movement and are feeling better. If it any point you find over the next week that your symptoms worsen, you have uncontrolled fevers, vomiting abdominal pain bloody stools then please return immediately to the ER. It is important that you follow-up closely with your gastroenterology team to discuss longer-term plans for the colonoscopy and bowel preps in the future.
--- NOTE | 2021-12-23 20:45 | CT Report ---
PROCEDURE: Abdomen/Pelvis WO INDICATIONS: History of Crohn's, pain, constipation TECHNIQUE: Noncontrast 5 mm thick sections acquired from the diaphragms to the symphysis. 5 mm coronal and sagi ttal reformats were then performed. For radiation dose reduction, the following was used: automated exposure control, adjustment of mA and/or kV according to patient size. COMPARISON: None. FINDINGS: Image quality: Evaluation limited by absence of intravenous contrast. Lung bases: Unremarkable. Heart: Heart is normal in size. ABDOMEN: Liver:Noncontrast evaluation of liver demonstrates no discrete mass. Gallbladder: Within normal limits without calcified gallstones. Biliary ducts: No biliary ductal dilatation. Pancreas: Unremarkable. Spleen: Normal in size. Adrenal Glands: No adrenal nodules. Kidneys and Ureters: No hydronephrosis. Stomach and Bowel: There is a segment of small bowel wall thickening in the distal ileum with associ ated mild fat stranding consistent with an enteritis. There is an adjacent loculated fluid collection measuring approximately 2.4 x 2.1 cm on series 3 image 64 and 2.7 cm in craniocaudal dimension on se dayanara image 36. Evaluation is limited in the absence of intravenous contrast but the finding is suspic ious for a small abscess. There is moderate to marked colonic stool distention within the ascending a nd proximal transverse colon suggestive of constipation. Colon otherwise demonstrates normal wall thi ckness and caliber. There is colonic diverticulosis without acute diverticulitis. No evidence of appe ndicitis. Peritoneum: No abnormal intraperitoneal fluid. No free air. Ventral Wall: No hernia. Abdominal Nodes: No retroperitoneal or mesenteric adenopathy by size criteria. Vessels: Aorta and inferior vena cava are normal in size. PELVIS: Pelvic Organs:An IUD appears in appropriate position within the uterus. Bladder: Unremarkable. Pelvic Nodes: No enlarged lymph nodes. Miscellaneous: No inguinal hernias are seen. Bones: Visualized osseous structures demonstrate no suspicious focal lesions. IMPRESSION: 1. Segmental small bowel wall thickening in the distal ileum consistent with an enteritis and likely secondary to patient's history of Crohn's disease. There is no associated bowel obstruction but there is an adjacent small loculated fluid collection suspicious for a small abscess. Evaluation is limite d in the absence of intravenous contrast. 2. Moderate to marked colonic wall thickening within the nidhi ascending and proximal transverse colon compatible constipation. Reviewed by: Pk Flores MD on 12/23/2021 8:44 PM PDT Approved by: Pk Flores MD on 12/23/2021 8:44 PM PDT Station ID: [id number]
[2021-12-23] MEDS ORDERED: DIATR MEGLU/DIATRIZOATE SODIUM 120 ML BOTTLE PO ONE (22:25)
[2021-12-23] MEDS ORDERED: DIATRIZOATE MEGLU/DIATRIZO SOD 30 ML BOTTLE PO ONE (22:49)
--- NOTE | 2021-12-23 22:57 | CONSULTATION NOTE ---
Referring Provider Name of Referring Provider:: EARLE Nazario Consult Date: 12/23/21 Chief Complaint - Chief Complaint Chief Complaint: Is the finding on CT scan of abscess or not? History of Present Illness - History Obtained From Records Reviewed: Yes History obtained from: Patient Exam Limitations: None - History of Present Illness HPI Comment/Other: I am called in consultation by Chris Breaux to evaluate this very pleasant 36-year-old female after a CT scan that was obtained to evaluate her abdominal pain showed a questionable 2.2 x 2.5 multiloculated lesion near the terminal ileum that was felt could represent an abscess. The question that I was asked to answer is whether or not this represented an abscess. Instead I evaluated the patient who is a very pleasant 36-year-old female evaluated in room 8 at [facility]'s emergency department in the presence of her . She has had a longstanding history of Crohn's disease and had been on remittive therapy in the past but with the onset of COVID stopped taking the remittive agents. She is followed by [facility] medical [facility]. She was scheduled to have a colonoscopy this past Sunday but the prep which consisted of MiraLAX and Dulcolax did not work well. As such her colonoscopy was postponed. She states that she has not had a bowel movement in days and has noted increased abdominal discomfort and distention. She denies any hematemesis, melena, or hematochezia. 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: reports: None : reports: None HEENT: reports: None Psych: reports: Depression, Anxiety Musculoskeletal: reports: None Derm: reports: None MRSA Hx?: No - Past Surgical History General: reports: Other HEENT: reports: Rhinoplasty - POLST Patient has POLST: No Meds/Allgy - Home Medications Home Medications: Ambulatory Orders Medication Instructions Recorded Confirmed Cetirizine [ZyrTEC] 10 mg PO DAILY 07/30/15 05/10/17 DULoxetine [Cymbalta] 30 mg PO DAILY 07/30/15 05/10/17 Prazosin [Minipress] 1 mg PO QPM 07/30/15 05/10/17 Fluticasone [Flonase] 1 sprays CHAR BID 05/10/17 05/10/17 Phenazopyridine [Pyridium] 100 mg PO TID PRN #15 tablet 02/02/18 Sulfamethox/Trimeth 800/160 1 each PO BID #14 tablet 02/02/18 [Bactrim Ds 800/160] Ustekinumab [Stelara] 45 mg SUBQ ONCE 02/02/18 02/02/18 cephALEXin [Keflex] 500 mg PO BID #14 capsule 02/27/18 Hydrocodone/Acetaminophen 1 - 2 each PO Q6H PRN #14 tablet 05/27/19 [Hydrocodon-Acetaminophen 5-325] methocarbamoL [Robaxin] 500 mg PO Q6H PRN #14 tablet 05/27/19 Oxycodone HCl/Acetaminophen 1 - 2 each PO Q6H PRN #14 tablet 10/08/19 [Percocet 5-325 mg Tablet] Nitrofurantoin [Macrobid] 100 mg PO BID 5 Days #10 capsule 12/18/19 Phenazopyridine [Pyridium] 100 mg PO TID PRN #3 tablet 12/18/19 Baclofen 20 mg PO DAILY PM PRN #3 tablet 11/01/21 - Allergies Allergies/Adverse Reactions: Allergies Allergy/AdvReac Type Severity Reaction Status Date / Time olopatadine [From Patanol] Allergy Edema Verified 12/23/21 18:30 sumatriptan Allergy Edema Verified 12/23/21 18:30 Review of Systems - Constitutional Constitutional: reports: Poor appetite. denies: Fatigue, Fever, Chills, Malaise - Eyes Eyes: denies: Pain - Ears, Nose & Throat Ears, Nose & Throat: denies: Ear pain, Hearing loss - Cardiovascular Cariovascular: denies: Irregular heart rate, Palpitations, Chest pain - Respiratory Respiratory: denies: Cough - Gastrointestinal Gastrointestinal: reports: Abdominal pain, Abdominal distention, Constipation. denies: Diarrhea, Rectal bleeding, Black stools, Bloody stools, Coffee grounds emesis - Genitourinary Genitourinary: denies: Dysuria - Musculoskeletal Musculoskeletal: denies: Muscle pain, Back pain - Integumentary Integumentary: denies: Rash - Neurological Neurological: denies: General weakness, Focal weakness - Psychiatric Psychiatric: denies: Depression Exam - Vital Signs Reviewed Vital Signs: Yes Vital Signs: Vital Signs x48h Temp Pulse Resp BP Pulse Ox 12/23/21 22:00 87 16 126/74 98 12/23/21 20:19 74 16 118/65 100 12/23/21 18:23 36.9 C 85 16 132/74 H 100 - Physical Exam General Appearance: positive: No acute distress Eyes Bilateral: positive: No lid inflammation, Conjunctivae nml, No scleral icterus ENT: positive: No signs of dehydration Neck: positive: Trachea midline Respiratory: positive: Chest non-tender, No respiratory distress, Breath sounds nml Cardiovascular: positive: Regular rate & rhythm Abdomen: positive: Tenderness (More left than right. Not peritoneal.), Abnml bowel sounds (Slightly decreased.), Other (Some pain with percussion as well as movement.). negative: Guarding Skin: positive: Color nml, No rash, Warm, Dry Extremities: positive: Non-tender, Nml appearance Neurologic/Psychiatric: positive: Oriented x3, Motor nml, Sensation nml, Mood/affect nml Conclusion/Plan - Lab Results Lab results reviewed: Yes Fish Bones: 12/23/21 18:52 12/23/21 18:52 - Diagnostic Imaging Results Diagnostic Imaging Results: positive: Final report reviewed, Read independently - Other Other Results/Comments: To answer the question that I was asked to answer as to whether or not this mass represents an abscess - it really does not matter. The patient is nonsymptomatic from this finding. She has no elevated white count. She is not febrile. She is not tachycardic. She is not septic. Rather she is constipated. I explained that I am not a big fan of bulk laxatives to be given in people with inflammatory bowel disease. It is not an absolute contraindication but it is not something that I prefer to give my patients. This is particularly true in someone who is constipated. We discussed the various treatments to move that large amount of stool including warm tap water enemas and a Gastrografin challenge with the patient agreeing to a Gastrografin challenge. We then discussed remittive therapy and how this works to prevent attacks of the Crohn's disease. I explained that there is a progression of therapy culminating in monoclonal antibodies and medications that alter the body's immune response. I explained that due to her inflammatory bowel disease she is at increased risk for malignancy and that serial follow-up is indicated but if this recent colonoscopy is not going to change her therapeutic plan then there may be no point in obtaining a colonoscopy. In other words, if she is going to be placed on remittive therapy no matter the results then why obtain the colonoscopy. If, on the other hand, the decision was made not to place her on therapy if there is no active disease and to place her on active therapy if there is active disease then this would be a good reason to obtain a scope. They are in agreement with this thinking. We also discussed the various ways of prepping the colon in preparation for a colonoscopy including Suprep and SuTabs and she may find this more "palatable." I explained that if her symptoms worsened then she should certainly contact us again for repeat evaluation including possible CT scan of her abdomen but if she improved, as I expect her to, then a repeat CT scan may not be necessary. All in all approximately 60 minutes of [id number] time spent with the patient and in completing her charting I wish to thank Solange Breaux very much for this opportunity to participate in this very pleasant patient's care CPT 94545
[2021-12-23 23:45] VITALS: BP 122/76
--- NOTE | 2021-12-23 23:46 | ED Physician Documentation ---
ED Addendum - Addendum Addendum: 12/23/21 23:44 Received sign out from GABRIELLE Breaux, plan is to discharge if has BM and feels comfortable going home. I was told by ED RN , at approximately 23:30, that patient has not had BM but wants to go home. I talked with patient and she is in NAD, no significant tenderness on abdominal exam. She confirms she has not had BM yet but wants to leave at this time. She understands return precautions and is comfortable with d/c at this time
== END 2021-12-23 23:43 | disposition home or self-care (01) ==
LOC: ED 18:07
DX: R10.84 Generalized abdominal pain (principal); K59.00 Constipation, unspecified
CPT/HCPCS: 36415; 74176; 80053; 81003; 81025; 83690; 85025; 96374; 96375; 99284; J1170; J2765; Q9963; 81001; 87086

== ENCOUNTER 2022-01-09 09:29 | Outpatient (CLI) | payer OTHER ==
[2022-01-09 13:58] VITALS: BP 120/74
--- NOTE | 2022-01-09 13:58 | SLEEP CARE CONSULTATION ---
Information from patient questionnaire entered by Rupali Morales. I have reviewed and concur with the information entered by Rupali Morales. This document represents the service I personally performed and the decisions made by me, Jayme Buck MD, [facility]. History of Present Illness Service Date and Time: 01/09/2022928 Reason for Visit: New patient Chief Complaint: reports: Unrefreshed sleep, Excessive daytime sleepiness, Fatigue, Frequent awakenings at night, Other Date of Onset: 2 YEARS Usual bedtime: 11PM Time it takes to fall asleep: WITHOUT MEDS, 1-3 HOURAS Snores at night: Yes Observed to quit breathing while asleep: No Sleeps alone due to snoring: No Number of times waking at night: UNSURE Reasons for waking at night: reports: Pain, Other (NOISE, UNKNOWN REASON) Toss, Turn, or Twitch while sleeping: Yes Recalls having dreams: Yes Usually gets out of bed at: 11AM Feels refreshed in the morning: No Morning headache: Yes (RESOLVES MIDDAY/EARLY AFTERNOON) Sleepy or fatigued during the day: Yes Ever fallen asleep while driving: Yes (NODDED OFF EVERY FEW SECONDS AT TIMES ) Takes day naps: No Dreams during day naps: No Prior sleep studies: No Additional HPI information: I have the pleasure of seeing Ms. Abbott today regarding the possibility of her having obstructive sleep apnea. As you know, she is a 36-year-old lady who complains of unrefreshed sleep, frequent awakenings, persistent fatigue, and excessive daytime sleepiness for the past 2 years. The patient tells me that she normally goes to bed around 11 pm, and it takes her approximately 1 3 hours to fall asleep. She now takes Seroquel at bedtime. She has been told that she snores loudly and irregularly at night. She has never been observed to stop breathing in her sleep. She can recall waking up on the average of 2 - 3 times during the night. Most of the time she wakes up because of pain. There is a lot of tossing and turning in her sleep. No somniloquy (sleep talking) or somnambulism (sleep walking). Generally, she can recall having dreams. In the morning she usually gets up out of the bed around 11 a.m. not feeling refreshed nor rested. She usually has a morning headache. During the day she complains of feeling sleepy and fatigued. Her score on [place] Sleepiness Scale is 1 out of 24. She has fallen asleep while driving and has gone out of the [place]. She usually does not take naps during the day. Upon falling asleep during the day she admits to denies having vivid dreams. She has never had sleep paralysis, experienced cataplexy but reports symptoms of restless leg syndrome. She reports having impaired concentration during the day. 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 Patient is and lives in [place]. Have you smoked in the past 12 months: Yes (VAPE) Cigarettes per day (20/pack): 3 Quit date: JAN 2020 Alcohol use: Yes Alcohol amount and frequency: 1-2 DRINKS MONTHLY Caffeine use: Yes Caffeine amount and frequency: 1-2 DAILY Family History Family history of sleep disordered breathing: Yes Family Hx Sleep Apnea: Mother: Snoring, Sleep apnea - Untreated, Father: Snoring, Sleep apnea - Treated, Sibling: Snoring Allergies and Home Medications Drug allergies reviewed: Yes Home medication list reviewed: Yes Allergy and home medication list: Allergies olopatadine [From Patanol] Allergy (Verified 12/23/21 18:30) Edema sumatriptan Allergy (Verified 12/23/21 18:30) Edema Review of Systems Cardiovascular: reports: palpitations, irregular heart rate or pulse, leg or foot swelling Gastrointestinal: reports: heartburn, nausea, vomitting, diarrhea, abdominal pain Urinary: reports: incontinence Neurological: reports: headaches, disorientation, gait or balance problems, fainting or unconsciousness Psychiatric: reports: Attention Deficit Hyperactivity, anxiety, depression, mood disorder, claustrophobia Ear/Nose/Throat: reports: nasal congestion, sinus problems, dry mouth/throat Endocrine: reports: sluggishness, too hot or cold, unexplained weakness Musculoskeletal: reports: joint pain, neck pain, back pain, muscle pain or cramping, mobility problems Immunologic: reports: sneezing, itching, allergies to food or environment Physical Exam Vital signs obtained and entered by: PASCALE ADDISON Blood Pressure: 120/74 (RIGHT ARM ) Cuff size: regular Heart Rate: 82 O2 Saturation: 98 Height: 5 ft 6 in Weight: 151 lb Body Mass Index: 24.3 BMI Classification: Normal Neck circumference: 14 (INCHES ) Impression and Plan IMPRESSION: 1. Fatigue, most likely due to her underlying medical and psychiatri c disorders. Her insomnia is due to excessive time spent in bed of 12 hours. The thinks she needs to sleep that many hours, but it is humanly impossible. When she actually could sleep that long, she suffers from lying awake all night the following night. Her sleep seems to be disrupted partially by pain. I will order a sleep study to rule out sleep disrupting condition, such as obstructive sleep apnea-hypopnea because she snores and both of the parents have it. Plan: 1. Schedule polysomnography and return in 1 to 2 weeks after the study to discuss results. 2. Maintain a regular wake up time and spend no more than 8 hours in bed at night. Avoid naps. Follow up with Sleep Care in: 1-2 months Visit Type: In Office Time Spent with Patient (minutes): 20 Provider Statement: I spent 100% of the Face to Face Visit with the patient with greater than 50% spent counseling the patient and coordination of care.
== END 2022-01-09 09:30 | disposition home or self-care (01) ==
LOC: SC 09:29
PROVIDERS: ATTEND Internal Medicine Pulmonary Disease
DX: R06.83 Snoring (principal); G47.8 Other sleep disorders; G47.00 Insomnia, unspecified; F32.9 Major depressive disorder, single episode, unspecified; R51.9 Headache, unspecified; R44.8 Other symptoms and signs involving general sensations and perceptions; R53.83 Other fatigue
CPT/HCPCS: 99202; 99212

== ENCOUNTER 2022-02-28 10:04 | Outpatient (CLI) | payer OTHER ==
--- NOTE | 2022-02-28 10:35 | SLEEP CARE CONSULTATION ---
Information from patient questionnaire entered by Diane Cole. I have reviewed and concur with the information entered by Diane Cole. This document represents the service I personally performed and the decisions made by , Cathleen Pierce ARNP. 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 The patient was informed of the following findings: No significant sleep disordered breathing with an average AHI of 0.6 and kemar oxygen saturation of 89%. I explained the pathophysiology behind obstructive sleep apnea. Patient does not have sleep apnea and was advised how weight gain could increase the risk of developing sleep apnea in the future. I strongly encouraged the patient to lose weight. Patient has moderate to loud snoring. Snoring can be reduced by weight loss. Weight loss is best achieved with diet consult. Patient instructed to contact PCP for referral. Snoring can also be treated with an oral appliance from a dentist. Advised to check insurance coverage. In addition, an ENT evaluation can be do to see if other treatment is indicated. Patient does not drink alcohol. Patient was cautioned about risks of drowsy driving until sleepiness symptoms resolve. Sleep Study - Results Type of Sleep Study: Polysomnography (COMPLETED 01/31/2022) Prior sleep studies: No Polysomnography/Home Sleep Study results: IMPRESSION: The quality of the study is good. The patient had normal sleep efficiency. The sleep architecture was relatively normal considering the first-night effect. Respiratory monitoring showed no significant sleep disordered breathing (AHI = 0.6) or hypoxia (kemar oxygen saturation of 89%). The patient slept adequately in supine position (supine AHI = 0.6; non-supine = 0.78). Snore was moderate to loud in intensity. There was no significant periodic leg movement of sleep. Cardiac rhythm was normal sinus rhythm without significant arrhythmia. No abnormal behavior (parasomnia) observed during the night. Allergies and Home Medications Drug allergies reviewed: Yes (as listed in chart) Home medication list reviewed: Yes (no changes) Review of Systems Review of systems same as previous: Yes (no changes) Physical Exam Vital signs obtained and entered by: DIANE Rojas MA Blood Pressure: 122/70 (LEFT ARM) Cuff size: regular Heart Rate: 98 O2 Saturation: 97 Height: 5 ft 6 in Weight: 154 lb 6.4 oz Body Mass Index: 24.9 BMI Classification: Normal Impression and Plan Snoring but no significant sleep disordered breathing. Patient advised that often weight loss will reduce snoring as well as apnea risk. An oral appliance can also be used for snoring. This would require a dental consultation. Patient cautioned not to use other online appliances as can cause bite issues. A list of accredited dentists in [facility] and one local dentist who makes oral appliances is available in office. Patient is advised to check if insurance will cover. An ENT consult can also be helpful to determine if any other treatment is an option. Patient states that she does have a deviated nasal septum. * Attempt to lose weight * The patient is cautioned about driving until sleepiness is completely resolved. * Return as needed for follow up. Counseling Topics: Weight loss health impact Visit Type: In Office Time Spent with Patient (minutes): 10 Provider Statement: I spent 100% of the Face to Face Visit with the patient with greater than 50% spent counseling the patient and coordination of care.
[2022-02-28 10:36] VITALS: BP 122/70
== END 2022-02-28 10:05 | disposition home or self-care (01) ==
LOC: SC 10:04
PROVIDERS: ATTEND Nurse Practitioner Family
DX: R06.83 Snoring (principal)
CPT/HCPCS: 99212

== ENCOUNTER 2022-08-17 13:05 | Emergency (ER) | payer OTHER ==
--- NOTE | 2022-08-17 13:23 | ED Physician Documentation ---
PD HPI ABD PAIN - Stated complaint Stated Complaint: NO HUNGER/THIRST - Chief complaint Chief Complaint: Abd Pain - History obtained from History obtained from: Patient - History of Present Illness Timing - onset: How many weeks ago (1-2 weeks of abd cramping, mainly to left side, with easy satiety. Formed stool without diarrhea. She states is feeling similar to crohns flares in the past. No fever. No blood in stool. Has chronic mucous in stool, not much changed.) Timing - duration: Weeks (1-2) Timing - details: Gradual onset, Still present (worse the past day or so), Waxing and waning Quality: Cramping, Aching, Pain Location: LUQ, LLQ Improved by: BM Worsened by: Eating Associated symptoms: Nausea. No: Fever, Vomiting, Diarrhea, Melena, Hematochezia Similar symptoms before: Diagnosis (crohns disease) Review of Systems Constitutional: denies: Fever, Chills Nose: denies: Rhinorrhea / runny nose, Congestion Throat: denies: Sore throat Respiratory: denies: Cough GI: reports: Abdominal Pain, Nausea. denies: Vomiting, Constipation, Diarrhea, Bloody / black stool PD PAST MEDICAL HISTORY - Past Medical History Cardiovascular: None Respiratory: None Endocrine/Autoimmune: None GI: Crohn's disease YEAST STACKER: None : None HEENT: None Psych: Depression, Anxiety Musculoskeletal: None Derm: None - Past Surgical History Past Surgical History: Yes General: Other HEENT: Rhinoplasty - Present Medications Home Medications: Ambulatory Orders Medication Instructions Recorded Confirmed Cetirizine [ZyrTEC] 10 mg PO DAILY 07/30/15 02/28/22 DULoxetine [Cymbalta] 30 mg PO DAILY 07/30/15 02/28/22 Prazosin [Minipress] 1 mg PO QPM 07/30/15 02/28/22 Fluticasone [Flonase] 1 sprays CHAR BID 05/10/17 02/28/22 Phenazopyridine [Pyridium] 100 mg PO TID PRN #15 tablet 02/02/18 02/28/22 Sulfamethox/Trimeth 800/160 1 each PO BID #14 tablet 02/02/18 02/28/22 [Bactrim Ds 800/160] Ustekinumab [Stelara] 45 mg SUBQ ONCE 02/02/18 02/28/22 cephALEXin [Keflex] 500 mg PO BID #14 capsule 02/27/18 02/28/22 Hydrocodone/Acetaminophen 1 - 2 each PO Q6H PRN #14 tablet 05/27/19 02/28/22 [Hydrocodon-Acetaminophen 5-325] methocarbamoL [Robaxin] 500 mg PO Q6H PRN #14 tablet 05/27/19 02/28/22 Oxycodone HCl/Acetaminophen 1 - 2 each PO Q6H PRN #14 tablet 10/08/19 02/28/22 [Percocet 5-325 mg Tablet] Nitrofurantoin [Macrobid] 100 mg PO BID 5 Days #10 capsule 12/18/19 02/28/22 Phenazopyridine [Pyridium] 100 mg PO TID PRN #3 tablet 12/18/19 02/28/22 Baclofen 20 mg PO DAILY PM PRN #3 tablet 11/01/21 02/28/22 Ondansetron Odt [Zofran] 4 mg TL Q6H PRN #10 tablet 08/17/22 predniSONE [Deltasone] 20 mg PO [id number] #21 tab 08/17/22 - Allergies Allergies/Adverse Reactions: Allergies Allergy/AdvReac Type Severity Reaction Status Date / Time olopatadine [From Patanol] Allergy Edema Verified 08/17/22 13:11 sumatriptan Allergy Edema Verified 08/17/22 13:11 - Social History Does the pt smoke?: No Smoking Status: Never smoker Does the pt drink ETOH?: Yes Does the pt have substance abuse?: Yes - Immunizations Immunizations are current?: Yes - POLST Patient has POLST: No PD ED PE NORMAL - Vitals Vital signs reviewed: Yes - General General: Alert and oriented X 3, No acute distress, Well developed/nourished - Cardiac Cardiac: RRR, No murmur - Respiratory Respiratory: Clear bilaterally - Abdomen Abdomen: Normal bowel sounds, Soft, Non distended, No organomegaly, Other (tender left sided abd without guarding, percussion nor rebound tenderness. Bowel sounds present and somewhat diminished. ) - Derm Derm: Normal color, Warm and dry Results - Vitals Vitals: Vital Signs - 24 hr 08/17/22 08/17/22 13:11 15:20 Temperature 36.5 C Heart Rate 77 80 Respiratory 16 13 Rate Blood Pressure 140/46 H 128/52 L O2 Saturation 99 98 Oxygen O2 Source Room air - Labs Labs: Laboratory Tests 08/17/22 08/17/22 08/17/22 13:21 13:21 13:21 WBC 4.6 L RBC 4.56 Hgb 13.0 Hct 41.0 MCV 89.9 MCH 28.5 MCHC 31.7 L RDW 12.7 Plt Count 274 MPV 9.4 Neut # (Auto) 2.6 Lymph # (Auto) 1.5 [place] # (Auto) 0.3 Eos # (Auto) 0.1 Baso # (Auto) 0.0 Absolute Nucleated RBC 0.00 Nucleated RBC % 0.0 ESR 8 Sodium 137 Potassium 4.2 Chloride 102 Carbon Dioxide 28 Anion Gap 7.0 BUN 16 Creatinine 0.7 Estimated GFR (MDRD) 95 Glucose 137 H Calcium 8.9 Magnesium Total Bilirubin 0.5 AST 18 ALT 11 Alkaline Phosphatase 41 L C-Reactive Protein Total Protein 7.3 Albumin 4.0 Globulin 3.3 Albumin/Globulin Ratio 1.2 Lipase 33 Urine Color Urine Clarity Urine pH Ur Specific [place] Urine Protein Urine Glucose (UA) Urine Ketones Urine Occult Blood Urine Nitrite Urine Bilirubin Urine Urobilinogen Ur Leukocyte Esterase Ur Microscopic Review Urine Culture Comments 08/17/22 08/17/22 13:21 15:03 WBC RBC Hgb Hct MCV MCH MCHC RDW Plt Count MPV Neut # (Auto) Lymph # (Auto) [place] # (Auto) Eos # (Auto) Baso # (Auto) Absolute Nucleated RBC Nucleated RBC % ESR Sodium Potassium Chloride Carbon Dioxide Anion Gap BUN Creatinine Estimated GFR (MDRD) Glucose Calcium Magnesium 2.1 Total Bilirubin AST ALT Alkaline Phosphatase C-Reactive Protein < 1.0 Total Protein Albumin Globulin Albumin/Globulin Ratio Lipase Urine Color YELLOW Urine Clarity CLEAR Urine pH 7.0 Ur Specific [place] 1.020 Urine Protein NEGATIVE Urine Glucose (UA) NEGATIVE Urine Ketones NEGATIVE Urine Occult Blood TRACE-INTA Urine Nitrite NEGATIVE Urine Bilirubin NEGATIVE Urine Urobilinogen 0.2 (NORMAL) Ur Leukocyte Esterase NEGATIVE Ur Microscopic Review NOT INDICATED Urine Culture Comments NOT INDICATED PD Medical Decision Making - ED course Complexity details: reviewed results (whitte count, ESR and CRP are not elevated, indicating not a large immune activation, but does not preclude a crohns flare of symptoms. ), re-evaluated patient (patient feeling improved with meds and we will give another liter of fluids IV. Try oral intake and ensure does not provoke pain. Change of shift, care to Dr. tang.), considered differential (symptoms feel c/w crohns flare to patient. Abd exam in non-luis toneal. Can treat with IV fluids, antiemetic, Toradol and steroids. ), d/w patient Departure - Departure Disposition: 01 Home, Self Care Clinical Impression: Abdominal pain, Dehydration, Acute Crohn's disease Condition: Good Instructions: Disease Crohn Dc Prescriptions: predniSONE [Deltasone] 20 mg PO [id number] #21 tab Ondansetron Odt [Zofran] 4 mg TL Q6H PRN #10 tablet PRN Reason: Nausea / Vomiting Comments: I sent your prescriptions electronically to [facility] [place]. Follow-up with Dr. Bonner, your GI soon as possible. Return if worse. Discharge Date/Time: 08/17/22 15:48
[2022-08-17 13:25] LABS: BASOPHILS % (AUTO) 0.7 %; EOSINOPHILS # (AUTO) 0.1 10^3/uL (0.0-0.7); EOSINOPHILS % (AUTO) 2.6 %; LYMPHOCYTES # (AUTO) 1.5 10^3/uL (1.5-3.5); LYMPHOCYTES % (AUTO) 33.6 %; MEAN CORPUSCULAR HEMOGLOBIN 28.5 pg (27.0-31.0); MEAN CORPUSCULAR HGB CONC 31.7 g/dL (32.0-36.0); MEAN CORPUSCULAR VOLUME 89.9 fL (81.0-99.0); MEAN PLATELET VOLUME 9.4 fL (7.9-10.8); MONOCYTES # (AUTO) 0.3 10^3/uL (0.0-1.0); MONOCYTES % (AUTO) 6.8 %; NEUTROPHILS # (AUTO) 2.6 10^3/uL (1.5-6.6); NEUTROPHILS % (AUTO) 56.1 %; PLT - PLATELET COUNT 274 10^3/uL (130-450); RED BLOOD COUNT 4.56 10^6/uL (4.20-5.40); RED CELL DISTRIBUTION WIDTH 12.7 % (12.0-15.0); WHITE BLOOD COUNT 4.6 x10^3/uL (4.8-10.8)
[2022-08-17 13:38] LABS: ALBUMIN/GLOBULIN RATIO 1.2 (1.0-2.2); BILIRUBIN,TOTAL 0.5 mg/dL (0.2-1.0); CALCIUM 8.9 mg/dL (8.5-10.3); CREATININE 0.7 mg/dL (0.4-1.0); POTASSIUM 4.2 mmol/L (3.5-5.0); TOTAL PROTEIN 7.3 g/dL (6.7-8.2)
[2022-08-17] MEDS: SODIUM CHLORIDE 0.9% 1,000 ML IV STA ×2 (14:00→14:49)
[2022-08-17 14:06] LABS: CRP - C-REACTIVE PROTEIN < 1.0 mg/dL (0-1.0); MAGNESIUM 2.1 mg/dL (1.7-2.8)
[2022-08-17] MEDS: ONDANSETRON 4 MG/2 ML VIAL IVP STA (14:13)
[2022-08-17] MEDS: DEXAMETHASONE 10 MG/ML VIAL IVP STA (14:47)
[2022-08-17] MEDS: KETOROLAC 15 MG/ML VIAL IVP STA (14:48)
[2022-08-17 15:17] LABS: BILIRUBIN,URINE NEGATIVE (NEGATIVE); GLUCOSE, URINE (UA) NEGATIVE (NEGATIVE); KETONES,URINE (UA) NEGATIVE (NEGATIVE); LEUKOCYTE ESTERASE, URINE NEGATIVE (NEGATIVE); NITRITE,URINE NEGATIVE (NEGATIVE); OCCULT BLOOD,URINE TRACE-INTA (NEGATIVE); PROTEIN,URINE NEGATIVE (NEGATIVE); UROBILINOGEN,URINE 0.2 (NORMAL) E.U./dL (NORMAL)
[2022-08-17 15:20] LABS: CLARITY,URINE CLEAR (CLEAR)
[2022-08-17 15:21] VITALS: BP 128/52
--- NOTE | 2022-08-17 15:37 | ED Physician Documentation ---
ED Addendum - Addendum Addendum: 08/17/22 15:[address] Tavarez at 3 PM shift change. Briefly this is a young lady who has Crohn's and has an apparent flare. CBC reviewed and normal pump, see ESR reviewed and normal. CMP reviewed and normal save for mild hyperglycemia at 137, CRP negative/normal, urine negative/normal. At this point she has received IV fluids, Toradol, Zofran, and dexamethasone. She is feeling much better and feeling hungry. She feels she had a headache from dehydration and that is gone. Once her IV fluids are finished she will go to the pharmacy for prescription for: 1. Prednisone taper: 60 mg a day for 4 days, 40 mg a day for 3 days, 20 mg a day for 3 days. 2. Zofran 4 mg TL every 6 hours as needed nausea #10 Disposition: Discharged home Condition: Stable Diagnosis: 1. Abdominal pain 2. Dehydration 3. Flare of Crohn's disease
== END 2022-08-17 15:48 | disposition home or self-care (01) ==
LOC: ED 13:05
DX: R10.12 Left upper quadrant pain (principal); R10.32 Left lower quadrant pain; E86.0 Dehydration; K50.90 Crohn's disease, unspecified, without complications
CPT/HCPCS: 36415; 80053; 81001; 81003; 83690; 83735; 85025; 85651; 86140; 87086; 96361; 96374; 96375; 99284

== ENCOUNTER 2022-09-26 08:56 | Emergency (ER) | payer OTHER ==
--- NOTE | 2022-09-26 09:22 | ED Physician Documentation ---
PD HPI HEADACHE - Stated complaint Stated Complaint: LOSS OF BALANCE/FEMALE GI - Chief complaint Chief Complaint: General - History obtained from History obtained from: Patient - History of Present Illness Timing - onset: Today, Last night Timing - details: Gradual onset (some nausea and vertigo with movemnt last evening. Some muscle aches. Markedly worse vertigo when tried to get up this moring. Better holding still.) Worst headache ever?: No: Worst headache ever? (but does not have regular pattern of them. Has nothad Dx of migraines, but had had empirtic Rx for tryptans to try, and patient says had not help in the past.) Location: Front Quality: Throbbing, Aching Associated symptoms: Nausea. No: Fever, Stiff neck, Weakness, Numbness, Seizure Worsened by: Light, Noise Similar symptoms before: No diagnosis (has terminal operator vertigo and had been to neurologist about it. Dx with POTS and give few scripts for meds. Initial one Propranolol, but it did not help. She had not tried next meds.) Review of Systems Constitutional: denies: Fever, Chills, Myalgias, Fatigue Nose: denies: Rhinorrhea / runny nose, Congestion Throat: denies: Sore throat Cardiac: denies: Chest pain / pressure, Palpitations Respiratory: denies: Dyspnea, Cough GI: reports: Nausea, Vomiting (once this morning when most dizzy. Otherwise on edge of emesis with head movment.) Skin: denies: Rash, Lesions Musculoskeletal: denies: Neck pain, Back pain Neurologic: reports: Headache. 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 HEENT: None Psych: Depression, Anxiety Musculoskeletal: None Derm: None - Past Surgical History Past Surgical History: Yes General: Other HEENT: Rhinoplasty - Present Medications Home Medications: Ambulatory Orders Medication Instructions Recorded Confirmed Cetirizine [ZyrTEC] 10 mg PO DAILY 07/30/15 09/26/22 DULoxetine [Cymbalta] 30 mg PO DAILY 07/30/15 09/26/22 Prazosin [Minipress] 1 mg PO QPM 07/30/15 09/26/22 Fluticasone [Flonase] 1 sprays CHAR BID 05/10/17 09/26/22 Ustekinumab [Stelara] 45 mg SUBQ ONCE 02/02/18 02/28/22 Ondansetron Odt [Zofran] 4 mg TL Q6H PRN #10 tablet 08/17/22 Esomeprazole Magnesium [Nexium] 40 mg PO DAILY PM 09/26/22 09/26/22 Meclizine HCl [Motion Sickness] 25 mg PO Q6H PRN #30 tablet 09/26/22 Ondansetron Odt [Zofran] 4 mg TL Q6H PRN #10 tablet 09/26/22 clonazePAM [Clonazepam] 0.5 mg PO DAILY PRN 09/26/22 09/26/22 dexAMETHasone [Decadron] 4 mg PO DAILY #5 tablet 09/26/22 diazePAM [Valium] 5 mg PO TID PRN #20 tablet 09/26/22 - Allergies Allergies/Adverse Reactions: Allergies Allergy/AdvReac Type Severity Reaction Status Date / Time olopatadine [From Patanol] Allergy Edema Verified 09/26/22 09:06 sumatriptan Allergy Edema Verified 09/26/22 09:06 - Social History Does the pt smoke?: No Smoking Status: Never smoker Does the pt drink ETOH?: Yes Does the pt have substance abuse?: Yes - Immunizations Immunizations are current?: Yes - POLST Patient has POLST: No PD ED PE NORMAL - Vitals Vital signs reviewed: Yes - General General: Alert and oriented X 3, Well developed/nourished, Other (she appears uncmofortable and is lying head partly elevated and holding herself very still to decrease vertigo. ) - HEENT HEENT: PERRL, EOMI (nystagmus to the right. ) - Neck Neck: Supple, no meningeal sign, No adenopathy - Cardiac Cardiac: RRR, No murmur - Respiratory Respiratory: Clear bilaterally - Abdomen Abdomen: Soft, Non tender - Derm Derm: Normal color, Warm and dry - Neuro Neuro: Alert and oriented X 3, No motor deficit, Normal speech Eye Opening: Spontaneous Motor: Obeys Commands Verbal: Oriented GCS Score: 15 Results - Vitals Vitals: Vital Signs - 24 hr 09/26/22 09/26/22 09/26/22 09:02 09:26 10:28 Temperature 36.7 C Heart Rate 78 73 72 Respiratory 16 20 Rate Blood Pressure 128/81 H 126/88 H 124/76 O2 Saturation 97 98 98 09/26/22 11:35 Temperature Heart Rate 73 Respiratory 14 Rate Blood Pressure 137/85 H O2 Saturation 100 Oxygen O2 Source Room air - Labs Labs: Laboratory Tests 09/26/22 09:56 Sodium 138 Potassium 3.9 Chloride 105 Carbon Dioxide 25 Anion Gap 8.0 BUN 20 Creatinine 0.8 Estimated GFR (MDRD) 81 L Glucose 98 Calcium 8.9 Total Bilirubin 1.0 AST 18 ALT 12 Alkaline Phosphatase 42 Total Protein 7.7 Albumin 4.0 Globulin 3.7 Albumin/Globulin Ratio 1.1 Lipase 34 - Rads (name of study) head CT Relevant Findings:: Prelim report reviewed (some symptoms last evening and worse today. She feels possible viral illness. Has similar symptosm milder in the past. ), See rad report PD Medical Decision Making - ED course Complexity details: reviewed results (Clinically would sound migrainous with positional vertigo. Does have history of vertigo in past, just not this abrupt. ), re-evaluated patient (she is feeling much improved with comibination of Toradol, Reglan, fluids for headache (migraine approach) and Diazepam and decadron for the vertigo. Symptoms are much better. ), considered differential (has headache, light sensitive, and nausea. Feeling of vertigo when got up this morning. Denies history of classic migraines (but has had Rx with Imitrex for some headaches in the past).), d/w patient ED course: she is improved with IV fluids/meds commonly used to direct at migraines. It can help other types of headaches as well. She has positional vertigo that dampens with holding still. However the combination starting this morning behooves testing for SAH/ICH as main thing. She is not having fever nor URI symptoms. No recent/acute injury. I feel head CT in this short timeframe from onset is sufficient per guidelines and she is not having indications for LP. Low suspicion for just cerebellar as not ataxic nor fumbly. Just the head positon vertigo. I do not feel MRI needed. Departure - Departure Disposition: 01 Home, Self Care Clinical Impression: Vertigo Headache Qualifiers: Headache type: unspecified Headache chronicity pattern: acute headache Intractability: not intractable Qualified Code(s): R51.9 - Headache, unspecified Condition: Stable Record reviewed to determine appropriate education?: Yes Instructions: ED Cephalgia Unspecified, ED Vertigo Unspecified Follow-Up: Juan Jose Lopez MD [Primary Care Provider] - Prescriptions: dexAMETHasone [Decadron] 4 mg PO DAILY #5 tablet Meclizine HCl [Motion Sickness] 25 mg PO Q6H PRN #30 tablet PRN Reason: Vertigo diazePAM [Valium] 5 mg PO TID PRN #20 tablet PRN Reason: Spasms Ondansetron Odt [Zofran] 4 mg TL Q6H PRN #10 tablet PRN Reason: Nausea / Vomiting Comments: Your head CT scan does not show any acute abnormalities such as bleeding, swelling, mass effect. Of course there are the majority of headaches are nonstructural like that. In your case I would consider sinus type headache or in combination with your vertigo, a variant of migraine (vestibular migraine). At this point continue with usual medications. Add Decadron steroid daily for the next several days. This would be useful for migraine type headaches to reduce the recurrence and also will help with sinus type headache. Regarding the vertigo, you can use meclizine every 6-8 hours if needed and diazepam if needed for worse dizziness. Tylenol if needed for pains. Ondansetron for nausea. I sent your prescriptions to your preferred pharmacy in [place]. Follow-up with your primary care if recurring pattern of the symptoms. Discharge Date/Time: 09/26/22 11:39
[2022-09-26] MEDS ORDERED: diazePAM INJ 5 MG/ML SYRINGE IVP STA (09:42)
[2022-09-26] MEDS ORDERED: SODIUM CHLORIDE 0.9% 1,000 ML IV STA (09:42)
[2022-09-26] MEDS ORDERED: DEXAMETHASONE 10 MG/ML VIAL IVP STA (09:43)
[2022-09-26] MEDS ORDERED: KETOROLAC 15 MG/ML VIAL IVP STA (09:43)
[2022-09-26] MEDS ORDERED: ONDANSETRON 4 MG/2 ML VIAL IVP STA (09:43)
[2022-09-26 10:16] LABS: ALBUMIN/GLOBULIN RATIO 1.1 (1.0-2.2); CALCIUM 8.9 mg/dL (8.5-10.3); CREATININE 0.8 mg/dL (0.4-1.0); POTASSIUM 3.9 mmol/L (3.5-5.0); TOTAL PROTEIN 7.7 g/dL (6.7-8.2)
--- NOTE | 2022-09-26 10:47 | CT Report ---
PROCEDURE: HEAD WO INDICATIONS: headache and dizzy this AM TECHNIQUE: Noncontrast 4.5 mm thick angled axial sections acquired from the foramen magnum to the vertex. For r adiation dose reduction, the following was used: automated exposure control, adjustment of mA and/or kV according to patient size. COMPARISON: None. FINDINGS: Image quality: Excellent. CSF spaces: Basal cisterns are patent. No extra-axial fluid collections. Ventricles are normal in size and shape. Brain: No midline shift. No intracranial masses or hemorrhage. Alfaro-white matter interface is norm al. Skull and face: Calvarium and visualized facial bones are intact, without suspicious lesions. Sinuses: Visualized sinuses and mastoids are clear. IMPRESSION: No acute intracranial pathology Reviewed by: Bronson Pinto MD on 09/26/2022 10:46 AM PDT Approved by: Bronson Pinto MD on 09/26/2022 10:46 AM PDT Station ID: [id number]
[2022-09-26 11:38] VITALS: BP 137/85
== END 2022-09-26 11:39 | disposition home or self-care (01) ==
LOC: ED 08:56
DX: R42 Dizziness and giddiness (principal); R51.9 Headache, unspecified; Z79.899 Other long term (current) drug therapy
CPT/HCPCS: 36415; 80053; 83690; 96374; 96375; 99283

== ENCOUNTER 2022-12-19 13:30 | Outpatient (CLI) | payer OTHER | END 2022-12-19 13:45 | disposition home or self-care (01) | LOC: LAB.N 13:30 | PROVIDERS: ATTEND Specialist | DX: R30.0 Dysuria (principal) | CPT/HCPCS: 87086 ==

== ENCOUNTER 2023-02-08 07:45 | Outpatient (CLI) | payer OTHER ==
[2023-02-08 16:38] LABS: CHLAMYDIA TRACHOMATIS DNA NEGATIVE (NEGATIVE); NEISSERIA GONORRHOEAE DNA NEGATIVE (NEGATIVE)
[2023-02-08 20:24] LABS: BACTERIAL VAGINOSIS DNA POSITIVE (NEGATIVE); CANDIDA GLABRATA DNA NEGATIVE (NEGATIVE); CANDIDA GROUP DNA POSITIVE (NEGATIVE); CANDIDA KRUSEI DNA NEGATIVE (NEGATIVE); TRICHOMONAS VAGINALIS DNA NEGATIVE (NEGATIVE)
== END 2023-02-08 08:00 | disposition home or self-care (01) ==
LOC: LAB.N 07:45
PROVIDERS: ATTEND Family Medicine
DX: L29.2 Pruritus vulvae (principal); Z11.3 Encounter for screening for infections with a predominantly sexual mode of transmission
CPT/HCPCS: 81514; 86592; 86695; 86696; 86803; 87491; 87591; 87661

== ENCOUNTER 2023-02-23 12:33 | Emergency (ER) | payer OTHER ==
[2023-02-23 13:01] VITALS: BP 124/84; O2SAT 100
--- NOTE | 2023-02-23 14:27 | ED Physician Documentation ---
PD HPI MHE - Stated complaint Stated Complaint: MED REFILL - Chief complaint Chief Complaint: MHE - History obtained from History obtained from: Patient - Additional information Additional information: 37-year-old woman has been lost to follow-up by her primary care physician due to the combination of missed appointments and other confusion. She is been out of her clonazepam for months and request a refill as she is having acute anxiety. No SI or HI. Currently safe. Of note our quality department called the department here prior to the patient being seen and because of previous issues had requested that if a male provider was present he be accompanied by a female nurse. My single and only interaction with the patient was done with Jessie our charge nurse present for the entire time. 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 HEENT: None Psych: Depression, Anxiety Musculoskeletal: None Derm: None - Past Surgical History Past Surgical History: Yes General: Other HEENT: Rhinoplasty - Present Medications Home Medications: Ambulatory Orders Medication Instructions Recorded Confirmed Cetirizine [ZyrTEC] 10 mg PO DAILY 07/30/15 09/26/22 DULoxetine [Cymbalta] 30 mg PO DAILY 07/30/15 09/26/22 Prazosin [Minipress] 1 mg PO QPM 07/30/15 09/26/22 Fluticasone [Flonase] 1 sprays CHAR BID 05/10/17 09/26/22 Ustekinumab [Stelara] 45 mg SUBQ ONCE 02/02/18 02/28/22 Ondansetron Odt [Zofran] 4 mg TL Q6H PRN #10 tablet 08/17/22 Esomeprazole Magnesium [Nexium] 40 mg PO DAILY PM 09/26/22 09/26/22 Meclizine HCl [Motion Sickness] 25 mg PO Q6H PRN #30 tablet 09/26/22 Ondansetron Odt [Zofran] 4 mg TL Q6H PRN #10 tablet 09/26/22 clonazePAM [Clonazepam] 0.5 mg PO DAILY PRN 09/26/22 09/26/22 dexAMETHasone [Decadron] 4 mg PO DAILY #5 tablet 09/26/22 diazePAM [Valium] 5 mg PO TID PRN #20 tablet 09/26/22 clonazePAM [Clonazepam] 0.5 mg PO DAILY PRN #30 tab 02/23/23 - Allergies Allergies/Adverse Reactions: Allergies Allergy/AdvReac Type Severity Reaction Status Date / Time olopatadine [From Patanol] Allergy Edema Verified 02/23/23 12:56 sumatriptan Allergy Edema Verified 02/23/23 12:56 - Social History Does the pt smoke?: No Smoking Status: Never smoker Does the pt drink ETOH?: Yes Does the pt have substance abuse?: Yes - Immunizations Immunizations are current?: Yes - POLST Patient has POLST: No PD ED PE NORMAL - Vitals Vital signs reviewed: Yes - General General: Alert and oriented X 3, No acute distress - Neuro Neuro: Alert and oriented X 3, Normal speech Eye Opening: Spontaneous Motor: Obeys Commands Verbal: Oriented GCS Score: 15 - Psych Psych: Normal mood, Normal affect Results - Vitals Vitals: Vital Signs - 24 hr 02/23/23 12:50 Temperature 37.1 C Heart Rate 92 Respiratory 16 Rate Blood Pressure 124/84 H O2 Saturation 100 Oxygen O2 Source Room air PD Medical Decision Making - ED course ED course: I discussed with the patient that we would be happy to refill her clonazepam but refills from the emergency department would be limited and she does need to establish primary care. Departure - Departure Disposition: 01 Home, Self Care Clinical Impression: Anxiety Condition: Good Record reviewed to determine appropriate education?: Yes Instructions: ED Stress React Prescriptions: clonazePAM [Clonazepam] 0.5 mg PO DAILY PRN #30 tab PRN Reason: Anxiety Comments: I sent your prescription electronically to the [facility] in [place]. Do not drink or drive while taking clonazepam. Follow-up with your new psychiatrist next week as scheduled. Return for new or worsening symptoms. Forms: PCP List
== END 2023-02-23 14:50 | disposition home or self-care (01) ==
LOC: ED 12:33
DX: F41.9 Anxiety disorder, unspecified (principal); Z76.0 Encounter for issue of repeat prescription; Z79.899 Other long term (current) drug therapy
CPT/HCPCS: 99281; 99283

== ENCOUNTER 2023-11-02 18:39 | Emergency (ER) | payer OTHER ==
[2023-11-02 19:15] LABS: BASOPHILS % (AUTO) 0.3 %; EOSINOPHILS # (AUTO) 0.1 10^3/uL (0.0-0.7); EOSINOPHILS % (AUTO) 0.6 %; HCT - HEMATOCRIT 43.1 % (37.0-47.0); HGB - HEMOGLOBIN 14.1 g/dL (12.0-16.0); LYMPHOCYTES # (AUTO) 2.9 10^3/uL (1.5-3.5); LYMPHOCYTES % (AUTO) 24.8 %; MEAN CORPUSCULAR HEMOGLOBIN 29.3 pg (27.0-31.0); MEAN CORPUSCULAR HGB CONC 32.7 g/dL (32.0-36.0); MEAN CORPUSCULAR VOLUME 89.6 fL (81.0-99.0); MEAN PLATELET VOLUME 9.2 fL (7.9-10.8); MONOCYTES # (AUTO) 0.8 10^3/uL (0.0-1.0); NEUTROPHILS # (AUTO) 7.7 10^3/uL (1.5-6.6); NEUTROPHILS % (AUTO) 66.9 %; PLT - PLATELET COUNT 290 10^3/uL (130-450); RED BLOOD COUNT 4.81 10^6/uL (4.20-5.40); RED CELL DISTRIBUTION WIDTH 14.4 % (12.0-15.0); WHITE BLOOD COUNT 11.5 x10^3/uL (4.8-10.8)
[2023-11-02 19:51] LABS: ALBUMIN 4.2 g/dL (3.2-5.5); ALBUMIN/GLOBULIN RATIO 1.6 (1.0-2.2); BILIRUBIN,TOTAL 0.5 mg/dL (0.2-1.0); CALCIUM 9.2 mg/dL (8.5-10.3); CREATININE 0.9 mg/dL (0.6-1.3); POTASSIUM 3.5 mmol/L (3.5-4.5); TOTAL PROTEIN 6.9 g/dL (6.4-8.9)
--- NOTE | 2023-11-02 20:58 | ED Physician Documentation ---
PD HPI ABD PAIN - Stated complaint Stated Complaint: GI - Chief complaint Chief Complaint: Abd Pain - History obtained from History obtained from: Patient - Additional information Additional information: 38-year-old woman with Crohn's. Has been on Stelara in the past but that actually made her worse. More recently developed which she thinks was a partial small bowel obstruction and has been on prednisone for about 2 weeks with the current dose of 20 mg. Despite that she has severe diffuse abdominal pain, small thin stools without blood. She has been nauseous and vomiting. Denies fevers. 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 HEENT: None Psych: Depression, Anxiety Musculoskeletal: None Derm: None - Past Surgical History Past Surgical History: Yes General: Other HEENT: Rhinoplasty - Present Medications Home Medications: Ambulatory Orders Medication Instructions Recorded Confirmed Cetirizine [ZyrTEC] 10 mg PO DAILY 07/30/15 09/26/22 DULoxetine [Cymbalta] 30 mg PO DAILY 07/30/15 09/26/22 Prazosin [Minipress] 1 mg PO QPM 07/30/15 09/26/22 Fluticasone [Flonase] 1 sprays CHAR BID 05/10/17 09/26/22 Ustekinumab [Stelara] 45 mg SUBQ ONCE 02/02/18 02/28/22 Ondansetron Odt [Zofran] 4 mg TL Q6H PRN #10 tablet 08/17/22 Esomeprazole Magnesium [Nexium] 40 mg PO DAILY PM 09/26/22 09/26/22 Meclizine HCl [Motion Sickness] 25 mg PO Q6H PRN #30 tablet 09/26/22 Ondansetron Odt [Zofran] 4 mg TL Q6H PRN #10 tablet 09/26/22 clonazePAM [Clonazepam] 0.5 mg PO DAILY PRN 09/26/22 09/26/22 dexAMETHasone [Decadron] 4 mg PO DAILY #5 tablet 09/26/22 diazePAM [Valium] 5 mg PO TID PRN #20 tablet 09/26/22 clonazePAM [Clonazepam] 0.5 mg PO DAILY PRN #30 tab 11/03/23 - Allergies Allergies/Adverse Reactions: Allergies Allergy/AdvReac Type Severity Reaction Status Date / Time olopatadine [From Patanol] Allergy Edema Verified 11/02/23 18:44 sumatriptan Allergy Edema Verified 11/02/23 18:44 - Social History Does the pt smoke?: No Smoking Status: Never smoker Does the pt drink ETOH?: No Does the pt have substance abuse?: No - Immunizations Immunizations are current?: Yes - POLST Patient has POLST: No PD ED PE NORMAL - Vitals Vital signs reviewed: Yes - General General: Alert and oriented X 3, No acute distress - Abdomen Abdomen: Normal bowel sounds, Soft, Other (Mild diffuse tenderness without surgical signs.) - Neuro Neuro: Alert and oriented X 3 Eye Opening: Spontaneous Motor: Obeys Commands Verbal: Oriented GCS Score: 15 Results - Vitals Vitals: Vital Signs - 24 hr 11/02/23 11/03/23 18:45 00:45 Temperature 36.7 C Heart Rate 88 87 Respiratory 20 16 Rate Blood Pressure 124/84 H 123/74 O2 Saturation 100 96 Oxygen O2 Source Room air - Labs Labs: Laboratory Tests 11/02/23 11/02/23 19:05 19:05 WBC 11.5 H RBC 4.81 Hgb 14.1 Hct 43.1 MCV 89.6 MCH 29.3 MCHC 32.7 RDW 14.4 Plt Count 290 MPV 9.2 Neut # (Auto) 7.7 H Lymph # (Auto) 2.9 Crawford # (Auto) 0.8 Eos # (Auto) 0.1 Baso # (Auto) 0.0 Absolute Nucleated RBC 0.00 Nucleated RBC % 0.0 Sodium 137 Potassium 3.5 Chloride 102 Carbon Dioxide 29 Anion Gap 6.0 BUN 19 Creatinine 0.9 Estimated GFR (MDRD) 70 L Glucose 116 H Calcium 9.2 Total Bilirubin 0.5 AST 11 ALT 12 Alkaline Phosphatase 40 L Total Protein 6.9 Albumin 4.2 Globulin 2.7 Albumin/Globulin Ratio 1.6 Lipase 153 H PD Medical Decision Making - ED course ED course: 38-year-old woman with Crohn's with exacerbation of abdominal pain. She very much wanted to go ahead with CT imaging tonight. which was ordered with IV and oral contrast. CBC notable for mild leukocytosis. CMP generally unremarkable save modest elevation of lipase not to an extent consistent with pancreatitis I think. Care to Dr. Alvarez at [address] change [address] imaging and reevaluation. Departure - Departure Disposition: 01 Home, Self Care Clinical Impression: Abdominal pain Qualifiers: Abdominal location: generalized Qualified Code(s): R10.84 - Generalized ab dominal pain Acute Crohn's disease Qualifiers: Digestive disease complication type: without complication Qualified Code(s): K50.90 - Crohn's disease, unspecified, without complications Condition: Stable Instructions: ED Inflam Bowel Disease Crohn Discharge Date/Time: 11/03/23 02:06
[2023-11-02] MEDS ORDERED: iohexoL-300 100 ML VIAL ONE (21:11)
[2023-11-02] MEDS: HYDROmorphone 1 MG/ML CARPUJECT IVP STA (22:07)
[2023-11-02] MEDS: ONDANSETRON 4 MG/2 ML VIAL IVP STA (22:07)
[2023-11-02] MEDS ORDERED: DIATRIZOATE MEGLU/DIATRIZO SOD 30 ML BOTTLE PO ONE (22:10)
[2023-11-02] MEDS: SODIUM CHLORIDE 0.9% 1,000 ML IV STA (22:19)
[2023-11-02] MEDS: iohexoL-300 100 ML VIAL IVP ONE (23:37)
[2023-11-02] MEDS: DIATRIZOATE MEGLU/DIATRIZO SOD 30 ML BOTTLE PO ONE (23:38)
[2023-11-03 00:49] VITALS: BP 123/74; O2SAT 96
--- NOTE | 2023-11-03 01:29 | CT Report ---
PROCEDURE: Abdomen/Pelvis W INDICATIONS: iv and po, abd pain, crohns CONTRAST: 100 ML OMNI 300 TECHNIQUE: After the administration of intravenous contrast, a CT scan of the abdomen and pelvis was performed. Images were recorded and evaluated at appropriate window settings. Reformats: coronal and sagittal. F or radiation dose reduction, the following was used: automated exposure control, adjustment of mA and /or kV according to patient size. COMPARISON: CT abdomen pelvis 12/23/2021. FINDINGS: Image quality: Diagnostic. Lower chest: Unremarkable. Liver: No solid mass. Gallbladder: No radiopaque stones or wall thickening. Biliary tree: No intrahepatic or extrahepatic dilation, accounting for age. Spleen: No splenomegaly. Pancreas: No pancreatic ductal dilation. Adrenals: No adrenal nodule. Kidneys and ureters: No hydronephrosis. No renal cystic lesion which requires follow up. No solid mas s. Stomach, bowel and peritoneum: No small bowel obstruction. Distal ileum wall thickening consistent wi th history of Crohn's. Lymph nodes: No central or retroperitoneal adenopathy. Vessels: No infrarenal aortic aneurysm. Patent portal vein. PELVIS Reproductive organs: IUD is present. Probable right corpus luteum cyst.. Bladder: No abnormal wall thickening, accounting for underdistention. Pelvic lymph nodes: No pelvic adenopathy by size criteria. Bones: No aggressive osseous abnormality. Other: No significant ventral or inguinal hernia. IMPRESSION: Distal ileum segmental wall thickening consistent with history of Crohn's. No associated bowel wall o bstruction or fluid collection. Reviewed by: Erin Jenkins MD, PhD on 11/03/2023 1:27 AM PDT Approved by: Erin Jenkins MD, PhD on 11/03/2023 1:27 AM PDT Station ID: [id number]
--- NOTE | 2023-11-03 03:03 | ED Physician Documentation ---
ED Addendum - Addendum Addendum: 11/03/23 02:46 I received signout/turnover of care on this patient from Dr. Goss; please see his note for complete H&P. In short, patient's past medical history includes Crohn's disease and she presented to the emergency department today for abdominal pain. At the time of turnover of care, the only test result pending is CT of the abdomen and pelvis. The CT is interpreted by the radiologist as "distal ileum segmental wall thickening consistent with history of Crohn's. No associated bowel wall obstruction or fluid collection." I discussed this result with the patient. I explained to her that the findings are consistent with Crohn's flare without complication (such as perforation or abscess). Unexpectedly and suddenly, the patient is angry and crying. She says she has been in the emergency department for 7 hours and no one has addressed her pain. She expresses frustration with findings that do not explain her symptoms; I reiterated that the CT scan does reflect a Crohn's flare which are typically painful. She wants to know why she feels bloated, why she has reflux and eructation. She says she has been seen by GI specialists and ER practitioners and she feels no one has provided any answers for her. I asked her who her otc clerk is, and she says she currently does not have one; she says her previous GI physician retired as did the one before that and she has her first meeting with a new otc clerk at the end of this month and feels she has to "start all over again". The patient continued to angrily express her frustrations with both today's ER visit as well as her overall experience with testing and treatment of these episodes. I eventually had to excuse myself from the room, as patient seemed intent on unleashing anger and frustration rather than engaging in discussion regarding symptomatic control and disposition. As I left the room, I told patient that I would return as soon as she is ready to engage in productive conversation. Shortly thereafter, patient came to the nurse's station desk where I was standing, told me she didn't want my help and was leaving, and then walked out. The person accompanying her stayed behind and said patient already took the IV out and he would sign for her d/c.
== END 2023-11-03 02:06 | disposition home or self-care (01) ==
LOC: ED 18:39
DX: K50.90 Crohn's disease, unspecified, without complications (principal)
CPT/HCPCS: 36415; 74177; 80053; 83690; 85025; 99283; 99284; J1170; Q9963; Q9967